=== PATIENT | male | born 1950 | race Caucasian/White ===

== ENCOUNTER → 2017-10-04 | Outpatient (CLI) | payer OTHER ==
--- NOTE | 2017-10-05 19:28 | RADIOLOGY REPORT (SQ) ---
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 TECHNIQUE: Blood glucose level was verified. Above dose of FDG was injected intravenously. 2-D seg mented attenuation correction images were obtained from the base of the skull to the midthighs. Nonc ontrast CT images were obtained for attenuation correction and fusion with emission images. CT image s were performed without oral or intravenous contrast and are not sensitive for parenchymal lesions. A series of overlapping emission PET images were obtained. Images reviewed and manipulated at [facility] by the radiologist. Images stored on PACS. LIMITATIONS: None. FINDINGS: HEAD AND NECK: Hypermetabolic adenopathy is seen in the submandibular region bilaterally. On the right, a 1.7 x 1.1 cm hypermetabolic lymph node is present with SUV 6.4. On the left, a 2.2 x 1 cm submandibular lymph node is present with SUV 6.2. There is a 2.1 x 1.8 cm left supraclavicular lymph node with SUV of 15. CHEST: Multiple chest wall nodules are present along the subcutaneous fat, the largest and most metab olically active is 2.1 x 1.4 cm in size on axial image 94 with SUV of 8.8. A hypermetabolic right axillary lymph node 2.7 x 0.9 cm is present with SUV 3.4. A 2.8 x 2.7 cm pretracheal lymph node is present with SUV 10.3. There is a diffuse rind of hypermetabolic tissue in the pericardium, measuring 2.5 cm in greatest thi ckness with SUV 8.6. ABDOMEN AND PELVIS: Retroperitoneal conglomerate adenopathy is present along the dorsal aspect of the inferior vena cava and right renal vein, 5.9 x 5.7 cm in size with SUV of 14. There is a left retroperitoneal mass dorsal to the lower pole left kidney, 4.4 x 3 cm in size with WATT V of 9. A 3 x 2.5 cm nodule is present just ventral to the abdominal aorta and vena cava at the root of mesen teries with SUV 10.7. Along the inferior right psoas muscle in the pelvis, a 5.5 x 5.3 cm soft tissue mass is present with SUV 11.3. A left inguinal lymph node is present adjacent to the internal inguinal ring, 2.2 x 1.8 cm in size wi th SUV of 10.2. PROXIMAL LOWER EXTREMITIES: No areas of abnormal metabolic activity in the soft tissues of the lower extremities. BONES: No abnormal metabolic activity in the visualized skeleton. ADDITIONAL CT FINDINGS: 2.5 cm left lower pole renal cortical cyst. 1.5 cm cyst left lobe liver. OTHER: Liver background activity 1.7 SUV. Blood pool background activity 1.2 SUV IMPRESSION: Soft tissue masses and adenopathy over the neck chest abdomen pelvis compatible with his tory of lymphoma TECHNICAL DOCUMENTATION: JOB ID: [id number] [employer] ([employer])- All Rights Reserved Reading location - IP/workstation name: [email or web address]
== END ==
LOC: RAD 16:00
PROVIDERS: ATTEND Internal Medicine
DX: C82.18 Follicular lymphoma grade II, lymph nodes of multiple sites (principal)
CPT/HCPCS: 78815; A9552

== ENCOUNTER 2017-11-05 08:04 | Outpatient (CLI) | payer OTHER ==
[~2017-11-05 08:04] MED LIST: ACETAMINOPHEN 325 MG TABLET PO PRN; BENDAMUSTINE HCL IV PRN; DEXAMETHASONE SOD PHOSPHATE 10 MG in DEXTROSE 5%-WATER 50 ML IV PRN; DEXAMETHASONE SOD PHOSPHATE 10 MG in NORMAL SALINE 50 ML IV PRN; DIPHENHYDRAMINE HCL 50 MG in NORMAL SALINE 50 ML IV PRN; NORMAL SALINE 1000 ML 1,000 ML IV PRN; NORMAL SALINE IV PRN; PALONOSETRON 0.25 MG/5 ML SDV IV PRN; RITUXIMAB IV PRN
[2017-11-05 09:28] VITALS: BP 116/66
[2017-11-05] MEDS ORDERED: DIPHENHYDRAMINE HCL 50 MG/ML VIAL ONE (12:50)
== END 2017-11-05 16:00 | disposition home or self-care (01) ==
LOC: II 08:04 → 5TH 08:10 → II 16:00
PROVIDERS: ATTEND Internal Medicine
PROC: 3E03305 Introduction of Other Antineoplastic into Peripheral Vein, Percutaneous Approach (ICD-10-PCS; principal; 2017-11-05)
PROC: 3E0330M Introduction of Antineoplastic, Monoclonal Antibody, into Peripheral Vein, Percutaneous Approach (ICD-10-PCS; 2017-11-05)
PROC: 3E0333Z Introduction of Anti-inflammatory into Peripheral Vein, Percutaneous Approach (ICD-10-PCS; 2017-11-05)
PROC: 3E033GC Introduction of Other Therapeutic Substance into Peripheral Vein, Percutaneous Approach (ICD-10-PCS; 2017-11-05)
DX: Z51.11 Encounter for antineoplastic chemotherapy (principal); C82.18 Follicular lymphoma grade II, lymph nodes of multiple sites
CPT/HCPCS: 96413; 96415; 96367; 96375; 96417; J1200; J7040; J9310 ×2; J1100; J9033; J2469; 96360

== ENCOUNTER 2017-11-06 07:52 | Outpatient (CLI) | payer OTHER ==
[~2017-11-06 07:52] MED LIST changes: -ACETAMINOPHEN 325 MG TABLET PO PRN; -DEXAMETHASONE SOD PHOSPHATE 10 MG in DEXTROSE 5%-WATER 50 ML IV PRN; -DEXAMETHASONE SOD PHOSPHATE 10 MG in NORMAL SALINE 50 ML IV PRN; -DIPHENHYDRAMINE HCL 50 MG in NORMAL SALINE 50 ML IV PRN; +ONDANSETRON HCL/PF 16 MG, DEXAMETHASONE SOD PHOSPHATE 10 MG in NORMAL SALINE 50 ML IV PRN; -PALONOSETRON 0.25 MG/5 ML SDV IV PRN; -RITUXIMAB IV PRN
[2017-11-06 08:23] VITALS: BP 129/78
== END 2017-11-06 10:30 | disposition home or self-care (01) ==
LOC: II 07:52 → 5TH 07:52 → II 10:30
PROVIDERS: ATTEND Internal Medicine
PROC: 3E03305 Introduction of Other Antineoplastic into Peripheral Vein, Percutaneous Approach (ICD-10-PCS; principal; 2017-11-06)
PROC: 3E0333Z Introduction of Anti-inflammatory into Peripheral Vein, Percutaneous Approach (ICD-10-PCS; 2017-11-06)
PROC: 3E033GC Introduction of Other Therapeutic Substance into Peripheral Vein, Percutaneous Approach (ICD-10-PCS; 2017-11-06)
DX: Z51.11 Encounter for antineoplastic chemotherapy (principal); C82.18 Follicular lymphoma grade II, lymph nodes of multiple sites
CPT/HCPCS: 96413; 96367; J2405; J7040; J1100; J9033; 96360

== ENCOUNTER 2017-11-15 11:41 | Inpatient (IN) | payer OTHER, MEDICARE ==
[2017-11-15] MEDS ORDERED: NORMAL SALINE 1000 ML 1,000 ML IV PRN ×3 (12:04→15:06)
[2017-11-15] MEDS ORDERED: PIPERACILLIN/TAZOBACTAM 4.5 GM VIAL IV ONE (12:13)
--- NOTE | 2017-11-15 12:25 | ER Document Report ---
ED Fever - General Chief Complaint: Fever Stated Complaint: BLOOD PRESSURE ISSUES Time Seen by Provider: 11/15/17 11:52 Mode of Arrival: Ambulatory Information source: Patient, Relative, DrRanulfo Office TRAVEL OUTSIDE OF THE [place] IN LAST 30 DAYS: No - HPI Onset: Yesterday - MILD WEAKNESS & VAGUE MALAISE 2d AGO Onset/Duration: Gradual Quality of pain: No pain Context: Cancer - NON-HODGKINS LYMPHOMA Associated symptoms: Fever, Sore throat, Sweating, Weakness. denies: Productive cough, Diarrhea, Vomiting Similar symptoms previously: Yes - YEARS AGO, SEVERE CMV INFECTIOON Recently seen / treated by doctor: Yes - CHEMO Tx 9d AGO - Related Data Allergies/Adverse Reactions: Sulfa (Sulfonamide Antibiotics) Allergy (Verified 11/15/17 11:42) Past Medical History - General Information source: Patient - Social History Smoking Status: Former Smoker Cigarette use (# per day): No Chew tobacco use (# tins/day): No Frequency of alcohol use: Occasional Drug Abuse: None Lives with: Family Family History: Arthritis, CAD, CVA, Hyperlipidemia, Hypertension, Malignancy Patient has suicidal ideation: No Patient has homicidal ideation: No - Past Medical History Cardiac Medical History: Reports: Hx Hypertension Pulmonary Medical History: Reports: None EENT Medical History: Reports: None Neurological Medical History: Reports: None Endocrine Medical History: Reports: None Renal/ Medical History: Reports: None Malignancy Medical History: Reports Hx Lymphoma, Reports Hx Skin Cancer GI Medical History: Reports: Hx Colonoscopy Musculoskeletal Medical History: Reports Hx Musculoskeletal Trauma - Sprained ankle Skin Medical History: Reports Hx Psoriasis Psychiatric Medical History: Reports: None Past Surgical History: Reports: Hx Oral Surgery, Hx Tonsillectomy - Immunizations Immunizations up to date: Yes Hx Diphtheria, Pertussis, Tetanus Vaccination: Yes Review of Systems - Review of Systems Constitutional: See HPI EENT: See HPI Cardiovascular: No symptoms reported Respiratory: No symptoms reported Gastrointestinal: Poor appetite. denies: Diarrhea Genitourinary: No symptoms reported Musculoskeletal: No symptoms reported Skin: No symptoms reported Neurological/Psychological: See HPI. denies: Headaches Physical Exam - Vital signs Vitals: Temp Pulse Resp BP Pulse Ox 99.2 F 81 20 72/50 L 99 11/15/17 11:50 11/15/17 11:50 11/15/17 11:50 11/15/17 11:50 11/15/17 11:50 Interpretation: Hypotensive, Tachycardic. No: Tachypneic, Febrile - General General appearance: Appears well, Alert In distress: None - HEENT Head: Normocephalic Eyes: Normal. No: Pale conjunctiva Conjunctiva: Normal Ears: Normal Nasal: Normal Mouth/Lips: Normal Mucous membranes: Normal Pharynx: Erythema - MILD Neck: Normal, Supple - Respiratory Respiratory status: No respiratory distress Breath sounds: Normal - Cardiovascular Rhythm: Irregularly irregular, Tachycardia Heart sounds: Normal auscultation Murmur: No - Abdominal Inspection: Normal Distension: No distension Bowel sounds: Normal - Back Back: Normal - Extremities General upper extremity: Other - PALLOR OF DISTAL 2 PHALANGES OF ALL FINGERS R. HAND, FINGERS #3 AND 4 L. HAND. No: Normal inspection Hand: No: Normal - SEE ABOVE - Neurological Neuro grossly intact: Yes Cognition: Normal Orientation: AAOx4 - Psychological Associated symptoms: Normal affect, Normal mood - Skin Skin Temperature: Warm Skin Moisture: Dry Skin Color: Normal Skin Turgor: Elastic Course - Vital Signs Vital signs: Temp Pulse Resp BP Pulse Ox 99.2 F 81 24 H 93/67 L 97 11/15/17 11:50 11/15/17 11:50 11/15/17 13:01 11/15/17 13:01 11/15/17 13:01 - Laboratory Result Diagrams: 11/15/17 12:10 11/15/17 12:10 Laboratory results interpreted by me: 11/15/17 11/15/17 11/15/17 12:10 12:10 12:10 WBC 13.1 H MCV 99 H MCH 34.1 H RDW 15.5 H Potassium 3.5 L BUN 26 H Creatinine 1.67 H Est GFR ( Amer) 50 L Est GFR (Non-Af Amer) 41 L Glucose 149 H Lactic Acid 2.6 H AST 65 H ALT 80 H Creatine Kinase 11/15/17 12:10 WBC MCV MCH RDW Potassium BUN Creatinine Est GFR ( Amer) Est GFR (Non-Af Amer) Glucose Lactic Acid AST ALT Creatine Kinase 33 L - EKG Interpretation by Me EKG shows normal: abnormal: Sinus rhythm, ST-T Waves - ANT/LAT REPOL ABNL, ? ISCHEMIC Rate: Tachycardia Rhythm: A.Fib - Consults DR. NAVARRETE Time consulted: 13:38 Consulted provider: will see as inpatient Will SALAS NP Time consulted: 13:44 Consulted provider: will come to ER Critical Care Note - Critical Care Note Total time excluding time spent on procedures (mins): 60 Comments: HYPOTENSION, INFECTION WITH UNKNOWN SOURCE, UNSTABLE CARDIAC RHYTHM. AGGRESSIVE INTERVENTIONS WITH INTRAVENOUS MEDICATIONS NECESSARY TO STABILIZE. FREQUENT RE-EVALUATIONS, MULTIPLE TELEPHONE CONSULTATIONS. Discharge - Discharge Clinical Impression: SIRS (systemic inflammatory response syndrome), Atrial fibrillation with rapid ventricular response Fever Qualifiers: Fever type: unspecified Qualified Code(s): R50.9 - Fever, unspecified Lymphoma Qualifiers: Lymphoma type: non-Hodgkin Non-Hodgkin lymphoma type: follicular Follicular lymphoma grade: unspecified grade Condition: Fair Disposition: ADMITTED INPATIENT Admitting Provider: Hospitalist Unit Admitted: [facility]
[2017-11-15 12:32] LABS: ABSOLUTE EOSINOPHILS # (AUTO) 0.3 10^3/uL (0.0-0.6); ABSOLUTE LYMPHOCYTES (AUTO) 4.4 10^3/uL (0.5-4.7); ABSOLUTE MONOCYTES (AUTO) 0.9 10^3/uL (0.1-1.4); ABSOLUTE NEUT (AUTO) 7.6 10^3/uL (1.7-8.2); BASOPHILS % (AUTO) 0.2 % (0-2); HEMATOCRIT 44.6 % (37.9-51.0); HEMOGLOBIN 15.4 g/dL (13.5-17.0); LYMPHOCYTES % (AUTO) 33.4 % (13-45); MEAN CORPUSCULAR HEMOGLOBIN 34.1 pg (27.0-33.4); MEAN CORPUSCULAR HGB CONC 34.5 g/dL (32.0-36.0); MEAN CORPUSCULAR VOLUME 99 fl (80-97); MONOCYTES % (AUTO) 6.6 % (3-13); PLATELET COUNT 156 10^3/uL (150-450); RED BLOOD COUNT 4.52 10^6/uL (4.35-5.55); RED CELL DISTRIBUTION WIDTH 15.5 % (11.5-14.0); SEGMENTED NEUTROPHILS % (AUTO) 57.8 % (42-78); TOTAL CELLS COUNTED % (AUTO) 100 %; WHITE BLOOD COUNT 13.1 10^3/uL (4.0-10.5)
--- NOTE | 2017-11-15 12:53 | RADIOLOGY REPORT (SQ) ---
EXAM DESCRIPTION: CHEST SINGLE VIEW COMPLETED DATE/TIME: 11/15/2017 12:34 pm REASON FOR STUDY: FEVER, NEUTROPENIA COMPARISON: 2016 CT. 2008 radiographs. NUMBER OF VIEWS: One view. TECHNIQUE: Single frontal radiographic view of the chest acquired. LIMITATIONS: None. FINDINGS: LUNGS AND PLEURA: No opacities, masses or pneumothorax. No pleural effusion. MEDIASTINUM AND HILAR STRUCTURES: No masses. Contour normal. HEART AND VASCULAR STRUCTURES: Heart normal in size. Normal vasculature. BONES: No acute findings. HARDWARE: None in the chest. OTHER: No other significant finding. IMPRESSION: NO SIGNIFICANT RADIOGRAPHIC FINDING IN THE CHEST. TECHNICAL DOCUMENTATION: JOB ID: [id number] [employer]- All Rights Reserved Reading location - IP/workstation name: [email or web address]
[2017-11-15 12:57] LABS: CREATINE KINASE MB 0.61 ng/mL (<4.55)
[2017-11-15 13:04] LABS: TROPONIN I 0.07 ng/mL
[2017-11-15 13:06] LABS: ALANINE AMINOTRANSFERASE 80 U/L (21-72); ALKALINE PHOSPHATASE 63 U/L (38-126); ANION GAP 12 (5-19); ASPARTATE AMINO TRANSFERASE 65 U/L (17-59); BILIRUBIN,DIRECT 0.3 mg/dL (0.0-0.4); BILIRUBIN,TOTAL 0.9 mg/dL (0.2-1.3); BLOOD UREA NITROGEN 26 mg/dL (7-20); CALCIUM 9.2 mg/dL (8.4-10.2); CARBON DIOXIDE 28 mmol/L (22-30); CHLORIDE 102 mmol/L (98-107); GLUCOSE 149 mg/dL (75-110); LIPASE 56.6 U/L (23-300); POTASSIUM 3.5 mmol/L (3.6-5.0); TOTAL PROTEIN 7.2 g/dL (6.3-8.2)
[2017-11-15] MEDS ORDERED: CEFEPIME 2 GM/D5W RTU 2 GM/50 ML RTUPB IV ONE ×2 (13:30→23:20)
[2017-11-15] MEDS ORDERED: VANCOMYCIN HCL INJ 1000 MG VIAL IV ONE (13:37)
[2017-11-15 14:59] LABS: APPEARANCE,URINE CLEAR; BILIRUBIN,URINE NEGATIVE (NEGATIVE); COLOR,URINE YELLOW; GLUCOSE, URINE NEGATIVE (NEGATIVE); KETONES,URINE NEGATIVE (NEGATIVE); LEUKOCYTE ESTERASE,URINE NEGATIVE (NEGATIVE); NITRITE,URINE NEGATIVE (NEGATIVE); PROTEIN,URINE NEGATIVE (NEGATIVE); UROBILINOGEN,URINE NEGATIVE mg/dL (<2.0)
[2017-11-15] MEDS ORDERED: NORMAL SALINE 1000 ML 2,000 ML IV ONE (15:14)
[2017-11-15] MEDS: ACETAMINOPHEN 325 MG TABLET PO PRN ×2 (16:27→22:56)
[2017-11-15] MEDS ORDERED: ENOXAPARIN SODIUM INJ 30 MG/0.3 ML DISP.SYRIN SUBCUT ONE (17:00)
--- NOTE | 2017-11-15 17:11 | PDOC H&P ---
History of Present Illness Admission Date/PCP: 11/15/17 14:00 NAHOMI LAWSON MD Patient complains of: WEAKNESS AND FEVER History of Present Illness: KRUPA VERMA is a 66 year old male who presented to the emergency department with a 3 day history of fever and weakness. The patient has a history of non- Hodgkin's lymphoma (followed by Dr. Crump) and received his first chemotherapy treatment 11/06/2017. The patient reports he was febrile and not feeling well on Thursday11/13/2017, was seen at Dr. Crump's office and sent home with a prescription for Levaquin. Shortly after taking his 1st dose of Levaquin, the patient developed an allergic reaction of hives covering his trunk and petechiae on his lower extremities. Patient stopped taking the Levaquin. Reports his fever and generalized weakness became worse over the weekend. The patient reports he took Tylenol and Benadryl in an attempt to alleviate his symptoms, but they offered no relief. The patient was unable to get out of bed today due to his weakness, this prompted the to bring him to the emergency department. PMH non-Hodgkin's lymphoma, HTN, squamous cell skin carcinoma, cytomegalovirus ( 15+ yrs ago) Upon arrival to the ED, the patient's vital signs were BP 72/50 HR 81 RR 20 T 99.2 SPO2 99%. EKG shows AFIB with RVR, inverted T waves in leads V1-V6. CXR benign. +leukocytosis (WBC 13.1). Creatinine 1.67. Lactate 2.6. Urinalysis negative. All other lab work benign. The patient endorses generalized weakness, dizziness upon standing, fever, chills, and a single episode of watery diarrhea this morning. He denies chest pain, SOB, abdominal pain, or N/V. In addition to his generalized weakness, the patient endorses urinary frequency since his chemotherapy treatment. Patient states he was placed on a medication (unknown name) by Dr. Mitchell that results in frequent urination. He states that over the last few days he has noticed burning upon initiation of urination. While in the ED, the patient was given 2 L IVF. Empiric antibiotic coverage was initiated with IV Zosyn, vancomycin and cefepime. Upon assessment, the patient is resting comfortably in bed on room air. He is awake, alert and oriented 3. He is able to answer all questions appropriately and speak in full sentences without pause. His lungs are clear to auscultation. Irregular pulse rate. No murmur/rubs/gallops. No evidence of peripheral edema. Abdomen is soft, NT/ND. + BS. While interviewing the patient, his SBP began dropping from 110->88. Initiated another 2L IVF bolus. Due to his tenuous VS and overall unstable septic presentation, plan to admit patient to ICU. Past Medical History Cardiac Medical History: Reports: Hypertension Pulmonary Medical History: Reports: None EENT Medical History: Reports: None Neurological Medical History: Reports: None Endocrine Medical History: Reports: None Renal/ Medical History: Reports: None Malignancy Medical History: Reports: Lymphoma - NON-HODGKINS, Skin Cancer Skin Medical History: Reports: Psoriasis Psychiatric Medical History: Reports: None Past Surgical History Past Surgical History: Reports: Tonsillectomy, Other - SKIN BIOPSY Social History Information Source: Patient Lives with: Family Smoking Status: Former Smoker - 50 YEARS Frequency of Alcohol Use: Occasional Amount of Alcoholic Beverages Per Day: 1 Hx Recreational Drug Use: No Drugs: None Hx Prescription Drug Abuse: No - Advance Directive Resuscitation Status: Full Code Family History Family History: Arthritis, CAD, CVA, Hyperlipidemia, Hypertension, Malignancy Parental Family History Reviewed: Yes - HEART DISEASE Children Family History Reviewed: NA Sibling(s) Family History Reviewed.: Yes Medication/Allergy Home Medications: Allopurinol [Zyloprim 100 mg Tablet] 100 mg PO TID 11/15/17 Aspirin [Ecotrin 81 mg EC Tablet] 81 mg PO DAILY 11/15/17 Folic Acid 0.4 mg PO DAILY 11/15/17 Hydrocodone/Acetaminophen [Henderson 5-325 mg Tablet] 1 tab PO Q8HP PRN 11/15/17 Levofloxacin [Levaquin 500 mg Tablet] 500 mg PO DAILY 11/15/17 Losartan/Hydrochlorothiazide [Hyzaar 50-12.5 Tablet] 1 tab PO DAILY 11/15/17 Ondansetron HCl [Zofran 8 mg Tablet] 8 mg PO Q8 11/15/17 Promethazine HCl [Phenergan 25 mg Tablet] 25 mg PO Q4 11/15/17 Vitamin B Complex 1 cap PO DAILY 11/15/17 Allergies/Adverse Reactions: Sulfa (Sulfonamide Antibiotics) Allergy (Verified 11/15/17 11:42) Review of Systems All systems: reviewed and no additional remarkable complaints except as stated Physical Exam Vital Signs: Temp Pulse Resp BP Pulse Ox 99.2 F 81 20 96/67 L 97 11/15/17 11:50 11/15/17 11:50 11/15/17 14:31 11/15/17 14:31 11/15/17 14:31 Intake & Output 11/14/17 11/15/17 11/16/17 06:59 06:59 06:59 Intake Total 1050 Balance 1050 General appearance: PRESENT: no acute distress Head exam: PRESENT: atraumatic Eye exam: PRESENT: conjunctiva pink, PERRLA Mouth exam: PRESENT: moist Neck exam: PRESENT: full ROM Respiratory exam: PRESENT: clear to auscultation abad, symmetrical, unlabored Cardiovascular exam: PRESENT: irregular rhythm - AFIB WITH RVR, tachycardia. ABSENT: systolic murmur Pulses: PRESENT: normal radial pulses, normal dorsalis pedis pul GI/Abdominal exam: PRESENT: normal bowel sounds, soft. ABSENT: tenderness Rectal exam: PRESENT: deferred Extremities exam: PRESENT: full ROM. ABSENT: joint swelling, pedal edema Musculoskeletal exam: PRESENT: ambulatory, full ROM Neurological exam: PRESENT: alert, awake, oriented to person, oriented to place , oriented to time, oriented to situation, normal gait Psychiatric exam: PRESENT: appropriate affect Skin exam: PRESENT: dry, intact, normal color, warm Results Laboratory Results: 11/15/17 14:40 Urine Color YELLOW Urine Appearance CLEAR Urine pH 5.0 Ur Specific [place] 1.020 Urine Protein NEGATIVE Urine Glucose (UA) NEGATIVE Urine Ketones NEGATIVE Urine Blood SMALL H Urine Nitrite NEGATIVE Ur Leukocyte Esterase NEGATIVE Urine WBC (Auto) 3 Urine RBC (Auto) 3 Impressions: Chest X-Ray 11/15/17 12:03 IMPRESSION: NO SIGNIFICANT RADIOGRAPHIC FINDING IN THE CHEST. Status: Imported from PACS Assessment & Plan - Diagnosis (1) Sepsis Is this a current diagnosis for this admission?: Yes Plan: As evidence by fever (TMAX 104 at home), leukocytosis (WBC 13), tachycardia (110 -125), HYPOtension (SBP 88-95), and lactate 2.6 Unclear etiology at this time - no recent illness or ill contacts Differential diagnoses include - opportunistic infection in an immunosupressed patient, gastroenteritis, reoccurrence of latent cytomegalovirus Blood cultures pending CXR benign UA negative Stool culture ordered Empiric antibiotic coverage with Cefepime and Vancomycin Resuscitated with 4L IVF in ED Continue with LR @ 150mL/hr Plan for use of vasopressors if MAP < 60 (2) Atrial fibrillation with rapid ventricular response Is this a current diagnosis for this admission?: Yes Plan: No known history of AFIB, not on anticoagulation Arrhythmia possibly in response to sepsis, could also be undiagnosed AFIB. Patient reports he has not had en EKG in 'a number of years' EKG shows AFIB with RVR - HR 110-125. Inverted T waves in leads V1-V6. Troponin 0.070, continue to trend q6hr x 3 Cardiology consulted, appreciate their recommendations Due to elevated HR, plan for CTA chest to evaluate for PE once Creatinine is < 1.5 Initiate Lovenox 1mg/kg SC now (3) Lymphoma Qualifiers: Lymphoma type: non-Hodgkin Non-Hodgkin lymphoma type: follicular Follicular lymphoma grade: unspecified grade Is this a current diagnosis for this admission?: Yes Plan: History of non-Hodgkin's lymphoma Started chemotherapy 11/06/[address] Crump, appreciate his recommendations (4) ARF (acute renal failure) Qualifiers: Acute renal failure type: unspecified Qualified Code(s): N17.9 - Acute kidney failure, unspecified Is this a current diagnosis for this admission?: Yes Plan: Secondary to dehydration and HYPOtension stemming from sepsis Creatinine 1.67, baseline 1.0 Treat with IVF -resuscitated with 4 L IV in the ED, continue maintenance IVF Patient able to void without difficulty - Time Time Spent: 50 to 70 Minutes Critical Time spent with patient: 15-24 minutes Medications reviewed and adjusted accordingly: Yes - Inpatient Certification Based on my medical assessment, after consideration of the patient's comorbidities, presenting symptoms, or acuity I expect that the services needed warrant INPATIENT care.: Yes I certify that my determination is in accordance with my understanding of Medicare's requirements for reasonable and necessary INPATIENT services [42 CFR 412.3e].: Yes Medical Necessity: Need for IV Antibiotics, Risk of Complication if Not Cared For in Hospital - Plan Summary Plan Summary: ADMIT TO ICU. 2L BOLUS NOW. MAINTENANCE IVF. EMPIRIC ABX COVERAGE.
[2017-11-15] MEDS ORDERED: VANCOMYCIN HCL 0 MG in DEXTROSE 5%-WATER 250 ML IV NR (17:30)
[2017-11-15] MEDS ORDERED: NORMAL SALINE 1000 ML 1,000 ML IV ONE (17:56)
[2017-11-15] MEDS ORDERED: DIGOXIN INJ 0.5 MG/2 ML AMPULE IV ONE (18:30)
--- NOTE | 2017-11-15 18:31 | EKG REPORT ---
SEVERITY:- ABNORMAL ECG - ATRIAL FIBRILLATION REPOL ABNRM, PROBABLE ISCHEMIA, ANT-LAT LEADS : Confirmed by: Roxana Carmona MD 15-Nov-2017 18:30:15
[2017-11-15] MEDS: ALLOPURINOL 100 MG TABLET PO SCH (18:53)
--- NOTE | 2017-11-15 19:20 | PDOC CONSULTATION ---
Consultation Consult Date: 11/15/17 Attending physician:: CIRILO ERVIN Consult reason:: Atrial fibrillation with RVR History of Present Illness Admission Date/PCP: 11/15/17 14:00 NAHOMI LAWSON MD Patient complains of: Fever and chills History of Present Illness: KRUPA VERMA is a 66 year old male who presented to the emergency department with a 3 day history of fever and weakness. The patient has a history of non- Hodgkin's lymphoma (followed by Dr. Crump) and received his first chemotherapy treatment 11/06/2017. The patient reports he was febrile and not feeling well on Thursday11/13/2017, was seen at Dr. Crump's office and sent home with a prescription for Levaquin. Shortly after taking his 1st dose of Levaquin, the patient developed an allergic reaction of hives covering his trunk and petechiae on his lower extremities. Patient stopped taking the Levaquin. Reports his fever and generalized weakness became worse over the weekend. The patient reports he took Tylenol and Benadryl in an attempt to alleviate his symptoms, but they offered no relief. The patient was unable to get out of bed today due to his weakness, this prompted the to bring him to the emergency department. PMH non-Hodgkin's lymphoma, HTN, squamous cell skin carcinoma, cytomegalovirus ( 15+ yrs ago) Upon arrival to the ED, the patient's vital signs were BP 72/50 HR 81 RR 20 T 99.2 SPO2 99%. EKG shows AFIB with RVR, inverted T waves in leads V1-V6. CXR benign. +leukocytosis (WBC 13.1). Creatinine 1.67. Lactate 2.6. Urinalysis negative. All other lab work benign. The patient endorses generalized weakness, dizziness upon standing, fever, chills, and a single episode of watery diarrhea this morning. He denies chest pain, SOB, abdominal pain, or N/V. In addition to his generalized weakness, the patient endorses urinary frequency since his chemotherapy treatment. Patient states he was placed on a medication (unknown name) by Dr. Mitchell that results in frequent urination. He states that over the last few days he has noticed burning upon initiation of urination. While in the ED, the patient was given 2 L IVF. Empiric antibiotic coverage was initiated with IV Zosyn, vancomycin and cefepime. Upon assessment, the patient is resting comfortably in bed on room air. He is awake, alert and oriented 3. He is able to answer all questions appropriately and speak in full sentences without pause. His lungs are clear to auscultation. Irregular pulse rate. No murmur/rubs/gallops. No evidence of peripheral edema. Abdomen is soft, NT/ND. + BS. While interviewing the patient, his SBP began dropping from 110->88. Initiated another 2L IVF bolus. Due to his tenuous VS and overall unstable septic presentation, plan to admit patient to ICU. This history obtained by the hospitalist was reviewed. Patient's interviewed as well as patient. They give history of cytomegalovirus infection in the past and they are somewhat concerned about recurrence of it as patient presentation, they claim is similar. Patient denied any prior history of heart problems such as myocardial infarction, angina, CHF. No prior history of atrial fibrillation. As noted above patient just started chemotherapy. Past Medical History Cardiac Medical History: Reports: Hypertension Pulmonary Medical History: Reports: None EENT Medical History: Reports: None Neurological Medical History: Reports: None Endocrine Medical History: Reports: None Renal/ Medical History: Reports: None Malignancy Medical History: Reports: Lymphoma - NON-HODGKINS, Skin Cancer Skin Medical History: Reports: Psoriasis Psychiatric Medical History: Reports: None Past Surgical History Past Surgical History: Reports: Tonsillectomy, Other - SKIN BIOPSY Social History Information Source: Patient Lives with: Family Smoking Status: Former Smoker - 50 YEARS Frequency of Alcohol Use: Occasional Hx Recreational Drug Use: No Drugs: None Hx Prescription Drug Abuse: No - Advance Directive Resuscitation Status: Full Code Surrogate healthcare decision maker:: Patient's is the surrogate decision-maker Family History Family History: Arthritis, CAD, CVA, Hyperlipidemia, Hypertension, Malignancy Parental Family History Reviewed: Yes Children Family History Reviewed: Yes Sibling(s) Family History Reviewed.: Yes Medication/Allergy Home Medications: Allopurinol [Zyloprim 100 mg Tablet] 100 mg PO TID 11/15/17 Aspirin [Ecotrin 81 mg EC Tablet] 81 mg PO DAILY 11/15/17 Folic Acid 0.4 mg PO DAILY 11/15/17 Hydrocodone/Acetaminophen [[place] 5-325 mg Tablet] 1 tab PO Q8HP PRN 11/15/17 Levofloxacin [Levaquin 500 mg Tablet] 500 mg PO DAILY 11/15/17 Losartan/Hydrochlorothiazide [Hyzaar 50-12.5 Tablet] 1 tab PO DAILY 11/15/17 Ondansetron HCl [Zofran 8 mg Tablet] 8 mg PO Q8 11/15/17 Promethazine HCl [Phenergan 25 mg Tablet] 25 mg PO Q4 11/15/17 Vitamin B Complex 1 cap PO DAILY 11/15/17 Allergies/Adverse Reactions: levofloxacin Allergy (Mild, Verified 11/15/17 17:59) rash Sulfa (Sulfonamide Antibiotics) Allergy (Verified 11/15/17 11:42) Review of Systems Review of Systems: Please see history of present illness and past medical history as wall. Constitutional: High-grade fever and chills reported. Head : No recent chronic headaches, recent head injury. Eyes: No recent eye pain, diplopia, redness, discharge, acute visual changes. Ears: No recent chronic ear pain, acute hearing loss, ear discharge. Oral cavity: No recent ulcerations, bleeding, oral cavity discomfort. Neck: No recent acute neck pain reported. Hematologic: No recent easy bruising or bleeding. Recent petechial rash reported Lymphatic: History of lymphoma and mass in the abdomen. Cardiovascular system review: See history of present illness. Respiratory system review: No hemoptysis or blood clots in the lungs reported. Mild Shortness of breath on exertion Gastrointestinal system review: Negative for any recent acute hematemesis, melena. Genitourinary system review: No recent acute or chronic hematuria, flank pain, UTI etc. reported. Skin system review: Negative for any recent abnormal bruising, no rash, no pruritus reported. Neurologic: No prior history of strokes, mini strokes, seizure disorder. Psychologic: No history of major psychosis or major depression reported. Musculoskeletal: Minor aches and pains reported. No acute joint swelling reported. Endocrine: No recent polyuria, polydipsia, recent heat or cold intolerance. Physical Exam Vital Signs: Temp Pulse Resp BP Pulse Ox 98.1 F 109 H 23 H 85/60 L 99 11/15/17 16:42 11/15/17 16:42 11/15/17 18:00 11/15/17 17:52 11/15/17 18:00 Intake & Output 11/14/17 11/15/17 11/16/17 06:59 06:59 06:59 Intake Total 1050 Output Total 280 Balance 770 Weight 75.2 kg Exam: GENERAL: well-nourished and in no acute distress. Alert and oriented x3. Patient noted generally weak and flushed. HEAD: Atraumatic, normocephalic. EYES: Pupils equal round and reactive to light, extraocular movements intact, sclera anicteric, conjunctiva are normal. ENT: TMs normal, nares patent, oropharynx clear without exudates. Moist mucous membranes. No oral ulcerations or bleeding gums noted NECK: supple without lymphadenopathy. Trachea is central. No cervical or axillary lymphadenopathy noted. Carotids are 2+, JVD WNL LUNGS: Respiration seems nonlabored, no significant accessory muscle action noted. Breath sounds clear to auscultation bilaterally and equal noted. No wheezes rales or rhonchi noted. No significant dullness noted on percussion. CHEST: Palpation of the chest wall shows no significant chest wall tenderness. HEART: [employer], No PSH, 1/6 ADA aortic area, 1/6 hood systolic murmur mitral area, no rubs, no gallops. ABDOMEN: Soft, no significant tenderness appreciated, normoactive bowel sounds. No guarding, no rebound. No rigidity noted . No masses appreciated. EXTREMITIES: Pedal pulses are 1-2+, no calf tenderness noted. No clubbing or cyanosis. negative pedal edema noted NEUROLOGICAL: Focused neurological exam showed no significant neurologic deficit. Normal speech, no focal weakness appreciated. PSYCH: Normal mood, normal affect. Judgment and insight within normal limits. SKIN: No significant ecchymosis, skin is noted to be warm. MUSCULOSKELETAL EXAM: No significant acute joint swelling noted. Results Laboratory Results: 11/15/17 11/15/17 14:40 16:20 Lactic Acid 1.7 Urine Color YELLOW Urine Appearance CLEAR Urine pH 5.0 Ur Specific [place] 1.020 Urine Protein NEGATIVE Urine Glucose (UA) NEGATIVE Urine Ketones NEGATIVE Urine Blood SMALL H Urine Nitrite NEGATIVE Ur Leukocyte Esterase NEGATIVE Urine WBC (Auto) 3 Urine RBC (Auto) 3 11/15/17 15:56 Troponin I 0.065 EKG Comments: LVH with secondary ST-T wave changes. Cannot rule out ischemia. Impressions: Chest X-Ray 11/15/17 12:03 IMPRESSION: NO SIGNIFICANT RADIOGRAPHIC FINDING IN THE CHEST. Assessment & Plan - Diagnosis (1) Atrial fibrillation with rapid ventricular response Is this a current diagnosis for this admission?: Yes (2) Lymphoma Qualifiers: Lymphoma type: non-Hodgkin Non-Hodgkin lymphoma type: follicular Follicular lymphoma grade: unspecified grade Is this a current diagnosis for this admission?: Yes (3) SIRS (systemic inflammatory response syndrome) Is this a current diagnosis for this admission?: Yes (4) Sepsis Qualifiers: Sepsis type: sepsis due to unspecified organism Qualified Code(s): A41.9 - Sepsis, unspecified organism Is this a current diagnosis for this admission?: Yes (5) Acute kidney injury Is this a current diagnosis for this admission?: Yes (6) Hypertension Qualifiers: Hypertension type: essential hypertension Qualified Code(s): I10 - Essential (primary) hypertension Is this a current diagnosis for this admission?: Yes (7) Abnormal electrocardiogram Is this a current diagnosis for this admission?: Yes - Notes Notes: Atrial fibrillation with rapid ventricular response: Possibly related to sepsis , could also be related to recent chemotherapy, at this point would recommend rate control. Chronic anticoagulation to be decided at a later date. Patient' s chads score is just 2. For rate control have given patient digoxin 0.5 mg IV , recommend 0.25 mg IV in 4 hours and then 0.125 mg IV daily. Once blood pressure improved, IV beta blockers or Cardizem could be used. Currently patient does not need emergency cardioversion since blood pressure is staying stable. Hypertension: Blood pressure on the low side. Agree with IV fluid boluses and holding antihypertensive. Lymphoma: Patient being adequately managed by hematology oncologist. Systemic inflammatory syndrome: Patient seems to have this based on clinical presentation. Sepsis: Patient probably has this but could well be tumor lytic syndrome. Lactate level is high. Acute kidney injury: Related to metabolic reasons, relative hypovolemia. Recommend fluid resuscitation. Abnormal electrocardiogram: Possibly related to hypertension and LVH. 2D echo shows well-preserved LVEF. - Time Time Spent: 30 to 50 Minutes - CODE STATUS was discussed, patient remains full code. Surrogate decision-maker unchanged. Multiple medical problems were addressed. More than 50% of the time spent coordinating care, discussing management plans with involved caregivers. Management plans discussed with involved personnels. Medical decision making was of moderate to high complexity , patient's has multiple comorbidities. Medications reviewed and adjusted accordingly: Yes
--- NOTE | 2017-11-15 19:37 | XCELERA REPORT ---
[address] [address] Transthoracic Echocardiogram Report Name: KRUPA VERMA Age: 66 yrs Gender: Male : 1950 Patient Status: Inpatient Patient Location: ICU^1^A Study Date: 11/15/2017 06:44 PM Procedure: A complete two-dimensional transthoracic echocardiogram was performed (2D, M-mode, spectral and color flow Doppler). The study was technically adequate with some images being suboptimal in quality. Reason For Study: new onset a-fib Ordering Physician: SHANTHI YU Performed By: Cara Garcia Interpretation Summary The left ventricular ejection fraction is normal. There is borderline concentric left ventricular hypertrophy. The left ventricle is grossly normal size. No regional wall motion abnormalities noted. The right ventricular systolic function is normal. The left atrium is mildly dilated. The right atrium is normal in size There is a trace amount of mitral regurgitation There is no mitral valve stenosis. No aortic regurgitation is present. There is no aortic valve stenosis There is no tricuspid stenosis. No tricuspid regurgitation. The aortic root is not well visualized but is probably normal size. The inferior vena cava was not well visualized There is no pericardial effusion. MMode/2D Measurements & Calculations RVDd: 3.1 cm LVIDd: 5.3 cm FS: 34.0 % Ao root diam: 3.0 cm IVSd: 0.86 cm LVIDs: 3.5 cm EDV(Teich): 137.9 mlAo root area: 7.2 cm2 LVPWd: 0.80 cmESV(Teich): 51.9 ml EF(Teich): 62.4 % LVOT diam: 1.6 cm LVOT area: 1.9 cm2 Doppler Measurements & Calculations MV E max frederic: MV dec slope: Ao V2 max: LV V1 max P.6 cm/sec 142.4 cm/sec 3.6 mmHg MV A max frederic: 612.5 cm/sec2 Ao max PG: LV V1 max: 25.8 cm/sec MV dec time: 8.1 mmHg 95.3 cm/sec MV E/A: 3.6 0.15 sec BK(V,D): 1.3 cm2 PA V2 max: 96.0 cm/sec PA max P.7 mmHg Left Ventricle The left ventricle is grossly normal size. There is borderline concentric left ventricular hypertrophy. The left ventricular ejection fraction is normal. LV diastolic function could not be adequately assessed due to atrial fibrilation. No regional wall motion abnormalities noted. Right Ventricle The right ventricle is grossly normal size. There is normal right ventricular wall thickness. The right ventricular systolic function is normal. Atria The right atrium is normal in size. The left atrium is mildly dilated. Interarterial septum not well visualized and not well dopplered. Cannot comment on ASD/PFO presence. Mitral Valve The mitral valve is grossly normal. There is no mitral valve stenosis. There is a trace amount of mitral regurgitation. Aortic Valve The aortic valve is grossly normal. There is no aortic valve stenosis. No aortic regurgitation is present. Tricuspid Valve The tricuspid valve is not well visualized, but is grossly normal. There is no tricuspid stenosis. No tricuspid regurgitation. Pulmonic Valve The pulmonic valve is not well visualized. Great Vessels The aortic root is not well visualized but is probably normal size. The inferior vena cava was not well visualized. Effusions There is no pericardial effusion. : SHANTHI YU > Shanthi Yu
[2017-11-15] MEDS: ENOXAPARIN SODIUM INJ 80 MG/0.8 ML DISP.SYRIN SUBCUT SCH (22:56)
[2017-11-15] MEDS: RINGERS SOLUTION,LACTATED 1,000 ML IV PRN (23:04)
[2017-11-15] MEDS: CEFEPIME 2 GM/D5W RTU 2 GM/50 ML RTUPB IV SCH (23:34)
[2017-11-16] MEDS ORDERED: ONDANSETRON 4 MG TAB.RAPDIS PO PRN (00:50)
[2017-11-16 03:46] LABS: ABSOLUTE EOSINOPHILS # (AUTO) 0.2 10^3/uL (0.0-0.6); ABSOLUTE LYMPHOCYTES (AUTO) 2.4 10^3/uL (0.5-4.7); ABSOLUTE MONOCYTES (AUTO) 0.7 10^3/uL (0.1-1.4); ABSOLUTE NEUT (AUTO) 5.6 10^3/uL (1.7-8.2); BASOPHILS % (AUTO) 0.4 % (0-2); EOSINOPHILS % (AUTO) 2.5 % (0-6); HEMATOCRIT 31.9 % (37.9-51.0); MEAN CORPUSCULAR HEMOGLOBIN 34.8 pg (27.0-33.4); MEAN CORPUSCULAR HGB CONC 34.8 g/dL (32.0-36.0); MEAN CORPUSCULAR VOLUME 100 fl (80-97); MONOCYTES % (AUTO) 7.9 % (3-13); PLATELET COUNT 102 10^3/uL (150-450); RED BLOOD COUNT 3.18 10^6/uL (4.35-5.55); RED CELL DISTRIBUTION WIDTH 15.3 % (11.5-14.0); SEGMENTED NEUTROPHILS % (AUTO) 62.2 % (42-78); TOTAL CELLS COUNTED % (AUTO) 100 %
[2017-11-16 03:48] LABS: HEMOGLOBIN 11.1 g/dL (13.5-17.0)
[2017-11-16 03:51] LABS: INTERNATIONAL RATION (INR) 1.21; PROTHROMBIN TIME 15.9 SEC (11.4-15.4)
[2017-11-16 04:18] LABS: ALANINE AMINOTRANSFERASE 81 U/L (21-72); ALBUMIN 2.4 g/dL (3.5-5.0); ALKALINE PHOSPHATASE 41 U/L (38-126); ANION GAP 8 (5-19); ASPARTATE AMINO TRANSFERASE 55 U/L (17-59); BILIRUBIN,DIRECT 0.3 mg/dL (0.0-0.4); BILIRUBIN,TOTAL 0.7 mg/dL (0.2-1.3); BLOOD UREA NITROGEN 16 mg/dL (7-20); CALCIUM 7.3 mg/dL (8.4-10.2); CARBON DIOXIDE 20 mmol/L (22-30); CHLORIDE 113 mmol/L (98-107); GLUCOSE 100 mg/dL (75-110); POTASSIUM 3.8 mmol/L (3.6-5.0); SODIUM 141.4 mmol/L (137-145); TOTAL PROTEIN 4.6 g/dL (6.3-8.2)
[2017-11-16] MEDS: ACETAMINOPHEN 325 MG TABLET PO PRN ×3 (05:11→20:28)
[2017-11-16] MEDS: LANSOPRAZOLE 30 MG TAB.RAP.DR PO SCH ×2 (05:11→17:06)
[2017-11-16] MEDS: RINGERS SOLUTION,LACTATED 1,000 ML IV PRN (06:23)
[2017-11-16 06:33] LABS: APPEARANCE,URINE CLEAR; BILIRUBIN,URINE NEGATIVE (NEGATIVE); COLOR,URINE YELLOW; GLUCOSE, URINE NEGATIVE (NEGATIVE); KETONES,URINE NEGATIVE (NEGATIVE); LEUKOCYTE ESTERASE,URINE NEGATIVE (NEGATIVE); NITRITE,URINE NEGATIVE (NEGATIVE); PROTEIN,URINE NEGATIVE (NEGATIVE); URINE SPECIFIC GRAVITY 1.014; UROBILINOGEN,URINE NEGATIVE mg/dL (<2.0)
--- NOTE | 2017-11-16 08:20 | PDOC CONSULTATION ---
Consultation Consult Date: 11/16/17 Attending physician:: CIRILO ERVIN Consult reason:: Known history of stage III follicular lymphoma status post cycle #2 of chemotherapy here with fever, hypotension, tachycardia History of Present Illness Admission Date/PCP: 11/15/17 14:00 NAHOMI LAWSON MD Patient complains of: Shortness of breath, weakness, fever History of Present Illness: KRUPA VERMA is a 66 year old male who has known history of stage III follicular lymphoma, he received cycle #2 of Treanda/Rituxan about 10 days ago. Initially called me Thursday night, at that time he was having fever up to 102, but his vital signs are generally stable, and I started him on Levaquin 500 mg orally daily, and gave instructions for antipyretics. Of note he did have blood counts done on which indicated an elevated white count but ANC was well over 1000. Unfortunately about 6 hours after taking the Levaquin he noticed a diffuse rash on the skin. Thereafter on Thursday we gave instructions to stop the Levaquin and monitor his fevers and clinical status, he was stable throughout Thursday but on Thursday he began to worsen with increasing hypotension, weakness, tachycardia, and the fever was up to 103. We gave instructions to come to the ED. Upon presentation to the ED he was found to be in rapid A. fib, he was also found to have fever, hypertension and fit criteria for SIRS. He was given aggressive fluid hydration, and admitted to the ICU. He was found to be in mild acute renal failure with a creatinine of 1.6, his lactic acid was elevated upon admission. He was given broad-spectrum antibiotics with cefepime and vancomycin. Cultures are pending currently. He feels much better today. His fever is down. His heart rate is now controlled. Cardiology has been involved. Past Medical History Cardiac Medical History: Reports: Hypertension Pulmonary Medical History: Reports: None EENT Medical History: Reports: None Neurological Medical History: Reports: None Endocrine Medical History: Reports: None Renal/ Medical History: Reports: None Malignancy Medical History: Reports: Lymphoma - NON-HODGKINS, Skin Cancer Skin Medical History: Reports: Psoriasis Psychiatric Medical History: Reports: None Past Surgical History Past Surgical History: Reports: Tonsillectomy, Other - SKIN BIOPSY Social History Information Source: Patient Lives with: Family Smoking Status: Former Smoker - 50 YEARS Frequency of Alcohol Use: Occasional Hx Recreational Drug Use: No Drugs: None Hx Prescription Drug Abuse: No - Advance Directive Resuscitation Status: Full Code Family History Family History: Arthritis, CAD, CVA, Hyperlipidemia, Hypertension, Malignancy Parental Family History Reviewed: Yes Children Family History Reviewed: Yes Sibling(s) Family History Reviewed.: Yes Medication/Allergy Home Medications: Allopurinol [Zyloprim 100 mg Tablet] 100 mg PO TID 11/15/17 Aspirin [Ecotrin 81 mg EC Tablet] 81 mg PO DAILY 11/15/17 Folic Acid 0.4 mg PO DAILY 11/15/17 Hydrocodone/Acetaminophen [[place] 5-325 mg Tablet] 1 tab PO Q8HP PRN 11/15/17 Levofloxacin [Levaquin 500 mg Tablet] 500 mg PO DAILY 11/15/17 Losartan/Hydrochlorothiazide [Hyzaar 50-12.5 Tablet] 1 tab PO DAILY 11/15/17 Methotrexate Sodium [Rheumatrex 2.5 mg Tablet] 11/15/17 Ondansetron HCl [Zofran 8 mg Tablet] 8 mg PO Q8 11/15/17 Promethazine HCl [Phenergan 25 mg Tablet] 25 mg PO Q4 11/15/17 Vitamin B Complex 1 cap PO DAILY 11/15/17 Allergies/Adverse Reactions: levofloxacin Allergy (Mild, Verified 11/15/17 17:59) rash Sulfa (Sulfonamide Antibiotics) Allergy (Verified 11/15/17 11:42) Review of Systems Constitutional: PRESENT: anorexia, fatigue, fever(s), night sweats, weakness Cardiovascular: PRESENT: dyspnea on exertion, palpitations Gastrointestinal: ABSENT: abdominal pain, constipation, diarrhea, hematemesis, hematochezia, nausea, vomiting Musculoskeletal: PRESENT: muscle weakness Integumentary: PRESENT: diaphoresis Neurological: PRESENT: weakness Hematologic/Lymphatic: PRESENT: lymphadenopathy Physical Exam Vital Signs: Temp Pulse Resp BP Pulse Ox 98.8 F 75 16 99/61 L 99 11/16/17 07:48 11/16/17 07:48 11/16/17 07:48 11/16/17 07:48 11/16/17 07:48 Intake & Output 11/15/17 11/16/17 11/17/17 06:59 06:59 06:59 Intake Total 2050 Output Total 1365 Balance 685 Weight 76.5 kg General appearance: PRESENT: no acute distress, well-developed, well-nourished Head exam: PRESENT: atraumatic, normocephalic Eye exam: PRESENT: conjunctiva pink, EOMI, PERRLA. ABSENT: scleral icterus Ear exam: PRESENT: normal external ear exam Mouth exam: PRESENT: moist, tongue midline Neck exam: ABSENT: carotid bruit, JVD, lymphadenopathy, thyromegaly Respiratory exam: PRESENT: clear to auscultation abad. ABSENT: rales, rhonchi, wheezes Cardiovascular exam: PRESENT: RRR. ABSENT: diastolic murmur, rubs, systolic murmur Pulses: PRESENT: normal dorsalis pedis pul Vascular exam: PRESENT: normal capillary refill GI/Abdominal exam: PRESENT: normal bowel sounds, soft. ABSENT: distended, guarding, mass, organolmegaly, rebound, tenderness Rectal exam: PRESENT: deferred Extremities exam: PRESENT: full ROM. ABSENT: calf tenderness, clubbing, pedal edema Neurological exam: PRESENT: alert, awake, oriented to person, oriented to place , oriented to time, oriented to situation, CN II-XII grossly intact. ABSENT: motor sensory deficit Psychiatric exam: PRESENT: appropriate affect, normal mood. ABSENT: homicidal ideation, suicidal ideation Skin exam: PRESENT: dry, intact, warm. ABSENT: cyanosis, rash Results Laboratory Results: 11/16/17 03:16 11/16/17 03:16 11/15/17 11/15/17 11/16/17 14:40 16:20 03:16 WBC 9.0 RBC 3.18 L Hgb 11.1 L D Hct 31.9 L MCV 100 H MCH 34.8 H MCHC 34.8 RDW 15.3 H Plt Count 102 L Seg Neutrophils % 62.2 Lymphocytes % 27.0 Monocytes % 7.9 Eosinophils % 2.5 Basophils % 0.4 Absolute Neutrophils 5.6 Absolute Lymphocytes 2.4 Absolute Monocytes 0.7 Absolute Eosinophils 0.2 Absolute Basophils 0.0 Sodium Potassium Chloride Carbon Dioxide Anion Gap BUN Creatinine Est GFR ( Amer) Est GFR (Non-Af Amer) Glucose Lactic Acid 1.7 Calcium Total Bilirubin AST ALT Alkaline Phosphatase Total Protein Albumin TSH Urine Color YELLOW Urine Appearance CLEAR Urine pH 5.0 Ur Specific [place] 1.020 Urine Protein NEGATIVE Urine Glucose (UA) NEGATIVE Urine Ketones NEGATIVE Urine Blood SMALL H Urine Nitrite NEGATIVE Ur Leukocyte Esterase NEGATIVE Urine WBC (Auto) 3 Urine RBC (Auto) 3 11/16/17 11/16/17 11/16/17 03:16 03:16 06:10 WBC RBC Hgb Hct MCV MCH MCHC RDW Plt Count Seg Neutrophils % Lymphocytes % Monocytes % Eosinophils % Basophils % Absolute Neutrophils Absolute Lymphocytes Absolute Monocytes Absolute Eosinophils Absolute Basophils Sodium 141.4 Potassium 3.8 Chloride 113 H Carbon Dioxide 20 L Anion Gap 8 BUN 16 Creatinine 1.29 H Est GFR ( Amer) > 60 Est GFR (Non-Af Amer) 56 L Glucose 100 Lactic Acid Calcium 7.3 L Total Bilirubin 0.7 AST 55 ALT 81 H Alkaline Phosphatase 41 Total Protein 4.6 L Albumin 2.4 L TSH 0.49 Urine Color YELLOW Urine Appearance CLEAR Urine pH 5.0 Ur Specific [place] 1.014 Urine Protein NEGATIVE Urine Glucose (UA) NEGATIVE Urine Ketones NEGATIVE Urine Blood SMALL H Urine Nitrite NEGATIVE Ur Leukocyte Esterase NEGATIVE Urine WBC (Auto) 1 Urine RBC (Auto) 3 11/15/17 11/15/17 11/16/17 15:56 21:15 03:16 Troponin I 0.065 0.055 0.051 NT-Pro-B Natriuret Pep 11/16/17 03:16 Troponin I NT-Pro-B Natriuret Pep 6370 H Impressions: Chest X-Ray 11/15/17 12:03 IMPRESSION: NO SIGNIFICANT RADIOGRAPHIC FINDING IN THE CHEST. Assessment & Plan - Diagnosis (1) SIRS (systemic inflammatory response syndrome) Is this a current diagnosis for this admission?: Yes Plan: Patient previously fit criteria for this, he is continued on broad-spectrum antibiotics with cefepime and vancomycin, would continue vancomycin until cultures negative for 48 hours. Continue cefepime until fevers are gone. He looks much better today. (2) Acute kidney injury Is this a current diagnosis for this admission?: Yes Plan: Probably multifactorial, but may have had a component of tumor lysis even though he was on allopurinol as an outpatient to prevent this. Regardless this is improving, continue with hydration. (3) Atrial fibrillation with rapid ventricular response Is this a current diagnosis for this admission?: Yes Plan: Probably secondary to the SIRS response, he does have former smoking history so that may have contributed as well. Agree that he is a low risk for stroke so do not feel like he would need anticoagulation at this point. But he does need continued rate control per cardiology. (4) Lymphoma Qualifiers: Lymphoma type: non-Hodgkin Non-Hodgkin lymphoma type: follicular Follicular lymphoma grade: grade III, unspecified Lymphoma site: extranodal excluding spleen and other solid organs Qualified Code(s): C82.29 - Follicular lymphoma grade III, unspecified, extranodal and solid organ sites Is this a current diagnosis for this admission?: Yes Plan: Follicular lymphoma with known skin involvement, he will be continued on systemic chemotherapy as an outpatient. We will continue to monitor him, he is about 10 days out from treatment so we would expect his counts to further reduce. We will monitor them closely. - Time Time Spent: Greater than 70 Minutes - Inpatient Certification Based on my medical assessment, after consideration of the patient's comorbidities, presenting symptoms, or acuity I expect that the services needed warrant INPATIENT care.: Yes I certify that my determination is in accordance with my understanding of Medicare's requirements for reasonable and necessary INPATIENT services [42 CFR 412.3e].: Yes Medical Necessity: Need For IV Fluids, Need For Continuous Telemetry Monitoring , Need for IV Antibiotics
[2017-11-16] MEDS ORDERED: RINGERS SOLUTION,LACTATED 1,000 ML IV PRN (08:52)
--- NOTE | 2017-11-16 09:04 | EKG REPORT ---
SEVERITY:- ABNORMAL ECG - SINUS RHYTHM MULTIPLE ATRIAL PREMATURE COMPLEXES CONSIDER ANTEROSEPTAL INFARCT REPOL ABNRM SUGGESTS ISCHEMIA, ANT-LAT LEADS : Confirmed by: Shanthi Zimmerman 16-Nov-2017 09:03:51
[2017-11-16] MEDS: ENOXAPARIN SODIUM INJ 80 MG/0.8 ML DISP.SYRIN SUBCUT SCH ×2 (09:30→21:59)
[2017-11-16] MEDS: ALLOPURINOL 100 MG TABLET PO SCH ×3 (09:30→17:06)
[2017-11-16] MEDS: CEFEPIME 2 GM/D5W RTU 2 GM/50 ML RTUPB IV SCH ×2 (09:30→21:59)
[2017-11-16] MEDS: VANCOMYCIN HCL 750 MG in DEXTROSE 5%-WATER 250 ML IV SCH ×2 (09:33→22:59)
--- NOTE | 2017-11-16 09:58 | PDOC PROGRESS REPORT ---
Subjective Progress Note for:: 11/16/17 Reason For Visit: SEPSIS Physical Exam Vital Signs: Temp Pulse Resp BP Pulse Ox 98.8 F 75 16 99/61 L 99 11/16/17 07:48 11/16/17 07:48 11/16/17 07:48 11/16/17 07:48 11/16/17 07:48 Intake & Output 11/15/17 11/16/17 11/17/17 06:59 06:59 06:59 Intake Total 2100 Output Total 1365 Balance 735 Weight 168 lb 10.458 oz Results Laboratory Results: 11/16/17 03:16 11/16/17 03:16 11/15/17 11/15/17 11/16/17 14:40 16:20 03:16 WBC 9.0 RBC 3.18 L Hgb 11.1 L D Hct 31.9 L MCV 100 H MCH 34.8 H MCHC 34.8 RDW 15.3 H Plt Count 102 L Seg Neutrophils % 62.2 Lymphocytes % 27.0 Monocytes % 7.9 Eosinophils % 2.5 Basophils % 0.4 Absolute Neutrophils 5.6 Absolute Lymphocytes 2.4 Absolute Monocytes 0.7 Absolute Eosinophils 0.2 Absolute Basophils 0.0 Sodium Potassium Chloride Carbon Dioxide Anion Gap BUN Creatinine Est GFR ( Amer) Est GFR (Non-Af Amer) Glucose Lactic Acid 1.7 Calcium Total Bilirubin AST ALT Alkaline Phosphatase Total Protein Albumin TSH Urine Color YELLOW Urine Appearance CLEAR Urine pH 5.0 Ur Specific [place] 1.020 Urine Protein NEGATIVE Urine Glucose (UA) NEGATIVE Urine Ketones NEGATIVE Urine Blood SMALL H Urine Nitrite NEGATIVE Ur Leukocyte Esterase NEGATIVE Urine WBC (Auto) 3 Urine RBC (Auto) 3 11/16/17 11/16/17 11/16/17 03:16 03:16 06:10 WBC RBC Hgb Hct MCV MCH MCHC RDW Plt Count Seg Neutrophils % Lymphocytes % Monocytes % Eosinophils % Basophils % Absolute Neutrophils Absolute Lymphocytes Absolute Monocytes Absolute Eosinophils Absolute Basophils Sodium 141.4 Potassium 3.8 Chloride 113 H Carbon Dioxide 20 L Anion Gap 8 BUN 16 Creatinine 1.29 H Est GFR ( Amer) > 60 Est GFR (Non-Af Amer) 56 L Glucose 100 Lactic Acid Calcium 7.3 L Total Bilirubin 0.7 AST 55 ALT 81 H Alkaline Phosphatase 41 Total Protein 4.6 L Albumin 2.4 L TSH 0.49 Urine Color YELLOW Urine Appearance CLEAR Urine pH 5.0 Ur Specific [place] 1.014 Urine Protein NEGATIVE Urine Glucose (UA) NEGATIVE Urine Ketones NEGATIVE Urine Blood SMALL H Urine Nitrite NEGATIVE Ur Leukocyte Esterase NEGATIVE Urine WBC (Auto) 1 Urine RBC (Auto) 3 11/15/17 11/15/17 11/16/17 15:56 21:15 03:16 Troponin I 0.065 0.055 0.051 NT-Pro-B Natriuret Pep 11/16/17 03:16 Troponin I NT-Pro-B Natriuret Pep 6370 H Impressions: Chest X-Ray 11/15/17 12:03 IMPRESSION: NO SIGNIFICANT RADIOGRAPHIC FINDING IN THE CHEST.
[2017-11-16] MEDS ORDERED: ENOXAPARIN SODIUM INJ 30 MG/0.3 ML DISP.SYRIN SUBCUT SCH (10:00)
[2017-11-16] MEDS ORDERED: NORMAL SALINE 1000 ML 1,000 ML IV PRN (11:49)
--- NOTE | 2017-11-16 17:00 | PDOC PROGRESS REPORT ---
Subjective Progress Note for:: 11/16/17 Subjective:: KRUPA VERMA is a 66 y.o. M admitted to [facility] with SIRS. PMH includes non-Hodgkin' s lymphoma, HTN, squamous cell skin carcinoma, cytomegalovirus (15+ yrs ago). The patient is seen this morning on rounds. He is resting comfortably in bed on room air. He is sitting up eating his clear liquid tray. The patient states he feels much better today. He endorses multiple episodes of watery diarrhea overnight and a few of those episodes were incontinence. He denies abdominal pain, nausea, vomiting, chest pain or shortness of breath. The patient states that he is hungry and would like to eat solid foods. Upon assessment, lungs are clear to auscultation, irregular pulse rate, no evidence of peripheral edema, + BS, abdomen is soft/NT/ND. A STAT ECHOcardiogram was done last night while the patient was in the ICU. It was relatively normal, demonstrating normal LVEF and mild LVH. No valvular abnormalities. Cardiology recommended digoxin IV for the patient's rapid AFIB. He received 1 dose of 0.5mg digoxin IV and his rate slowed to 80s. The patient has been in/out of AFIB and NSR this morning. Blood pressures have stabilized, his MAP is > 70 today. Plan to downgrade from ICU to IMCU Reason For Visit: SEPSIS Physical Exam Vital Signs: Temp Pulse Resp BP Pulse Ox 98.8 F 75 16 99/61 L 99 11/16/17 07:48 11/16/17 07:48 11/16/17 07:48 11/16/17 07:48 11/16/17 07:48 Intake & Output 11/15/17 11/16/17 11/17/17 06:59 06:59 06:59 Intake Total 2100 Output Total 1365 Balance 735 Weight 76.5 kg General appearance: PRESENT: no acute distress, well-developed Eye exam: PRESENT: conjunctiva pink, PERRLA Mouth exam: PRESENT: moist, tongue midline Neck exam: PRESENT: full ROM Respiratory exam: PRESENT: clear to auscultation abad, symmetrical, unlabored Cardiovascular exam: PRESENT: irregular rhythm, +S1, +S2 Pulses: PRESENT: normal radial pulses, normal dorsalis pedis pul GI/Abdominal exam: PRESENT: normal bowel sounds, soft. ABSENT: tenderness Rectal exam: PRESENT: deferred Extremities exam: PRESENT: full ROM. ABSENT: joint swelling, pedal edema Musculoskeletal exam: PRESENT: ambulatory, full ROM Neurological exam: PRESENT: alert, awake, oriented to person, oriented to place , oriented to time, oriented to situation Psychiatric exam: PRESENT: appropriate affect Skin exam: PRESENT: dry, intact, normal color, warm Results Laboratory Results: 11/16/17 03:16 11/16/17 03:16 11/15/17 11/15/17 11/16/17 14:40 16:20 03:16 WBC 9.0 RBC 3.18 L Hgb 11.1 L D Hct 31.9 L MCV 100 H MCH 34.8 H MCHC 34.8 RDW 15.3 H Plt Count 102 L Seg Neutrophils % 62.2 Lymphocytes % 27.0 Monocytes % 7.9 Eosinophils % 2.5 Basophils % 0.4 Absolute Neutrophils 5.6 Absolute Lymphocytes 2.4 Absolute Monocytes 0.7 Absolute Eosinophils 0.2 Absolute Basophils 0.0 Sodium Potassium Chloride Carbon Dioxide Anion Gap BUN Creatinine Est GFR ( Amer) Est GFR (Non-Af Amer) Glucose Lactic Acid 1.7 Calcium Total Bilirubin AST ALT Alkaline Phosphatase Total Protein Albumin TSH Urine Color YELLOW Urine Appearance CLEAR Urine pH 5.0 Ur Specific [place] 1.020 Urine Protein NEGATIVE Urine Glucose (UA) NEGATIVE Urine Ketones NEGATIVE Urine Blood SMALL H Urine Nitrite NEGATIVE Ur Leukocyte Esterase NEGATIVE Urine WBC (Auto) 3 Urine RBC (Auto) 3 11/16/17 11/16/17 11/16/17 03:16 03:16 06:10 WBC RBC Hgb Hct MCV MCH MCHC RDW Plt Count Seg Neutrophils % Lymphocytes % Monocytes % Eosinophils % Basophils % Absolute Neutrophils Absolute Lymphocytes Absolute Monocytes Absolute Eosinophils Absolute Basophils Sodium 141.4 Potassium 3.8 Chloride 113 H Carbon Dioxide 20 L Anion Gap 8 BUN 16 Creatinine 1.29 H Est GFR ( Amer) > 60 Est GFR (Non-Af Amer) 56 L Glucose 100 Lactic Acid Calcium 7.3 L Total Bilirubin 0.7 AST 55 ALT 81 H Alkaline Phosphatase 41 Total Protein 4.6 L Albumin 2.4 L TSH 0.49 Urine Color YELLOW Urine Appearance CLEAR Urine pH 5.0 Ur Specific [place] 1.014 Urine Protein NEGATIVE Urine Glucose (UA) NEGATIVE Urine Ketones NEGATIVE Urine Blood SMALL H Urine Nitrite NEGATIVE Ur Leukocyte Esterase NEGATIVE Urine WBC (Auto) 1 Urine RBC (Auto) 3 07/11/15/17 11/16/17 15:56 21:15 03:16 Troponin I 0.065 0.055 0.051 NT-Pro-B Natriuret Pep 11/16/17 03:16 Troponin I NT-Pro-B Natriuret Pep 6370 H Impressions: Chest X-Ray 11/15/17 12:03 IMPRESSION: NO SIGNIFICANT RADIOGRAPHIC FINDING IN THE CHEST. Assessment & Plan - Diagnosis (1) SIRS (systemic inflammatory response syndrome) Is this a current diagnosis for this admission?: Yes Plan: Improving As evidence by fever (TMAX 104 at home), leukocytosis (WBC 13), tachycardia (110 -125), HYPOtension (SBP 88-95), and lactate 2.6 Unclear etiology at this time - no recent illness or ill contacts, no source of infection at this time Differential diagnoses include - opportunistic infection in an immunosupressed patient, gastroenteritis, reoccurrence of latent cytomegalovirus Blood cultures pending CXR benign UA negative Stool culture ordered Leukocytosis resolved (WBC 9.0) Lactate improving 2.6->1.7 Continue empiric antibiotic coverage with Cefepime and Vancomycin Resuscitated with 4L IVF in ED Continue with NS @ 100mL/hr Blood pressure stabilized overnight. Downgraded to IMCU today. (2) Atrial fibrillation with rapid ventricular response Is this a current diagnosis for this admission?: Yes Plan: Improving No known history of AFIB, not on anticoagulation Arrhythmia possibly in response to sepsis, could also be undiagnosed AFIB. Patient reports he has not had en EKG in 'a number of years' Initial EKG shows AFIB with RVR - HR 110-125. Inverted T waves in leads V1-V6. Troponin 0.070, trended down, no longer following BNP 6370 Stat ECHOcardiogram done in ICU - normal LVEF, borderline LVH Cardiology consulted, recommended digoxin IV for heart rate. Patient received a one time dose of 0.5mg IV. Heart rate slowed to 80s and has remained within normal range Cardiology discussing with Heme/Onc the appropriate anticoagulation for this patient, waiting for recommendations For now, on Lovenox 1mg/kg SC (3) Lymphoma Qualifiers: Lymphoma type: non-Hodgkin Non-Hodgkin lymphoma type: follicular Follicular lymphoma grade: grade III, unspecified Lymphoma site: extranodal excluding spleen and other solid organs Qualified Code(s): C82.29 - Follicular lymphoma grade III, unspecified, extranodal and solid organ sites Is this a current diagnosis for this admission?: Yes Plan: History of stage III follicular lymphoma (non-Hodgkin's) Started on Treanda/Rituxan chemotherapy 11/06/[address] Crump, appreciate his recommendations (4) ARF (acute renal failure) Qualifiers: Acute renal failure type: unspecified Qualified Code(s): N17.9 - Acute kidney failure, unspecified Is this a current diagnosis for this admission?: Yes Plan: Secondary to dehydration and HYPOtension stemming from sepsis Creatinine improved 1.67->1.29, baseline 1.0 Resuscitated with 4 L IV in the ED, continue maintenance IVF Decreased rate of maintenance IVF from 150mL/hr to 100mL/hr because of elevated BNP (6370) Patient able to void without difficulty (5) Diarrhea Qualifiers: Diarrhea type: unspecified type Qualified Code(s): R19.7 - Diarrhea, unspecified Is this a current diagnosis for this admission?: Yes Plan: Patient endorses multiple episodes of diarrhea starting just prior to his arrival to [facility] (+) incontinent of stool overnight Etiology could be chemotherapy side effect, gastroenteritis, community acquired c.diff Stool culture and C.diff PCR ordered - Time Time Spent with patient: 15-24 minutes Medications reviewed and adjusted accordingly: Yes Anticipated discharge: Home - Inpatient Certification Based on my medical assessment, after consideration of the patient's comorbidities, presenting symptoms, or acuity I expect that the services needed warrant INPATIENT care.: Yes I certify that my determination is in accordance with my understanding of Medicare's requirements for reasonable and necessary INPATIENT services [42 CFR 412.3e].: Yes Medical Necessity: Need For IV Fluids, Need for IV Antibiotics, Risk of Complication if Not Cared For in Hospital - Plan Summary Plan Summary: CONTINUE IVF. CULTURES PENDING. F/U WITH CARDIOLOGY REGARDING ANTICOAGULATION FOR AFIB. DOWNGRADE FROM ICU TO IMCU.
[2017-11-16] MEDS: NORMAL SALINE 1000 ML 1,000 ML IV PRN (18:57)
[2017-11-16] MEDS ORDERED: METOPROLOL SUCCINATE 25 MG TAB.SR.24H PO SCH (22:00)
[2017-11-16] MEDS ORDERED: METOPROLOL TARTRATE PF/INJ 5 MG/5 ML SDV IV ONE (22:45)
[2017-11-17] MEDS: NORMAL SALINE 1000 ML 1,000 ML IV PRN ×2 (04:48→16:16)
[2017-11-17] MEDS: LANSOPRAZOLE 30 MG TAB.RAP.DR PO SCH ×2 (05:16→17:05)
[2017-11-17] MEDS: ACETAMINOPHEN 325 MG TABLET PO PRN (06:10)
--- NOTE | 2017-11-17 07:40 | PROGRESS NOTE E ---
Progress Note NAME: KRUPA VERMA : 1950 AGE: 66Y DATE: 11/16/2017 ROOM: 330 REASON FOR FOLLOWUP: Paroxysmal atrial fibrillation. SUBJECTIVE: The patient denies any chest pain or discomfort. The patient is noted to be going in and out of short episodes of atrial fibrillation. At present, remains in sinus rhythm for some time. The patient's blood pressure is much better. He is feeling better. He denies any chest pain, discomfort, shortness of breath, PND, orthopnea. There is no leg edema. There are no TIA or CVA symptoms. There is no bleeding on Lovenox full-dose. The patient denies any palpitations, near syncope, syncope, or dizziness. OBJECTIVE: GENERAL: The patient appears to be well built and well nourished. At present, in no acute distress. VITAL SIGNS: He is afebrile with a temperature of 98.8 degrees Fahrenheit. His pulse rate is 81 beats per minute, blood pressure 121/82, respirations 17 per minute, O2 sat 100% on room air. HEENT: Heat is normocephalic/atraumatic. Eyes: Pupils are equal, round, regular, and reactive to light and accommodation. There is no conjunctival pallor. There is no scleral icterus. ENT is negative. NECK: Supple. There is no JVD. Carotids are equal. There are no bruits. There is no goiter. Trachea is center. LUNGS: Clear to auscultation and percussion without any rhonchi, rales, or wheezing. There is no chest wall tenderness. HEART: S1, S2 heard. There is no S3 gallop. There is no S4 gallop. S1 is of normal intensity. There is a systolic murmur in the left sternal border in the apex. There is no rub. ABDOMEN: Soft, nontender. There is no hepatosplenomegaly. Bowel sounds are well heard. There are no tender areas or masses. EXTREMITIES: Femorals are well felt. Leg pulses well felt. There are no femoral bruits. There is no pedal edema. There is no DVT or cellulitis. There is no cyanosis or clubbing. DISTILLERY MILLER: The patient is conscious, awake, alert, oriented x3 with no focal deficit. PSYCHIATRIC: The patient judgment and insight are intact. His affect is normal. LABORATORY DATA: The patient's white count is 9000, hemoglobin 11.1, hematocrit 31.8, platelet count low at 102,000. The patient's sodium is 141.4, potassium 3.8, chloride 113, CO2 of 20. The patient's BUN is 16, creatinine 1.29, GFR is reduced at 53. Calcium 7.3. Liver function tests are normal except for elevated ALT of 81. His alkaline phosphatase is normal. Troponin-I has been 0.055 and 0.051. His NT-proBNP is 6370. His albumin is 2.4. Total protein 4.6. Note that on admission, his GFR was down to 41 mL, which could account for the elevated NT-proBNP. Clinically, the patient is not in any heart failure. The patient's TSH is 0.49. ASSESSMENT: 1. SYSTEMIC INFLAMMATORY RESPONSE SYNDROME. 2. LYMPHOMA. 3. PAROXYSMAL ATRIAL FIBRILLATION. Note that the patient's corrected [id number] score is 2, which puts him at least at moderate risk for stroke, but in view of the patient's platelets being 102 and the patient needing chemotherapy in the immediate future, which would further trend the platelets down further, anticoagulation may be risky. Will start the patient on a beta jasmin this evening and see how he does, and maybe switch him to Sotalol in the morning at 40 mg p.o. q.12 hours and watch his QTC, and watch for arrhythmia. Will place the patient on aspirin and check for chronic anticoagulation. Will discuss this with *------* and discuss with the patient. 4. HYPERTENSION. The patient had a low blood pressure secondary to systemic inflammatory response and sepsis. At present, blood pressure is coming back to normal with hydration and with antibiotics. 5. ACUTE RENAL FAILURE. Most likely secondary to infective process. The patient's kidney function is improving. 6. LYMPHOMA. Patient being followed by Oncology. Note the patient was seen for 40 minutes, with more than 50% of the time spent in direct patient care. Medical decision making is of high complexity. Also, the patient's intravenous medications have been reviewed, and his intravenous fluids have been changed to normal saline from Ringer's lactate. Also, will start the patient on a beta jasmin tonight and see how he does, and subsequently put the patient on Sotalol tomorrow. Will follow with you. Discussed with all the providers on the case. Note that the patient is a full code and his is his surrogate healthcare decision maker. Will follow with you. DICTATING PHYSICIAN: ELEAZAR LEAL M.D. [id number] PHY#: [id number] ID: [id number] JOB#: [id number] ACCT: [id number] cc: >
--- NOTE | 2017-11-17 08:51 | PDOC PROGRESS REPORT ---
Subjective Progress Note for:: 11/17/17 Subjective:: Heart rate was quite elevated yesterday evening, was in the 140s and 150s, and rapid A. fib, he did not feel good yesterday. However fevers have defervesced over the last 24 hours, cardiology has been following Reason For Visit: SEPSIS Physical Exam Vital Signs: Temp Pulse Resp BP Pulse Ox 97.8 F 90 20 112/79 98 11/17/17 07:38 11/17/17 07:38 11/17/17 07:38 11/17/17 07:38 11/17/17 07:38 Intake & Output 11/16/17 11/17/17 11/18/17 06:59 06:59 06:59 Intake Total 2100 2910 Output Total 1365 2100 Balance 735 810 Weight 76.5 kg 77.7 kg General appearance: PRESENT: no acute distress, well-developed, well-nourished Head exam: PRESENT: atraumatic, normocephalic Eye exam: PRESENT: conjunctiva pink, EOMI, PERRLA. ABSENT: scleral icterus Ear exam: PRESENT: normal external ear exam Mouth exam: PRESENT: moist, tongue midline Neck exam: ABSENT: carotid bruit, JVD, lymphadenopathy, thyromegaly Respiratory exam: PRESENT: clear to auscultation abad. ABSENT: rales, rhonchi, wheezes Cardiovascular exam: PRESENT: RRR. ABSENT: diastolic murmur, rubs, systolic murmur Pulses: PRESENT: normal dorsalis pedis pul Vascular exam: PRESENT: normal capillary refill GI/Abdominal exam: PRESENT: normal bowel sounds, soft. ABSENT: distended, guarding, mass, organolmegaly, rebound, tenderness Rectal exam: PRESENT: deferred Extremities exam: PRESENT: full ROM. ABSENT: calf tenderness, clubbing, pedal edema Neurological exam: PRESENT: alert, awake, oriented to person, oriented to place , oriented to time, oriented to situation, CN II-XII grossly intact. ABSENT: motor sensory deficit Psychiatric exam: PRESENT: appropriate affect, normal mood. ABSENT: homicidal ideation, suicidal ideation Skin exam: PRESENT: dry, intact, warm. ABSENT: cyanosis, rash Results Laboratory Results: 11/16/17 03:16 11/16/17 03:16 11/16/17 08:30 Stool Occult Blood NEGATIVE 11/15/17 11/15/17 11/16/17 15:56 21:15 03:16 Troponin I 0.065 0.055 0.051 NT-Pro-B Natriuret Pep 11/16/17 03:16 Troponin I NT-Pro-B Natriuret Pep 6370 H Impressions: Chest X-Ray 11/15/17 12:03 IMPRESSION: NO SIGNIFICANT RADIOGRAPHIC FINDING IN THE CHEST. Assessment & Plan - Diagnosis (1) SIRS (systemic inflammatory response syndrome) Is this a current diagnosis for this admission?: Yes Plan: Improved, we will now discontinue the vancomycin as he has had culture negative day for 48 hours. Continue with cefepime. (2) Acute kidney injury Is this a current diagnosis for this admission?: Yes Plan: Improved, continue with monitoring, labs are pending today, I believe his hydration standpoint is improved and he seems to be getting a little bit overloaded in terms of edema, I will decrease his fluids to 75/h. (3) Atrial fibrillation with rapid ventricular response Is this a current diagnosis for this admission?: Yes Plan: A. fib with RVR, cardiology following, needs to be better controlled (4) Lymphoma Qualifiers: Lymphoma type: non-Hodgkin Non-Hodgkin lymphoma type: follicular Follicular lymphoma grade: grade III, unspecified Lymphoma site: extranodal excluding spleen and other solid organs Qualified Code(s): C82.29 - Follicular lymphoma grade III, unspecified, extranodal and solid organ sites Is this a current diagnosis for this admission?: Yes Plan: Plan for further treatment as an outpatient, cycle #1 given about 10 days ago. - Time Time Spent with patient: 35 or more minutes - Inpatient Certification Based on my medical assessment, after consideration of the patient's comorbidities, presenting symptoms, or acuity I expect that the services needed warrant INPATIENT care.: Yes I certify that my determination is in accordance with my understanding of Medicare's requirements for reasonable and necessary INPATIENT services [42 CFR 412.3e].: Yes Medical Necessity: Need For IV Fluids, Need For Continuous Telemetry Monitoring , Need for IV Antibiotics, Risk of Complication if Not Cared For in Hospital
[2017-11-17] MEDS: CEFEPIME 2 GM/D5W RTU 2 GM/50 ML RTUPB IV SCH ×2 (09:05→21:19)
[2017-11-17] MEDS: ALLOPURINOL 100 MG TABLET PO SCH ×3 (09:05→17:06)
[2017-11-17 09:16] LABS: ABSOLUTE BASOPHILS # (AUTO) 0.1 10^3/uL (0.0-0.2); ABSOLUTE EOSINOPHILS # (AUTO) 0.2 10^3/uL (0.0-0.6); ABSOLUTE LYMPHOCYTES (AUTO) 1.7 10^3/uL (0.5-4.7); ABSOLUTE MONOCYTES (AUTO) 0.7 10^3/uL (0.1-1.4); ABSOLUTE NEUT (AUTO) 4.2 10^3/uL (1.7-8.2); BASOPHILS % (AUTO) 0.9 % (0-2); EOSINOPHILS % (AUTO) 3.3 % (0-6); HEMATOCRIT 30.3 % (37.9-51.0); HEMOGLOBIN 10.5 g/dL (13.5-17.0); LYMPHOCYTES % (AUTO) 24.8 % (13-45); MEAN CORPUSCULAR HEMOGLOBIN 33.9 pg (27.0-33.4); MEAN CORPUSCULAR HGB CONC 34.6 g/dL (32.0-36.0); MEAN CORPUSCULAR VOLUME 98 fl (80-97); MONOCYTES % (AUTO) 9.7 % (3-13); PLATELET COUNT 101 10^3/uL (150-450); RED BLOOD COUNT 3.09 10^6/uL (4.35-5.55); RED CELL DISTRIBUTION WIDTH 15.2 % (11.5-14.0); SEGMENTED NEUTROPHILS % (AUTO) 61.3 % (42-78); TOTAL CELLS COUNTED % (AUTO) 100 %; WHITE BLOOD COUNT 6.9 10^3/uL (4.0-10.5)
[2017-11-17 09:17] LABS: ALANINE AMINOTRANSFERASE 95 U/L (21-72); ALBUMIN 2.5 g/dL (3.5-5.0); ALKALINE PHOSPHATASE 51 U/L (38-126); ANION GAP 8 (5-19); ASPARTATE AMINO TRANSFERASE 53 U/L (17-59); BILIRUBIN,DIRECT 0.5 mg/dL (0.0-0.4); BLOOD UREA NITROGEN 12 mg/dL (7-20); CALCIUM 7.4 mg/dL (8.4-10.2); CARBON DIOXIDE 21 mmol/L (22-30); CHLORIDE 111 mmol/L (98-107); GLUCOSE 89 mg/dL (75-110); POTASSIUM 3.3 mmol/L (3.6-5.0); SODIUM 140.4 mmol/L (137-145); TOTAL PROTEIN 4.7 g/dL (6.3-8.2)
--- NOTE | 2017-11-17 09:23 | EKG REPORT ---
SEVERITY:- ABNORMAL ECG - ATRIAL FIBRILLATION, V-RATE 74-140 REPOL ABNRM SUGGESTS ISCHEMIA, ANT-LAT LEADS : Confirmed by: Shanthi Zimmerman 17-Nov-2017 09:23:14
--- NOTE | 2017-11-17 09:25 | EKG REPORT ---
SEVERITY:- ABNORMAL ECG - ATRIAL FIBRILLATION, V-RATE 69-112 REPOL ABNRM SUGGESTS ISCHEMIA, ANT-LAT LEADS VS LVH : Confirmed by: Shanthi Zimmerman 17-Nov-2017 09:23:49
[2017-11-17] MEDS ORDERED: SOTALOL HCL 80 MG TABLET PO ONE (09:30)
[2017-11-17] MEDS: ENOXAPARIN SODIUM INJ 80 MG/0.8 ML DISP.SYRIN SUBCUT SCH ×2 (09:49→21:20)
[2017-11-17] MEDS ORDERED: KETOROLAC TROMETHAMINE INJ/PF 30 MG/1 ML SDV IV ONE (17:00)
--- NOTE | 2017-11-17 18:34 | PDOC PROGRESS REPORT ---
Subjective Progress Note for:: 11/17/17 Subjective:: The patient is a 66-year-old male with past medical history of non-Hodgkin's lymphoma, hypertension, squamous cell skin cancer, cytomegalovirus, and cirrhosis who was admitted on 11/15/17 for SIRS, A. fib with RVR, acute renal failure, and lymphoma. The patient was seen on morning rounds. He was found resting in bed comfortably on room air with his family members present. He states that he is feeling "100% better today" but does endorse fatigue, fever and chills overnight. T-max overnight 100.0. He denies headache, dizziness, chest pain, palpitations, dyspnea, orthopnea, cough, abdominal pain, nausea vomiting and diarrhea. The patient asks clarification on medical definition of sepsis and his negative blood cultures. He is hopeful to be discharged home within the next day or 2. Otherwise, he has no questions or concerns. No concerns per nursing. Reason For Visit: SEPSIS Physical Exam Vital Signs: Temp Pulse Resp BP Pulse Ox 98.4 F 94 18 123/80 97 11/17/17 15:48 11/17/17 15:48 11/17/17 15:48 11/17/17 15:48 11/17/17 15:48 Intake & Output 11/16/17 11/17/17 11/18/17 06:59 06:59 06:59 Intake Total 2100 2910 1572 Output Total 1365 2100 475 Balance 794 222 8413 Weight 76.5 kg 77.7 kg General appearance: PRESENT: no acute distress, cooperative, well-developed, well-nourished Head exam: PRESENT: atraumatic, normocephalic Eye exam: PRESENT: conjunctiva pink, EOMI, PERRLA. ABSENT: scleral icterus Ear exam: PRESENT: normal external ear exam Mouth exam: PRESENT: moist, tongue midline Neck exam: ABSENT: carotid bruit, JVD, lymphadenopathy, thyromegaly Respiratory exam: PRESENT: clear to auscultation abad, symmetrical, unlabored. ABSENT: rales, rhonchi, wheezes Cardiovascular exam: PRESENT: irregular rhythm, +S1, +S2. ABSENT: diastolic murmur, rubs, systolic murmur Pulses: PRESENT: normal dorsalis pedis pul Vascular exam: PRESENT: normal capillary refill GI/Abdominal exam: PRESENT: normal bowel sounds, soft. ABSENT: distended, guarding, mass, organolmegaly, rebound, tenderness Rectal exam: PRESENT: deferred Extremities exam: PRESENT: full ROM. ABSENT: calf tenderness, clubbing, pedal edema Neurological exam: PRESENT: alert, awake, oriented to person, oriented to place , oriented to time, oriented to situation, CN II-XII grossly intact. ABSENT: motor sensory deficit Psychiatric exam: PRESENT: appropriate affect, normal mood. ABSENT: homicidal ideation, suicidal ideation Skin exam: PRESENT: dry, intact, warm. ABSENT: cyanosis, rash Results Laboratory Results: 11/17/17 08:20 11/17/17 08:20 11/17/17 11/17/17 08:20 08:20 WBC 6.9 RBC 3.09 L Hgb 10.5 L Hct 30.3 L MCV 98 H MCH 33.9 H MCHC 34.6 RDW 15.2 H Plt Count 101 L Seg Neutrophils % 61.3 Lymphocytes % 24.8 Monocytes % 9.7 Eosinophils % 3.3 Basophils % 0.9 Absolute Neutrophils 4.2 Absolute Lymphocytes 1.7 Absolute Monocytes 0.7 Absolute Eosinophils 0.2 Absolute Basophils 0.1 Sodium 140.4 Potassium 3.3 L Chloride 111 H Carbon Dioxide 21 L Anion Gap 8 BUN 12 Creatinine 1.06 Est GFR ( Amer) > 60 Est GFR (Non-Af Amer) > 60 Glucose 89 Calcium 7.4 L Total Bilirubin 1.0 AST 53 ALT 95 H Alkaline Phosphatase 51 Total Protein 4.7 L Albumin 2.5 L 11/15/17 11/15/17 11/16/17 15:56 21:15 03:16 Troponin I 0.065 0.055 0.051 NT-Pro-B Natriuret Pep 11/16/17 03:16 Troponin I NT-Pro-B Natriuret Pep 6370 H Impressions: Chest X-Ray 11/15/17 12:03 IMPRESSION: NO SIGNIFICANT RADIOGRAPHIC FINDING IN THE CHEST. Assessment & Plan - Diagnosis (1) SIRS (systemic inflammatory response syndrome) Is this a current diagnosis for this admission?: Yes Plan: Improved; patient was admitted with fever (104 at home), leukocytosis (WBCs 13) , tachycardia (HR 125), hypotension (SBP 88) and an elevated lactic acid of 2.6. Leukocytosis has since resolved. T-max in last 48 hours is 100.0. Differential diagnosis includes opportunistic infection in an immunocompromised patient, recurrence of latent cytomegalovirus, or most likely multiple episodes of diarrhea the day prior to admission. Gastroenteritis as the patient reports that he had multiple episodes of diarrhea the day prior to admission. Chest x-ray is benign. Blood cultures are negative at 48 hours. Throat culture is negative. Stool culture is negative. Urinalysis is negative. Occult stool is negative. The patient was initially admitted to ICU and has subsequently been downgraded to IMCU. He received a total of 4 L IV fluids through the ED. He is continued on maintenance IV fluids. He was empirically placed on cefepime and vancomycin. Vancomycin was discontinued today as his cultures were negative at 48 hours. Continue cefepime. (2) ARF (acute renal failure) Qualifiers: Acute renal failure type: unspecified Qualified Code(s): N17.9 - Acute kidney failure, unspecified Is this a current diagnosis for this admission?: Yes Plan: Secondary to dehydration and hypotension from sepsis. Creatinine has returned to baseline; 1.06 Slight fluid overload today; decreased rate today. Avoid nephrotoxic medication as able. We will monitor with daily chemistries. (3) Atrial fibrillation with rapid ventricular response Is this a current diagnosis for this admission?: Yes Plan: Improved; no previous history of A. fib, not on chronic anticoagulation. Initial EKG showed A. fib with RVR; heart rate 110-125 with inverted T waves in V1 - 6. Initial troponin was elevated to 0.07; trending down and no longer following. ProBNP elevated at 6370. Echocardiogram revealed normal LVEF and borderline LVH. Cardiology has been consulted; appreciate their evaluation recommendations. Medication management per cardiology; currently on sotalol with appropriate rate control. Per cardiology's notes, patient has a chads 2 DS 2 vascular score of 2, which is at least moderate risk for stroke, however platelets are noted to be low and he will be receiving chemotherapy in the near future. Recommending daily aspirin therapy. Cardiology states they will discuss with Dr. Carballo need for chronic anticoagulation prior to initiating. (4) Diarrhea Qualifiers: Diarrhea type: unspecified type Qualified Code(s): R19.7 - Diarrhea, unspecified Is this a current diagnosis for this admission?: Yes Plan: Resolved; patient reports one from bowel movement this morning. Patient endorsed multiple episodes of diarrhea the day prior to his arrival. He did have incontinence of stool his first night of admission. Etiology could include chemotherapy side effect, gastroenteritis, C. difficile. Stool culture is negative. Occult stool negative. Diarrhea has subsequently resolved; will cancel C. difficile. (5) Lymphoma Qualifiers: Lymphoma type: non-Hodgkin Non-Hodgkin lymphoma type: follicular Follicular lymphoma grade: grade III, unspecified Lymphoma site: extranodal excluding spleen and other solid organs Qualified Code(s): C82.29 - Follicular lymphoma grade III, unspecified, extranodal and solid organ sites Is this a current diagnosis for this admission?: Yes Plan: History of stage III follicular lymphoma (non-Hodgkin's). Began Treanda/Rituxan chemotherapy in October 2017. Oncology has been consulted; appreciate Dr. Carballo's evaluation and recommendations. - Time Time Spent with patient: 25-34 minutes Medications reviewed and adjusted accordingly: Yes Anticipated discharge: Home
[2017-11-17] MEDS: SOTALOL HCL 80 MG TABLET PO SCH (21:18)
[2017-11-17] MEDS: ZOLPIDEM TARTRATE 5 MG TABLET PO PRN (21:19)
[2017-11-17] MEDS: POTASSIUM CHLORIDE 10 MEQ CAPSULE.ER PO SCH (21:19)
--- NOTE | 2017-11-17 22:30 | Progress Note ---
Provider Note Provider Note: This is Dr. LOPEZ Roxana Carmona dictating progress note for 11/17/2017. The patient continues to be in atrial fibrillation. Last night of the patient' s heart rate went up to 140 with the patient being in atrial fibrillation with a heart rate came down into the 90s after 2.5 mg of IV push metoprolol. The patient also received beta-jasmin. The patient denies any chest pain or discomfort, there is no shortness of breath there is no PND orthopnea. He still feels slightly fatigued and tired. There is no leg edema. There is no PND orthopnea. Selected Entries 11/17/17 11:22 Temperature 97.5 F Temperature Oral Source Pulse Rate 74 Respiratory 18 Rate Blood Pressure 98/73 L O2 Sat by Pulse 100 Oximetry Oxygen Delivery Room Air Method The patient is well-built and well-nourished in no acute distress. He is well- groomed. HEAD: Head is atraumatic normocephalic. EYES: Pupils are equal round regular reactive to light accommodation, extraocular movements are normal. There is no conjunctival pallor there is no scleral icterus. ENT is within normal limits. NECK: Is supple there is no JVD carotids equal there is no bruit there is no goiter there is no accessory muscle respiration in use. Trachea central. LUNGS: Clear to auscultation percussion without any rhonchi rales or wheezing. There is no chest wall tenderness. HEART: S1-S2 is heard there is no S3 gallop there is no S4 gallop the systolic murmur left sternal border and the apex without radiation. S1 is of variable intensity. There is no rub. ABDOMEN: Soft there is no paraspinal megaly bowel sounds well heard there is no tender areas of masses. There is no rebound guarding or rigidity. EXTREMITIES: Femorals are well felt. There is no femoral bruits. Leg pulses are well felt. There is no cyanosis or clubbing. There is no DVT or cellulitis. There is no pedal edema. Capillary refill is normal. There is no calf tenderness. 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 PSYCHIATRIC: The patient judgment and insight are intact his affect is normal. The patient's echocardiogram was reviewed by me, and this shows mild left atrial enlargement, trace mitral regurgitation. The rest of the left ventricular valves and left ventricle itself is within normal limits. The patient's EKG last night and this morning shows: Atrial fibrillation with a controlled ventricular response. Repolarization abnormality anterolateral ischemia versus secondary to LVH.. 11/16/17 11/17/17 11/17/17 08:30 05:42 08:20 WBC Hgb Hct Plt Count Sodium 140.4 Potassium 3.3 L Chloride 111 H Carbon Dioxide 21 L BUN 12 Creatinine 1.06 Est GFR (Non-Af Amer) > 60 Calcium 7.4 L Total Bilirubin 1.0 Direct Bilirubin 0.5 H Neonat Total Bilirubin Not Reportable Neonat Direct Bilirubin Not Reportable Neonat Indirect Bili Not Reportable AST 53 ALT 95 H Alkaline Phosphatase 51 Total Protein 4.7 L Albumin 2.5 L Stool Occult Blood NEGATIVE Digoxin 0.79 L 11/17/17 08:20 WBC 6.9 Hgb 10.5 L Hct 30.3 L Plt Count 101 L Sodium Potassium Chloride Carbon Dioxide BUN Creatinine Est GFR (Non-Af Amer) Calcium Total Bilirubin Direct Bilirubin Neonat Total Bilirubin Neonat Direct Bilirubin Neonat Indirect Bili AST ALT Alkaline Phosphatase Total Protein Albumin Stool Occult Blood Digoxin IMPRESSION: 1. PERSISTENT ATRIAL FIBRILLATION. Will start the patient on sotalol 80 mg p.o. every 12 hours. Will watch for proarrhythmia and also check daily EKGs for QTC measurements. This was discussed with the patient. Will try to get patient into sinus rhythm, so we can prevent using chronic anticoagulation, in view of the risks of patient becoming thrombocytopenic with the proposed chemotherapy. 2. LYMPHOMA: Oncologist on the case. 3. SYSTEMIC INFLAMMATORY RESPONSE: The patient is on antibiotics. 4. Hypertension: Note that the patient's blood pressure is on the lower side. Did improve with the patient's hydration and subsidence of the SIRS. 5. ACUTE RENAL FAILURE: This is improved. Renal function is now normal. 6. HYPOKALEMIA: Replace patient's potassium. 7. THROMBOCYTOPENIA: There is no evidence of bleeding, will watch platelet count since the patient is on Lovenox. The patient medications have been reviewed, and medications changed. This was discussed with the attending physician and the oncologist. Medical decision making is of high complexity in view of the patient's persistent atrial fibrillation. 40 minutes spent on this patient with more than 50% of the time spent on direct patient care. Echo was rediscussed with the patient patient's family. Will follow with you.
[2017-11-18] MEDS: ACETAMINOPHEN 325 MG TABLET PO PRN (03:13)
[2017-11-18] MEDS: LANSOPRAZOLE 30 MG TAB.RAP.DR PO SCH ×2 (05:17→17:17)
[2017-11-18 05:56] LABS: HEMATOCRIT 29.7 % (37.9-51.0); HEMOGLOBIN 10.6 g/dL (13.5-17.0); MEAN CORPUSCULAR HEMOGLOBIN 34.6 pg (27.0-33.4); MEAN CORPUSCULAR HGB CONC 35.6 g/dL (32.0-36.0); MEAN CORPUSCULAR VOLUME 97 fl (80-97); PLATELET COUNT 107 10^3/uL (150-450); RED BLOOD COUNT 3.05 10^6/uL (4.35-5.55); RED CELL DISTRIBUTION WIDTH 15.3 % (11.5-14.0); WHITE BLOOD COUNT 7.3 10^3/uL (4.0-10.5)
[2017-11-18 06:21] LABS: ANION GAP 10 (5-19); BLOOD UREA NITROGEN 18 mg/dL (7-20); CALCIUM 7.7 mg/dL (8.4-10.2); CARBON DIOXIDE 21 mmol/L (22-30); CHLORIDE 111 mmol/L (98-107); GLUCOSE 136 mg/dL (75-110); POTASSIUM 3.6 mmol/L (3.6-5.0)
[2017-11-18] MEDS ORDERED: ACETAMINOPHEN 325 MG TABLET PO PRN (07:50)
--- NOTE | 2017-11-18 08:52 | PDOC PROGRESS REPORT ---
Subjective Progress Note for:: 11/18/17 Subjective:: HR better over last 12 hours, feeling better this am, walked the halls yesterday , Dr. Bills started Sotolol Reason For Visit: SEPSIS Physical Exam Vital Signs: Temp Pulse Resp BP Pulse Ox 97.6 F 48 L 18 115/68 97 11/18/17 07:29 11/18/17 07:29 11/18/17 07:29 11/18/17 07:29 11/18/17 07:29 Intake & Output 11/17/17 11/18/17 11/19/17 06:59 06:59 06:59 Intake Total 2910 2224 Output Total 2100 475 Balance 810 1749 Weight 77.7 kg 77.4 kg General appearance: PRESENT: no acute distress, well-developed, well-nourished Head exam: PRESENT: atraumatic, normocephalic Eye exam: PRESENT: conjunctiva pink, EOMI, PERRLA. ABSENT: scleral icterus Ear exam: PRESENT: normal external ear exam Mouth exam: PRESENT: moist, tongue midline Neck exam: ABSENT: carotid bruit, JVD, lymphadenopathy, thyromegaly Respiratory exam: PRESENT: clear to auscultation abad. ABSENT: rales, rhonchi, wheezes Cardiovascular exam: PRESENT: RRR. ABSENT: diastolic murmur, rubs, systolic murmur Pulses: PRESENT: normal dorsalis pedis pul Vascular exam: PRESENT: normal capillary refill GI/Abdominal exam: PRESENT: normal bowel sounds, soft. ABSENT: distended, guarding, mass, organolmegaly, rebound, tenderness Rectal exam: PRESENT: deferred Extremities exam: PRESENT: full ROM. ABSENT: calf tenderness, clubbing, pedal edema Neurological exam: PRESENT: alert, awake, oriented to person, oriented to place , oriented to time, oriented to situation, CN II-XII grossly intact. ABSENT: motor sensory deficit Psychiatric exam: PRESENT: appropriate affect, normal mood. ABSENT: homicidal ideation, suicidal ideation Skin exam: PRESENT: dry, intact, warm. ABSENT: cyanosis, rash Results Laboratory Results: 11/18/17 05:09 11/18/17 05:09 11/17/17 11/17/17 11/18/17 08:20 08:20 05:09 WBC 6.9 7.3 RBC 3.09 L 3.05 L Hgb 10.5 L 10.6 L Hct 30.3 L 29.7 L MCV 98 H 97 MCH 33.9 H 34.6 H MCHC 34.6 35.6 RDW 15.2 H 15.3 H Plt Count 101 L 107 L Seg Neutrophils % 61.3 Lymphocytes % 24.8 Monocytes % 9.7 Eosinophils % 3.3 Basophils % 0.9 Absolute Neutrophils 4.2 Absolute Lymphocytes 1.7 Absolute Monocytes 0.7 Absolute Eosinophils 0.2 Absolute Basophils 0.1 Sodium 140.4 Potassium 3.3 L Chloride 111 H Carbon Dioxide 21 L Anion Gap 8 BUN 12 Creatinine 1.06 Est GFR ( Amer) > 60 Est GFR (Non-Af Amer) > 60 Glucose 89 Calcium 7.4 L Total Bilirubin 1.0 AST 53 ALT 95 H Alkaline Phosphatase 51 Total Protein 4.7 L Albumin 2.5 L 11/18/17 05:09 WBC RBC Hgb Hct MCV MCH MCHC RDW Plt Count Seg Neutrophils % Lymphocytes % Monocytes % Eosinophils % Basophils % Absolute Neutrophils Absolute Lymphocytes Absolute Monocytes Absolute Eosinophils Absolute Basophils Sodium 142.0 Potassium 3.6 Chloride 111 H Carbon Dioxide 21 L Anion Gap 10 BUN 18 Creatinine 1.24 Est GFR ( Amer) > 60 Est GFR (Non-Af Amer) 58 L Glucose 136 H Calcium 7.7 L Total Bilirubin AST ALT Alkaline Phosphatase Total Protein Albumin 11/15/17 11/15/17 11/16/17 15:56 21:15 03:16 Troponin I 0.065 0.055 0.051 NT-Pro-B Natriuret Pep 11/16/17 11/18/17 03:16 05:09 Troponin I NT-Pro-B Natriuret Pep 6370 H [id number] H Impressions: Chest X-Ray 11/15/17 12:03 IMPRESSION: NO SIGNIFICANT RADIOGRAPHIC FINDING IN THE CHEST. Assessment & Plan - Diagnosis (1) SIRS (systemic inflammatory response syndrome) Is this a current diagnosis for this admission?: Yes Plan: Cont cefepime alone for 24 more hours, if cultures remain negative and pt counts remain non neutropenic, we can convert to oral medication. But note that pt did have reaction to Levaquin prior to admit (2) Acute kidney injury Is this a current diagnosis for this admission?: Yes Plan: Improved, con't to monitor (3) Atrial fibrillation with rapid ventricular response Is this a current diagnosis for this admission?: Yes Plan: Con't per cardiology, prefer pt not to receive long term care administrator anticoag if possible but we will see what happens w/ rate control meds (4) Lymphoma Qualifiers: Lymphoma type: non-Hodgkin Non-Hodgkin lymphoma type: follicular Follicular lymphoma grade: grade III, unspecified Lymphoma site: extranodal excluding spleen and other solid organs Qualified Code(s): C82.29 - Follicular lymphoma grade III, unspecified, extranodal and solid organ sites Is this a current diagnosis for this admission?: Yes Plan: Had long discussion w/ pt and family >45 min in discussion, will decide on further rx as oupt - Time Time Spent with patient: 35 or more minutes - Inpatient Certification Based on my medical assessment, after consideration of the patient's comorbidities, presenting symptoms, or acuity I expect that the services needed warrant INPATIENT care.: Yes I certify that my determination is in accordance with my understanding of Medicare's requirements for reasonable and necessary INPATIENT services [42 CFR 412.3e].: Yes Medical Necessity: Need For Continuous Telemetry Monitoring, Need for IV Antibiotics
[2017-11-18] MEDS: SOTALOL HCL 80 MG TABLET PO SCH ×2 (10:08→22:36)
[2017-11-18] MEDS: ALLOPURINOL 100 MG TABLET PO SCH ×3 (10:08→18:00)
[2017-11-18] MEDS: POTASSIUM CHLORIDE 10 MEQ CAPSULE.ER PO SCH ×2 (10:08→22:36)
[2017-11-18] MEDS: CEFEPIME 2 GM/D5W RTU 2 GM/50 ML RTUPB IV SCH ×2 (10:08→22:45)
[2017-11-18] MEDS: ENOXAPARIN SODIUM INJ 80 MG/0.8 ML DISP.SYRIN SUBCUT SCH ×2 (10:09→22:37)
[2017-11-18 15:50] LABS: APPEARANCE,URINE CLEAR; BILIRUBIN,URINE NEGATIVE (NEGATIVE); COLOR,URINE YELLOW; GLUCOSE, URINE NEGATIVE (NEGATIVE); KETONES,URINE NEGATIVE (NEGATIVE); LEUKOCYTE ESTERASE,URINE NEGATIVE (NEGATIVE); NITRITE,URINE NEGATIVE (NEGATIVE); PROTEIN,URINE NEGATIVE (NEGATIVE); URINE SPECIFIC GRAVITY 1.017; UROBILINOGEN,URINE NEGATIVE mg/dL (<2.0)
[2017-11-18] MEDS: CARBOXYMETHYLCELLULOSE SOD 0.5% 0.4 ML DROPERETTE OU PRN (16:15)
--- NOTE | 2017-11-18 17:21 | PDOC PROGRESS REPORT ---
Subjective Progress Note for:: 11/18/17 Subjective:: The patient is a 66-year-old male with past medical history of non-Hodgkin's lymphoma, hypertension, squamous cell skin cancer, cytomegalovirus, and cirrhosis who was admitted on 11/15/17 for SIRS, A. fib with RVR, acute renal failure, and lymphoma. The patient was seen on afternoon rounds with his family members present he is found resting in bed comfortably on room air.; He states is feeling much better today. He was ambulatory in the halls last night; he did experience diaphoresis afterwards but without chest pain or dyspnea. He reports that this is not unusual for him. He denies headache, dizziness, chest pain, palpitations, dyspnea, orthopnea, cough, abdominal pain, nausea vomiting and diarrhea. He asks about possible discharge tomorrow, but otherwise, has no questions or concerns. No concerns per nursing. Reason For Visit: SEPSIS Physical Exam Vital Signs: Temp Pulse Resp BP Pulse Ox 98.2 F 98 16 112/73 98 11/18/17 14:55 11/18/17 14:55 11/18/17 14:55 11/18/17 14:55 11/18/17 14:55 Intake & Output 11/17/17 11/18/17 11/19/17 06:59 06:59 06:59 Intake Total 2910 2224 50 Output Total 2100 475 Balance 810 1749 50 Weight 77.7 kg 77.4 kg General appearance: PRESENT: no acute distress, cooperative, well-developed, well-nourished Head exam: PRESENT: atraumatic, normocephalic Eye exam: PRESENT: conjunctiva pink, EOMI, PERRLA. ABSENT: scleral icterus Ear exam: PRESENT: normal external ear exam Mouth exam: PRESENT: moist, tongue midline Neck exam: ABSENT: carotid bruit, JVD, lymphadenopathy, thyromegaly Respiratory exam: PRESENT: clear to auscultation abad. ABSENT: rales, rhonchi, wheezes Cardiovascular exam: PRESENT: irregular rhythm, +S1, +S2. ABSENT: diastolic murmur, rubs, systolic murmur Pulses: PRESENT: normal dorsalis pedis pul Vascular exam: PRESENT: normal capillary refill GI/Abdominal exam: PRESENT: normal bowel sounds, soft. ABSENT: distended, guarding, mass, organolmegaly, rebound, tenderness Rectal exam: PRESENT: deferred Extremities exam: PRESENT: full ROM. ABSENT: calf tenderness, clubbing, pedal edema Neurological exam: PRESENT: alert, awake, oriented to person, oriented to place , oriented to time, oriented to situation, CN II-XII grossly intact. ABSENT: motor sensory deficit Psychiatric exam: PRESENT: appropriate affect, normal mood. ABSENT: homicidal ideation, suicidal ideation Skin exam: PRESENT: dry, intact, warm. ABSENT: cyanosis, rash Results Laboratory Results: 11/18/17 05:09 11/18/17 10:08 11/18/17 11/18/17 11/18/17 05:09 05:09 10:08 WBC 7.3 RBC 3.05 L Hgb 10.6 L Hct 29.7 L MCV 97 MCH 34.6 H MCHC 35.6 RDW 15.3 H Plt Count 107 L Sodium 142.0 Potassium 3.6 Chloride 111 H Carbon Dioxide 21 L Anion Gap 10 BUN 18 Creatinine 1.24 1.13 Est GFR ( Amer) > 60 > 60 Est GFR (Non-Af Amer) 58 L > 60 Glucose 136 H Calcium 7.7 L Urine Color Urine Appearance Urine pH Ur Specific [place] Urine Protein Urine Glucose (UA) Urine Ketones Urine Blood Urine Nitrite Ur Leukocyte Esterase Urine WBC (Auto) Urine RBC (Auto) 11/18/17 15:20 WBC RBC Hgb Hct MCV MCH MCHC RDW Plt Count Sodium Potassium Chloride Carbon Dioxide Anion Gap BUN Creatinine Est GFR ( Amer) Est GFR (Non-Af Amer) Glucose Calcium Urine Color YELLOW Urine Appearance CLEAR Urine pH 6.0 Ur Specific [place] 1.017 Urine Protein NEGATIVE Urine Glucose (UA) NEGATIVE Urine Ketones NEGATIVE Urine Blood NEGATIVE Urine Nitrite NEGATIVE Ur Leukocyte Esterase NEGATIVE Urine WBC (Auto) 1 Urine RBC (Auto) 1 11/15/17 11/15/17 11/16/17 15:56 21:15 03:16 Troponin I 0.065 0.055 0.051 NT-Pro-B Natriuret Pep 11/16/17 11/18/17 03:16 05:09 Troponin I NT-Pro-B Natriuret Pep 6370 H [id number] H Impressions: Chest X-Ray 11/15/17 12:03 IMPRESSION: NO SIGNIFICANT RADIOGRAPHIC FINDING IN THE CHEST. Assessment & Plan - Diagnosis (1) SIRS (systemic inflammatory response syndrome) Is this a current diagnosis for this admission?: Yes Plan: Improved; patient was admitted with fever (104 at home), leukocytosis (WBCs 13) , tachycardia (HR 125), hypotension (SBP 88) and an elevated lactic acid of 2.6. Leukocytosis and elevated lactate have since resolved. T-max in last 48 hours is 99.0. Differential diagnosis includes opportunistic infection in an immunocompromised patient, recurrence of latent cytomegalovirus, gastroenteritis or chemotherapy reaction. Chest x-ray is benign. Blood cultures are negative at 72 hours. Throat culture is negative. Stool culture is negative. Urinalysis is negative. Occult stool is negative. The patient was initially admitted to ICU and has subsequently been downgraded to IMCU. He received aggressive IV fluid resuscitation; maintenance IV fluids have since been discontinued. He was empirically placed on cefepime and vancomycin. Vancomycin was discontinued yesterday; cultures were negative at 48 hours. Continue cefepime; will anticipate on transition to oral abx tomorrow if cultures remain negative, pt remains afebrile, and no evidence of neutropenia. (2) ARF (acute renal failure) Qualifiers: Acute renal failure type: unspecified Qualified Code(s): N17.9 - Acute kidney failure, unspecified Is this a current diagnosis for this admission?: Yes Plan: Resolved. Secondary to dehydration and hypotension from sepsis. Creatinine has returned to baseline; 1.13 Avoid nephrotoxic medication as able. We will monitor with daily chemistries. (3) Atrial fibrillation with rapid ventricular response Is this a current diagnosis for this admission?: Yes Plan: Improved; now rate controlled. No previous history of A. fib, not on chronic anticoagulation. Initial EKG showed A. fib with RVR; heart rate 110-125 with inverted T waves in V1 - 6. Initial troponin was elevated to 0.07; trending down and no longer following. ProBNP elevated at 6370. Echocardiogram revealed normal LVEF and borderline LVH. Cardiology has been consulted; appreciate their evaluation recommendations. Medication management per cardiology; currently on sotalol with appropriate rate control. Sotalol started 11/17/17; will continue to monitor on cardiac telemetry. Per cardiology's notes, patient has a CHADS2-DS2 VASC score of 2, which is at least moderate risk for stroke, however platelets are noted to be low and he will be receiving chemotherapy in the near future. Recommending daily aspirin therapy. Cardiology states they will discuss with Dr. Carballo need for chronic anticoagulation prior to initiating. (4) Diarrhea Qualifiers: Diarrhea type: unspecified type Qualified Code(s): R19.7 - Diarrhea, unspecified Is this a current diagnosis for this admission?: Yes Plan: Resolved. Patient endorsed multiple episodes of diarrhea the day prior to his arrival. He did have incontinence of stool his first night of admission. Etiology could include chemotherapy side effect, gastroenteritis, C. difficile. Stool culture is negative. Occult stool negative. Diarrhea has subsequently resolved; will cancel C. difficile. (5) Lymphoma Qualifiers: Lymphoma type: non-Hodgkin Non-Hodgkin lymphoma type: follicular Follicular lymphoma grade: grade III, unspecified Lymphoma site: extranodal excluding spleen and other solid organs Qualified Code(s): C82.29 - Follicular lymphoma grade III, unspecified, extranodal and solid organ sites Is this a current diagnosis for this admission?: Yes Plan: History of stage III follicular lymphoma (non-Hodgkin's). Began Treanda/Rituxan chemotherapy in October 2017. Oncology has been consulted; appreciate Dr. Carballo's evaluation and recommendations. - Time Time Spent with patient: 25-34 minutes Medications reviewed and adjusted accordingly: Yes Anticipated discharge: Home Within: within 48 hours
--- NOTE | 2017-11-18 21:51 | EKG REPORT ---
SEVERITY:- ABNORMAL ECG - ATRIAL FIBRILLATION REPOL ABNRM SUGGESTS ISCHEMIA, DIFFUSE LEADS BORDERLINE PROLONGED QT INTERVAL : Confirmed by: Shanthi Zimmerman 18-Nov-2017 21:50:40
[2017-11-18] MEDS: ZOLPIDEM TARTRATE 5 MG TABLET PO PRN (22:36)
--- NOTE | 2017-11-18 23:30 | PROGRESS NOTE E ---
Progress Note NAME: KRUPA VERMA : 1950 AGE: 66Y DATE: 11/18/2017 ROOM: 330 SUBJECTIVE: The patient states he feels much better and he feels stronger. He denies any chest pain or discomfort. There is no PND, orthopnea, or leg edema. There are no palpitations. There is no bleeding. There is no ecchymosis or petechiae. The patient has no TIA or CVA symptoms. There is no chest pain or discomfort. OBJECTIVE: GENERAL: The patient is well built and well nourished, in no acute distress. VITAL SIGNS: He is afebrile with a temperature of 97.6 degrees Fahrenheit. Pulse 70 beats per minute. The patient is still in atrial fibrillation. Blood pressure is 115/68, respirations are 18 per minute. O2 sats are 97% on room air. HEENT: Head is normocephalic/atraumatic. Eyes: Pupils are equal, round, regular, reactive to light and accommodation. Extraocular movements are normal. There is no conjunctival pallor. There is no scleral icterus. ENT is normal. NECK: Supple. There is no JVD. Carotids are equal. There is no bruit. There is no goiter. *------* Trachea is central. LUNGS: Clear to auscultation and percussion without any rhonchi, rales, or wheezing. There is no chest wall tenderness. HEART: S1, S2 heard. There is no S3 gallop. There is no S4 gallop. Systolic murmur in the left sternal border and the apex without radiation. This is a flow murmur. S1 is of variable intensity. There is no rub. ABDOMEN: Soft, nontender. There is no hepatosplenomegaly. Bowel sounds are well heard. There are no tenderness or masses. EXTREMITIES: Femorals are well felt. There are no femoral bruits. Leg pulses are well felt. There is no cyanosis or clubbing. There is no DVT or cellulitis. There is no pedal edema. Capillary refill is normal. There is no calf tenderness. 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 PSYCHIATRIC: The patient's judgment is intact. His affect is normal. LABORATORY: The patient's white count is 9300, hemoglobin 10.6, hematocrit 29.7, platelet count 107,000. The patient's sodium is 142.0, potassium is normal at 3.6. The patient's chloride is 111, CO2 is 21. The patient's BUN is 18, creatinine 1.2. GFR is slightly reduced at 58 mL. Subsequently, his creatinine repeat was 1.13 with a GFR greater than 60, again normal renal function. His NT-proBNP is 13,000. Calcium 7.4. Note on 11/16/2017 his stool was negative for occult blood. The patient's EKG shows atrial fibrillation with repolarization abnormalities in the leads. The rhythm is atrial fibrillation. Borderline prolonged QT interval. The QTC is 0.477. Note there is no *------* on Sotalol. ASSESSMENT: 1. PERSISTENT ATRIAL FIBRILLATION. Continue full-dose Lovenox. Continue Sotalol. If the QTC is okay tomorrow morning, will try to increase the Sotalol to 120 mg p.o. q.12 hours. Will try to get the patient in sinus rhythm to prevent using chronic anticoagulation, in view of the risk of patient becoming much more thrombocytopenic with the proposed chemotherapy. 2. LYMPHOMA. Oncologist is on the case. 3. SYSTEMIC INFLAMMATORY RESPONSE. Seems to be improving on antibiotics. 4. HYPERTENSION. Blood pressure on the low side. 5. ACUTE RENAL FAILURE. Resolved. At present, renal function is normal although earlier his GFR was slightly reduced at 58. 6. HYPOKALEMIA. Potassium now is normal. 7. THROMBOCYTOPENIA. There is no evidence of bleeding or petechiae or ecchymosis. Note that the platelets are slightly better. Note the patient's medications have been reviewed. Discussed with the oncologist and with the hospitalist taking care of the patient. 40 minutes spent on the patient, more than 50% of the time spent in direct patient care. Medical decision making is of high complexity. Discussed with the patient and patient's . Will follow with you. DICTATING PHYSICIAN: ELEAZAR LEAL M.D. [id number] PHY#: [id number] ID: [id number] JOB#: [id number] ACCT: [id number] cc: >
[2017-11-19] MEDS: LANSOPRAZOLE 30 MG TAB.RAP.DR PO SCH ×2 (05:28→18:04)
[2017-11-19 07:28] LABS: ALANINE AMINOTRANSFERASE 157 U/L (21-72); ALBUMIN 2.9 g/dL (3.5-5.0); ALKALINE PHOSPHATASE 71 U/L (38-126); ANION GAP 10 (5-19); ASPARTATE AMINO TRANSFERASE 103 U/L (17-59); BILIRUBIN,DIRECT 0.3 mg/dL (0.0-0.4); BILIRUBIN,TOTAL 0.6 mg/dL (0.2-1.3); BLOOD UREA NITROGEN 16 mg/dL (7-20); CARBON DIOXIDE 23 mmol/L (22-30); CHLORIDE 111 mmol/L (98-107); GLUCOSE 100 mg/dL (75-110); SODIUM 143.6 mmol/L (137-145); TOTAL PROTEIN 5.3 g/dL (6.3-8.2)
[2017-11-19 07:55] LABS: HEMATOCRIT 31.5 % (37.9-51.0); MEAN CORPUSCULAR HEMOGLOBIN 34.3 pg (27.0-33.4); MEAN CORPUSCULAR HGB CONC 34.8 g/dL (32.0-36.0); MEAN CORPUSCULAR VOLUME 99 fl (80-97); PLATELET COUNT 129 10^3/uL (150-450); RED CELL DISTRIBUTION WIDTH 14.9 % (11.5-14.0)
--- NOTE | 2017-11-19 08:34 | PDOC PROGRESS REPORT ---
Subjective Progress Note for:: 11/19/17 Subjective:: Continued on sotolol, pt is rate controlled x 24 hours but still in afib, Dr. Bills increased sotolol today to see if he will convert to NSR. Had long discussion w/ pt, he is worried that his psoriasis will flare, so I will restart his MTX as outpt but if he is to stay over weekend b/c of afib control, we may want to start it up this weekend. Reason For Visit: SEPSIS Physical Exam Vital Signs: Temp Pulse Resp BP Pulse Ox 98.6 F 81 19 121/83 99 11/19/17 05:17 11/19/17 06:55 11/19/17 05:17 11/19/17 05:17 11/19/17 05:17 Intake & Output 11/18/17 11/19/17 11/20/17 06:59 06:59 06:59 Intake Total 2224 1568 Output Total 475 Balance 1749 1568 Weight 77.4 kg 75.4 kg General appearance: PRESENT: no acute distress, well-developed, well-nourished Head exam: PRESENT: atraumatic, normocephalic Eye exam: PRESENT: conjunctiva pink, EOMI, PERRLA. ABSENT: scleral icterus Ear exam: PRESENT: normal external ear exam Mouth exam: PRESENT: moist, tongue midline Neck exam: ABSENT: carotid bruit, JVD, lymphadenopathy, thyromegaly Respiratory exam: PRESENT: clear to auscultation abad. ABSENT: rales, rhonchi, wheezes Cardiovascular exam: PRESENT: RRR. ABSENT: diastolic murmur, rubs, systolic murmur Pulses: PRESENT: normal dorsalis pedis pul Vascular exam: PRESENT: normal capillary refill GI/Abdominal exam: PRESENT: normal bowel sounds, soft. ABSENT: distended, guarding, mass, organolmegaly, rebound, tenderness Rectal exam: PRESENT: deferred Extremities exam: PRESENT: full ROM. ABSENT: calf tenderness, clubbing, pedal edema Neurological exam: PRESENT: alert, awake, oriented to person, oriented to place , oriented to time, oriented to situation, CN II-XII grossly intact. ABSENT: motor sensory deficit Psychiatric exam: PRESENT: appropriate affect, normal mood. ABSENT: homicidal ideation, suicidal ideation Skin exam: PRESENT: dry, intact, warm. ABSENT: cyanosis, rash Results Laboratory Results: 11/19/17 06:13 11/19/17 06:13 11/18/17 11/18/17 11/19/17 10:08 15:20 06:13 WBC 6.0 RBC 3.20 L Hgb 11.0 L Hct 31.5 L MCV 99 H MCH 34.3 H MCHC 34.8 RDW 14.9 H Plt Count 129 L Sodium Potassium Chloride Carbon Dioxide Anion Gap BUN Creatinine 1.13 Est GFR ( Amer) > 60 Est GFR (Non-Af Amer) > 60 Glucose Calcium Total Bilirubin AST ALT Alkaline Phosphatase Total Protein Albumin Urine Color YELLOW Urine Appearance CLEAR Urine pH 6.0 Ur Specific [place] 1.017 Urine Protein NEGATIVE Urine Glucose (UA) NEGATIVE Urine Ketones NEGATIVE Urine Blood NEGATIVE Urine Nitrite NEGATIVE Ur Leukocyte Esterase NEGATIVE Urine WBC (Auto) 1 Urine RBC (Auto) 1 Stool Occult Blood 11/19/17 11/19/17 06:13 06:42 WBC RBC Hgb Hct MCV MCH MCHC RDW Plt Count Sodium 143.6 Potassium 4.0 Chloride 111 H Carbon Dioxide 23 Anion Gap 10 BUN 16 Creatinine 1.17 Est GFR ( Amer) > 60 Est GFR (Non-Af Amer) > 60 Glucose 100 Calcium 8.0 L Total Bilirubin 0.6 AST 103 H ALT 157 H Alkaline Phosphatase 71 Total Protein 5.3 L Albumin 2.9 L Urine Color Urine Appearance Urine pH Ur Specific [place] Urine Protein Urine Glucose (UA) Urine Ketones Urine Blood Urine Nitrite Ur Leukocyte Esterase Urine WBC (Auto) Urine RBC (Auto) Stool Occult Blood NEGATIVE 11/15/17 11/15/17 11/16/17 15:56 21:15 03:16 Troponin I 0.065 0.055 0.051 NT-Pro-B Natriuret Pep 11/16/17 11/18/17 03:16 05:09 Troponin I NT-Pro-B Natriuret Pep 6370 H [id number] H Impressions: Chest X-Ray 11/15/17 12:03 IMPRESSION: NO SIGNIFICANT RADIOGRAPHIC FINDING IN THE CHEST. Assessment & Plan - Diagnosis (1) SIRS (systemic inflammatory response syndrome) Is this a current diagnosis for this admission?: Yes Plan: Con't atbx but can convert to oral when hospitalist team feels comfortable (2) Acute kidney injury Is this a current diagnosis for this admission?: Yes Plan: Improved (3) Atrial fibrillation with rapid ventricular response Is this a current diagnosis for this admission?: Yes Plan: Per cards, plan as above (4) Lymphoma Qualifiers: Lymphoma type: non-Hodgkin Non-Hodgkin lymphoma type: follicular Follicular lymphoma grade: grade III, unspecified Lymphoma site: extranodal excluding spleen and other solid organs Qualified Code(s): C82.29 - Follicular lymphoma grade III, unspecified, extranodal and solid organ sites Is this a current diagnosis for this admission?: Yes Plan: Cont rx as outpt - Time Time Spent with patient: 35 or more minutes - Inpatient Certification Based on my medical assessment, after consideration of the patient's comorbidities, presenting symptoms, or acuity I expect that the services needed warrant INPATIENT care.: Yes I certify that my determination is in accordance with my understanding of Medicare's requirements for reasonable and necessary INPATIENT services [42 CFR 412.3e].: Yes Medical Necessity: Need For Continuous Telemetry Monitoring, Need for IV Antibiotics, Risk of Complication if Not Cared For in Hospital
--- NOTE | 2017-11-19 09:24 | EKG REPORT ---
SEVERITY:- ABNORMAL ECG - ATRIAL FIBRILLATION REPOL ABNRM, PROBABLE ISCHEMIA, ANT-LAT LEADS BORDERLINE PROLONGED QT INTERVAL : Confirmed by: Shanthi Zimmerman 19-Nov-2017 09:23:06
[2017-11-19] MEDS ORDERED: SOTALOL HCL 80 MG TABLET PO ONE (09:30)
[2017-11-19] MEDS: POTASSIUM CHLORIDE 10 MEQ CAPSULE.ER PO SCH ×2 (10:12→21:19)
[2017-11-19] MEDS: ALLOPURINOL 100 MG TABLET PO SCH ×3 (10:12→18:05)
[2017-11-19] MEDS: CEFEPIME 2 GM/D5W RTU 2 GM/50 ML RTUPB IV SCH (10:13)
[2017-11-19] MEDS: ENOXAPARIN SODIUM INJ 80 MG/0.8 ML DISP.SYRIN SUBCUT SCH ×2 (10:13→21:19)
[2017-11-19] MEDS: CARBOXYMETHYLCELLULOSE SOD 0.5% 0.4 ML DROPERETTE OU PRN (10:55)
[2017-11-19] MEDS ORDERED: VERAPAMIL HCL INJ/PF 5 MG/2 ML SDV IV ONE (11:30)
--- NOTE | 2017-11-19 14:01 | PDOC PROGRESS REPORT ---
Subjective Progress Note for:: 11/19/17 Subjective:: The patient is a 66-year-old male with past medical history of non-Hodgkin's lymphoma, hypertension, squamous cell skin cancer, cytomegalovirus, and cirrhosis who was admitted on 11/15/17 for SIRS, A. fib with RVR, acute renal failure, and lymphoma. The patient was seen on morning rounds with his family members present; he is found resting in bed comfortably on room air. He states is feeling well today. He denies headache, dizziness, chest pain, palpitations, dyspnea, orthopnea, cough, abdominal pain, nausea vomiting and diarrhea. He has no questions or concerns. No concerns per nursing. Reason For Visit: SEPSIS Physical Exam Vital Signs: Temp Pulse Resp BP Pulse Ox 98.1 F 85 16 116/81 100 11/19/17 11:22 11/19/17 11:22 11/19/17 11:22 11/19/17 11:22 11/19/17 11:22 Intake & Output 11/18/17 11/19/17 11/20/17 06:59 06:59 06:59 Intake Total 2224 1618 50 Output Total 475 Balance 1749 1618 50 Weight 77.4 kg 75.4 kg General appearance: PRESENT: no acute distress, well-developed, well-nourished Head exam: PRESENT: atraumatic, normocephalic Eye exam: PRESENT: conjunctiva pink, EOMI, PERRLA. ABSENT: scleral icterus Ear exam: PRESENT: normal external ear exam Mouth exam: PRESENT: moist, tongue midline Neck exam: ABSENT: carotid bruit, JVD, lymphadenopathy, thyromegaly Respiratory exam: PRESENT: clear to auscultation abad, symmetrical, unlabored. ABSENT: rales, rhonchi, wheezes Cardiovascular exam: PRESENT: irregular rhythm, +S1, +S2. ABSENT: diastolic murmur, rubs, systolic murmur Pulses: PRESENT: normal dorsalis pedis pul Vascular exam: PRESENT: normal capillary refill GI/Abdominal exam: PRESENT: normal bowel sounds, soft. ABSENT: distended, guarding, mass, organolmegaly, rebound, tenderness Rectal exam: PRESENT: deferred Extremities exam: PRESENT: full ROM. ABSENT: calf tenderness, clubbing, pedal edema Neurological exam: PRESENT: alert, awake, oriented to person, oriented to place , oriented to time, oriented to situation, CN II-XII grossly intact. ABSENT: motor sensory deficit Psychiatric exam: PRESENT: appropriate affect, normal mood. ABSENT: homicidal ideation, suicidal ideation Skin exam: PRESENT: dry, intact, warm. ABSENT: cyanosis, rash Results Laboratory Results: 11/19/17 06:13 11/19/17 06:13 11/18/17 11/19/17 11/19/17 15:20 06:13 06:13 WBC 6.0 RBC 3.20 L Hgb 11.0 L Hct 31.5 L MCV 99 H MCH 34.3 H MCHC 34.8 RDW 14.9 H Plt Count 129 L Sodium 143.6 Potassium 4.0 Chloride 111 H Carbon Dioxide 23 Anion Gap 10 BUN 16 Creatinine 1.17 Est GFR ( Amer) > 60 Est GFR (Non-Af Amer) > 60 Glucose 100 Calcium 8.0 L Magnesium Total Bilirubin 0.6 AST 103 H ALT 157 H Alkaline Phosphatase 71 Total Protein 5.3 L Albumin 2.9 L Urine Color YELLOW Urine Appearance CLEAR Urine pH 6.0 Ur Specific [place] 1.017 Urine Protein NEGATIVE Urine Glucose (UA) NEGATIVE Urine Ketones NEGATIVE Urine Blood NEGATIVE Urine Nitrite NEGATIVE Ur Leukocyte Esterase NEGATIVE Urine WBC (Auto) 1 Urine RBC (Auto) 1 Stool Occult Blood 11/19/17 11/19/17 06:13 06:42 WBC RBC Hgb Hct MCV MCH MCHC RDW Plt Count Sodium Potassium Chloride Carbon Dioxide Anion Gap BUN Creatinine Est GFR ( Amer) Est GFR (Non-Af Amer) Glucose Calcium Magnesium 2.2 Total Bilirubin AST ALT Alkaline Phosphatase Total Protein Albumin Urine Color Urine Appearance Urine pH Ur Specific [place] Urine Protein Urine Glucose (UA) Urine Ketones Urine Blood Urine Nitrite Ur Leukocyte Esterase Urine WBC (Auto) Urine RBC (Auto) Stool Occult Blood NEGATIVE 11/15/17 11/15/17 11/16/17 15:56 21:15 03:16 Troponin I 0.065 0.055 0.051 NT-Pro-B Natriuret Pep 11/16/17 11/18/17 03:16 05:09 Troponin I NT-Pro-B Natriuret Pep 6370 H [id number] H Impressions: Chest X-Ray 11/15/17 12:03 IMPRESSION: NO SIGNIFICANT RADIOGRAPHIC FINDING IN THE CHEST. Assessment & Plan - Diagnosis (1) SIRS (systemic inflammatory response syndrome) Is this a current diagnosis for this admission?: Yes Plan: Improved; patient was admitted with fever (104 at home), leukocytosis (WBCs 13) , tachycardia (HR 125), hypotension (SBP 88) and an elevated lactic acid of 2.6. Leukocytosis and elevated lactate have since resolved. T-max in last 48 hours is 99.0. Differential diagnosis includes opportunistic infection in an immunocompromised patient, recurrence of latent cytomegalovirus, gastroenteritis or chemotherapy reaction. Chest x-ray is benign. Blood cultures are negative at 4 days. Throat culture is negative. Stool culture is negative. Urinalysis is negative. Occult stool is negative. The patient was initially admitted to ICU and has subsequently been downgraded to IMCU. He received aggressive IV fluid resuscitation; maintenance IV fluids have since been discontinued. He was empirically placed on cefepime and vancomycin. Vancomycin was discontinued once cultures were negative at 48 hours. IV cefempime discontinued today; will transition to p.o. ceftin for completion of abx course. (2) ARF (acute renal failure) Qualifiers: Acute renal failure type: unspecified Qualified Code(s): N17.9 - Acute kidney failure, unspecified Is this a current diagnosis for this admission?: Yes Plan: Resolved. Secondary to dehydration and hypotension from sepsis. Creatinine has returned to baseline; 1.17 Avoid nephrotoxic medication as able. We will monitor with daily chemistries. (3) Atrial fibrillation with rapid ventricular response Is this a current diagnosis for this admission?: Yes Plan: Improved; now rate controlled. No previous history of A. fib, not on chronic anticoagulation. Initial EKG showed A. fib with RVR; heart rate 110-125 with inverted T waves in V1 - 6. Initial troponin was elevated to 0.07; trending down and no longer following. ProBNP elevated at 6370. Echocardiogram revealed normal LVEF and borderline LVH. Cardiology has been consulted; appreciate their evaluation recommendations. Medication management per cardiology; currently on sotalol with appropriate rate control. Sotalol increased today by cardiology; will continue to monitor on cardiac telemetry. Per cardiology's notes, patient has a CHADS2-DS2 VASC score of 2, which is at least moderate risk for stroke, however platelets are noted to be low and he will be receiving chemotherapy in the near future. Recommending daily aspirin therapy. Cardiology states they will discuss with Dr. Carballo need for chronic anticoagulation prior to initiating. (4) Diarrhea Qualifiers: Diarrhea type: unspecified type Qualified Code(s): R19.7 - Diarrhea, unspecified Is this a current diagnosis for this admission?: Yes Plan: Resolved. Patient endorsed multiple episodes of diarrhea the day prior to his arrival. He did have incontinence of stool his first night of admission. Etiology could include chemotherapy side effect, gastroenteritis, C. difficile. Stool culture is negative. Occult stool negative. Diarrhea has subsequently resolved; will cancel C. difficile. (5) Lymphoma Qualifiers: Lymphoma type: non-Hodgkin Non-Hodgkin lymphoma type: follicular Follicular lymphoma grade: grade III, unspecified Lymphoma site: extranodal excluding spleen and other solid organs Qualified Code(s): C82.29 - Follicular lymphoma grade III, unspecified, extranodal and solid organ sites Is this a current diagnosis for this admission?: Yes - Time Time Spent with patient: 15-24 minutes Medications reviewed and adjusted accordingly: Yes Anticipated discharge: Home
[2017-11-19] MEDS: CEFUROXIME 500 MG TABLET PO SCH (18:05)
[2017-11-19] MEDS: SOTALOL HCL 80 MG TABLET PO SCH (21:18)
[2017-11-19] MEDS: ZOLPIDEM TARTRATE 5 MG TABLET PO PRN (21:21)
[2017-11-19] MEDS ORDERED: SOTALOL HCL 80 MG TABLET PO SCH (22:00)
[2017-11-20] MEDS: LANSOPRAZOLE 30 MG TAB.RAP.DR PO SCH ×2 (05:23→16:11)
[2017-11-20 06:03] LABS: HEMATOCRIT 30.5 % (37.9-51.0); HEMOGLOBIN 10.6 g/dL (13.5-17.0); MEAN CORPUSCULAR HGB CONC 34.7 g/dL (32.0-36.0); MEAN CORPUSCULAR VOLUME 98 fl (80-97); PLATELET COUNT 134 10^3/uL (150-450); RED BLOOD COUNT 3.11 10^6/uL (4.35-5.55); RED CELL DISTRIBUTION WIDTH 15.4 % (11.5-14.0); WHITE BLOOD COUNT 5.1 10^3/uL (4.0-10.5)
[2017-11-20 06:28] LABS: ANION GAP 8 (5-19); BLOOD UREA NITROGEN 16 mg/dL (7-20); CALCIUM 8.1 mg/dL (8.4-10.2); CARBON DIOXIDE 24 mmol/L (22-30); CHLORIDE 111 mmol/L (98-107); GLUCOSE 96 mg/dL (75-110); POTASSIUM 4.4 mmol/L (3.6-5.0); SODIUM 143.4 mmol/L (137-145)
--- NOTE | 2017-11-20 08:09 | PDOC PROGRESS REPORT ---
Subjective Progress Note for:: 11/20/17 Subjective:: Feeling better, converted to sinus rhythm this am and seems to be in NSR at present also Reason For Visit: SEPSIS Physical Exam Vital Signs: Temp Pulse Resp BP Pulse Ox 98.2 F 65 16 130/90 H 100 11/20/17 04:08 11/20/17 04:08 11/20/17 04:08 11/20/17 04:08 11/20/17 04:08 Intake & Output 11/19/17 11/20/17 11/21/17 06:59 06:59 06:59 Intake Total 1618 1843 Balance 1618 1843 Weight 75.4 kg 75.1 kg General appearance: PRESENT: no acute distress, well-developed, well-nourished Head exam: PRESENT: atraumatic, normocephalic Eye exam: PRESENT: conjunctiva pink, EOMI, PERRLA. ABSENT: scleral icterus Ear exam: PRESENT: normal external ear exam Mouth exam: PRESENT: moist, tongue midline Neck exam: ABSENT: carotid bruit, JVD, lymphadenopathy, thyromegaly Respiratory exam: PRESENT: clear to auscultation abad. ABSENT: rales, rhonchi, wheezes Cardiovascular exam: PRESENT: RRR. ABSENT: diastolic murmur, rubs, systolic murmur Pulses: PRESENT: normal dorsalis pedis pul Vascular exam: PRESENT: normal capillary refill GI/Abdominal exam: PRESENT: normal bowel sounds, soft. ABSENT: distended, guarding, mass, organolmegaly, rebound, tenderness Rectal exam: PRESENT: deferred Extremities exam: PRESENT: full ROM. ABSENT: calf tenderness, clubbing, pedal edema Neurological exam: PRESENT: alert, awake, oriented to person, oriented to place , oriented to time, oriented to situation, CN II-XII grossly intact. ABSENT: motor sensory deficit Psychiatric exam: PRESENT: appropriate affect, normal mood. ABSENT: homicidal ideation, suicidal ideation Skin exam: PRESENT: dry, intact, warm. ABSENT: cyanosis, rash Results Laboratory Results: 11/20/17 05:31 11/20/17 05:31 11/19/17 11/20/17 11/20/17 06:13 05:31 05:31 WBC 5.1 RBC 3.11 L Hgb 10.6 L Hct 30.5 L MCV 98 H MCH 34.0 H MCHC 34.7 RDW 15.4 H Plt Count 134 L Sodium 143.4 Potassium 4.4 Chloride 111 H Carbon Dioxide 24 Anion Gap 8 BUN 16 Creatinine 1.10 Est GFR ( Amer) > 60 Est GFR (Non-Af Amer) > 60 Glucose 96 Calcium 8.1 L Magnesium 2.2 11/16/17 08:30 Stool - Stool - Final 11/16/17 08:30 Stool - Stool Stool Culture - Final C.albicans/C.dubliniensis 11/15/17 11/15/17 11/16/17 15:56 21:15 03:16 Troponin I 0.065 0.055 0.051 NT-Pro-B Natriuret Pep 11/16/17 11/18/17 03:16 05:09 Troponin I NT-Pro-B Natriuret Pep 6370 H [id number] H Impressions: Chest X-Ray 11/15/17 12:03 IMPRESSION: NO SIGNIFICANT RADIOGRAPHIC FINDING IN THE CHEST. Assessment & Plan - Diagnosis (1) SIRS (systemic inflammatory response syndrome) Is this a current diagnosis for this admission?: Yes Plan: Cont current rx, pt now on oral atbx, will cont for some time as outpt per hospitalist team, will f/u pt in 1-2 wk post d/c (2) Acute kidney injury Is this a current diagnosis for this admission?: Yes Plan: Seems resolved now (3) Atrial fibrillation with rapid ventricular response Is this a current diagnosis for this admission?: Yes Plan: NSR now, further plan per cards team (4) Lymphoma Qualifiers: Lymphoma type: non-Hodgkin Non-Hodgkin lymphoma type: follicular Follicular lymphoma grade: grade III, unspecified Lymphoma site: extranodal excluding spleen and other solid organs Qualified Code(s): C82.29 - Follicular lymphoma grade III, unspecified, extranodal and solid organ sites Is this a current diagnosis for this admission?: Yes Plan: Cont rx as outpt - Time Time Spent with patient: 35 or more minutes - Inpatient Certification Based on my medical assessment, after consideration of the patient's comorbidities, presenting symptoms, or acuity I expect that the services needed warrant INPATIENT care.: Yes I certify that my determination is in accordance with my understanding of Medicare's requirements for reasonable and necessary INPATIENT services [42 CFR 412.3e].: Yes Medical Necessity: Need For Continuous Telemetry Monitoring
--- NOTE | 2017-11-20 10:00 | PROGRESS NOTE E ---
Progress Note NAME: KRUPA VERMA : 1950 AGE: 66Y DATE: 11/19/2017 ROOM: 330 SUBJECTIVE: Note, patient states that he feels much better but he is still in atrial fibrillation with controlled ventricular response. His sotalol was increased to 120 mg p.o. every 12 hours. Also later the patient was given 5 mg of verapamil. Although this did bring the rate down, it did not convert him to sinus rhythm. The patient has no chest pain or discomfort. There is no cough or sputum production. The patient is afebrile. There is no PND, orthopnea, or leg edema. There is no chest pain or discomfort. There is no TIA or CVA symptoms. There is no bleeding on full-dose Lovenox. PHYSICAL EXAMINATION: GENERAL: The patient is well built and well nourished, in no acute distress. He is well groomed. VITAL SIGNS: He is afebrile with a temperature of 98.1 degrees Fahrenheit. His pulse is 85 beats per minute, irregularly irregular. Blood pressure is 116/81. Respirations are 16 per minute. O2 sats are 100% on room air. HEENT: Head is atraumatic, normocephalic. Eyes - Pupils are equal, round, regular, reactive to light and accommodation. Extraocular movements are normal. There is no conjunctival pallor. There is no scleral icterus. ENT is negative. NECK: Supple. There is no JVD. Carotids are equal. There is no bruit. There is no lymphadenopathy. There is no goiter. Trachea is central. LUNGS: Clear to auscultation and percussion without any rhonchi, rales, or wheezing. HEART: S1, S2 is heard; S1 is of variable intensity. There is no S3 gallop. There is no S4 gallop. There is a systolic murmur at the left sternal border and the apex. There is no rub. ABDOMEN: Soft, nontender. There is no hepatosplenomegaly. Bowel sounds are well heard. EXTREMITIES: Femorals are well felt. There are no femoral bruits. Leg pulses are well felt. There is no cyanosis or clubbing. There is no DVT or cellulitis. There is no pedal edema. Capillary refill is normal. CENTRAL NERVOUS SYSTEM: The patient is conscious, awake, alert, and oriented x3 with no focal deficits. PSYCHIATRIC: The patient's judgement and insight are intact. His affect is normal. DIAGNOSTICS: The patient's sodium is 143.6, potassium is 4.0, chloride is 111, CO2 is 23. The patient's BUN is 16, creatinine is 1.17. The patient's glucose is 100, calcium is 8.0, patient's magnesium is 2.2. Patient's total bilirubin is 0.6, direct bilirubin 0.3. Patient's AST has further increased to 103, his ALT has increased to 157, and alk phos is 71. The patient's white count is 6000, patient's hemoglobin is 11, hematocrit is 31.5, platelet count is 129,000. Patient's EKG shows atrial fibrillation with controlled ventricular response, T changes in the anterior leads, cannot exclude ischemia. The QTC is still not *------*. The patient's stool occult blood was negative. IMPRESSION: 1. ATRIAL FIBRILLATION THAT SEEMS TO BE RESISTANT TO CONVERSION TO SINUS RHYTHM. Note, I have increased the patient's sotalol. We will watch the patient's QTC on the EKG. 2. LYMPHOMA. Oncologist is on the case. 3. SYSTEMIC INFLAMMATORY RESPONSE, SEEMS TO BE IMPROVING WITH ANTIBIOTICS. 4. HYPERTENSION. Blood pressure is well controlled. 5. ACUTE RENAL FAILURE, RESOLVED. 6. HYPOKALEMIA, RESOLVED. Now potassium is normal. 7. THROMBOCYTOPENIA. 8. ABNORMAL LIVER FUNCTION TESTS, SEEMS TO BE RISING. PLAN: As mentioned earlier, continue Lovenox for now. I will increase the patient's sotalol and we will see if this will convert the patient to sinus rhythm. If not, then would have to revert the patient to digoxin and metoprolol and then discuss chronic anticoagulation therapy with the patient along with the oncologist. Note, 40 minutes was spent on this patient with more than 50% of the time spent in direct patient care. His medications have been reviewed. Medical decision making is of high complexity. DICTATING PHYSICIAN: ELEAZAR LEAL M.D. [id number] PHY#: [id number] ID: [id number] JOB#: [id number] ACCT: [id number] cc: >
[2017-11-20] MEDS: POTASSIUM CHLORIDE 10 MEQ CAPSULE.ER PO SCH ×2 (10:36→21:46)
[2017-11-20] MEDS: ALLOPURINOL 100 MG TABLET PO SCH ×3 (10:37→18:59)
[2017-11-20] MEDS: SOTALOL HCL 80 MG TABLET PO SCH ×2 (10:37→21:46)
[2017-11-20] MEDS: CEFUROXIME 500 MG TABLET PO SCH ×2 (10:38→18:56)
[2017-11-20] MEDS: ENOXAPARIN SODIUM INJ 80 MG/0.8 ML DISP.SYRIN SUBCUT SCH ×2 (10:38→21:51)
--- NOTE | 2017-11-20 18:08 | PDOC PROGRESS REPORT ---
Subjective Progress Note for:: 11/20/17 Subjective:: The patient is a 66-year-old male with past medical history of non-Hodgkin's lymphoma, hypertension, squamous cell skin cancer, cytomegalovirus, and cirrhosis who was admitted on 11/15/17 for SIRS, A. fib with RVR, acute renal failure, and lymphoma. The patient was seen on morning rounds with his family members present; he is found resting in bed comfortably on room air. He states is feeling well today. The patient reports that he was awake and felt when he converted to normal sinus rhythm and actually notified nursing of the change. He denies headache, dizziness, chest pain, palpitations, dyspnea, orthopnea, cough, abdominal pain, nausea vomiting and diarrhea. He has no questions or concerns; he is hopeful that he will be discharged soon that he is in a normal rhythm. No concerns per nursing. Reason For Visit: SEPSIS Physical Exam Vital Signs: Temp Pulse Resp BP Pulse Ox 98.1 F 58 L 18 136/90 H 100 11/20/17 15:44 11/20/17 15:44 11/20/17 15:44 11/20/17 15:44 11/20/17 15:44 Intake & Output 11/19/17 11/20/17 11/21/17 06:59 06:59 06:59 Intake Total 1618 1843 600 Balance 1618 1843 600 Weight 75.4 kg 75.1 kg General appearance: PRESENT: no acute distress, well-developed, well-nourished Head exam: PRESENT: atraumatic, normocephalic Eye exam: PRESENT: conjunctiva pink, EOMI, PERRLA. ABSENT: scleral icterus Ear exam: PRESENT: normal external ear exam Mouth exam: PRESENT: moist, tongue midline Neck exam: ABSENT: carotid bruit, JVD, lymphadenopathy, thyromegaly Respiratory exam: PRESENT: clear to auscultation abad. ABSENT: rales, rhonchi, wheezes Cardiovascular exam: PRESENT: RRR. ABSENT: diastolic murmur, rubs, systolic murmur Pulses: PRESENT: normal dorsalis pedis pul Vascular exam: PRESENT: normal capillary refill GI/Abdominal exam: PRESENT: normal bowel sounds, soft. ABSENT: distended, guarding, mass, organolmegaly, rebound, tenderness Rectal exam: PRESENT: deferred Extremities exam: PRESENT: full ROM. ABSENT: calf tenderness, clubbing, pedal edema Neurological exam: PRESENT: alert, awake, oriented to person, oriented to place , oriented to time, oriented to situation, CN II-XII grossly intact. ABSENT: motor sensory deficit Psychiatric exam: PRESENT: appropriate affect, normal mood. ABSENT: homicidal ideation, suicidal ideation Skin exam: PRESENT: dry, intact, warm. ABSENT: cyanosis, rash Results Laboratory Results: 11/20/17 05:31 11/20/17 05:31 11/20/17 11/20/17 11/20/17 05:31 05:31 09:30 WBC 5.1 RBC 3.11 L Hgb 10.6 L Hct 30.5 L MCV 98 H MCH 34.0 H MCHC 34.7 RDW 15.4 H Plt Count 134 L Sodium 143.4 Potassium 4.4 Chloride 111 H Carbon Dioxide 24 Anion Gap 8 BUN 16 Creatinine 1.10 Est GFR ( Amer) > 60 Est GFR (Non-Af Amer) > 60 Glucose 96 Calcium 8.1 L Stool Occult Blood NEGATIVE 11/16/17 08:30 Stool - Stool - Final 11/16/17 08:30 Stool - Stool Stool Culture - Final C.albicans/C.dubliniensis 11/15/17 11/15/17 11/16/17 15:56 21:15 03:16 Troponin I 0.065 0.055 0.051 NT-Pro-B Natriuret Pep 11/16/17 11/18/17 03:16 05:09 Troponin I NT-Pro-B Natriuret Pep 6370 H [id number] H Impressions: Chest X-Ray 11/15/17 12:03 IMPRESSION: NO SIGNIFICANT RADIOGRAPHIC FINDING IN THE CHEST. Assessment & Plan - Diagnosis (1) SIRS (systemic inflammatory response syndrome) Is this a current diagnosis for this admission?: Yes Plan: Resolved; patient was admitted with fever (104 at home), leukocytosis (WBCs 13) , tachycardia (HR 125), hypotension (SBP 88) and an elevated lactic acid of 2.6. Leukocytosis and elevated lactate have since resolved. T-max in last 48 hours is 99.2. Chest x-ray is benign. Blood cultures are negative at 4 days. Throat culture is negative. Stool culture is negative. Urinalysis is negative. Occult stool is negative. The patient was initially admitted to ICU and has subsequently been downgraded to IMCU. He received aggressive IV fluid resuscitation; maintenance IV fluids have since been discontinued. He was empirically placed on cefepime and vancomycin. Vancomycin was discontinued once cultures were negative at 48 hours. IV cefempime discontinued and patient has been transitioned to p.o. ceftin for completion of abx course. (2) ARF (acute renal failure) Qualifiers: Acute renal failure type: unspecified Qualified Code(s): N17.9 - Acute kidney failure, unspecified Is this a current diagnosis for this admission?: Yes Plan: Resolved. Secondary to dehydration and hypotension from sepsis. Creatinine has returned to baseline; 1.17 Avoid nephrotoxic medication as able. We will monitor with daily chemistries. (3) Atrial fibrillation with rapid ventricular response Is this a current diagnosis for this admission?: Yes Plan: Resolved; converted to NSR overnight. No previous history of A. fib, not on chronic anticoagulation. Initial EKG showed A. fib with RVR; heart rate 110-125 with inverted T waves in V1 - 6. Initial troponin was elevated to 0.07; trending down and no longer following. ProBNP elevated at 6370. Echocardiogram revealed normal LVEF and borderline LVH. Cardiology has been consulted; appreciate their evaluation recommendations. Medication management per cardiology; currently on sotalol with appropriate rate control. Sotalol increased yesterday by cardiology; will continue to monitor on cardiac telemetry. (4) Diarrhea Qualifiers: Diarrhea type: unspecified type Qualified Code(s): R19.7 - Diarrhea, unspecified Is this a current diagnosis for this admission?: Yes Plan: Resolved. Patient endorsed multiple episodes of diarrhea the day prior to his arrival. He did have incontinence of stool his first night of admission. Etiology could include chemotherapy side effect, gastroenteritis, C. difficile. Stool culture is negative. Occult stool negative. Diarrhea has subsequently resolved; will cancel C. difficile. (5) Lymphoma Qualifiers: Lymphoma type: non-Hodgkin Non-Hodgkin lymphoma type: follicular Follicular lymphoma grade: grade III, unspecified Lymphoma site: extranodal excluding spleen and other solid organs Qualified Code(s): C82.29 - Follicular lymphoma grade III, unspecified, extranodal and solid organ sites Is this a current diagnosis for this admission?: Yes Plan: History of stage III follicular lymphoma (non-Hodgkin's). Began Treanda/Rituxan chemotherapy in October 2017. Oncology has been consulted; appreciate Dr. Carballo's evaluation and recommendations. - Time Time Spent with patient: 15-24 minutes Anticipated discharge: Home Within: Other - When cleared by cardiology
--- NOTE | 2017-11-20 18:19 | EKG REPORT ---
SEVERITY:- ABNORMAL ECG - SINUS RHYTHM PROBABLE LEFT ATRIAL ABNORMALITY REPOL ABNRM SUGGESTS ISCHEMIA, ANT-LAT LEADS BORDERLINE PROLONGED QT INTERVAL : Confirmed by: Shanthi Zimmerman 20-Nov-2017 18:18:42
[2017-11-20] MEDS: ZOLPIDEM TARTRATE 5 MG TABLET PO PRN (21:51)
--- NOTE | 2017-11-21 | PROGRESS NOTE E ---
Progress Note NAME: KRUPA VERMA : 1950 AGE: 66Y DATE: 11/20/2017 ROOM: 330 SUBJECTIVE: The patient converted to sinus rhythm. His EKG looks ischemic with T-wave inversions. Whether this is secondary to ischemia or T-wave inversions secondary to post tachycardia T-wave inversion syndrome is the differential diagnosis. The patient has no chest pain or discomfort. There is no PND or orthopnea. There is no leg edema. There are no ventricular arrhythmias. There is no arrhythmia on sotalol. Note that the sotalol has been increased to 120 mg p.o. q.12 hours. The patient is tolerating it well. OBJECTIVE: GENERAL: The patient is well groomed, well nourished, in no acute distress. VITAL SIGNS: He is afebrile with a temperature of 97.9 degrees Fahrenheit, pulse 64 beats per minute, regular rhythm on the monitor, sinus mechanism. Blood pressure is 144/86, respirations 20 per minute, O2 sats 100% on room air. HEENT: Head is normocephalic/atraumatic. Eyes: Pupils equal, round, regular, reactive to light and accommodation. Extraocular movements are normal. There is no conjunctival pallor. There is no scleral icterus. ENT is negative. NECK: Supple. There is no JVD. Carotids are equal. There is no bruit. There is no lymphadenopathy. There is no goiter. Trachea is central. LUNGS: Clear to auscultation and percussion. There is no chest wall tenderness. HEART: S1, S2 heard. S1 is of normal intensity. There is no S3 gallop. There is no S4 gallop. There is a systolic murmur in the left sternal border and apex. There is no rub. ABDOMEN: Soft, nontender. There is no hepatosplenomegaly. Bowel sounds are well heard. There are no tender areas or masses. EXTREMITIES: Femorals are well felt. Leg pulses well felt. There is no pedal edema. There is no cyanosis or clubbing. There is no DVT or cellulitis. There is no calf tenderness. OFFICE REP: The patient is conscious, awake, alert, oriented x3 with no focal deficits. PSYCHIATRIC: The patient's judgment and insight are intact. Affect is normal. The patient's EKG shows sinus rhythm, probable LVH with repolarization abnormalities, but also there is anterior T-wave inversion, ischemia versus post tachycardic T-wave inversion syndrome. Note that the patient's coronary artery risk factors are the patient's age, hypertension, and family history of coronary artery disease. The patient's *------*. Hemoglobin 10.6, hematocrit 30%, platelet count 134,000. The patient's sodium is 143.4, potassium 4.4, chloride 111, CO2 is 24. The patient's BUN is 16, creatinine 1.10, GFR is greater than 60. Glucose 96. Calcium 8.1. The patient's *------* is negative. ASSESSMENT: 1. PAROXYSMAL ATRIAL FIBRILLATION. Converted to sinus rhythm. 2. ABNORMAL ELECTROCARDIOGRAM IN A PATIENT WITH MULTIPLE CORONARY ARTERY DISEASE RISK FACTORS. 3. SYSTEMIC INFLAMMATION RESPONSE. Seems to have resolved. 4. LYMPHOMA. Oncologist is on the case. 5. HYPERTENSION. 6. THROMBOCYTOPENIA. Platelets are much improved. 7. ABNORMAL LIVER FUNCTION TESTS. Will recheck tests in the morning. Will continue the patient's sotalol at 120 mg p.o. q.12 hours. Will keep Lovenox on for another day and then discontinue it. Will schedule the patient for IV Lexiscan Cardiolite stress test. The procedure of stress testing has been discussed with the patient and the patient's . Note the patient's medications have been reviewed. The EKG does not show any abnormal QTc interval and there is no arrhythmias with sotalol seen. Medical decision making is of high complexity. 45 minutes spent with the patient, with more than 50% of the time spent on direct patient care. Medications reviewed. I will schedule the patient for stress test tomorrow. Discussed with other caregivers and providers on the case. Discussed with the patient and patient's . Will follow with you. DICTATING PHYSICIAN: ELEAZAR LEAL M.D. [id number] JOESPH#: [id number] ID: [id number] JOB#: [id number] ACCT: [id number] cc: >
[2017-11-21] MEDS: LANSOPRAZOLE 30 MG TAB.RAP.DR PO SCH (05:23)
[2017-11-21 05:43] LABS: APPEARANCE,URINE CLEAR; BILIRUBIN,URINE NEGATIVE (NEGATIVE); COLOR,URINE YELLOW; GLUCOSE, URINE NEGATIVE (NEGATIVE); KETONES,URINE NEGATIVE (NEGATIVE); LEUKOCYTE ESTERASE,URINE NEGATIVE (NEGATIVE); NITRITE,URINE NEGATIVE (NEGATIVE); PROTEIN,URINE NEGATIVE (NEGATIVE); URINE SPECIFIC GRAVITY 1.008; UROBILINOGEN,URINE NEGATIVE mg/dL (<2.0)
[2017-11-21 09:22] LABS: ALANINE AMINOTRANSFERASE 159 U/L (21-72); ALBUMIN 3.3 g/dL (3.5-5.0); ALKALINE PHOSPHATASE 82 U/L (38-126); ANION GAP 12 (5-19); ASPARTATE AMINO TRANSFERASE 78 U/L (17-59); BILIRUBIN,DIRECT 0.4 mg/dL (0.0-0.4); BILIRUBIN,TOTAL 0.7 mg/dL (0.2-1.3); BLOOD UREA NITROGEN 15 mg/dL (7-20); CALCIUM 8.5 mg/dL (8.4-10.2); CARBON DIOXIDE 26 mmol/L (22-30); CHLORIDE 106 mmol/L (98-107); GLUCOSE 86 mg/dL (75-110); POTASSIUM 4.3 mmol/L (3.6-5.0); SODIUM 143.8 mmol/L (137-145); TOTAL PROTEIN 5.8 g/dL (6.3-8.2)
[2017-11-21] MEDS ORDERED: REGADENOSON INJ 0.4 MG/5 ML DISP.SYRIN IV ONE (10:55)
[2017-11-21] MEDS: SOTALOL HCL 80 MG TABLET PO SCH (11:22)
[2017-11-21] MEDS: CEFUROXIME 500 MG TABLET PO SCH (11:22)
[2017-11-21] MEDS: POTASSIUM CHLORIDE 10 MEQ CAPSULE.ER PO SCH (11:22)
[2017-11-21] MEDS: ENOXAPARIN SODIUM INJ 80 MG/0.8 ML DISP.SYRIN SUBCUT SCH (11:23)
[2017-11-21] MEDS: ALLOPURINOL 100 MG TABLET PO SCH ×2 (11:30→13:56)
[2017-11-21 15:30] VITALS: BP 100/58
--- NOTE | 2017-11-21 18:23 | PDOC DISCHARGE SUMMARY ---
General - Admit/Disc Date/PCP Admission Date/Primary Care Provider: 11/15/17 14:00 NAHOMI LAWSON MD Discharge Date: 11/21/17 - Discharge Diagnosis (1) SIRS (systemic inflammatory response syndrome) Is this a current diagnosis for this admission?: Yes Summary: The patient was admitted with a fever (104 at home), leukocytosis (WBCs 13), tachycardia (HR 125), hypotension (SBP 88) and an elevated lactic acid of 2.6. Leukocytosis and elevated lactate have since resolved. He has been afebrile > 48 hours. Evaluation was benign: Chest x-ray is benign. Blood cultures are negative at 4 days. Throat culture is negative. Stool culture is negative. Urinalysis is negative. Occult stool is negative. Initially, the patient was placed on IV cefepime and vancomycin. He received aggressive IV fluid resuscitation.Vancomycin was discontinued once cultures were negative at 48 hours. IV cefempime discontinued once patient had been afebrile >48 hours. He was transitioned to p.o. ceftin for completion of abx course. He is discharged home in stable condition. He is advised to complete his course of ceftin and to contact his healthcare provider or return to the emergency department for any concerning symptoms or fever greater than 101. The patient is to follow-up with his primary care provider within 1 week, Dr. Carballo as scheduled, and with Dr. Carmona as instructed following his event monitoring. (2) ARF (acute renal failure) Is this a current diagnosis for this admission?: Yes Summary: Resolved; secondary to dehydration and hypotension from SIRS. (3) Atrial fibrillation with rapid ventricular response Is this a current diagnosis for this admission?: Yes Summary: The patient was found to have atrial fibrillation with RVR; no previous of A. fib and not chronically anticoagulated. Initial EKG showed A. fib with RVR; heart rate 110-125 with inverted T waves in V1 - 6. Initial troponin was elevated to 0.07; trending down and no longer following. ProBNP elevated at 6370. Echocardiogram revealed normal LVEF and borderline LVH. He was placed on full dose Lovenox and cardiology was consulted. The initiated sotalol and increased the dose until the patient converted to normal sinus rhythm overnight 11/20/17. Repeat EKG demonstrated normal sinus rhythm with inverted T waves to the inferior and lateral leads. The patient underwent nuclear stress testing today; received notification from cardiology he he has been cleared for discharge. Finalized stress testing report is not yet available at time of this dictation. He is discharged on Sotalol 120 mg twice daily and aspirin 325 mg daily. He was instructed by cardiology to continue his losartan/HCTZ as prescribed. The patient will undergo event monitoring as an outpatient; to follow-up with Dr. Bills's office as directed. (4) Diarrhea Is this a current diagnosis for this admission?: Yes Summary: Resolved. Patient endorsed multiple episodes of diarrhea the day prior to his arrival. He did have incontinence of stool his first night of admission. Etiology most likely includes chemotherapy side effect or gastroenteritis. Stool culture is negative. Occult stool negative. (5) Lymphoma Is this a current diagnosis for this admission?: Yes Summary: History of stage III follicular lymphoma (non-Hodgkin's). Began Treanda/Rituxan chemotherapy in October 2017. Oncology was consulted; patient to follow-up with Dr. Carballo as scheduled. - Additional Information Resuscitation Status: Full Code Discharge Diet: Cardiac Discharge Activity: Activity As Tolerated, Balance Activity w/Rest, Slowly Increase Activity Prescriptions: Aspirin [Aspir-Laine] 325 mg PO DAILY PRN #1 pkg PRN Reason: Cefuroxime Axetil [Ceftin 500 mg Tablet] 500 mg PO BID #20 tablet Losartan/Hydrochlorothiazide [Losartan-Hctz 50-12.5 mg Tab] 1 each PO DAILY #1 tablet Sotalol HCl [Betapace 80 mg Tablet] 120 mg PO Q12 #90 tablet Zolpidem Tartrate [Ambien 5 mg Tablet] 5 mg PO HSP PRN #7 tablet PRN Reason: Home Medications: Folic Acid 0.4 mg PO DAILY 11/15/17 Hydrocodone/Acetaminophen [Greene 5-325 mg Tablet] 1 tab PO Q8HP PRN 11/15/17 Promethazine HCl [Phenergan 25 mg Tablet] 25 mg PO Q4 11/15/17 Vitamin B Complex 1 cap PO DAILY 11/15/17 Acetaminophen [Tylenol 325 mg Tablet] 650 mg PO Q6HP PRN tablet 11/21/17 Allopurinol [Zyloprim 100 mg Tablet] 100 mg PO TID tablet 11/21/17 Aspirin [Aspir-Laine] 325 mg PO DAILY PRN #1 pkg 08/04/18 Cefuroxime Axetil [Ceftin 500 mg Tablet] 500 mg PO BID #20 tablet 11/21/17 Losartan/Hydrochlorothiazide [Losartan-Hctz 50-12.5 mg Tab] 1 each PO DAILY #1 tablet 11/21/17 Sotalol HCl [Betapace 80 mg Tablet] 120 mg PO Q12 #90 tablet 11/21/17 Zolpidem Tartrate [Ambien 5 mg Tablet] 5 mg PO HSP PRN #7 tablet 11/21/17 History of Present Illness History of Present Illness: Per H&P by Will Perez NO EXPERIENCE-C: KRUPA VERMA is a 66 year old male who presented to the emergency department with a 3 day history of fever and weakness. The patient has a history of non-Hodgkin's lymphoma (followed by Dr. Crump) and received his first chemotherapy treatment 11/06/2017. The patient reports he was febrile and not feeling well on Thursday11/13/2017, was seen at Dr. Crump' s office and sent home with a prescription for Levaquin. Shortly after taking his 1st dose of Levaquin, the patient developed an allergic reaction of hives covering his trunk and petechiae on his lower extremities. Patient stopped taking the Levaquin. Reports his fever and generalized weakness became worse over the weekend. The patient reports he took Tylenol and Benadryl in an attempt to alleviate his symptoms, but they offered no relief. The patient was unable to get out of bed today due to his weakness, this prompted the to bring him to the emergency department. PMH non-Hodgkin's lymphoma, HTN, squamous cell skin carcinoma, cytomegalovirus ( 15+ yrs ago) Upon arrival to the ED, the patient's vital signs were BP 72/50 HR 81 RR 20 T 99.2 SPO2 99%. EKG shows AFIB with RVR, inverted T waves in leads V1-V6. CXR benign. +leukocytosis (WBC 13.1). Creatinine 1.67. Lactate 2.6. Urinalysis negative. All other lab work benign. The patient endorses generalized weakness, dizziness upon standing, fever, chills, and a single episode of watery diarrhea this morning. He denies chest pain, SOB, abdominal pain, or N/V. In addition to his generalized weakness, the patient endorses urinary frequency since his chemotherapy treatment. Patient states he was placed on a medication (unknown name) by Dr. Mitchell that results in frequent urination. He states that over the last few days he has noticed burning upon initiation of urination. While in the ED, the patient was given 2 L IVF. Empiric antibiotic coverage was initiated with IV Zosyn, vancomycin and cefepime. Upon assessment, the patient is resting comfortably in bed on room air. He is awake, alert and oriented 3. He is able to answer all questions appropriately and speak in full sentences without pause. His lungs are clear to auscultation. Irregular pulse rate. No murmur/rubs/gallops. No evidence of peripheral edema. Abdomen is soft, NT/ND. + BS. While interviewing the patient, his SBP began dropping from 110->88. Initiated another 2L IVF bolus. Due to his tenuous VS and overall unstable septic presentation, plan to admit patient to ICU. Physical Exam Vital Signs: Temp Pulse Resp BP Pulse Ox 97.9 F 53 L 16 100/58 L 99 11/21/17 15:28 11/21/17 15:28 11/21/17 15:28 11/21/17 15:28 11/21/17 15:28 Intake & Output 11/20/17 11/21/17 11/22/17 06:59 06:59 06:59 Intake Total 1843 950 237 Balance 1843 950 237 Weight 75.1 kg 72.5 kg General appearance: PRESENT: no acute distress, well-developed, well-nourished Head exam: PRESENT: atraumatic, normocephalic Eye exam: PRESENT: conjunctiva pink, EOMI, PERRLA. ABSENT: scleral icterus Ear exam: PRESENT: normal external ear exam Mouth exam: PRESENT: moist, tongue midline Neck exam: ABSENT: carotid bruit, JVD, lymphadenopathy, thyromegaly Respiratory exam: PRESENT: clear to auscultation abad. ABSENT: rales, rhonchi, wheezes Cardiovascular exam: PRESENT: RRR. ABSENT: diastolic murmur, rubs, systolic murmur Pulses: PRESENT: normal dorsalis pedis pul Vascular exam: PRESENT: normal capillary refill GI/Abdominal exam: PRESENT: normal bowel sounds, soft. ABSENT: distended, guarding, mass, organolmegaly, rebound, tenderness Rectal exam: PRESENT: deferred Extremities exam: PRESENT: full ROM. ABSENT: calf tenderness, clubbing, pedal edema Neurological exam: PRESENT: alert, awake, oriented to person, oriented to place , oriented to time, oriented to situation, CN II-XII grossly intact. ABSENT: motor sensory deficit Psychiatric exam: PRESENT: appropriate affect, normal mood. ABSENT: homicidal ideation, suicidal ideation Skin exam: PRESENT: dry, intact, warm. ABSENT: cyanosis, rash Results Laboratory Results: 11/20/17 05:31 11/21/17 08:45 11/21/17 11/21/17 05:20 08:45 Sodium 143.8 Potassium 4.3 Chloride 106 Carbon Dioxide 26 Anion Gap 12 BUN 15 Creatinine 1.04 Est GFR ( Amer) > 60 Est GFR (Non-Af Amer) > 60 Glucose 86 Calcium 8.5 Total Bilirubin 0.7 AST 78 H ALT 159 H Alkaline Phosphatase 82 Total Protein 5.8 L Albumin 3.3 L Urine Color YELLOW Urine Appearance CLEAR Urine pH 6.0 Ur Specific [place] 1.008 Urine Protein NEGATIVE Urine Glucose (UA) NEGATIVE Urine Ketones NEGATIVE Urine Blood NEGATIVE Urine Nitrite NEGATIVE Ur Leukocyte Esterase NEGATIVE Urine WBC (Auto) 1 11/15/17 11/15/17 11/16/17 15:56 21:15 03:16 Troponin I 0.065 0.055 0.051 NT-Pro-B Natriuret Pep 11/16/17 11/18/17 03:16 05:09 Troponin I NT-Pro-B Natriuret Pep 6370 H 52902 H Impressions: Chest X-Ray 11/15/17 12:03 IMPRESSION: NO SIGNIFICANT RADIOGRAPHIC FINDING IN THE CHEST. Qualifiers - * PATIENT BEING DISCHARGED WITH ANY OF THE FOLLOWING DIAGNOSIS: No Plan Discharge Plan: Discharged home with self-care. Follow-up with primary care provider within 1 week. Follow-up with Dr. Carballo as scheduled. Patient to have an event monitor arranged by Dr. Bills's office; follow-up as instructed. Time Spent: Less than 30 Minutes
--- NOTE | 2017-11-21 21:16 | Progress Note ---
Provider Note Provider Note: PROGRESS NOTE by Dr. Roxana Carmona on 11/21/2017. SUBJECTIVE: The patient remains in sinus rhythm. His EKG with T-wave inversions. Whether this is secondary to ischemia or T-wave inversions secondary to post tachycardia T-wave inversion syndrome , or versus LVH with strain pattern is the differential diagnosis. The patient has no chest pain or discomfort. There is no PND or orthopnea. There is no leg edema. There are no ventricular arrhythmias. There is no arrhythmia on sotalol. Note that the sotalol is on 120 mg p.o. q.12 hours. The patient is tolerating it well. The patient underwent uneventful Cardiolite stress test today. OBJECTIVE: GENERAL: The patient is well groomed, well nourished, in no acute distress. Selected Entries 11/21/17 15:13 Temperature 97.9 F Pulse Rate 53 L Respiratory 16 Rate Blood Pressure 134/83 H Blood Pressure 100 Mean O2 Sat by Pulse 99 Oximetry Oxygen Delivery Room Air Method HEENT: Head is normocephalic/atraumatic. Eyes: Pupils equal, round, regular, reactive to light and accommodation. Extraocular movements are normal. There is no conjunctival pallor. There is no scleral icterus. ENT is negative. NECK: Supple. There is no JVD. Carotids are equal. There is no bruit. There is no lymphadenopathy. There is no goiter. Trachea is central. LUNGS: Clear to auscultation and percussion. There is no chest wall tenderness. HEART: S1, S2 heard. S1 is of normal intensity. There is no S3 gallop. There is no S4 gallop. There is a systolic murmur in the left sternal border and apex. There is no rub. ABDOMEN: Soft, nontender. There is no hepatosplenomegaly. Bowel sounds are well heard. There are no tender areas or masses. EXTREMITIES: Femorals are well felt. Leg pulses well felt. There is no pedal edema. There is no cyanosis or clubbing. There is no DVT or cellulitis. There is no calf tenderness. 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 PSYCHIATRIC: The patient's judgment and insight are intact. Affect is normal. 11/21/17 08:45 Sodium 143.8 Potassium 4.3 Chloride 106 Carbon Dioxide 26 BUN 15 Creatinine 1.04 Est GFR (Non-Af Amer) > 60 Glucose 86 Calcium 8.5 Total Bilirubin 0.7 Direct Bilirubin 0.4 Neonat Total Bilirubin Not Reportable Neonat Direct Bilirubin Not Reportable Neonat Indirect Bili Not Reportable AST 78 H ALT 159 H Alkaline Phosphatase 82 The patient's EKG shows sinus rhythm, probable LVH with repolarization abnormalities, but also there is anterior T-wave inversion, ischemia versus post tachycardic T-wave inversion syndrome.QTc interval is 452, an acceptable. There is no ventricular arrhythmias seen on the monitor. The patient's Lexiscan Cardiolite stress test showed no reversible ischemia, and there was no evidence of myocardial infarction or scar. ASSESSMENT: 1. PAROXYSMAL ATRIAL FIBRILLATION. Converted to sinus rhythm. 2. ABNORMAL ELECTROCARDIOGRAM IN A PATIENT WITH MULTIPLE CORONARY ARTERY DISEASE RISK FACTORS. NEGATIVE CARDIOLITE STRESS TEST for ISCHEMIA, or HI. 3. SYSTEMIC INFLAMMATION RESPONSE. Seems to have resolved. 4. LYMPHOMA. Oncologist is on the case. 5. HYPERTENSION. 6. THROMBOCYTOPENIA. Platelets are much improved. 7. ABNORMAL LIVER FUNCTION TESTS. Will recheck tests in the morning. Will continue the patient's sotalol at 120 mg p.o. q.12 hours. Will keep Lovenox on for another day and then discontinue it. Will schedule the patient for IV Lexiscan Cardiolite stress test. The procedure of stress testing has been discussed with the patient and the patient's . Note the patient's medications have been reviewed. The EKG does not show any abnormal QTc interval and there is no arrhythmias with sotalol seen. Medical decision making is of high complexity. 45 minutes spent with the patient, with more than 50% of the time spent on direct patient care. Medications reviewed. Discussed with the patient, and his regarding the negative stress test. Discussed with other caregivers and providers on the case. Okay to discharge the patient on aspirin 325 mg p.o. daily, along with his losartan, and continue sotalol at 120 mg p.o. every 12 hours. I have recommended that the patient had a 30 day event monitor as an outpatient to see if there is breakthrough episodes of atrial fibrillation. Discussed with the patient and patient's . Will follow patient as an outpatient.
--- NOTE | 2017-11-22 09:54 | EKG REPORT ---
SEVERITY:- ABNORMAL ECG - SINUS RHYTHM PROBABLE LEFT ATRIAL ABNORMALITY ABNORMAL T, CONSIDER ISCHEMIA, ANT-LAT LEADS : Confirmed by: Shanthi Zimmerman 22-Nov-2017 09:53:58
--- NOTE | 2017-11-25 01:35 | DRAGON STRESS TEST REPORT ---
Intravenous Lexiscan Cardiolite stress test using single photon emmision computerized tomography. Date of procedure: 11/21/2017. Ordering Provider: Dr. Roxana Carmnoa. Patient's status: In Patient. Indication: Paroxysmal atrial fibrillation, and abnormal EKG, suggestive of anterior wall ischemia.. Coronary risk factors: Age, hypertension, and family history of coronary artery disease. Resting EKG: Sinus Rhythm. LVH with strain pattern. T inversion anterior leads and inferior leads, possible ischemia. Stress EKG:No changes of ischemia. The patient had no chest pain or discomfort, and there were no arrhythmias seen. Reason for termination: Protocol. Conclusions: Normal EKG and hemodynamic response to IV Lexiscan. Nuclear data: At rest the patient was given 11.80 millicuries of technetium 99m sestamibi injected intravenously. As per protocol rest non gated SPECT images were obtained. Subsequently the patient was given intravenous Lexiscan at a dose of 0.4 mg in 5 mL intravenously, followed by flush with normal saline. Subsequently the stress dose of 33.9 millicuries of technetium 99m sestamibi was injected intravenously. As per protocol stress gated images were obtained. Nuclear interpretation: Review of images showed that all segments of the myocardium had normal perfusion at rest, and normal perfusion post stress with IV Lexiscan. All segments of the myocardium had normal motion, contraction, and thickening by gated study. T. I D. ratio was normal at 1.09. Computer read rest, and stress left ventricular ejection fraction were 58 %, and 56 %, respectively. Conclusion: 1. There is no scintigraphic evidence of Lexiscan induced myocardial ischemia. 2. There is no scintigraphic evidence of myocardial infarction/scar. Recommendations: Aggressive risk factor modification, and treating the underlying co- morbidities. MTDD
== END 2017-11-21 16:17 | disposition home or self-care (01) | DRG 872 ==
LOC: ER 11:41 → EH 14:00 → UNDOADMIN 14:00 → ICU 16:50 → 3S 11-16 17:43
PROVIDERS: ADMIT Internal Medicine; ATTEND Internal Medicine
DX: A41.9 Sepsis, unspecified organism (principal); N17.9 Acute kidney failure, unspecified; C82.2 Follicular lymphoma grade III, unspecified; I48.91 Unspecified atrial fibrillation; D69.6 Thrombocytopenia, unspecified; I10 Essential (primary) hypertension; E86.0 Dehydration; C44.92 Squamous cell carcinoma of skin, unspecified; E87.6 Hypokalemia; R19.7 Diarrhea, unspecified; R94.31 Abnormal electrocardiogram [ECG] [EKG]; L40.9 Psoriasis, unspecified
CPT/HCPCS: 36415; 71045; 78452; 80048; 80053; 80162; 81001; 82272; 82550; 82553; 82565; 83605; 83690; 83735; 83880; 84443; 84484; 85025; 85027; 85610; 87040; 87045; 87070; 87205; 93005; 93010; 93017; 93306; 96365; 99291; A9500; J0692; J1160; J1650; J1885; J2543; J2785; J3370; J3490; J7030; J7060; J7120; Q9969

== ENCOUNTER 2017-12-03 08:29 | Outpatient (CLI) | payer OTHER, MEDICARE ==
[~2017-12-03 08:29] MED LIST changes: +ACETAMINOPHEN 325 MG TABLET PO PRN; +DEXAMETHASONE SOD PHOSPHATE 10 MG in NORMAL SALINE 50 ML IV PRN; +DIPHENHYDRAMINE HCL 50 MG in NORMAL SALINE 50 ML IV PRN; -ONDANSETRON HCL/PF 16 MG, DEXAMETHASONE SOD PHOSPHATE 10 MG in NORMAL SALINE 50 ML IV PRN; +PALONOSETRON 0.25 MG/5 ML SDV IV PRN; +RITUXIMAB IV PRN
[2017-12-03] MEDS ORDERED: NORMAL SALINE IV PRN (08:49)
[2017-12-03] MEDS ORDERED: BENDAMUSTINE HCL IV PRN (08:49)
[2017-12-03 09:05] VITALS: BP 113/61
== END 2017-12-03 15:19 | disposition home or self-care (01) ==
LOC: II 08:29 → 5TH 08:30 → II 15:19
PROVIDERS: ATTEND Internal Medicine
PROC: 3E0330M Introduction of Antineoplastic, Monoclonal Antibody, into Peripheral Vein, Percutaneous Approach (ICD-10-PCS; principal; 2017-12-03)
PROC: 3E03305 Introduction of Other Antineoplastic into Peripheral Vein, Percutaneous Approach (ICD-10-PCS; 2017-12-03)
PROC: 3E033GC Introduction of Other Therapeutic Substance into Peripheral Vein, Percutaneous Approach (ICD-10-PCS; 2017-12-03)
DX: Z51.11 Encounter for antineoplastic chemotherapy (principal); C82.18 Follicular lymphoma grade II, lymph nodes of multiple sites
CPT/HCPCS: 96413; 96415; 96367; 96372; 96374; 96360; 96361; 96417; J1200; J7040; J9310 ×2; J1100; J9033 ×2; J2469; 96375

== ENCOUNTER 2017-12-04 08:36 | Outpatient (CLI) | payer OTHER, MEDICARE ==
[~2017-12-04 08:36] MED LIST changes: -ACETAMINOPHEN 325 MG TABLET PO PRN; -DEXAMETHASONE SOD PHOSPHATE 10 MG in NORMAL SALINE 50 ML IV PRN; -DIPHENHYDRAMINE HCL 50 MG in NORMAL SALINE 50 ML IV PRN; +ONDANSETRON HCL/PF 16 MG, DEXAMETHASONE SOD PHOSPHATE 10 MG in NORMAL SALINE 50 ML IV PRN; -PALONOSETRON 0.25 MG/5 ML SDV IV PRN; -RITUXIMAB IV PRN
[2017-12-04 10:25] VITALS: BP 120/69
== END 2017-12-04 12:41 | disposition home or self-care (01) ==
LOC: II 08:36 → 5TH 08:37 → II 12:41
PROVIDERS: ATTEND Internal Medicine Hematology & Oncology
PROC: 3E03305 Introduction of Other Antineoplastic into Peripheral Vein, Percutaneous Approach (ICD-10-PCS; principal; 2017-12-04)
PROC: 3E0333Z Introduction of Anti-inflammatory into Peripheral Vein, Percutaneous Approach (ICD-10-PCS; 2017-12-04)
PROC: 3E033GC Introduction of Other Therapeutic Substance into Peripheral Vein, Percutaneous Approach (ICD-10-PCS; 2017-12-04)
PROC: 3E0337Z Introduction of Electrolytic and Water Balance Substance into Peripheral Vein, Percutaneous Approach (ICD-10-PCS; 2017-12-04)
DX: Z51.11 Encounter for antineoplastic chemotherapy (principal); C82.18 Follicular lymphoma grade II, lymph nodes of multiple sites
CPT/HCPCS: 96413; 96367; 96360; 96361; J2405; J7040; J1100; J9033 ×2

== ENCOUNTER 2018-01-14 09:20 | Outpatient (CLI) | payer OTHER, MEDICARE ==
[2018-01-14] MEDS ORDERED: ACETAMINOPHEN 325 MG TABLET PO PRN (09:45)
[2018-01-14] MEDS ORDERED: NORMAL SALINE 1000 ML 1,000 ML IV PRN (09:46)
[2018-01-14] MEDS ORDERED: DIPHENHYDRAMINE HCL 50 MG in NORMAL SALINE 50 ML IV PRN (09:47)
[2018-01-14] MEDS ORDERED: PALONOSETRON 0.25 MG/5 ML SDV IV PRN (09:51)
[2018-01-14] MEDS ORDERED: NORMAL SALINE IV PRN ×2 (09:59→10:05)
[2018-01-14] MEDS ORDERED: RITUXIMAB IV PRN (09:59)
[2018-01-14] MEDS ORDERED: DEXAMETHASONE SOD PHOSPHATE 10 MG in NORMAL SALINE 50 ML IV PRN (10:02)
[2018-01-14] MEDS ORDERED: BENDAMUSTINE HCL IV PRN (10:05)
[2018-01-14 10:28] VITALS: BP 115/70
== END 2018-01-14 16:53 | disposition home or self-care (01) ==
LOC: II 09:20 → 5TH 09:23 → II 16:53
PROVIDERS: ATTEND Internal Medicine
PROC: 3E0330M Introduction of Antineoplastic, Monoclonal Antibody, into Peripheral Vein, Percutaneous Approach (ICD-10-PCS; principal; 2018-01-14)
PROC: 3E03305 Introduction of Other Antineoplastic into Peripheral Vein, Percutaneous Approach (ICD-10-PCS; 2018-01-14)
PROC: 3E0333Z Introduction of Anti-inflammatory into Peripheral Vein, Percutaneous Approach (ICD-10-PCS; 2018-01-14)
PROC: 3E033GC Introduction of Other Therapeutic Substance into Peripheral Vein, Percutaneous Approach (ICD-10-PCS; 2018-01-14)
DX: Z51.11 Encounter for antineoplastic chemotherapy (principal); C82.18 Follicular lymphoma grade II, lymph nodes of multiple sites
CPT/HCPCS: 96413; 96415; 96367; 96375; 96361; J1200; J7040; J9310 ×2; J1100; J9033 ×2; J2469; 96360

== ENCOUNTER 2018-01-14 09:39 | Outpatient (CLI) | payer OTHER, MEDICARE ==
[2018-01-15] MEDS ORDERED: NORMAL SALINE 1000 ML 1,000 ML IV PRN (09:22)
[2018-01-15] MEDS ORDERED: ONDANSETRON HCL/PF 16 MG, DEXAMETHASONE SOD PHOSPHATE 10 MG in NORMAL SALINE 50 ML IV PRN (09:24)
[2018-01-15] MEDS ORDERED: BENDAMUSTINE HCL IV PRN (09:25)
[2018-01-15] MEDS ORDERED: NORMAL SALINE IV PRN (09:25)
[2018-01-15 09:37] VITALS: BP 120/72
== END 2018-01-15 12:32 | disposition home or self-care (01) ==
LOC: II 09:39 → 5TH 01-15 09:16 → II 01-15 12:32
PROVIDERS: ATTEND Internal Medicine
PROC: 3E03305 Introduction of Other Antineoplastic into Peripheral Vein, Percutaneous Approach (ICD-10-PCS; principal; 2018-01-14)
PROC: 3E0333Z Introduction of Anti-inflammatory into Peripheral Vein, Percutaneous Approach (ICD-10-PCS; 2018-01-14)
PROC: 3E033GC Introduction of Other Therapeutic Substance into Peripheral Vein, Percutaneous Approach (ICD-10-PCS; 2018-01-14)
DX: Z51.11 Encounter for antineoplastic chemotherapy (principal); C82.18 Follicular lymphoma grade II, lymph nodes of multiple sites
CPT/HCPCS: 96413; 96367; 96360; J2405; J7040; J1100; J9033 ×2

== ENCOUNTER → 2018-02-05 | Outpatient (CLI) | payer OTHER | LOC: II 14:39 | PROVIDERS: ATTEND Internal Medicine | DX: Z51.11 Encounter for antineoplastic chemotherapy (principal); C82.18 Follicular lymphoma grade II, lymph nodes of multiple sites ==

== ENCOUNTER → 2018-02-08 | Outpatient (CLI) | payer MEDICARE, OTHER ==
--- NOTE | 2018-02-08 12:19 | RADIOLOGY REPORT (SQ) ---
EXAM DESCRIPTION: CT ABD/PELVIS WITH IV ONLY; CT CHEST WITH COMPLETED DATE/TIME: 02/08/2018 9:56 am REASON FOR STUDY: FOLLICULAR LYMPHOMA GRADE II, LYMPH NODES OF MULTIPLE SITES C82.18 FOLLICULAR LYM PHOMA GRADE II, LYMPH NODES OF MULTIPLE COMPARISON: PET-CT 10/04/2017 CT chest abdomen pelvis 02/28/2016 CONTRAST TYPE AND DOSE: contrast/concentration: Isovue 350.00 mg/ml; Total Contrast Delivered: 76.0 ml; Total Saline Delivered: 67.0 ml RENAL FUNCTION: Creatinine 1.1 TECHNIQUE: CT scan of the chest performed using helical scanning technique with dynamic intravenous contrast injection. Images reviewed with lung, soft tissue and bone windows. Reconstructed coronal a nd sagittal MPR images reviewed. All images stored on PACS. CT scan of the abdomen and pelvis performed with intravenous and without oral contrastusing helical s kamron technique with dynamic intravenous contrast injection. Images reviewed with lung, soft tissu e and bone windows. Reconstructed coronal and sagittal MPR images reviewed. Delayed images for eval uation of the urinary system also acquired and evaluated. All images stored on PACS. All CT scanners at this facility use dose modulation, iterative reconstruction, and/or weight based d osing when appropriate to reduce radiation dose to as low as reasonably achievable (ALARA). [facility]: Dose Right [facility]: CareDose [facility]: Dose Right [facility]: Teradose 4D [facility]: [employer] RADIATION DOSE: CT Rad equipment meets quality standard of care and radiation dose reduction techniq ues were employed. CTDIvol: 4.9 - 5.5 mGy. DLP: 750 mGy-cm. . LIMITATIONS: None. FINDINGS: CHEST: LUNGS AND PLEURA: No opacities, nodules, masses. No pneumothorax. No effusions. HILAR AND MEDIASTINAL STRUCTURES: No identified masses or abnormal nodes. HEART AND VASCULAR STRUCTURES: No aneurysm or dissection. No central pulmonary emboli. No pericardi al effusion. HARDWARE: None. THYROID AND OTHER SOFT TISSUES: No masses. No adenopathy. BONES: No significant finding. OTHER: No other significant finding. ABDOMEN AND PELVIS: LIVER: Normal size. No masses. No dilated ducts. Small benign cyst left lobe liver, 2 cm. SPLEEN: Normal size. No focal lesions. PANCREAS: No masses. No significant calcifications. No adjacent inflammation or peripancreatic fluid collections. Pancreatic duct not dilated. GALLBLADDER: No identified stones by CT criteria. No inflammatory changes to suggest cholecystitis. ADRENAL GLANDS: No significant masses or asymmetry. RIGHT KIDNEY AND URETER: No solid masses. 1 cm right lower pole renal cortical cyst. No significant calcification. No hydronephrosis or hydroureter. LEFT KIDNEY AND URETER: New solid mass left posterior lower pole kidney, 3.8 x 3 cm in size with cont rast enhancement. Differential is primary renal cell neoplasm versus less likely lymphoma involvemen t. Hemorrhagic cyst is also possible. Follow-up bilateral renal ultrasound recommended. Adjacent 3 cm left lower pole renal cortical cyst. No significant calcification. No hydronephrosis or hydrouret er. AORTA AND VESSELS: No aneurysm. No dissection. Renal arteries, SMA, celiac without stenosis. RETROPERITONEUM: No retroperitoneal adenopathy, hemorrhage or masses. Specifically, retroperitoneal adenopathy seen on PET-CT 10/04/2017 has resolved. BOWEL AND PERITONEAL CAVITY: No oral contrast. No CT evidence of bowel obstruction or free intraperi toneal air or fluid. APPENDIX: Normal. ABDOMINAL WALL: No masses. No hernias. PELVIS: No mass or free fluid. Normal bladder. BONES: No significant or acute findings. OTHER: No other significant finding. IMPRESSION: Resolved adenopathy over the chest abdomen and pelvis New 3.8 x 3 cm masslike lesion lower pole left kidney. Finding is worrisome for renal cell tumor. L ymphoma involvement is possible. Hemorrhagic cyst is possible but considered less likely. Renal ult rasound is recommended for followup. TECHNICAL DOCUMENTATION: JOB ID: [id number] Quality ID # [id number]: Final reports with documentation of one or more dose reduction techniques (e.g., Au tomated exposure control, adjustment of the mA and/or kV according to patient size, use of iterative reconstruction technique) 2010 [employer] All Rights Reserved Reading location - IP/workstation name: [email or web address]
== END ==
LOC: RAD 09:19
PROVIDERS: ATTEND Internal Medicine
DX: C82.18 Follicular lymphoma grade II, lymph nodes of multiple sites (principal)
CPT/HCPCS: 71260; 74177

== ENCOUNTER → 2018-04-11 | Outpatient (CLI) | payer MEDICARE, OTHER ==
--- NOTE | 2018-04-12 09:30 | RADIOLOGY REPORT (SQ) ---
EXAM DESCRIPTION: PET CT SKULL/THIGH COMPLETED DATE/TIME: 04/11/2018 5:28 pm REASON FOR STUDY: LYMPHOMA C82.18 FOLLICULAR LYMPHOMA GRADE II, LYMPH NODES OF MULTIPLE COMPARISON: CT chest abdomen pelvis 02/08/2018 PET-CT 10/04/2017 CT neck chest abdomen and pelvis 02/27/2017 RADIONUCLIDE AND DOSE: 11 mCi F18 FDG The route of agent administration: Intravenous FASTING BLOOD SUGAR: 83 mg/dl CONTRAST TYPE AND DOSE: No CT contrast given. TECHNIQUE: Blood glucose level was verified. Above dose of FDG was injected intravenously. 2-D seg mented attenuation correction images were obtained from the base of the skull to the midthighs. Nonc ontrast CT images were obtained for attenuation correction and fusion with emission images. CT image s were performed without oral or intravenous contrast and are not sensitive for parenchymal lesions. A series of overlapping emission PET images were obtained. Images [facility] by the radiologist. Images stored on PACS. LIMITATIONS: None. FINDINGS: HEAD AND NECK: A right submandibular triangle 2 x 1.6 cm lymph node is present on axial image 39, with SUV of 7.7. A right level 3 lymph node is present, 3 x 2.4 cm on axial image 44 with SUV of 10.8. CHEST: No areas of abnormal metabolic activity in the chest. ABDOMEN AND PELVIS: In the left lobe liver, a new 2.7 cm solid nodule is present on axial image 128 w ith SUV of 8. Along the left lower pole kidney, a 10 x 7 cm mass is present on axial image 147, with SUV of 11.2. PROXIMAL LOWER EXTREMITIES: No areas of abnormal metabolic activity in the soft tissues of the lower extremities. BONES: No abnormal metabolic activity in the visualized skeleton. ADDITIONAL CT FINDINGS: 2 cm benign hepatic cyst left lobe liver. Nodular thyroid without metabolica lly active thyroid lesion OTHER: Liver background activity 1.8 SUV. Blood pool background activity 1.4 SUV IMPRESSION: Hypermetabolic lesions in the right submandibular triangle, right level 3 lymph node, le ft lobe liver and left lower pole kidney worrisome for lymphoma recurrence TECHNICAL DOCUMENTATION: JOB ID: [id number] [employer]- All Rights Reserved Reading location - IP/workstation name: [email or web address]
== END ==
LOC: RAD 15:11
PROVIDERS: ATTEND Internal Medicine
DX: C82.18 Follicular lymphoma grade II, lymph nodes of multiple sites (principal)
CPT/HCPCS: 78815; A9552

== ENCOUNTER 2018-04-22 06:55 | Day surgery (SDC) | payer OTHER ==
[~2018-04-22 06:55] MED LIST changes: -BENDAMUSTINE HCL IV PRN; +CEFAZOLIN 1 GM/D5W RTU 1 GM/50 ML RTUPB IV PRN; +LACTATED RINGERS 1000 ML IV PRN; +LIDOCAINE 0.5% INJ-PF (5 MG/ML) 50 ML SDV SUBCUT PRN; -NORMAL SALINE 1000 ML 1,000 ML IV PRN; -NORMAL SALINE IV PRN; -ONDANSETRON HCL/PF 16 MG, DEXAMETHASONE SOD PHOSPHATE 10 MG in NORMAL SALINE 50 ML IV PRN
[2018-04-22] MEDS ORDERED: ACETAMINOPHEN 1,000 MG/100 ML RTUPB IV ONE (07:00)
[2018-04-22] MEDS ORDERED: PROPOFOL INJ 200 MG/20 ML VIAL IV ONE ×2 (07:00→08:32)
[2018-04-22] MEDS ORDERED: MIDAZOLAM 2 MG/2 ML INJ ONE (07:00)
[2018-04-22] MEDS ORDERED: FENTANYL CITRATE INJ/PF 100 MCG/2 ML AMPUL ONE ×2 (07:00→10:09)
[2018-04-22] MEDS ORDERED: CEFAZOLIN 1 GM/D5W RTU 1 GM/50 ML RTUPB IV ONE (07:41)
[2018-04-22] MEDS ORDERED: METHYLENE BLUE 50 MG/10 ML AMPULE ONE (08:41)
[2018-04-22] MEDS ORDERED: BUPIVACAINE HCL 0.25% /EPINEPHRINE INJ/PF 30 ML SDV ONE (08:41)
[2018-04-22] MEDS ORDERED: PROMETHAZINE HCL INJ 25 MG/1 ML VIAL IV PRN (09:06)
[2018-04-22] MEDS ORDERED: OXYCODONE-ACETAMINOPHEN 5-325 MG TABLET PO PRN ×2 (09:06→09:59)
[2018-04-22] MEDS ORDERED: MEPERIDINE HCL/PF INJ 25 MG/1 ML DISP.SYRIN IV PRN (09:06)
[2018-04-22] MEDS ORDERED: MORPHINE SULFATE 10 MG/ML INJ IV PRN (09:06)
[2018-04-22] MEDS ORDERED: FENTANYL CITRATE INJ/PF 100 MCG/2 ML AMPUL IV PRN ×3 (09:06)
[2018-04-22] MEDS ORDERED: DIPHENHYDRAMINE HCL 50 MG/ML VIAL IV PRN (09:06)
--- NOTE | 2018-04-22 09:59 | Discharge Summary ---
Discharge Summary (SDC) - Discharge Final Diagnosis: Right cervical lymphadenopathy Date of Surgery: 04/22/18 Discharge Date: 04/22/18 Condition: Stable Treatment or Instructions: Follow up: Follow up at [facility] in one week to see Dr. Parker. Keep surgical incision dry and dressings intact. Call clinic sooner with any questions/concerns. Prescriptions: Acetaminophen with Codeine [Tylenol #3 Tablet] 1 each PO Q4HP PRN #20 tablet PRN Reason: Referrals: NAHOMI LAWSON MD [Primary Care Provider] - Discharge Diet: As Tolerated Discharge Activity: Activity As Tolerated Report the Following to Your Physician Immediately: Increase in Pain, Fever over 101 Degrees, Unusual Bleeding, Redness, Increased Soreness, Drainage-Foul Smelling
[2018-04-22] MEDS ORDERED: OXYCODONE-ACETAMINOPHEN 5-325 MG TABLET ONE (10:56)
[2018-04-22 13:21] VITALS: BP 125/86
--- NOTE | 2018-04-22 13:36 | Operative Report ---
Operative Report DATE OF SURGERY: 04/22/18 PREOPERATIVE DIAGNOSIS: right cervical node swelling POSTOPERATIVE DIAGNOSIS: right sub-mandibular gland swelling OPERATION: Neck exploration with biopsy of submandibular gland SURGEON: CHAD MCKEON 1ST COMPLIANCE ADVISOR: WALE ANESTHESIA: LMAC TISSUE REMOVED OR ALTERED: The right submandibular gland COMPLICATIONS: None ESTIMATED BLOOD LOSS: 10 cc INTRAOPERATIVE FINDINGS: Submandibular gland swelling right side PROCEDURE: The patient was brought to the operating room awake and alert in stable condition given IV patient in the local MAC anesthesia Was placed on the operating table supine vision with his right neck exposed For adequate prep and drape incision was made along the anterior border of the sternocleidomastoid muscle. Dissection down through the platysma muscle which was divided with Bovie cautery retracted the platysma muscle laterally to gain access to the jugular sheath. In access to a jugular sheath we made a search for the local lympho-fibril fatty tissue around the jugular vein could not palpate any significant lymphadenopathy there is a slightly hypertrophic sternocleidomastoid muscle that was palpable but no significant large lymph nodes noted in the 2 lymph node areas. HEENT our dissection cephalad to where we reached the submental triangle on the right noted a very large swelling underneath the superficial cervical fascia. It was felt that this mass was either a lymph node versus the submandibular gland on the right side submandibular gland versus a large lymph node dissected free from the surrounding tissue excised and sent to pathology. Hemostasis was then then obtained , we made a extensive search for any further lymphadenopathy and we could not identify any palpate any. We irrigated the wound with normal saline suctioned dry made sure we had good hemostasis closed the platysma muscle with interrupted 3-0 Polysorb sutures also then closed the skin with intracuticular 3-0 Rapide RA PID suture this completed the procedure dural dressing was applied he was awakened in the operating room to recovery in stable condition EBL for the procedure was 10 cc of sponge counts were correct x2 specimen of the submandibular gland on the right side was sent for pathology
== END 2018-04-22 12:20 | disposition home or self-care (01) ==
LOC: OROUT 06:55
PROVIDERS: ATTEND Surgery
DX: R59.0 Localized enlarged lymph nodes (principal); I10 Essential (primary) hypertension; I49.9 Cardiac arrhythmia, unspecified; C44.621 Squamous cell carcinoma of skin of unspecified upper limb, including shoulder; Z86.19 Personal history of other infectious and parasitic diseases; Z87.891 Personal history of nicotine dependence; Z79.899 Other long term (current) drug therapy; Z88.2 Allergy status to sulfonamides
CPT/HCPCS: 36415; 84132; 88305 ×2; 88331 ×2; 38500; J2250; J3490; J0690; J3010; J2704; J0131; Q9968; 320

== ENCOUNTER 2018-05-06 05:44 | Day surgery (SDC) | payer OTHER ==
[~2018-05-06 05:44] MED LIST changes: +ACETAMINOPHEN 325 MG TABLET PO PRN; +CEFAZOLIN 1 GM/D5W RTU 1 GM/50 ML RTUPB IV ONE; -LACTATED RINGERS 1000 ML IV PRN; -LIDOCAINE 0.5% INJ-PF (5 MG/ML) 50 ML SDV SUBCUT PRN
[2018-05-06 06:08] LABS: HEMOGLOBIN 11.7 g/dL (13.5-17.0); MEAN CORPUSCULAR HEMOGLOBIN 31.3 pg (27.0-33.4); MEAN CORPUSCULAR HGB CONC 34.5 g/dL (32.0-36.0); MEAN CORPUSCULAR VOLUME 91 fl (80-97); PLATELET COUNT 228 10^3/uL (150-450); RED BLOOD COUNT 3.74 10^6/uL (4.35-5.55); RED CELL DISTRIBUTION WIDTH 15.2 % (11.5-14.0)
[2018-05-06] MEDS ORDERED: BUPIVACAINE HCL 0.5%-EPI 1:200000 INJ/PF 30 ML VIAL ONE (06:36)
[2018-05-06] MEDS ORDERED: KETAMINE HCL INJ 500 MG/10 ML VIAL ONE (07:20)
[2018-05-06] MEDS ORDERED: MIDAZOLAM 2 MG/2 ML INJ ONE (07:21)
[2018-05-06] MEDS ORDERED: PROPOFOL INJ 200 MG/20 ML VIAL IV ONE (07:21)
[2018-05-06] MEDS ORDERED: ONDANSETRON HCL INJ/PF 4 MG/2 ML SDV ONE (07:21)
[2018-05-06] MEDS ORDERED: DIPHENHYDRAMINE HCL 50 MG/ML VIAL IV PRN (07:51)
[2018-05-06] MEDS ORDERED: OXYCODONE-ACETAMINOPHEN 5-325 MG TABLET PO PRN ×3 (07:51→08:24)
[2018-05-06] MEDS ORDERED: PROMETHAZINE HCL INJ 25 MG/1 ML VIAL IV PRN ×2 (07:51)
[2018-05-06] MEDS ORDERED: MEPERIDINE HCL/PF INJ 25 MG/1 ML DISP.SYRIN IV PRN (07:51)
[2018-05-06] MEDS ORDERED: FENTANYL CITRATE INJ/PF 100 MCG/2 ML AMPUL IV PRN ×2 (07:51)
--- NOTE | 2018-05-06 08:25 | Operative Report ---
Operative Report DATE OF SURGERY: 05/06/18 PREOPERATIVE DIAGNOSIS: follicular lymphoma POSTOPERATIVE DIAGNOSIS: follicular lymphoma OPERATION: portacath placement SURGEON: CHAD MCKEON ANESTHESIA: Local TISSUE REMOVED OR ALTERED: none COMPLICATIONS: none ESTIMATED BLOOD LOSS: 3 INTRAOPERATIVE FINDINGS: normal anatomy PROCEDURE: see dictation
--- NOTE | 2018-05-06 08:26 | Discharge Summary ---
Discharge Summary (SDC) - Discharge Final Diagnosis: follicular lymphoma Date of Surgery: 05/06/18 Condition: Good Treatment or Instructions: keep area dry for 24 hrs then ok to shower follow up with oncology physician. Referrals: NAHOMI LAWSON MD [Primary Care Provider] - Discharge Diet: As Tolerated Discharge Activity: Activity As Tolerated Report the Following to Your Physician Immediately: Shortness of Breath, Increase in Pain
--- NOTE | 2018-05-06 09:02 | RADIOLOGY REPORT (SQ) ---
EXAM DESCRIPTION: CHEST SINGLE VIEW COMPLETED DATE/TIME: 05/06/2018 8:52 am REASON FOR STUDY: portacath COMPARISON: 05/31/2007. EXAM PARAMETERS: NUMBER OF VIEWS: One view. TECHNIQUE: Single frontal radiographic view of the chest acquired. RADIATION DOSE: NA LIMITATIONS: None. FINDINGS: LUNGS AND PLEURA: No opacities, masses or pneumothorax. No pleural effusion. MEDIASTINUM AND HILAR STRUCTURES: No masses. Contour normal. HEART AND VASCULAR STRUCTURES: Heart normal in size. Normal vasculature. BONES: No acute findings. HARDWARE: Vascular port on the left side of the chest with the tip of the catheter at the level of th e superior vena cava. OTHER: No other significant finding. IMPRESSION: VASCULAR PORT IN APPROPRIATE POSITION. NO PNEUMOTHORAX. NO ACUTE RADIOGRAPHIC FINDING IN THE CHEST. TECHNICAL DOCUMENTATION: JOB ID: [id number] [employer]- All Rights Reserved Reading location - IP/workstation name: [email or web address]
[2018-05-06 10:50] VITALS: BP 111/77
--- NOTE | 2018-05-06 11:12 | OPERATIVE REPORT E ---
Operative Report NAME: KRUPA VERMA : 1950 AGE: 67Y DATE OF SURGERY: 05/06/2018 ROOM: PREOPERATIVE DIAGNOSIS: FOLLICULAR LYMPHOMA. POSTOPERATIVE DIAGNOSIS: FOLLICULAR LYMPHOMA. OPERATION: CATRACHITA-CATH PLACEMENT LEFT CHEST. SURGEON: CHAD MCKEON M.D. PROCEDURE: The patient was brought to the operating room, awake, alert, and in stable condition. Given IV sedation. The left neck and chest were prepped and draped in the usual sterile manner for the procedure. After anesthetizing the subclavian area with 0.5% lidocaine with epinephrine, a subclavian stick was made with the 16 gauge needle. The wire was then passed easily through the needle into the superior vena cava, which was confirmed on fluoroscopy. Once this was done, a small skin incision was made next to the wire, and the tear-away introducer dilator combination was passed over the wire into the superior vena cava. The dilator was then removed along with the wire, and the 8-Ivorian catheter was placed into the tear-away introducer, positioned in the superior vena cava, and the tear-away introducer was pulled away. Then on the anterior chest wall, after anesthetizing the skin with 0.5% Marcaine solution, a transverse incision was made just above and lateral to the left nipple. Dissection was carried down through subcutaneous tissue with Bovie cautery and a pocket was fashioned with Bovie cautery to allow for the port. The port was then placed into the pocket. Using the tunnel maker supplied with the kit, the catheter was attached to the tunnel maker and passed from the subclavian stick site to the port site. Again, we confirmed good position on fluoroscopy, and then attached the catheter to the port. We heparinized the catheter port with heparinized saline solution, and then again confirmed good position on fluoroscopy. Once this was completed, the subcutaneous tissue was closed with interrupted 3-0 Polysorb suture, and the skin was closed with intracuticular Rapide suture. Steri-Strips were applied, which completed the procedure. Estimated blood loss was less than 3 mL. Sponge and needle counts were correct x2. The patient was then transferred to recovery in stable condition. No complications. DICTATING PHYSICIAN: CHAD MCKEON M.D. [id number] PHY#: [id number] ID: [id number] JOB#: [id number] ACCT: [id number] cc:CHAD MCKEON M.D. >
--- NOTE | 2018-05-06 15:31 | RADIOLOGY REPORT (SQ) ---
EXAM DESCRIPTION: FLUORO/CV PLACEMENT COMPLETED DATE/TIME: 05/06/2018 3:21 pm REASON FOR STUDY: PORTACATH PLCMT LEFT SIDE ASST W/ FLUORO IN OR C82.90 FOLLICULAR LYMPHOMA, UNSPEC IFIED, UNSPECIFIED SITE COMPARISON: None. FLUOROSCOPY TIME: 1.3 minutes. 2 images saved to PACS. TECHNIQUE: Intra-operative images acquired during surgical procedure to evaluate progress. NUMBER OF IMAGES: 2 images. LIMITATIONS: None. FINDINGS: Images of the chest acquired during port placement. IMPRESSION: IMAGE(S) OBTAINED DURING PROCEDURE. COMMENT: Quality ID 145: Final reports for procedures using fluoroscopy that document radiation exp osure indices, or exposure time and number of fluorographic images (if radiation exposure indices are not available) Please consult full operative report of the attending physician for description of the procedure. TECHNICAL DOCUMENTATION: JOB ID: [id number] [employer]- All Rights Reserved Reading location - IP/workstation name: [email or web address]
== END 2018-05-06 10:30 | disposition home or self-care (01) ==
LOC: OROUT 05:44
PROVIDERS: ATTEND Surgery
DX: C82.90 Follicular lymphoma, unspecified, unspecified site (principal); C44.621 Squamous cell carcinoma of skin of unspecified upper limb, including shoulder; M19.90 Unspecified osteoarthritis, unspecified site; I48.91 Unspecified atrial fibrillation; Z86.19 Personal history of other infectious and parasitic diseases; Z87.891 Personal history of nicotine dependence; Z79.899 Other long term (current) drug therapy; Z88.2 Allergy status to sulfonamides
CPT/HCPCS: 36561; 36415; 84132; 85027; 71045; 77001; C1788; Q9967; C1769; J2250; J3490 ×2; J0690; J2405; J2704; J1642; 532

== ENCOUNTER → 2018-05-10 | Outpatient (CLI) | payer MEDICARE, OTHER ==
--- NOTE | 2018-05-10 14:27 | RADIOLOGY REPORT (SQ) ---
EXAM DESCRIPTION: NM MUGA REST COMPLETED DATE/TIME: 05/10/2018 12:33 pm REASON FOR STUDY: LYMPHOMA Z51.11 ENCOUNTER FOR ANTINEOPLASTIC CHEMOTHERAPY COMPARISON: 11/21/2017 Cardiolite exam RADIONUCLIDE AND DOSE: 26.1 mCi technetium 99m labeled red blood cells The route of agent administration: Intravenous TECHNIQUE: Following administration of the radionuclide, gated images of the heart are obtained in t hree projections. Left ventricular functional analysis performed. LIMITATIONS: None. FINDINGS: LEFT VENTRICULAR FUNCTION: EJECTION FRACTION: 78%. END-DIASTOLIC VOLUME: 85 mL. END-SYSTOLIC VOLUME: 18 mL. WALL MOTION: No focal wall motion abnormalities. OTHER: No other significant finding. IMPRESSION: NORMAL CARDIAC MUGA STUDY. NORMAL LEFT VENTRICULAR FUNCTION estimated at 78%. TECHNICAL DOCUMENTATION: JOB ID: [id number]- All Rights Reserved Reading location - IP/workstation name: [email or web address]
== END ==
LOC: RAD 10:51
PROVIDERS: ATTEND Internal Medicine
DX: Z51.11 Encounter for antineoplastic chemotherapy (principal); C85.80 Other specified types of non-Hodgkin lymphoma, unspecified site
CPT/HCPCS: 78472; A9560; Q9969

== ENCOUNTER 2018-05-11 08:12 | Outpatient (CLI) | payer OTHER ==
[~2018-05-11 08:12] MED LIST changes: -CEFAZOLIN 1 GM/D5W RTU 1 GM/50 ML RTUPB IV ONE; -CEFAZOLIN 1 GM/D5W RTU 1 GM/50 ML RTUPB IV PRN; +CYCLOPHOSPHAMIDE IV PRN; +DEXAMETHASONE SOD PHOSPHATE 10 MG in NORMAL SALINE 50 ML IV PRN; +DIPHENHYDRAMINE HCL 50 MG in NORMAL SALINE 50 ML IV PRN; +DISPOSABLE IV PRN; +DOXORUBICIN HCL IV PRN; +FOSAPREPITANT DIMEGLUMINE 150 MG in NORMAL SALINE 150 ML IV PRN; +NORMAL SALINE 250 ML IV PRN; +NORMAL SALINE IV PRN; +PALONOSETRON 0.25 MG/5 ML SDV IV PRN; +RITUXIMAB IV PRN; +VINCRISTINE SULFATE 2 MG in SYRINGE, DISPOSABLE, 1 EACH IV PRN
[2018-05-11] MEDS ORDERED: CYCLOPHOSPHAMIDE IV PRN ×5 (08:18→08:26)
[2018-05-11] MEDS ORDERED: NORMAL SALINE IV PRN ×6 (08:18→11:06)
[2018-05-11] MEDS ORDERED: RITUXIMAB IV PRN (11:06)
[2018-05-11 11:31] VITALS: BP 103/56
== END 2018-05-11 15:54 | disposition home or self-care (01) ==
LOC: II 08:12 → 5TH 08:45 → II 15:54
PROVIDERS: ATTEND Internal Medicine
PROC: 3E0430M Introduction of Antineoplastic, Monoclonal Antibody, into Central Vein, Percutaneous Approach (ICD-10-PCS; principal; 2018-05-11)
PROC: 3E04305 Introduction of Other Antineoplastic into Central Vein, Percutaneous Approach (ICD-10-PCS; 2018-05-11)
PROC: 3E0433Z Introduction of Anti-inflammatory into Central Vein, Percutaneous Approach (ICD-10-PCS; 2018-05-11)
PROC: 3E043GC Introduction of Other Therapeutic Substance into Central Vein, Percutaneous Approach (ICD-10-PCS; 2018-05-11)
DX: Z51.11 Encounter for antineoplastic chemotherapy (principal); C83.38 Diffuse large B-cell lymphoma, lymph nodes of multiple sites; D70.2 Other drug-induced agranulocytosis
CPT/HCPCS: 96409; 96411; 96413; 96415; 96367; 96374; 96375; 96360; 96417; J9070; J1200; J9000; J7040; J3490; J9312 ×2; J1100; J1453; J2469; J9370

== ENCOUNTER 2018-05-13 08:41 | Outpatient (CLI) | payer OTHER ==
[~2018-05-13 08:41] MED LIST changes: -ACETAMINOPHEN 325 MG TABLET PO PRN; -CYCLOPHOSPHAMIDE IV PRN; -DEXAMETHASONE SOD PHOSPHATE 10 MG in NORMAL SALINE 50 ML IV PRN; -DIPHENHYDRAMINE HCL 50 MG in NORMAL SALINE 50 ML IV PRN; -DISPOSABLE IV PRN; -DOXORUBICIN HCL IV PRN; -FOSAPREPITANT DIMEGLUMINE 150 MG in NORMAL SALINE 150 ML IV PRN; -NORMAL SALINE 250 ML IV PRN; -NORMAL SALINE IV PRN; -PALONOSETRON 0.25 MG/5 ML SDV IV PRN; +PEGFILGRASTIM INJ 6 MG/0.6 ML DISP.SYRIN SUBCUT PRN; -RITUXIMAB IV PRN; -VINCRISTINE SULFATE 2 MG in SYRINGE, DISPOSABLE, 1 EACH IV PRN
[2018-05-13 08:57] VITALS: BP 126/75
== END 2018-05-13 09:45 | disposition home or self-care (01) ==
LOC: II 08:41 → 5TH 08:43 → II 09:45
PROVIDERS: ATTEND Internal Medicine
PROC: 3E013GC Introduction of Other Therapeutic Substance into Subcutaneous Tissue, Percutaneous Approach (ICD-10-PCS; principal; 2018-05-13)
DX: Z76.89 Persons encountering health services in other specified circumstances (principal); C83.38 Diffuse large B-cell lymphoma, lymph nodes of multiple sites; D70.2 Other drug-induced agranulocytosis
CPT/HCPCS: 96372; J2505

== ENCOUNTER 2018-06-03 08:01 | Outpatient (CLI) | payer OTHER ==
[~2018-06-03 08:01] MED LIST changes: +ACETAMINOPHEN 325 MG TABLET PO PRN; +CYCLOPHOSPHAMIDE IV PRN; +DEXAMETHASONE SOD PHOSPHATE 10 MG in NORMAL SALINE 50 ML IV PRN; +DIPHENHYDRAMINE HCL 50 MG in NORMAL SALINE 50 ML IV PRN; +DISPOSABLE IV PRN; +DOXORUBICIN HCL IV PRN; +FOSAPREPITANT DIMEGLUMINE 150 MG in NORMAL SALINE 150 ML IV PRN; +NORMAL SALINE 250 ML IV PRN; +NORMAL SALINE IV PRN; +PALONOSETRON 0.25 MG/5 ML SDV IV PRN; -PEGFILGRASTIM INJ 6 MG/0.6 ML DISP.SYRIN SUBCUT PRN; +RITUXIMAB IV PRN; +VINCRISTINE SULFATE 2 MG in SYRINGE, DISPOSABLE, 1 EACH IV PRN
[2018-06-03] MEDS ORDERED: NORFLURANE/PENTAFLUOROPROPANE 30 ML SPRAY TP ONE (09:10)
[2018-06-03] MEDS ORDERED: DOXORUBICIN HCL IV PRN (09:27)
[2018-06-03] MEDS ORDERED: DISPOSABLE IV PRN (09:27)
[2018-06-03 09:46] VITALS: BP 105/67
== END 2018-06-03 15:23 | disposition home or self-care (01) ==
LOC: II 08:01 → 5TH 08:44 → II 15:23
PROVIDERS: ATTEND Internal Medicine
PROC: 3E0430M Introduction of Antineoplastic, Monoclonal Antibody, into Central Vein, Percutaneous Approach (ICD-10-PCS; principal; 2018-06-03)
PROC: 3E04305 Introduction of Other Antineoplastic into Central Vein, Percutaneous Approach (ICD-10-PCS; 2018-06-03)
PROC: 3E0433Z Introduction of Anti-inflammatory into Central Vein, Percutaneous Approach (ICD-10-PCS; 2018-06-03)
PROC: 3E043GC Introduction of Other Therapeutic Substance into Central Vein, Percutaneous Approach (ICD-10-PCS; 2018-06-03)
DX: Z51.11 Encounter for antineoplastic chemotherapy (principal); C83.38 Diffuse large B-cell lymphoma, lymph nodes of multiple sites; D70.2 Other drug-induced agranulocytosis
CPT/HCPCS: 96409; 96411; 96413; 96415; 96367; 96368; 96374; 96375; 96360; 96417; J9070; J1200; J9000; J7040; J3490 ×2; J9312 ×2; J1100; J1453; J2469; J9370

== ENCOUNTER 2018-06-04 14:56 | Outpatient (CLI) | payer OTHER ==
[~2018-06-04 14:56] MED LIST changes: -ACETAMINOPHEN 325 MG TABLET PO PRN; -CYCLOPHOSPHAMIDE IV PRN; -DEXAMETHASONE SOD PHOSPHATE 10 MG in NORMAL SALINE 50 ML IV PRN; -DIPHENHYDRAMINE HCL 50 MG in NORMAL SALINE 50 ML IV PRN; -DISPOSABLE IV PRN; -DOXORUBICIN HCL IV PRN; -FOSAPREPITANT DIMEGLUMINE 150 MG in NORMAL SALINE 150 ML IV PRN; -NORMAL SALINE 250 ML IV PRN; -NORMAL SALINE IV PRN; -PALONOSETRON 0.25 MG/5 ML SDV IV PRN; +PEGFILGRASTIM INJ 6 MG/0.6 ML DISP.SYRIN SUBCUT PRN; -RITUXIMAB IV PRN; -VINCRISTINE SULFATE 2 MG in SYRINGE, DISPOSABLE, 1 EACH IV PRN
[2018-06-04 15:10] VITALS: BP 125/76
== END 2018-06-04 15:15 | disposition home or self-care (01) ==
LOC: II 14:56 → 5TH 14:58 → II 15:15
PROVIDERS: ATTEND Internal Medicine
PROC: 3E013GC Introduction of Other Therapeutic Substance into Subcutaneous Tissue, Percutaneous Approach (ICD-10-PCS; principal; 2018-06-04)
DX: Z76.89 Persons encountering health services in other specified circumstances (principal); D70.2 Other drug-induced agranulocytosis; C83.38 Diffuse large B-cell lymphoma, lymph nodes of multiple sites
CPT/HCPCS: 96372; J2505

== ENCOUNTER 2018-06-24 09:00 | Outpatient (CLI) | payer OTHER ==
[~2018-06-24 09:00] MED LIST changes: +ACETAMINOPHEN 325 MG TABLET PO PRN; +CYCLOPHOSPHAMIDE IV PRN; +DEXAMETHASONE SOD PHOSPHATE 10 MG in NORMAL SALINE 50 ML IV PRN; +DIPHENHYDRAMINE HCL 50 MG in NORMAL SALINE 50 ML IV PRN; +DISPOSABLE IV PRN; +DOXORUBICIN HCL IV PRN; +FOSAPREPITANT DIMEGLUMINE 150 MG in NORMAL SALINE 150 ML IV PRN; +NORMAL SALINE 250 ML IV PRN; +NORMAL SALINE IV PRN; +PALONOSETRON 0.25 MG/5 ML SDV IV PRN; -PEGFILGRASTIM INJ 6 MG/0.6 ML DISP.SYRIN SUBCUT PRN; +RITUXIMAB IV PRN; +VINCRISTINE SULFATE 2 MG in SYRINGE, DISPOSABLE, 1 EACH IV PRN
[2018-06-24 09:39] VITALS: BP 105/64
== END 2018-06-24 16:08 | disposition home or self-care (01) ==
LOC: II 09:00 → 5TH 10:01 → II 16:08
PROVIDERS: ATTEND Internal Medicine
PROC: 3E04305 Introduction of Other Antineoplastic into Central Vein, Percutaneous Approach (ICD-10-PCS; principal; 2018-06-24)
PROC: 3E0433Z Introduction of Anti-inflammatory into Central Vein, Percutaneous Approach (ICD-10-PCS; 2018-06-24)
PROC: 3E043GC Introduction of Other Therapeutic Substance into Central Vein, Percutaneous Approach (ICD-10-PCS; 2018-06-24)
DX: Z51.11 Encounter for antineoplastic chemotherapy (principal); C83.38 Diffuse large B-cell lymphoma, lymph nodes of multiple sites; D70.2 Other drug-induced agranulocytosis
CPT/HCPCS: 96409; 96411; 96413; 96365; 96366; 96374; J9070; J1200; J9000; J9370; J7040; J3490; J9312 ×2; J1100; J1453; J2469; 96367; 96375; 96415; 96417

== ENCOUNTER 2018-06-25 14:46 | Outpatient (CLI) | payer OTHER ==
[~2018-06-25 14:46] MED LIST changes: -ACETAMINOPHEN 325 MG TABLET PO PRN; -CYCLOPHOSPHAMIDE IV PRN; -DEXAMETHASONE SOD PHOSPHATE 10 MG in NORMAL SALINE 50 ML IV PRN; -DIPHENHYDRAMINE HCL 50 MG in NORMAL SALINE 50 ML IV PRN; -DISPOSABLE IV PRN; -DOXORUBICIN HCL IV PRN; -FOSAPREPITANT DIMEGLUMINE 150 MG in NORMAL SALINE 150 ML IV PRN; -NORMAL SALINE 250 ML IV PRN; -NORMAL SALINE IV PRN; -PALONOSETRON 0.25 MG/5 ML SDV IV PRN; +PEGFILGRASTIM INJ 6 MG/0.6 ML DISP.SYRIN SUBCUT PRN; -RITUXIMAB IV PRN; -VINCRISTINE SULFATE 2 MG in SYRINGE, DISPOSABLE, 1 EACH IV PRN
[2018-06-25 15:05] VITALS: BP 136/72
== END 2018-06-25 15:05 | disposition home or self-care (01) ==
LOC: 5TH 14:46 → II 14:46
PROVIDERS: ATTEND Internal Medicine
PROC: 3E013GC Introduction of Other Therapeutic Substance into Subcutaneous Tissue, Percutaneous Approach (ICD-10-PCS; principal; 2018-06-25)
DX: Z76.89 Persons encountering health services in other specified circumstances (principal); C83.38 Diffuse large B-cell lymphoma, lymph nodes of multiple sites; D70.2 Other drug-induced agranulocytosis
CPT/HCPCS: 96372; J2505

== ENCOUNTER → 2018-07-12 | Outpatient (CLI) | payer MEDICARE, OTHER ==
--- NOTE | 2018-07-12 11:41 | RADIOLOGY REPORT (SQ) ---
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 Images reviewed with lung, soft tissue and bone windows. Reconstructed coronal and sagittal MPR and MIP images reviewed. All images stored on PACS. All CT scanners at this facility use dose modulation, iterative reconstruction, and/or weight based d osing when appropriate to reduce radiation dose to as low as reasonably achievable (ALARA). [facility]: Dose Right [facility]: CareDose [facility]: Dose Right [facility]: Teradose 4D [facility]: [employer] CONTRAST TYPE AND DOSE: See separate report of the same date. RENAL FUNCTION: See separate report. RADIATION DOSE: . LIMITATIONS: None. FINDINGS: LUNGS AND PLEURA: No opacities, nodules, masses. No pneumothorax. No effusions. HILAR AND MEDIASTINAL STRUCTURES: No identified masses or abnormal nodes. HEART AND VASCULAR STRUCTURES: No aneurysm or dissection. No central pulmonary emboli. No pericardi al effusion. HARDWARE: None in the chest. UPPER ABDOMEN: See separate report of the CT of the abdomen. THYROID AND OTHER SOFT TISSUES: No masses. No adenopathy. BONES: No significant finding. OTHER: Left-sided port tip in the SVC. IMPRESSION: No evidence of lymphoma. TECHNICAL DOCUMENTATION: JOB ID: [id number] Quality ID # 436: Final reports with documentation of one or more dose reduction techniques (e.g., Au tomated exposure control, adjustment of the mA and/or kV according to patient size, use of iterative reconstruction technique) 2010 [employer]- All Rights Reserved Reading location - IP/workstation name: [email or web address]
--- NOTE | 2018-07-12 11:53 | RADIOLOGY REPORT (SQ) ---
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 TECHNIQUE: Post IV contrasted scanning from skull base through lung apices with review of bone, soft tissue and lung windows. Reconstructed coronal and sagittal MPR images reviewed. All images stored on PACS. All CT scanners at this facility use dose modulation, iterative reconstruction, and/or weight based d osing when appropriate to reduce radiation dose to as low as reasonably achievable (ALARA). [facility]: Dose Right [facility]: CareDose [facility]: Dose Right [facility]: Teradose 4D [facility]: [employer] CONTRAST TYPE AND DOSE: See separate report. RENAL FUNCTION: See separate report. RADIATION DOSE: . LIMITATIONS: None. FINDINGS: SKULL BASE: Intact. MAJOR SALIVARY GLANDS: Straightening of the fat adjacent to the right submandibular gland and submand ibular node. LYMPHADENOPATHY: Right submandibular node previously 1.6 x 1.9, now 1.0 x 1.4 cm image 55. Right lev el 3 adenopathy has resolved. MUCOSAL MASSES OR ASYMMETRY: No mucosal masses or asymmetry. LARYNX/CORDS: No abnormal findings. VASCULAR STRUCTURES: The major vessels are patent. LUNG APICES: See separate report. BONES: Intact. THYROID: Stable nodules which were not hypermetabolic. PARANASAL SINUSES: Clear. OTHER: No other significant finding. IMPRESSION: Favorable response to therapy for lymphoma. TECHNICAL DOCUMENTATION: JOB ID: [id number] Quality ID # [id number]: Final reports with documentation of one or more dose reduction techniques (e.g., Au tomated exposure control, adjustment of the mA and/or kV according to patient size, use of iterative reconstruction technique) 2010 [employer]- All Rights Reserved Reading location - IP/workstation name: [email or web address]
--- NOTE | 2018-07-12 13:10 | RADIOLOGY REPORT (SQ) ---
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 No oral contrast. Images reviewed with lung, soft tissue, and bone windows. Reconstructed coronal and sagittal MPR images reviewed. Delayed images for evaluation of the urinary system also acquired. All images stored on PACS. All CT scanners at this facility use dose modulation, iterative reconstruction, and/or weight based d osing when appropriate to reduce radiation dose to as low as reasonably achievable (ALARA). [facility]: Dose Right [facility]: CareDose [facility]: Dose Right [facility]: Teradose 4D [facility]: [employer] CONTRAST TYPE AND DOSE: contrast/concentration: Isovue 350.00 mg/ml; Total Contrast Delivered: 80.0 ml; Total Saline Delivered: 68.0 ml RENAL FUNCTION: Creatinine 1.1 RADIATION DOSE: . LIMITATIONS: None. FINDINGS: LOWER CHEST: See separate report of the CT of the chest. LIVER: There is a 34 mm low-density lesion in the liver that was not present previously. SPLEEN: Normal size. No focal lesions. PANCREAS: No masses. No significant calcifications. No adjacent inflammation or peripancreatic fluid collections. Pancreatic duct not dilated. GALLBLADDER: No identified stones by CT criteria. No inflammatory changes to suggest cholecystitis. ADRENAL GLANDS: No significant masses or asymmetry. RIGHT KIDNEY AND URETER: No solid masses. No significant calcifications. No hydronephrosis or hyd roureter. LEFT KIDNEY AND URETER: There is a 5 cm mass arising from the inferior left kidney posteriorly. This is larger than on the prior study. No significant calcifications. No hydronephrosis or hydrouret er. AORTA AND VESSELS: No aneurysm. No dissection. Renal arteries, SMA, celiac without stenosis. RETROPERITONEUM: No retroperitoneal adenopathy, hemorrhage or masses. BOWEL AND PERITONEAL CAVITY: Sigmoid diverticulosis with no associated inflammation. APPENDIX: Normal. PELVIS: No mass. No free fluid. Normal bladder. ABDOMINAL WALL: No masses. No hernias. BONES: No significant or acute findings. OTHER: No other significant finding. IMPRESSION: There is now 34 mm lesion in the liver that was not previously present, likely lymphoma. Left renal mass has increased in size. Lymphoma versus renal cell neoplasm. Diverticulosis coli. No abdominal or pelvic adenopathy. TECHNICAL DOCUMENTATION: JOB ID: [id number] Quality ID # 436: Final reports with documentation of one or more dose reduction techniques (e.g., Au tomated exposure control, adjustment of the mA and/or kV according to patient size, use of iterative reconstruction technique) 2010 [employer]- All Rights Reserved Reading location - IP/workstation name: [email or web address]
== END ==
LOC: RAD 07:37
PROVIDERS: ATTEND Internal Medicine
DX: C83.38 Diffuse large B-cell lymphoma, lymph nodes of multiple sites (principal)
CPT/HCPCS: 70491; 71260; 74177; 82565

== ENCOUNTER 2018-07-15 08:49 | Outpatient (CLI) | payer OTHER ==
[~2018-07-15 08:49] MED LIST changes: +ACETAMINOPHEN 325 MG TABLET PO PRN; +CYCLOPHOSPHAMIDE IV PRN; +DEXAMETHASONE SOD PHOSPHATE 10 MG in NORMAL SALINE 50 ML IV PRN; +DIPHENHYDRAMINE HCL 50 MG in NORMAL SALINE 50 ML IV PRN; +DISPOSABLE IV PRN; +DOXORUBICIN HCL IV PRN; +FOSAPREPITANT DIMEGLUMINE 150 MG in NORMAL SALINE 150 ML IV PRN; +NORMAL SALINE 250 ML IV PRN; +NORMAL SALINE IV PRN; +PALONOSETRON 0.25 MG/5 ML SDV IV PRN; -PEGFILGRASTIM INJ 6 MG/0.6 ML DISP.SYRIN SUBCUT PRN; +RITUXIMAB IV PRN; +VINCRISTINE SULFATE 2 MG in SYRINGE, DISPOSABLE, 1 EACH IV PRN
[2018-07-15 09:26] VITALS: BP 125/80
== END 2018-07-15 14:57 | disposition home or self-care (01) ==
LOC: II 08:49 → 5TH 08:51 → II 14:57
PROVIDERS: ATTEND Internal Medicine
PROC: 3E04305 Introduction of Other Antineoplastic into Central Vein, Percutaneous Approach (ICD-10-PCS; principal; 2018-07-15)
PROC: 3E0430M Introduction of Antineoplastic, Monoclonal Antibody, into Central Vein, Percutaneous Approach (ICD-10-PCS; 2018-07-15)
PROC: 3E0433Z Introduction of Anti-inflammatory into Central Vein, Percutaneous Approach (ICD-10-PCS; 2018-07-15)
PROC: 3E043GC Introduction of Other Therapeutic Substance into Central Vein, Percutaneous Approach (ICD-10-PCS; 2018-07-15)
DX: Z51.11 Encounter for antineoplastic chemotherapy (principal); C83.38 Diffuse large B-cell lymphoma, lymph nodes of multiple sites; D70.2 Other drug-induced agranulocytosis
CPT/HCPCS: 96409; 96411; 96413; 96415; 96365; 96367; 96375; J9070; J1200; J9000; J7040; J3490; J9312 ×2; J1100; J1453; J2469; J9370

== ENCOUNTER 2018-07-16 14:39 | Outpatient (CLI) | payer OTHER ==
[~2018-07-16 14:39] MED LIST changes: -ACETAMINOPHEN 325 MG TABLET PO PRN; -CYCLOPHOSPHAMIDE IV PRN; -DEXAMETHASONE SOD PHOSPHATE 10 MG in NORMAL SALINE 50 ML IV PRN; -DIPHENHYDRAMINE HCL 50 MG in NORMAL SALINE 50 ML IV PRN; -DISPOSABLE IV PRN; -DOXORUBICIN HCL IV PRN; -FOSAPREPITANT DIMEGLUMINE 150 MG in NORMAL SALINE 150 ML IV PRN; -NORMAL SALINE 250 ML IV PRN; -NORMAL SALINE IV PRN; -PALONOSETRON 0.25 MG/5 ML SDV IV PRN; +PEGFILGRASTIM INJ 6 MG/0.6 ML DISP.SYRIN SUBCUT PRN; -RITUXIMAB IV PRN; -VINCRISTINE SULFATE 2 MG in SYRINGE, DISPOSABLE, 1 EACH IV PRN
[2018-07-16 14:56] VITALS: BP 136/82
== END 2018-07-16 15:06 | disposition home or self-care (01) ==
LOC: II 14:39 → 5TH 14:55 → II 15:06
PROVIDERS: ATTEND Internal Medicine
PROC: 3E013GC Introduction of Other Therapeutic Substance into Subcutaneous Tissue, Percutaneous Approach (ICD-10-PCS; principal; 2018-07-16)
DX: Z76.89 Persons encountering health services in other specified circumstances (principal); C83.38 Diffuse large B-cell lymphoma, lymph nodes of multiple sites; D70.2 Other drug-induced agranulocytosis
CPT/HCPCS: 96372; J2505

== ENCOUNTER 2018-08-05 08:37 | Outpatient (CLI) | payer OTHER ==
[~2018-08-05 08:37] MED LIST changes: +ACETAMINOPHEN 325 MG TABLET PO PRN; +CYCLOPHOSPHAMIDE IV PRN; +DEXAMETHASONE 10 MG in NS 50 ML IV PRN; +DIPHENHYDRAMINE 50 MG in NS 50 ML IV PRN; +DISPOSABLE IV PRN; +DOXORUBICIN HCL IV PRN; +FOSAPREPITANT 150 MG in NS 150 ML IV PRN; +NORMAL SALINE IV PRN; +PALONOSETRON 0.25 MG/5 ML VIAL IV PRN; -PEGFILGRASTIM INJ 6 MG/0.6 ML DISP.SYRIN SUBCUT PRN; +RITUXIMAB IV PRN; +VINCRISTINE SULFATE 2 MG in SYRINGE, DISPOSABLE, 1 EACH IV PRN
[2018-08-05 09:09] VITALS: BP 122/78
[2018-08-06] MEDS ORDERED: NORMAL SALINE 250 ML @ KVO IV PRN (07:20)
== END 2018-08-05 14:45 | disposition home or self-care (01) ==
LOC: II 08:37 → 5TH 09:04 → II 14:45
PROVIDERS: ATTEND Internal Medicine
PROC: 3E0430M Introduction of Antineoplastic, Monoclonal Antibody, into Central Vein, Percutaneous Approach (ICD-10-PCS; principal; 2018-08-05)
PROC: 3E04305 Introduction of Other Antineoplastic into Central Vein, Percutaneous Approach (ICD-10-PCS; 2018-08-05)
PROC: 3E0433Z Introduction of Anti-inflammatory into Central Vein, Percutaneous Approach (ICD-10-PCS; 2018-08-05)
PROC: 3E043GC Introduction of Other Therapeutic Substance into Central Vein, Percutaneous Approach (ICD-10-PCS; 2018-08-05)
DX: Z51.11 Encounter for antineoplastic chemotherapy (principal); C83.38 Diffuse large B-cell lymphoma, lymph nodes of multiple sites; D70.2 Other drug-induced agranulocytosis
CPT/HCPCS: 96409; 96411; 96413; 96415; 96367; 96374; J9070; J1200; J9000; J7040; J3490; J9312 ×2; J1100; J1453; J2469; J9370; 96375; 96417

== ENCOUNTER 2018-08-06 14:26 | Outpatient (CLI) | payer OTHER, MEDICARE ==
[~2018-08-06 14:26] MED LIST changes: -ACETAMINOPHEN 325 MG TABLET PO PRN; -CYCLOPHOSPHAMIDE IV PRN; -DEXAMETHASONE 10 MG in NS 50 ML IV PRN; -DIPHENHYDRAMINE 50 MG in NS 50 ML IV PRN; -DISPOSABLE IV PRN; -DOXORUBICIN HCL IV PRN; -FOSAPREPITANT 150 MG in NS 150 ML IV PRN; -NORMAL SALINE IV PRN; -PALONOSETRON 0.25 MG/5 ML VIAL IV PRN; +PEGFILGRASTIM INJ 6 MG/0.6 ML DISP.SYRIN SUBCUT PRN; -RITUXIMAB IV PRN; -VINCRISTINE SULFATE 2 MG in SYRINGE, DISPOSABLE, 1 EACH IV PRN
[2018-08-06 14:35] VITALS: BP 102/58
== END 2018-08-06 14:39 | disposition home or self-care (01) ==
LOC: II 14:26 → 5TH 14:29 → II 14:39
PROVIDERS: ATTEND Internal Medicine
PROC: 3E013GC Introduction of Other Therapeutic Substance into Subcutaneous Tissue, Percutaneous Approach (ICD-10-PCS; principal; 2018-08-06)
DX: Z76.89 Persons encountering health services in other specified circumstances (principal); C83.38 Diffuse large B-cell lymphoma, lymph nodes of multiple sites; D70.2 Other drug-induced agranulocytosis
CPT/HCPCS: 96372; J2505

== ENCOUNTER 2018-08-26 08:45 | Outpatient (CLI) | payer OTHER ==
[~2018-08-26 08:45] MED LIST changes: +ACETAMINOPHEN 325 MG TABLET PO PRN; +CYCLOPHOSPHAMIDE IV PRN; +DEXAMETHASONE SOD PHOSPHATE 10 MG in NORMAL SALINE 50 ML IV PRN; +DIPHENHYDRAMINE HCL 50 MG in NORMAL SALINE 50 ML INJ PRN; +DISPOSABLE IV PRN; +DOXORUBICIN HCL IV PRN; +FOSAPREPITANT DIMEGLUMINE 150 MG in NORMAL SALINE 150 ML IV PRN; +NORMAL SALINE 250 ML IV PRN; +NORMAL SALINE IV PRN; +PALONOSETRON 0.25 MG/5 ML SDV IV PRN; -PEGFILGRASTIM INJ 6 MG/0.6 ML DISP.SYRIN SUBCUT PRN; +RITUXIMAB IV PRN; +VINCRISTINE SULFATE 2 MG in SYRINGE, DISPOSABLE, 1 EACH IV PRN
[2018-08-26 09:32] VITALS: BP 116/75
== END 2018-08-26 16:36 | disposition home or self-care (01) ==
LOC: II 08:45 → 5TH 08:45 → II 16:36
PROVIDERS: ATTEND Internal Medicine
DX: Z51.11 Encounter for antineoplastic chemotherapy (principal); C83.38 Diffuse large B-cell lymphoma, lymph nodes of multiple sites; D70.2 Other drug-induced agranulocytosis
CPT/HCPCS: 96409; 96411; 96413; 96415; 96365; 96366; 96374; J9070; J1200; J9000; J7050; J7040; J3490; J9312 ×2; J1100; J1642; J1453; J2469; J9370

== ENCOUNTER 2018-08-27 15:00 | Outpatient (CLI) | payer OTHER ==
[~2018-08-27 15:00] MED LIST changes: -ACETAMINOPHEN 325 MG TABLET PO PRN; -CYCLOPHOSPHAMIDE IV PRN; -DEXAMETHASONE SOD PHOSPHATE 10 MG in NORMAL SALINE 50 ML IV PRN; -DIPHENHYDRAMINE HCL 50 MG in NORMAL SALINE 50 ML INJ PRN; -DISPOSABLE IV PRN; -DOXORUBICIN HCL IV PRN; -FOSAPREPITANT DIMEGLUMINE 150 MG in NORMAL SALINE 150 ML IV PRN; -NORMAL SALINE 250 ML IV PRN; -NORMAL SALINE IV PRN; -PALONOSETRON 0.25 MG/5 ML SDV IV PRN; +PEGFILGRASTIM INJ 6 MG/0.6 ML DISP.SYRIN SUBCUT PRN; -RITUXIMAB IV PRN; -VINCRISTINE SULFATE 2 MG in SYRINGE, DISPOSABLE, 1 EACH IV PRN
[2018-08-27 15:14] VITALS: BP 134/73
== END 2018-08-27 15:21 | disposition home or self-care (01) ==
LOC: II 15:00 → 5TH 15:04 → II 15:21
PROVIDERS: ATTEND Internal Medicine
PROC: 3E013GC Introduction of Other Therapeutic Substance into Subcutaneous Tissue, Percutaneous Approach (ICD-10-PCS; principal; 2018-08-27)
DX: Z76.89 Persons encountering health services in other specified circumstances (principal); C83.38 Diffuse large B-cell lymphoma, lymph nodes of multiple sites; D70.2 Other drug-induced agranulocytosis
CPT/HCPCS: 96372; J2505

== ENCOUNTER → 2018-09-19 | Outpatient (CLI) | payer MEDICARE, OTHER ==
--- NOTE | 2018-09-20 10:42 | RADIOLOGY REPORT (SQ) ---
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 TECHNIQUE: Blood glucose level was verified. Above dose of FDG was injected intravenously. 2-D seg mented attenuation correction images were obtained from the base of the skull to the midthighs. Nonc ontrast CT images were obtained for attenuation correction and fusion with emission images. CT image s were performed without oral or intravenous contrast and are not sensitive for parenchymal lesions. A series of overlapping emission PET images were obtained. Images reviewed and manipulated at [facility] work station by the radiologist. Images stored on PACS. LIMITATIONS: None. FINDINGS: HEAD AND NECK: Right submandibular adenopathy has almost completely resolved. Residual 1 .0 cm node 2.8 SUV. CHEST: No areas of abnormal metabolic activity in the chest. ABDOMEN AND PELVIS: No areas of abnormal metabolic activity in the abdomen or pelvis. Expected physi ologic activity is present in the genitourinary system and bowel. PROXIMAL LOWER EXTREMITIES: No areas of abnormal metabolic activity in the soft tissues of the lower extremities. BONES: No abnormal metabolic activity in the visualized skeleton. ADDITIONAL CT FINDINGS: Non hypermetabolic 2.7 cm liver lesion abutting the falciform ligament not si gnificantly changed. Lower pole left kidney non hypermetabolic mass 2.7 x 4.3 cm, previously 10 x 7 cm. Left-sided port tip in the SVC. OTHER: Liver background 2.1 SUV. Blood pool 1.7 SUV. IMPRESSION: Favorable response to therapy of right submandibular adenopathy, hepatic and left renal lymphoma. TECHNICAL DOCUMENTATION: JOB ID: [id number] [email or web address]- All Rights Reserved Reading location - IP/workstation name: [email or web address]
== END ==
LOC: RAD 14:56
PROVIDERS: ATTEND Internal Medicine
DX: C83.38 Diffuse large B-cell lymphoma, lymph nodes of multiple sites (principal)
CPT/HCPCS: 78815; A9552

== ENCOUNTER → 2018-12-26 | Outpatient (CLI) | payer MEDICARE, OTHER ==
--- NOTE | 2018-12-27 09:36 | RADIOLOGY REPORT (SQ) ---
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 TECHNIQUE: Blood glucose level was verified. Above dose of FDG was injected intravenously. 2-D seg mented attenuation correction images were obtained from the base of the skull to the midthighs. Nonc ontrast CT images were obtained for attenuation correction and fusion with emission images. CT image s were performed without oral or intravenous contrast and are not sensitive for parenchymal lesions. A series of overlapping emission PET images were obtained. Images reviewed and manipulated at [facility] work station by the radiologist. Images stored on PACS. LIMITATIONS: None. FINDINGS: HEAD AND NECK: A recurrent right submandibular triangle lymph node is present, 1.8 x 1.5 c m on axial image 48/303 with SUV of 10.8 (was 1.1 cm with SUV 2.8 on PET-CT 09/19/2018). A right level 21.1 x 0.9 cm lymph node is present on axial image 55/303 with SUV 3.9 (was not present on 09/19/2018). A left supraclavicular 8 mm lymph node is present on axial image 60/303 with SUV 3.2 (was 5 mm in siz e, non metabolic on PET-CT 09/19/2018). CHEST: 9 mm lung nodule anterior right upper lobe axial image 91/303 with SUV 2.7 (new compared to p rior PET-CT 09/19/2018). 10 mm nodule in the right posterior lung base axial image 115/303 with SUV 2.5 (new compared to prio r PET-CT 09/19/2018). ABDOMEN AND PELVIS: Along the left mid pole kidney, a 5 x 3 cm water density non metabolic mass is pr esent on axial image 158/303, with SUV less than blood pool. There are no areas of abnormal metaboli c activity in the abdomen or pelvis. Expected physiologic activity is present in the genitourinary s ystem and bowel. PROXIMAL LOWER EXTREMITIES: No areas of abnormal metabolic activity in the soft tissues of the lower extremities. BONES: No abnormal metabolic activity in the visualized skeleton. ADDITIONAL CT FINDINGS: Post cholecystectomy. Left permanent central line tip superior vena cava. B enign focal fat at the falciform ligament left lobe liver, 2 cm cyst at the falciform ligament left l obe liver OTHER: Liver background activity 2.3 SUV. Blood pool background activity 1.9 SUV IMPRESSION: Findings worrisome for recurrent lymphoma along the right submandibular triangle, right carotid space, left supraclavicular region. Metabolically active right lung nodules are also present worrisome for lymphoma involvement. TECHNICAL DOCUMENTATION: JOB ID: [id number] [employer]- All Rights Reserved Reading location - IP/workstation name: [email or web address]
== END ==
LOC: RAD 14:30
PROVIDERS: ATTEND Internal Medicine
DX: C83.38 Diffuse large B-cell lymphoma, lymph nodes of multiple sites (principal)
CPT/HCPCS: 78815; A9552

== ENCOUNTER 2019-01-11 11:38 | Day surgery (SDC) | payer OTHER ==
[~2019-01-11 11:38] MED LIST changes: +DEXAMETHASONE SOD PHOS INJ 10 MG/1 ML VIAL ONE; +DEXMEDETOMIDINE INJ 80 MCG/20 ML VIAL IV ONE; +FENTANYL CITRATE INJ/PF 100 MCG/2 ML AMPUL ONE; +FENTANYL CITRATE INJ/PF 250 MCG/5 ML AMPULE ONE; +GLYCOPYRROLATE INJ 0.4 MG/2 ML VIAL ONE; +LIDOCAINE 2% INJ-PF (100 MG/5 ML) SYRINGE ONE; +MIDAZOLAM 2 MG/2 ML INJ ONE; +ONDANSETRON HCL INJ/PF 4 MG/2 ML SDV ONE; -PEGFILGRASTIM INJ 6 MG/0.6 ML DISP.SYRIN SUBCUT PRN; +PROPOFOL INJ 200 MG/20 ML VIAL IV ONE; +SUCCINYLCHOLINE CHLORIDE INJ 200 MG/10 ML VIAL ONE
[2019-01-11] MEDS ORDERED: BUPIVACAINE HCL 0.5%-EPI 1:200000 INJ/PF 30 ML VIAL ONE (12:12)
[2019-01-11] MEDS ORDERED: BUPIVACAINE HCL 0.5%/EPI 1:200000 INJ 1.8 ML CARTRIDGE ONE (12:12)
[2019-01-11] MEDS ORDERED: CEFAZOLIN 2 GM/D5W RTU 2 GM/50 ML RTUPB IV ONE (13:40)
[2019-01-11] MEDS ORDERED: EPHEDRINE SULFATE INJ 50 MG/1 ML AMPULE ONE (16:04)
[2019-01-11] MEDS ORDERED: OXYCODONE-ACETAMINOPHEN 5-325 MG TABLET ONE ×2 (16:44→16:47)
--- NOTE | 2019-01-13 07:05 | Operative Report ---
Operative Report-[facility] Operative Report: Date of procedure: January 11, 2019 Preoperative diagnoses: 1. Rule out lymphoma recurrence 2. Cervical lymph adenopathy 3. History of previous right neck surgery 4. Chronic right neck pain 5. Right neck scar cicatrix with deformity Postoperative diagnoses: 1. Rule out lymphoma recurrence 2. Cervical lymph adenopathy 3. History of previous right neck surgery 4. Chronic right neck pain 5. Right neck scar cicatrix with deformity Operation performed: 1. Revision right neck exploration with multiple specimens removed and sent for rule out cancer/lymphoma 2. Right neck scar revision with skin/scar cicatrix and subcutaneous tissue sent for rule out cancer/lymphoma 3. Intraoperative right facial nerve monitoring with the [facility] Primary Surgeon of Record: Dr. Siddhartha Alarcon Assisting surgeon: Dr. Joao Wiley Anesthetic: General endotracheal tube anesthesia Anesthesia provider: ROYAL Muir Estimated blood loss: 10 mL Fluids: 1300 mL Urine output: N/A Complications: None Drains: 2 modified Kellie drains Sponge count: Verified Needle Count: Verified Materials forwarded as specimen: 1. For right neck tissue specimens, A-D, sent for rule out cancer/lymphoma 2. The pathologist reported that specimen the was with lymphocytes seen on touch prep Findings: 1. Right neck was with fullness surrounding the right upper neck/level 2 scar cicatrix with deformity 2. Right neck exploration with increased inflammatory changes throughout the previous right upper neck/level 2 surgical site, and there was the appearance of scattered lymphatic/lymph node tissue within the right neck levels 2 through 3 and deep to the SCM. Indications: This is a 68-year-old white male patient who has been seen and evaluated [place] [facility]. The patient had been referred by [facility] oncology for history of lymphoma with concern for recurrence with recent PET/CT with i ncreased SUV activity in the right neck with request for tissue specimens for rule out cancer/lymphoma. The patient had undergone previous right neck surgery with a general surgeon with no lymphatic/lymph node tissue being noted, rather two salivary gland biopsies were noted on final pathology, and there was resulting right neck scar cicatrix with deformity and resulting chronic neck pain for the patient. There was an extensive discussion held with the patient with plan made to proceed with revision right neck surgery with right neck exploration and tissue biopsies to be sent for rule out cancer/lymphoma and revision of the right neck scar cicatrix with deformity. The patient voiced an understanding of his medical findings and voiced an understanding of the procedure/surgery plan and all of the risks and complications, to proceed, and consent was obtained. Procedure: The patient was taken to the main operating room and placed on the operating room table in the supine position. Appropriate monitors were placed. Using mask and IV access, general anesthesia was induced. The patient was next transorally intubated without difficulty. The patient was then positioned for right neck zhang rgery. The [facility] facial nerve monitoring system was set up and tested appropriately before beginning the case. A planned incision site with scar cicatrix revision was marked with a surgical marking pen and the area infiltrated with local anesthetic with epinephrine. The patient was then prepped and draped in a sterile fashion for right neck surgery. The skin was sharply incised and the scar cicatrix with subcutaneous tissue was removed and sent for permanent pathology evaluation and this specimen came back from pathology with initial read of skin, scar, and subcutaneous tissue with no cancer or lymphoma identified. The surrounding flaps were mobilized. The previous surgical site was noted with increased inflammatory changes with gentle elevation of the tissues in these areas. The anterior border of the SCM was identified and mobilized and retracted in a lateral manner. Additional specimens were identified that appeared consistent with lymphatic/lymph node tissue and these were removed and sent for pathology evaluation. Findings were as noted above. Pathology reported that specimen D was noted to have lymphocytes on touch prep. At this point there were not any additional findings of lymphatic tissue/lymph nodes or findings that correlated with PET/CT imaging findings with increased SUV activity on the right. Therefore the case was stopped. The right neck was thoroughly irrigated and suction with adequate hemostasis being noted. There were 2 small pieces of Surgicel placed into the wound bed. The wound was reapproximated in a layered fashion with 5-0 Monocryl suture. There were 2 modified Kellie drains that were placed into the wound bed. One was placed deep to the SCM muscle. The second was placed more superficially in the wound. The drains were brought out through the skin and the skin margins were reapproximated with 6-0 Prolene suture. The wound site was then cleaned and dried followed by placement of bacitracin ointment and a fluffs pressure dressing. The patient was then returned to the anesthesia staff and was allowed to emerge from general anesthesia. The patient was extubated in the main operating room and was then transported to the post-anesthesia recovery unit in stable condition. There were no complications.
== END 2019-01-11 17:51 | disposition home or self-care (01) ==
LOC: SC 11:38
PROVIDERS: ATTEND Otolaryngology
DX: R59.1 Generalized enlarged lymph nodes (principal); G89.29 Other chronic pain; M54.2 Cervicalgia; L90.5 Scar conditions and fibrosis of skin; C83.38 Diffuse large B-cell lymphoma, lymph nodes of multiple sites; Z79.899 Other long term (current) drug therapy; I10 Essential (primary) hypertension; Z88.2 Allergy status to sulfonamides; Z85.05 Personal history of malignant neoplasm of liver; Z85.528 Personal history of other malignant neoplasm of kidney; Z86.14 Personal history of Methicillin resistant Staphylococcus aureus infection
CPT/HCPCS: 88342 ×2; 88341 ×2; 88305 ×2; 38510; 21555; J2250; J3490 ×2; J3010; J2001; J0330; J2405; J2704; J1100; J0690; 320

== ENCOUNTER → 2019-02-04 | Outpatient (CLI) | payer OTHER ==
--- NOTE | 2019-02-04 11:27 | RADIOLOGY REPORT (SQ) ---
EXAM DESCRIPTION: U/S SCROTUM W/DOPPLER COMPLETED DATE/TIME: 02/04/2019 11:07 am REASON FOR STUDY: SCROTAL PAIN (N50.82) N50.82 SCROTAL PAIN C83.38 DIFFUSE LARGE B-CELL LYMPHOMA, LYMPH NODES OF MULTIPL COMPARISON: None. TECHNIQUE: Static and realtime powell scale imaging of the scrotum and testes. Selected color Doppler and spectral images recorded to document blood flow. LIMITATIONS: None. FINDINGS: RIGHT: TESTICLE: Normal size. Normal echotexture. Normal blood flow. No mass. EPIDIDYMIS: Normal. HYDROCELE OR VARICOCELE: Small hydrocele. HERNIA OR EXTRA-TESTICULAR MASS: No. OTHER: No other significant finding. LEFT: TESTICLE: Heterogenous hypoechoic solid mass in the testicle, measuring 2.2 x 2.8 cm. Flow present o n Doppler imaging. EPIDIDYMIS: Normal. HYDROCELE OR VARICOCELE: Moderate hydrocele. HERNIA OR EXTRA-TESTICULAR MASS: No. OTHER: No other significant finding. IMPRESSION: 1. HETEROGENOUS SOLID MASS IN THE LEFT TESTICLE, HIGHLY SUSPICIOUS FOR MALIGNANCY. IN A PATIENT WITH HISTORY OF LYMPHOMA, THIS COULD INDICATE INVOLVEMENT OF THE TESTICLE WITH LYMPHOMA. ON THE RECENT P ET SCAN (12/26/2018) THERE WAS A FOCAL AREA OF INCREASED ACTIVITY IN THE LEFT SCROTUM WHICH PROBABLY CO RRESPONDS WITH THIS MASS. NO EVIDENCE OF TORSION. 2. NORMAL APPEARANCE OF THE RIGHT TESTICLE. 3. SMALL RIGHT HYDROCELE. MODERATE LEFT HYDROCELE. TECHNICAL DOCUMENTATION: JOB ID: [id number] [employer]- All Rights Reserved Reading location - IP/workstation name: [email or web address]
== END ==
LOC: RAD 10:08
PROVIDERS: ATTEND Internal Medicine
DX: N50.82 Scrotal pain (principal); C83.38 Diffuse large B-cell lymphoma, lymph nodes of multiple sites; N43.3 Hydrocele, unspecified
CPT/HCPCS: 76870; 93976

== ENCOUNTER → 2019-03-07 | Outpatient (CLI) | payer OTHER ==
--- NOTE | 2019-03-07 17:39 | RADIOLOGY REPORT (SQ) ---
EXAM DESCRIPTION: U/S THYROID/SFT TISS HD NECK COMPLETED DATE/TIME: 03/07/2019 4:16 pm REASON FOR STUDY: E04.1 NONTOXIC SINGLE THYROID NODULE E04.1 NONTOXIC SINGLE THYROID NODULE COMPARISON: PET-CT 12/26/2018 CT soft tissue neck 07/12/2018 TECHNIQUE: Dynamic and static powell-scale images acquired of the thyroid gland. Selected additional c olor/power Doppler images recorded. All images stored to PACS. LIMITATIONS: None. FINDINGS: RIGHT LOBE: Right lobe thyroid measures 5.7 x 2.4 x 2.3 cm in size. In the right midpole gland, a 1.7 x 1.6 cm spongiform isoechoic nodule is present, wider than tall, w ith smooth margins and no echogenic foci (TI-RADS 1 lesion). In the right midpole thyroid, a 5 mm spongiform hypoechoic nodule is present, wider than tall, with s mooth margins and no echogenic foci (TI-RADS 2 lesion). LEFT LOBE: Left lobe thyroid measures 5.1 x 2.6 x 2.1 cm in size. In the left lower pole thyroid gland, a 1.7 x 1.6 cm spongiform mixed hyper and hypoechoic nodule is present, with smooth margins, wider than tall, no echogenic foci (TI-RADS 2 lesion). ISTHMUS: Normal size. Homogeneous echotexture. No cystic or solid masses. OTHER: No other significant finding. IMPRESSION: Normal size thyroid with bilateral TI-RADS 1 and 2 nodules as above. COMMENT: The [employer] (ACR) Thyroid Imaging Reporting And Data System (TI-RADS ) is an ultrasound feature based summed scoring system of risk categorization and management recommen dations for thyroid nodules. TI-RADS assessment categories are as follows: 0 - Incomplete exam: Additional imaging or comparison to prior examinations recommended. 1. - Benign: Fine-needle aspiration or follow-up not routinely recommended in the absence of clinical change. 2. - Not suspicious: Fine-needle aspiration or follow-up not routinely recommended in the absence of clinical change. 3. - Mildly suspicious: Fine-needle aspiration recommended if greater than or equal to 2.5 cm in size . Ultrasound follow-up recommended if greater than or equal to 1.5 cm in size. 4. - Moderately suspicious: Fine-needle aspiration recommended if greater than or equal to 1.5 cm in size. Ultrasound follow-up recommended if greater than or equal to 1.0 cm in size. 5. - Highly suspicious: Fine-needle aspiration recommended if greater than or equal to 1.0 cm in size . Ultrasound follow-up recommended if greater than or equal to 0.5 cm in size. TECHNICAL DOCUMENTATION: JOB ID: [id number] [email or web address]- All Rights Reserved Reading location - IP/workstation name: [email or web address]
== END ==
LOC: RAD 15:26
PROVIDERS: ATTEND Otolaryngology
DX: E04.1 Nontoxic single thyroid nodule (principal)
CPT/HCPCS: 76536

== ENCOUNTER → 2019-03-22 | Outpatient (CLI) | payer OTHER ==
--- NOTE | 2019-03-22 10:29 | RADIOLOGY REPORT (SQ) ---
EXAM DESCRIPTION: CT CHEST WITH; CT ABD/PELVIS WITH IV ONLY COMPLETED DATE/TIME: 03/22/2019 9:25 am REASON FOR STUDY: LYMPHOMA C83.38 DIFFUSE LARGE B-CELL LYMPHOMA, LYMPH NODES OF MULTIPL CONTRAST TYPE AND DOSE: contrast/concentration: Isovue 350.00 mg/ml; Total Contrast Delivered: 80.0 ml; Total Saline Delivered: 68.0 ml RENAL FUNCTION: BUN 19, creatinine 1.0 COMPARISON: None. TECHNIQUE: CT scan of the chest performed using helical scanning technique with dynamic intravenous contrast injection. Images reviewed with lung, soft tissue and bone windows. Reconstructed coronal a nd sagittal MPR images reviewed. All images stored on PACS. All CT scanners at this facility use dose modulation, iterative reconstruction, and/or weight based d osing when appropriate to reduce radiation dose to as low as reasonably achievable (ALARA). [facility]: Dose Right [facility]: CareDose [facility]: Dose Right [facility]: Teradose 4D [facility]: Smart Entrisphere RADIATION DOSE: CT Rad equipment meets quality standard of care and radiation dose reduction techniq ues were employed. CTDIvol: 5.2 - 6.0 mGy. DLP: 866 mGy-cm. . LIMITATIONS: None. FINDINGS: AXILLAE: No adenopathy. CHEST WALL: No masses. No subcutaneous air. LUNGS: 2 new right-sided pulmonary nodules. There is a 6.4 mm nodule in the right upper lobe. This is best demonstrated on series 6, image 47. There is a 7.5 mm nodule in the medial aspect of the rig ht lower lobe. This is best demonstrated on series 6, image 84. PLEURA: No effusions. No calcifications. THYROID: No masses or significant asymmetry. HILAR AND MEDIASTINAL STRUCTURES: No identified masses or abnormal nodes. AORTA AND GREAT VESSELS: No aneurysm. No dissection. PULMONARY ARTERIES: No identified pulmonary emboli. Study not optimized for the pulmonary arteries. HEART: No pericardial effusion. HARDWARE AND LIFELINES: None. BONES: Small lytic lesions at T10, T11 posteriorly and T12. Metastatic disease cannot be excluded. OTHER: No other significant finding. IMPRESSION: 2 new right-sided pulmonary nodules. The largest measures 7.5 mm. These will need foll ow up. Please see below for follow-up recommendations. Small lytic lesions in T10, T11 and T12. Metastatic disease cannot be excluded. FLEISCHNER CRITERIA FOR FOLLOW-UP OF PULMONARY NODULES Incidentally detected new nodules in persons 35 or older. HIGH RISK: History of smoking or other known risk factors. 6-8mm single solid nodule: LOW RISK: CT 6-12 mo; then consider CT 18-24 mo. HIGH RISK: CT 6-12 mo; th en CT 18-24 mo. COMPARISON: None. RADIATION DOSE: CT Rad equipment meets quality standard of care and radiation dose reduction techniq ues were employed. CTDIvol: 5.2 - 6.0 mGy. DLP: 866 mGy-cm. mGy. TECHNIQUE: CT scan of the abdomen and pelvis performed with intravenous and oral contrast using david jair scanning technique with dynamic intravenous contrast injection. Images reviewed with lung, soft tissue and bone windows. Reconstructed coronal and sagittal MPR images reviewed. Delayed images for evaluation of the urinary system also acquired and evaluated. All images stored on PACS. All CT scanners at this facility use dose modulation, iterative reconstruction, and/or weight based d osing when appropriate to reduce radiation dose to as low as reasonably achievable (ALARA). [facility]: Dose Right [facility]: SureCare [facility]: Dose Right [facility]: Teradose 4D [facility]: [employer] FINDINGS: LIVER: Simple hepatic cyst is again noted in the left lobe. Adjacent to this cyst is a 1. 6 cm lesion consistent with metastasis. This appears slightly larger when compared to prior study. Lesion adjacent to the falciform ligament now measures 2.2 cm compared to 4.2 cm on prior study. SPLEEN: Normal size. No focal lesions. PANCREAS: No masses. No significant calcifications. No adjacent inflammation or peripancreatic flui d collections. Pancreatic duct not dilated. GALLBLADDER: No identified stones by CT criteria. No inflammatory changes to suggest cholecystitis. ADRENAL GLANDS: No significant masses or asymmetry. RIGHT KIDNEY AND URETER: Small hypoattenuating lesions in the right kidney too small to accurately ch aracterize but most likely cysts. They are stable in appearance. No significant calcifications. No hydronephrosis or hydroureter. LEFT KIDNEY AND URETER: The largely exophytic left renal mass has decreased in size. It measures 3.7 cm on today's study compared to 5.5 cm on prior exam. No significant calcifications. No hydronep hrosis or hydroureter. AORTA AND VESSELS: No aneurysm. No dissection. Renal arteries, SMA, celiac without stenosis. RETROPERITONEUM: No retroperitoneal adenopathy, hemorrhage or masses. LARGE AND SMALL BOWEL: Scattered diverticuli. No acute diverticulitis. APPENDIX: Normal. ABDOMINAL WALL: No hernia or masses. PERITONEAL CAVITY: No free air. No free fluid. No peritoneal implants or masses. PELVIS: No mass or free fluid. Normal bladder. BONES: Lytic changes at T12 and L1 new from prior study and suspicious for metastatic disease. There is a new lytic lesion in the left ilium. Small stable sclerotic lesions in the right ilium are unch anged. OTHER: No other significant finding. IMPRESSION: 1. Mixed findings in the abdomen. Previously described 3.4 cm lesion in the right lobe of liver has decreased in size and now measures 2.2 cm. There is a 2nd 1.6 cm lesion in the left lob e of liver which is new or has increased in size. 2. Left exophytic renal mass is smaller in size measured 3.7 cm on today's study. Previously this m easured approximately 5.3 cm. 3. Lytic lesions in the body of T12, L1 in the left ilium are noted consistent with metastatic disea se. TECHNICAL DOCUMENTATION: JOB ID: [id number] Quality ID # [id number]: Final reports with documentation of one or more dose reduction techniques (e.g., Au tomated exposure control, adjustment of the mA and/or kV according to patient size, use of iterative reconstruction technique) 2010 [employer]- All Rights Reserved Reading location - IP/workstation name: [email or web address]
== END ==
LOC: RAD 08:50
PROVIDERS: ATTEND Internal Medicine
DX: C83.38 Diffuse large B-cell lymphoma, lymph nodes of multiple sites (principal)
CPT/HCPCS: 71260; 74177

== ENCOUNTER → 2019-04-05 | Outpatient (CLI) | payer OTHER ==
--- NOTE | 2019-04-06 14:04 | RADIOLOGY REPORT (SQ) ---
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 TECHNIQUE: Blood glucose level was verified. Above dose of FDG was injected intravenously. 2-D seg mented attenuation correction images were obtained from the base of the skull to the midthighs. Nonc ontrast CT images were obtained for attenuation correction and fusion with emission images. CT image s were performed without oral or intravenous contrast and are not sensitive for parenchymal lesions. A series of overlapping emission PET images were obtained. Images [facility] by the radiologist. Images stored on PACS. LIMITATIONS: None. FINDINGS: HEAD AND NECK: Again seen is a focus of increased uptake within the right submandibular re gion which is poorly defined on noncontrast CT (max SUV 12.3, previously 10.8). The additional previ ously described right level 2 node is not clearly identified. No additional discrete abnormal uptake within the head or neck. CHEST: Previously seen right upper lobe pulmonary nodule has decreased in size from prior PET-CT and is grossly stable from recent CT measuring 5 mm, previously 9 mm without significant increased FDG up take (max SUV 0.6). Previously-seen paramedian right lower lobe pulmonary nodule has also decreased in size from prior PET measuring 8 mm, previously 10 mm on prior PET without significant FDG uptake ( max SUV 1.4). No new discrete foci of increased uptake within the thorax ABDOMEN AND PELVIS: Background hepatic activity max SUV 2.9. Decreased size of the hypoechoic lesion along the falciform ligament from prior PET-CT measuring approximately 17 mm (series 3, image 123). There is an additional poorly defined segment to hypodense lesion within the left hepatic lobe measu ring 18 mm with increased FDG uptake (max SUV 6.0), not present on prior PET CT and stable from prior recent CT abdomen. Stable intermediate density exophytic lesion off the left kidney measuring 3.6 c m without significant increased FDG uptake (max SUV 2.0). No other areas of abnormal FDG uptake with in the abdomen or pelvis. Expected physiologic activity is present in the genitourinary system and b owel. PROXIMAL LOWER EXTREMITIES: No areas of abnormal metabolic activity in the soft tissues of the lower extremities. BONES: There is a focus of increased FDG uptake within the left ilium corresponding to a lucent lesio n (max SUV 12.0), not present on prior PET-CT. There additional lucent osseous lesions, some of whic h demonstrate increased uptake. For example lucent lesion within the L1 vertebral body demonstrates max SUV 6.0. ADDITIONAL CT FINDINGS: No acute findings. Chronic findings as above. IMPRESSION: 1. Persistent hypermetabolic uptake along the right submandibular region (max SUV 12.3) compatible with residual disease. 2. Hypermetabolic segment 2 lesion measuring 18 mm (max SUV 6.0) compatible with hepatic metastatic disease stable from prior CT and new from prior PET-CT. Stable appearance of the additional hepatic cysts and hypodense lesion along the falciform ligament from recent CT. 3. Decreased size and metabolic activity of previously described cervical, supraclavicular and right -sided pulmonary nodules compared to prior PET-CT and as detailed above suggestive of mixed response. 4. Hypermetabolic lytic lesions most conspicuous within the left ilium and compatible with osseous m etastatic disease (max SUV 12.0). 5. Stable non hypermetabolic exophytic left renal lesion from recent CT. TECHNICAL DOCUMENTATION: JOB ID: [id number] [employer]- All Rights Reserved Reading location - IP/workstation name: [email or web address]
== END ==
LOC: RAD 14:34
PROVIDERS: ATTEND Internal Medicine
DX: C83.38 Diffuse large B-cell lymphoma, lymph nodes of multiple sites (principal)
CPT/HCPCS: 78815; A9552

== ENCOUNTER 2019-04-12 10:32 | Outpatient (CLI) | payer OTHER ==
[2019-04-12] MEDS ORDERED: PEGFILGRASTIM-CBQV 6 MG/0.6 ML SYRINGE SUBCUT PRN (10:40)
[2019-04-12 10:49] VITALS: BP 107/78
== END 2019-04-12 11:31 | disposition home or self-care (01) ==
LOC: II 10:32 → 5TH 10:45 → II 11:31
PROVIDERS: ATTEND Internal Medicine
DX: Z76.89 Persons encountering health services in other specified circumstances (principal); C83.38 Diffuse large B-cell lymphoma, lymph nodes of multiple sites; D70.1 Agranulocytosis secondary to cancer chemotherapy
CPT/HCPCS: 96372; Q5111

== ENCOUNTER 2019-04-17 10:31 | Inpatient (IN) | payer MEDICARE, OTHER ==
[2019-04-17] MEDS ORDERED: MEROPENEM 1 GM VIAL IV ONE (11:22)
[2019-04-17 11:24] LABS: VENOUS BLOOD BASE EXCESS -0.9 mmol/L; VENOUS BLOOD HCO3 23.3 mmol/L (20-32); VENOUS BLOOD PCO2 37.3 mmHg (35-63); VENOUS BLOOD PH 7.41 (7.30-7.42)
[2019-04-17 11:26] LABS: ABSOLUTE LYMPHOCYTES (AUTO) 0.1 10^3/uL (0.5-4.7); EOSINOPHILS % (AUTO) 1.5 % (0-6); HEMATOCRIT 27.5 % (37.9-51.0); HEMOGLOBIN 9.7 g/dL (13.5-17.0); LYMPHOCYTES % (AUTO) 88.8 % (13-45); MEAN CORPUSCULAR HEMOGLOBIN 32.1 pg (27.0-33.4); MEAN CORPUSCULAR HGB CONC 35.2 g/dL (32.0-36.0); MEAN CORPUSCULAR VOLUME 91 fl (80-97); MONOCYTES % (AUTO) 6.7 % (3-13); RED BLOOD COUNT 3.02 10^6/uL (4.35-5.55); RED CELL DISTRIBUTION WIDTH 16.2 % (11.5-14.0); TOTAL CELLS COUNTED % (AUTO) 100 %
[2019-04-17 11:31] LABS: INTERNATIONAL RATION (INR) 1.14; PROTHROMBIN TIME 14.7 SEC (11.4-15.4)
[2019-04-17] MEDS ORDERED: NORMAL SALINE 250 ML IV ONE (11:32)
--- NOTE | 2019-04-17 11:33 | ER Document Report ---
ED General - General Chief Complaint: Fever Stated Complaint: FEVER Time Seen by Provider: 04/17/19 10:51 Primary Care Provider: NAHOMI LAWSON MD [Primary Care Provider] - Follow up as needed TRAVEL OUTSIDE OF THE [place] 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 He has had a fever for the last 2 days. Patient's has been medicating at home with Tylenol. He denies any significant pain. He has had a dry cough. No vomiting. He has had multiple loose bowel movements, but not out of the unexpected number per the patient and his in regards to his chemotherapy. No dental pain. No urinary symptoms. He has, however, had significant rigors at night. - Related Data Allergies/Adverse Reactions: levofloxacin Allergy (Mild, Verified 04/17/19 11:43) rash amoxicillin Allergy (Unknown, Verified 04/17/19 11:43) Sulfa (Sulfonamide Antibiotics) Allergy (Verified 04/17/19 11:43) Hives Past Medical History - General Information source: Patient, Relative - Social History Smoking Status: Never Smoker Family History: Arthritis, CAD, CVA, Hyperlipidemia, Hypertension, Malignancy - Past Medical History Cardiac Medical History: Reports: Hx Atrial Fibrillation, Hx Hypertension Denies: Hx Coronary Artery Disease, Hx Heart Attack Pulmonary Medical History: Denies: Hx Asthma, Hx Bronchitis, Hx COPD, Hx Pneumonia Neurological Medical History: Denies: Hx Cerebrovascular Accident, Hx Seizures Renal/ Medical History: Denies: Hx Peritoneal Dialysis Malignancy Medical History: 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 Denies: Hx Hepatitis, Hx Hiatal Hernia, Hx Ulcer Musculoskeletal Medical History: Denies Hx Arthritis, Reports Hx Musculoskeletal Trauma - Sprained ankle Skin Medical History: Reports Hx Psoriasis Infectious Medical History: Denies: Hx Hepatitis Past Surgical History: Reports: Hx Oral Surgery, Hx Tonsillectomy, Other - SKIN BIOPSY. Denies: Hx Open Heart Surgery, Hx Pacemaker - Immunizations Immunizations up to date: Yes Hx Diphtheria, Pertussis, Tetanus Vaccination: Yes Review of Systems - Review of Systems Constitutional: See HPI EENT: No symptoms reported Cardiovascular: No symptoms reported Respiratory: See HPI Gastrointestinal: See HPI Genitourinary: No symptoms reported Musculoskeletal: No symptoms reported Skin: No symptoms reported Neurological/Psychological: No symptoms reported Physical Exam - Vital signs Vitals: Temp Resp BP 100.3 F 22 H 137/90 H 04/17/19 10:37 04/17/19 10:37 04/17/19 10:37 - Notes Notes: This is a mildly frail-appearing 68-year-old male who appears stated age in no acute distress. Vital signs reviewed, please refer to chart. Head is normocepha lic, atraumatic. Pupils equal round, reactive to light. Oral mucosa is moist. His dentition does reveal significant decay, but I do not appreciate any significant gingival edema, focal fluctuance, or facial erythema. Neck is supple without meningismus. Heart is regular rate and rhythm. Lungs are clear to auscultation bilaterally. Abdomen is soft, nontender, normoactive bowel sounds throughout. Extremities without cyanosis, clubbing. Posterior calves are nontender. Peripheral pulses are equal. Skin is warm and dry. Patient is awake, alert, neurological exam is nonfocal. Course - Re-evaluation Re-evalutation: 04/17/19 11:31 Patient presents emergency department for evaluation. He is on chemotherapy, is complaining of fever at home as well as rigors. I am concerned about this patient being septic. Septic work-up ordered, will treat with 30 cc/kg of IV fluids, empiric antibiotics. We will continue to monitor. 04/17/19 13:25 Laboratory investigations revealed marked neutropenia, thrombocytopenia. I do not have any clear source of fever at this time. He is given Merrem, vancomycin. He is given IV fluids. He tolerated all this well. I spoke with Dr. Carballo. He asks that the patient be given platelets, with premedication, that the patient be admitted to the internal medicine service. I spoke with Dr. Patterson and Marquez Mohr, and the patient will be accepted to [facility] [place] for further care. - Vital Signs Vital signs: Temp Pulse Resp BP Pulse Ox 100 F 22 H 132/87 H 98 04/17/19 11:41 04/17/19 12:01 04/17/19 12:01 04/17/19 12:01 - Laboratory Result Diagrams: 04/17/19 11:00 04/17/19 11:00 Laboratory results interpreted by me: 04/17/19 04/17/19 04/17/19 11:00 11:00 11:00 WBC 0.1 L* RBC 3.02 L Hgb 9.7 L Hct 27.5 L RDW 16.2 H Plt Count 5 L* Lymph % (Auto) 88.8 H Absolute Neuts (auto) 0.0 L Absolute Lymphs (auto) 0.1 L Absolute Monos (auto) 0.0 L Seg Neutrophils % 3.0 L Potassium 3.4 L BUN 22 H Est GFR (MDRD) Non-Af 59 L Glucose 176 H Lactic Acid 2.3 H Urine Protein Urine Glucose (UA) Urine Blood Urine Ascorbic Acid 04/17/19 11:30 WBC RBC Hgb Hct RDW Plt Count Lymph % (Auto) Absolute Neuts (auto) Absolute Lymphs (auto) Absolute Monos (auto) Seg Neutrophils % Potassium BUN Est GFR (MDRD) Non-Af Glucose Lactic Acid Urine Protein 100 H Urine Glucose (UA) 150 H Urine Blood MODERATE H Urine Ascorbic Acid 20 H - Diagnostic Test Radiology reviewed: Image reviewed, Reports reviewed Radiology results interpreted by me: 04/17/19 13:26 Chest X-Ray 04/17/19 10:35 IMPRESSION: NO SIGNIFICANT RADIOGRAPHIC FINDING IN THE CHEST. - EKG Interpretation by Me Additional EKG results interpreted by me: 04/17/19 13:26 Sinus mechanism with a rate of 92 bpm. Normal axis, prolonged QT interval. Nonspecific ST changes, but no acute changes concerning for ischemia or infarction. Discharge - Discharge Clinical Impression: Neutropenic fever, Sepsis, Thrombocytopenia, Lymphoma Condition: Stable Disposition: ADMITTED INPATIENT Admitting Provider: Yesenia (Hospitalist) - [facility] Unit Admitted: [facility] Referrals: NAHOMI LAWSON MD [Primary Care Provider] - Follow up as needed
[2019-04-17 11:42] LABS: ALBUMIN 4.2 g/dL (3.5-5.0); ALKALINE PHOSPHATASE 71 U/L (38-126); ANION GAP 14 (5-19); ASPARTATE AMINO TRANSFERASE 24 U/L (17-59); BILIRUBIN,DIRECT 0.2 mg/dL (0.0-0.4); BILIRUBIN,TOTAL 0.9 mg/dL (0.2-1.3); BLOOD UREA NITROGEN 22 mg/dL (7-20); CALCIUM 8.7 mg/dL (8.4-10.2); CARBON DIOXIDE 22 mmol/L (22-30); CHLORIDE 103 mmol/L (98-107); GLUCOSE 176 mg/dL (75-110); POTASSIUM 3.4 mmol/L (3.6-5.0)
[2019-04-17 11:48] LABS: APPEARANCE,URINE SLIGHTLY-CLOUDY; BILIRUBIN,URINE NEGATIVE (NEGATIVE); COLOR,URINE YELLOW; GLUCOSE, URINE 150 mg/dL (NEGATIVE); KETONES,URINE NEGATIVE (NEGATIVE); PROTEIN,URINE 100 mg/dL (NEGATIVE); UROBILINOGEN,URINE NEGATIVE mg/dL (<2.0)
--- NOTE | 2019-04-17 11:48 | RADIOLOGY REPORT (SQ) ---
EXAM DESCRIPTION: CHEST SINGLE VIEW COMPLETED DATE/TIME: 04/17/2019 11:41 am REASON FOR STUDY: sepsis alert COMPARISON: 05/06/2018 NUMBER OF VIEWS: One view. TECHNIQUE: Single frontal radiographic view of the chest acquired. LIMITATIONS: None. FINDINGS: LUNGS AND PLEURA: No opacities, masses or pneumothorax. No pleural effusion. MEDIASTINUM AND HILAR STRUCTURES: No masses. Contour normal. HEART AND VASCULAR STRUCTURES: Heart normal in size. Normal vasculature. BONES: No acute findings. HARDWARE: Left port. OTHER: No other significant finding. IMPRESSION: NO SIGNIFICANT RADIOGRAPHIC FINDING IN THE CHEST. TECHNICAL DOCUMENTATION: JOB ID: [id number] [employer]- All Rights Reserved Reading location - IP/workstation name: [email or web address]
[2019-04-17] MEDS: NORMAL SALINE 1000 ML 1,000 ML IV PRN ×2 (11:56→12:58)
[2019-04-17 12:26] LABS: WHITE BLOOD COUNT 0.1 10^3/uL (4.0-10.5)
[2019-04-17 12:27] LABS: ANISOCYTOSIS 1+; OVALOCYTES SLIGHT; PLATELET COMMENT DECREASED; PLATELET COUNT 5 10^3/uL (150-450); POIKILOCYTOSIS 1+; TEAR DROP CELLS 1+
[2019-04-17] MEDS ORDERED: NORMAL SALINE 250 ML IV PRN (12:38)
[2019-04-17] MEDS ORDERED: VANCOMYCIN HCL INJ 1000 MG VIAL IV ONE (12:39)
[2019-04-17] MEDS ORDERED: DIPHENHYDRAMINE HCL 50 MG CAPSULE PO ONE (12:39)
[2019-04-17] MEDS ORDERED: ACETAMINOPHEN 325 MG TABLET PO ONE (12:39)
[2019-04-17] MEDS ORDERED: ACETAMINOPHEN 325 MG SUPP.RECT PR ONE (13:22)
[2019-04-17] MEDS ORDERED: ONDANSETRON 4 MG TAB.RAPDIS PO PRN (13:35)
[2019-04-17] MEDS ORDERED: ACETAMINOPHEN 650 MG SUPP.RECT PR PRN (13:35)
[2019-04-17] MEDS ORDERED: ONDANSETRON HCL INJ/PF 4 MG/2 ML SDV IV PRN (13:35)
[2019-04-17] MEDS ORDERED: PROMETHAZINE HCL INJ 25 MG/1 ML VIAL IV PRN ×2 (13:52→16:30)
[2019-04-17] MEDS ORDERED: HYDRALAZINE HCL INJ/PF 20 MG/1 ML SDV IV PRN (13:53)
[2019-04-17] MEDS ORDERED: VANCOMYCIN HCL 0 MG in DEXTROSE 5%-WATER 250 ML IV NR (14:00)
--- NOTE | 2019-04-17 14:08 | PDOC H&P ---
History of Present Illness Admission Date/PCP: 04/17/19 13:32 NAHOMI LAWSON MD History of Present Illness: KRUPA VERMA is a 68 year old male admitted to the hospital through the emergency room for a 12-hour history of fever and Rigors. According to the he started this activity last night. Had it before when he had an infection. At this time however patient and his deny these had any coughing of significance . No dysuria , no sign of infection. He is currently undergoing chemotherapy at [place]. Patient is recently had treatments within the last week. Patient had a history of lymphoma and sarcoma. 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, Skin Cancer GI Medical History: Denies: Hepatitis, Hiatal Hernia Musculoskeltal Medical History: Denies: Arthritis Skin Medical History: Reports: Psoriasis Hematology: Denies: Anemia, Sickle Cell Disease Past Surgical History Past Surgical History: Reports: Tonsillectomy, Other - SKIN BIOPSY Denies: Pacemaker Social History Smoking Status: Never Smoker Frequency of Alcohol Use: Occasional Hx Recreational Drug Use: No Drugs: None Hx Prescription Drug Abuse: No - Advance Directive Resuscitation Status: Full Code Family History Family History: Arthritis, CAD, CVA, Hyperlipidemia, Hypertension, Malignancy Parental Family History Reviewed: No Children Family History Reviewed: No Sibling(s) Family History Reviewed.: No Medication/Allergy Home Medications: Losartan/Hydrochlorothiazide [Losartan-Hctz 50-12.5 mg Tab] 1 each PO DAILY #1 tablet 11/21/17 Baclofen [Baclofen 10 mg Tablet] 10 mg PO Q8HP PRN 04/17/19 Chemotherapy 1 dose IV .R-CHOP REGIMENT 04/17/19 Methotrexate Sodium [Rheumatrex 2.5 mg Tablet] 3.75 mg PO ASDIR PRN MDD 11.25 MG 04/17/19 Oxycodone HCl [Oxycodone HCl 10 MG Tablet] 10 mg PO Q6HP PRN 04/17/19 Prochlorperazine Maleate [Compazine 10 mg Tablet] 10 mg PO Q6HP PRN 04/17/19 Sotalol HCl [Betapace 80 mg Tablet] 40 mg PO Q12 04/17/19 Allergies/Adverse Reactions: levofloxacin Allergy (Mild, Verified 04/17/19 11:43) rash amoxicillin Allergy (Unknown, Verified 04/17/19 11:43) Sulfa (Sulfonamide Antibiotics) Allergy (Verified 04/17/19 11:43) Hives Review of Systems Constitutional: PRESENT: chills, fever(s) Respiratory: ABSENT: cough, hemoptysis Gastrointestinal: ABSENT: abdominal pain, constipation, diarrhea, hematemesis, hematochezia, nausea, vomiting Neurological: ABSENT: abnormal gait, abnormal speech, confusion, dizziness, focal weakness, syncope Psychiatric: ABSENT: anxiety, depression, homidical ideation, suicidal ideation Physical Exam Vital Signs: Temp Pulse Resp BP Pulse Ox 100 F 22 H 132/87 H 98 04/17/19 11:41 04/17/19 12:01 04/17/19 12:01 04/17/19 12:01 Intake & Output 04/16/19 04/17/19 04/18/19 06:59 06:59 06:59 Intake Total 1250 Balance 1250 Weight 72.3 kg General appearance: PRESENT: mild distress - Secondary to shaking and chills Respiratory exam: PRESENT: clear to auscultation abad. ABSENT: rales, rhonchi, wheezes Cardiovascular exam: PRESENT: RRR. ABSENT: diastolic murmur, rubs, systolic murmur Neurological exam: PRESENT: alert, awake, oriented to person, oriented to place, oriented to time, oriented to situation, CN II-XII grossly intact. ABSENT: motor sensory deficit Psychiatric exam: PRESENT: flat affect Results Laboratory Results: 04/17/19 11:00 04/17/19 11:00 04/17/19 04/17/19 04/17/19 11:00 11:00 11:00 WBC 0.1 L* RBC 3.02 L Hgb 9.7 L Hct 27.5 L MCV 91 MCH 32.1 MCHC 35.2 RDW 16.2 H Plt Count 5 L* Seg Neutrophils % 3.0 L VBG pH 7.41 VBG pCO2 37.3 VBG HCO3 23.3 VBG Base Excess -0.9 Sodium 139.2 Potassium 3.4 L Chloride 103 Carbon Dioxide 22 Anion Gap 14 BUN 22 H Creatinine 1.22 Est GFR ( Amer) > 60 Glucose 176 H Lactic Acid Calcium 8.7 Magnesium 1.7 Total Bilirubin 0.9 AST 24 Alkaline Phosphatase 71 Total Protein 7.0 Albumin 4.2 Urine Color Urine Appearance Urine pH Ur Specific [place] Urine Protein Urine Glucose (UA) Urine Ketones Urine Blood Urine RBC (Auto) Blood Type 04/17/19 04/17/19 04/17/19 11:00 11:30 13:08 WBC RBC Hgb Hct MCV MCH MCHC RDW Plt Count Seg Neutrophils % VBG pH VBG pCO2 VBG HCO3 VBG Base Excess Sodium Potassium Chloride Carbon Dioxide Anion Gap BUN Creatinine Est GFR ( Amer) Glucose Lactic Acid 2.3 H 2.1 Calcium Magnesium Total Bilirubin AST Alkaline Phosphatase Total Protein Albumin Urine Color YELLOW Urine Appearance SLIGHTLY-CLOUDY Urine pH 5.0 Ur Specific [place] 1.020 Urine Protein 100 H Urine Glucose (UA) 150 H Urine Ketones NEGATIVE Urine Blood MODERATE H Urine RBC (Auto) 9 Blood Type 04/17/19 13:08 WBC RBC Hgb Hct MCV MCH MCHC RDW Plt Count Seg Neutrophils % VBG pH VBG pCO2 VBG HCO3 VBG Base Excess Sodium Potassium Chloride Carbon Dioxide Anion Gap BUN Creatinine Est GFR ( Amer) Glucose Lactic Acid Calcium Magnesium Total Bilirubin AST Alkaline Phosphatase Total Protein Albumin Urine Color Urine Appearance Urine pH Ur Specific [place] Urine Protein Urine Glucose (UA) Urine Ketones Urine Blood Urine RBC (Auto) Blood Type A NEGATIVE Impressions: Chest X-Ray 04/17/19 10:35 IMPRESSION: NO SIGNIFICANT RADIOGRAPHIC FINDING IN THE CHEST. Assessment and Plan - Diagnosis (1) Lymphoma Qualifiers: Is this a current diagnosis for this admission?: Yes (2) Neutropenic fever Is this a current diagnosis for this admission?: Yes (3) Sepsis Is this a current diagnosis for this admission?: Yes (4) Thrombocytopenia Is this a current diagnosis for this admission?: Yes (5) Afib Qualifiers: Atrial fibrillation type: unspecified Qualified Code(s): I48.91 - Unspecifi ed atrial fibrillation Is this a current diagnosis for this admission?: Yes (6) Fever Qualifiers: Fever type: unspecified Qualified Code(s): R50.9 - Fever, unspecified Is this a current diagnosis for this admission?: Yes - Plan Summary Summary: 04/17/2019 Patient will be admitted under the hospitalist service but consulting will be oncology. Patient will be admitted for sepsis work-up but this may in fact be secondary to his chemotherapy treatments. Currently no obvious source of infection. Will treat with broad-spectrum antibiotics as well as antipyretics. Patient's oncologist has been consulted and will see the patient as well. Home medications are continued. - Time Time Spent with patient: 35 or more minutes
[2019-04-17 16:09] LABS: ANION GAP 13 (5-19); BLOOD UREA NITROGEN 22 mg/dL (7-20); CALCIUM 7.6 mg/dL (8.4-10.2); CARBON DIOXIDE 18 mmol/L (22-30); CHLORIDE 109 mmol/L (98-107); CREATINE KINASE 42 U/L (55-170); GLUCOSE 157 mg/dL (75-110); POTASSIUM 3.1 mmol/L (3.6-5.0)
[2019-04-17] MEDS: CEFEPIME 1 GM/D5W RTU 1 GM/50 ML RTUPB IV SCH (17:17)
[2019-04-17] MEDS: POTASSI CL 20 MEQ/50 ML RIDER 20 MEQ/50 ML RTUPB IV SCH ×2 (17:57→19:45)
[2019-04-17] MEDS: POTASSI CL 40 MEQ/NS 1L 1,000 ML IV PRN (18:53)
--- NOTE | 2019-04-17 19:29 | EKG REPORT ---
SEVERITY:- ABNORMAL ECG - SINUS RHYTHM ATRIAL PREMATURE COMPLEX LEFT VENTRICULAR HYPERTROPHY PROLONGED QT INTERVAL : Confirmed by: Roxana Carmona MD 17-Apr-2019 19:28:53
[2019-04-17] MEDS: FAMOTIDINE 20 MG TABLET PO SCH (21:18)
[2019-04-17] MEDS: SOTALOL HCL 80 MG TABLET PO SCH (21:19)
[2019-04-17] MEDS ORDERED: SOTALOL HCL 80 MG TABLET PO SCH (22:00)
[2019-04-18] MEDS: CEFEPIME 1 GM/D5W RTU 1 GM/50 ML RTUPB IV SCH ×3 (01:26→17:46)
[2019-04-18 06:07] LABS: ABSOLUTE LYMPHOCYTES (AUTO) 0.1 10^3/uL (0.5-4.7); EOSINOPHILS % (AUTO) 2.9 % (0-6); HEMATOCRIT 19.3 % (37.9-51.0); LYMPHOCYTES % (AUTO) 85.5 % (13-45); MEAN CORPUSCULAR HEMOGLOBIN 31.8 pg (27.0-33.4); MEAN CORPUSCULAR VOLUME 91 fl (80-97); MONOCYTES % (AUTO) 9.7 % (3-13); RED BLOOD COUNT 2.13 10^6/uL (4.35-5.55); RED CELL DISTRIBUTION WIDTH 16.3 % (11.5-14.0); SEGMENTED NEUTROPHILS % (AUTO) 1.9 % (42-78); TOTAL CELLS COUNTED % (AUTO) 100 %
[2019-04-18] MEDS: POTASSI CL 40 MEQ/NS 1L 1,000 ML IV PRN (06:22)
[2019-04-18 06:35] LABS: HEMOGLOBIN 6.8 g/dL (13.5-17.0)
[2019-04-18 06:36] LABS: PLATELET COUNT 13 10^3/uL (150-450)
[2019-04-18 06:38] LABS: PLATELET COMMENT DECREASED
[2019-04-18 06:39] LABS: ANISOCYTOSIS 1+; POLYCHROMASIA 1+
[2019-04-18 06:40] LABS: WHITE BLOOD COUNT 0.1 10^3/uL (4.0-10.5)
[2019-04-18] MEDS ORDERED: DIPHENHYDRAMINE HCL 25 MG CAPSULE ONE (08:50)
[2019-04-18] MEDS: ACETAMINOPHEN 325 MG TABLET PO PRN (08:51)
[2019-04-18] MEDS ORDERED: ACETAMINOPHEN 325 MG TABLET PO PRN (08:52)
[2019-04-18] MEDS ORDERED: DIPHENHYDRAMINE HCL 25 MG CAPSULE PO PRN (08:52)
--- NOTE | 2019-04-18 09:03 | PDOC CONSULTATION ---
Consultation Consult Date: 04/18/19 Attending physician:: TONEY ZAMBRANO Provider Consulted: DEJAH NAVARRETE Consult reason:: Patient with refractory diffuse large B-cell lymphoma here with sepsis History of Present Illness Admission Date/PCP: 04/17/19 13:32 NAHOMI LAWSON MD Patient complains of: Weakness, confusion, fever History of Present Illness: KRUPA VERMA is a 68 year old male with known history of refractory of diffuse large B-cell lymphoma, recently has been treated by Dr. Alexandra at [facility] and received salvage chemotherapy with Rice chemotherapy, and received Neulasta this past Thursday. Patient has been recently febrile, with fevers up to 104, chills, and was beginning to get confused at home and called us yesterday in the morning, we recommended that they bring him into the ER, here he was febrile, hypotensive, tachycardic, fitting criteria for sepsis, was admitted to IMCU floor, started on broad-spectrum antibiotics with cefepime and Vanco. Thus far 1 of 2 blood cultures are positive for GNR. Platelet count was down to 5, we gave him a unit of platelets, hemoglobin is down to 6.8 and he is getting a unit of packed red blood cells. He looks much better today. 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, Skin Cancer GI Medical History: Denies: Hepatitis, Hiatal Hernia Musculoskeltal Medical History: Denies: Arthritis Skin Medical History: Reports: Psoriasis Hematology: Denies: Anemia, Sickle Cell Disease Past Surgical History Past Surgical History: Reports: Tonsillectomy, Other - SKIN BIOPSY Denies: Pacemaker Social History Information Source: Patient Smoking Status: Former Smoker Electronic Cigarette use?: No Number of Years Smokin Last Time Smoked: 04/20/2013 Frequency of Alcohol Use: Rare Hx Recreational Drug Use: No Drugs: None Hx Prescription Drug Abuse: No - Advance Directive Resuscitation Status: Full Code Family History Family History: Arthritis, CAD, CVA, Hyperlipidemia, Hypertension, Malignancy Parental Family History Reviewed: Yes Children Family History Reviewed: Yes Sibling(s) Family History Reviewed.: Yes Medication/Allergy Home Medications: Chemotherapy 1 dose IV .R-CHOP REGIMENT 04/17/19 Oxycodone HCl [Oxycodone HCl 10 MG Tablet] 10 mg PO Q6HP PRN 04/17/19 Pegfilgrastim [Neulasta Inj 6 Mg/0.6 Ml Disp.Syrin] 6 mg SUBCUT ASDIR PRN MDD AFTER CHEMO 04/17/19 Prochlorperazine Maleate [Compazine 10 mg Tablet] 10 mg PO Q6HP PRN 04/17/19 Sotalol HCl [Betapace 80 mg Tablet] 40 mg PO Q12 04/17/19 Allergies/Adverse Reactions: levofloxacin Allergy (Mild, Verified 04/17/19 11:43) rash amoxicillin Allergy (Unknown, Verified 04/17/19 11:43) Sulfa (Sulfonamide Antibiotics) Allergy (Verified 04/17/19 11:43) Hives Review of Systems Constitutional: ABSENT: chills, fever(s), headache(s), weight gain, weight loss Eyes: ABSENT: visual disturbances Ears: ABSENT: hearing changes Cardiovascular: ABSENT: chest pain, dyspnea on exertion, edema, orthropnea, palpitations Respiratory: ABSENT: cough, hemoptysis Gastrointestinal: ABSENT: abdominal pain, constipation, diarrhea, hematemesis, hematochezia, nausea, vomiting Genitourinary: ABSENT: dysuria, hematuria Musculoskeletal: ABSENT: joint swelling Integumentary: ABSENT: rash, wounds Neurological: ABSENT: abnormal gait, abnormal speech, confusion, dizziness, foca l weakness, syncope Psychiatric: ABSENT: anxiety, depression, homidical ideation, suicidal ideation Endocrine: ABSENT: cold intolerance, heat intolerance, polydipsia, polyuria Hematologic/Lymphatic: ABSENT: easy bleeding, easy bruising Physical Exam Vital Signs: Temp Pulse Resp BP Pulse Ox 98.2 F 72 18 94/67 L 99 04/18/19 08:42 04/18/19 08:42 04/18/19 08:42 04/18/19 08:42 04/18/19 08:42 Intake & Output 04/17/19 04/18/19 04/19/19 06:59 06:59 06:59 Intake Total 3587 Balance 3587 Weight 72.3 kg General appearance: PRESENT: no acute distress, well-developed, well-nourished Head exam: PRESENT: atraumatic, normocephalic Eye exam: PRESENT: conjunctiva pink, EOMI, PERRLA. ABSENT: scleral icterus Ear exam: PRESENT: normal external ear exam Mouth exam: PRESENT: moist, tongue midline Neck exam: ABSENT: carotid bruit, JVD, lymphadenopathy, thyromegaly Respiratory exam: PRESENT: clear to auscultation abad. ABSENT: rales, rhonchi, wheezes Cardiovascular exam: PRESENT: RRR. ABSENT: diastolic murmur, rubs, systolic murmur Pulses: PRESENT: normal dorsalis pedis pul Vascular exam: PRESENT: normal capillary refill GI/Abdominal exam: PRESENT: normal bowel sounds, soft. ABSENT: distended, guarding, mass, organolmegaly, rebound, tenderness Rectal exam: PRESENT: deferred Extremities exam: PRESENT: full ROM. ABSENT: calf tenderness, clubbing, pedal edema Neurological exam: PRESENT: alert, awake, oriented to person, oriented to place, oriented to time, oriented to situation, CN II-XII grossly intact. ABSENT: motor sensory deficit Psychiatric exam: PRESENT: appropriate affect, normal mood. ABSENT: homicidal ideation, suicidal ideation Skin exam: PRESENT: dry, intact, warm. ABSENT: cyanosis, rash Results Laboratory Results: 04/18/19 04:30 04/17/19 15:15 04/17/19 04/17/19 04/17/19 11:00 11:00 11:00 WBC 0.1 L* RBC 3.02 L Hgb 9.7 L Hct 27.5 L MCV 91 MCH 32.1 MCHC 35.2 RDW 16.2 H Plt Count 5 L* Seg Neutrophils % 3.0 L VBG pH 7.41 VBG pCO2 37.3 VBG HCO3 23.3 VBG Base Excess -0.9 Sodium 139.2 Potassium 3.4 L Chloride 103 Carbon Dioxide 22 Anion Gap 14 BUN 22 H Creatinine 1.22 Est GFR ( Amer) > 60 Glucose 176 H Lactic Acid Calcium 8.7 Magnesium 1.7 Total Bilirubin 0.9 AST 24 Alkaline Phosphatase 71 Total Protein 7.0 Albumin 4.2 Urine Color Urine Appearance Urine pH Ur Specific [place] Urine Protein Urine Glucose (UA) Urine Ketones Urine Blood Urine RBC (Auto) Blood Type Antibody Screen 04/17/19 04/17/19 04/17/19 11:00 11:30 13:08 WBC RBC Hgb Hct MCV MCH MCHC RDW Plt Count Seg Neutrophils % VBG pH VBG pCO2 VBG HCO3 VBG Base Excess Sodium Potassium Chloride Carbon Dioxide Anion Gap BUN Creatinine Est GFR ( Amer) Glucose Lactic Acid 2.3 H 2.1 Calcium Magnesium Total Bilirubin AST Alkaline Phosphatase Total Protein Albumin Urine Color YELLOW Urine Appearance SLIGHTLY-CLOUDY Urine pH 5.0 Ur Specific [place] 1.020 Urine Protein 100 H Urine Glucose (UA) 150 H Urine Ketones NEGATIVE Urine Blood MODERATE H Urine RBC (Auto) 9 Blood Type Antibody Screen 04/17/19 04/17/19 04/17/19 13:08 15:15 16:00 WBC RBC Hgb Hct MCV MCH MCHC RDW Plt Count Seg Neutrophils % VBG pH VBG pCO2 VBG HCO3 VBG Base Excess Sodium 139.6 Potassium 3.1 L Chloride 109 H Carbon Dioxide 18 L Anion Gap 13 BUN 22 H Creatinine 1.25 Est GFR ( Amer) > 60 Glucose 157 H Lactic Acid 2.8 H Calcium 7.6 L Magnesium Total Bilirubin AST Alkaline Phosphatase Total Protein Albumin Urine Color Urine Appearance Urine pH Ur Specific [place] Urine Protein Urine Glucose (UA) Urine Ketones Urine Blood Urine RBC (Auto) Blood Type A NEGATIVE Antibody Screen NEGATIVE 04/18/19 04:30 WBC 0.1 L* RBC 2.13 L Hgb 6.8 L D Hct 19.3 L MCV 91 MCH 31.8 MCHC 35.0 RDW 16.3 H Plt Count 13 L* Seg Neutrophils % 1.9 L VBG pH VBG pCO2 VBG HCO3 VBG Base Excess Sodium Potassium Chloride Carbon Dioxide Anion Gap BUN Creatinine Est GFR ( Amer) Glucose Lactic Acid Calcium Magnesium Total Bilirubin AST Alkaline Phosphatase Total Protein Albumin Urine Color Urine Appearance Urine pH Ur Specific [place] Urine Protein Urine Glucose (UA) Urine Ketones Urine Blood Urine RBC (Auto) Blood Type Antibody Screen 04/17/19 15:15 Creatine Kinase 42 L Impressions: Chest X-Ray 04/17/19 10:35 IMPRESSION: NO SIGNIFICANT RADIOGRAPHIC FINDING IN THE CHEST. Assessment & Plan - Diagnosis (1) Sepsis Qualifiers: Sepsis type: Escherichia coli Sepsis acute organ dysfunction status: with acute organ dysfunction Severe sepsis acute organ dysfunction type: disseminated intravascular coagulopathy Severe sepsis shock status: without septic shock Qualified Code(s): A41.51 - Sepsis due to Escherichia coli [E. coli]; R65.20 - Severe sepsis without septic shock; D65 - Disseminated intravascular coagulation [defibrination syndrome] Is this a current diagnosis for this admission?: Yes Plan: GNR thus far, probably going to be an E. coli probably from urine source, continue with broad-spectrum antibiotics until we have full culture results. Once cultures are negative for gram-positive organisms for 72 hours we can discontinue vancomycin. Continue with aggressive hydration, blood product rep lacement, electrolyte balance management per hospitalist team. (2) Neutropenic fever Is this a current diagnosis for this admission?: Yes Plan: Continue as above with plan as above, no need for growth factor support as of yet because patient did receive Neulasta tolerated this should be kicking in soon. (3) Pancytopenia due to antineoplastic chemotherapy Is this a current diagnosis for this admission?: Yes Plan: Multifactorial pancytopenia, chemo related surely but also probable mild DIC ongoing. Plan to transfuse if hemoglobin gets under 7 with 1 unit of packed red blood cells, transfuse if platelet gets under 10. - Time Time Spent: Greater than 70 Minutes - Inpatient Certification Based on my medical assessment, after consideration of the patient's comorbidities, presenting symptoms, or acuity I expect that the services needed warrant INPATIENT care.: Yes I certify that my determination is in accordance with my understanding of Medicare's requirements for reasonable and necessary INPATIENT services [42 CFR 412.3e].: Yes Medical Necessity: Need For IV Fluids, Need For Continuous Telemetry Monitoring, Need for IV Antibiotics
[2019-04-18] MEDS: SOTALOL HCL 80 MG TABLET PO SCH ×2 (10:07→21:22)
[2019-04-18] MEDS: FAMOTIDINE 20 MG TABLET PO SCH ×2 (10:08→21:22)
[2019-04-18] MEDS: DOCUSATE SODIUM 100 MG CAPSULE PO SCH (10:08)
[2019-04-18 14:10] LABS: ABSOLUTE LYMPHOCYTES (AUTO) 0.1 10^3/uL (0.5-4.7); EOSINOPHILS % (AUTO) 2.8 % (0-6); HEMATOCRIT 24.2 % (37.9-51.0); HEMOGLOBIN 8.4 g/dL (13.5-17.0); LYMPHOCYTES % (AUTO) 77.6 % (13-45); MEAN CORPUSCULAR HEMOGLOBIN 30.9 pg (27.0-33.4); MEAN CORPUSCULAR HGB CONC 34.7 g/dL (32.0-36.0); MEAN CORPUSCULAR VOLUME 89 fl (80-97); MONOCYTES % (AUTO) 17.8 % (3-13); RED BLOOD COUNT 2.73 10^6/uL (4.35-5.55); RED CELL DISTRIBUTION WIDTH 16.5 % (11.5-14.0); SEGMENTED NEUTROPHILS % (AUTO) 1.8 % (42-78); TOTAL CELLS COUNTED % (AUTO) 100 %
[2019-04-18] MEDS: VANCOMYCIN HCL 1,500 MG in DEXTROSE 5%-WATER 250 ML IV SCH (14:10)
[2019-04-18 14:30] LABS: PATH REVIEW PATHOLOGIST REVIEWED
[2019-04-18 15:05] LABS: WHITE BLOOD COUNT 0.1 10^3/uL (4.0-10.5)
[2019-04-18 15:06] LABS: PLATELET COUNT 13 10^3/uL (150-450)
[2019-04-18 15:08] LABS: ANISOCYTOSIS 1+; BURR CELLS SLIGHT; OVALOCYTES SLIGHT; PLATELET COMMENT DECREASED
--- NOTE | 2019-04-18 17:49 | PDOC PROGRESS REPORT ---
Subjective Progress Note for:: 04/18/19 Reason For Visit: LYMPHOMA,SARCOMA,FEVER,SEPSIS 04/18/2019 Sepsis, sarcoma, fever, lymphoma Physical Exam Vital Signs: Temp Pulse Resp BP Pulse Ox 97.9 F 67 16 96/71 L 100 04/18/19 11:28 04/18/19 13:58 04/18/19 11:28 04/18/19 11:28 04/18/19 11:28 Intake & Output 04/17/19 04/18/19 04/19/19 06:59 06:59 06:59 Intake Total 3637 727 Balance 3637 727 Weight 72.3 kg General appearance: PRESENT: no acute distress, other - Sitting up in bed smiling feeling much better than yesterday Respiratory exam: PRESENT: clear to auscultation abad. ABSENT: rales, rhonchi, wheezes Cardiovascular exam: PRESENT: RRR. ABSENT: diastolic murmur, rubs, systolic murmur Neurological exam: PRESENT: alert, awake, oriented to person, oriented to place, oriented to time, oriented to situation, CN II-XII grossly intact. ABSENT: motor sensory deficit Psychiatric exam: PRESENT: appropriate affect, normal mood. ABSENT: homicidal ideation, suicidal ideation Results Laboratory Results: 04/18/19 13:20 04/17/19 15:15 04/17/19 04/18/19 04/18/19 13:08 04:30 13:20 WBC 0.1 L* 0.1 L* RBC 2.13 L 2.73 L Hgb 6.8 L D 8.4 L Hct 19.3 L 24.2 L MCV 91 89 MCH 31.8 30.9 MCHC 35.0 34.7 RDW 16.3 H 16.5 H Plt Count 13 L* 13 L* Seg Neutrophils % 1.9 L 1.8 L Blood Type A NEGATIVE Antibody Screen NEGATIVE 04/17/19 15:15 Creatine Kinase 42 L Impressions: Chest X-Ray 04/17/19 10:35 IMPRESSION: NO SIGNIFICANT RADIOGRAPHIC FINDING IN THE CHEST. Assessment and Plan - Diagnosis (1) Lymphoma Qualifiers: Is this a current diagnosis for this admission?: Yes (2) Neutropenic fever Is this a current diagnosis for this admission?: Yes (3) Sepsis Qualifiers: Sepsis type: Escherichia coli Sepsis acute organ dysfunction status: with acute organ dysfunction Severe sepsis acute organ dysfunction type: disseminated intravascular coagulopathy Severe sepsis shock status: without septic shock Qualified Code(s): A41.51 - Sepsis due to Escherichia coli [E. coli]; R65.20 - Severe sepsis without septic shock; D65 - Disseminated intravasc ular coagulation [defibrination syndrome] Is this a current diagnosis for this admission?: Yes (4) Thrombocytopenia Is this a current diagnosis for this admission?: Yes (5) Afib Qualifiers: Atrial fibrillation type: unspecified Qualified Code(s): I48.91 - U nspecified atrial fibrillation Is this a current diagnosis for this admission?: Yes (6) Fever Qualifiers: Fever type: unspecified Qualified Code(s): R50.9 - Fever, unspecified Is this a current diagnosis for this admission?: Yes - Plan Summary Summary: 04/17/2019 Patient will be admitted under the hospitalist service but consulting will be oncology. Patient will be admitted for sepsis work-up but this may in fact be secondary to his chemotherapy treatments. Currently no obvious source of infection. Will treat with broad-spectrum antibiotics as well as antipyretics. Patient's oncologist has been consulted and will see the patient as well. Home medications are continued. 04/18/2019 Yesterday at 1430 hrs. his temperature was 102.3, then it 1600 hrs. his temperature dropped to 98.9. This morning his temperature was 98.2 Pulse of 72 blood pressure 94/67 O2 sat 99% on room air Hemo-globin on admission 0.7 however this dropped to 6.8 and then after 1 unit of packed red cells went to 8.4 Platelets up to 13,000 following 1 unit of platelets Last lactic acid level was still elevated at 2.8 Potassium slightly low at 3.1, will order p.o. potassium as well as 1 K rider Patient is growing out gram-negative rods in his blood Currently on cefepime and vancomycin. IV fluid running at 100 mL's per hour of normal saline Patient is feeling much better. Per oncology we will wait for blood cultures, spleen DC the vancomycin in 48 hours if no gram-positive organisms. Continue same treatment till blood cultures have returned - Time Time Spent with patient: 25-34 minutes
[2019-04-18] MEDS: POTASSI CL 20 MEQ/50 ML RIDER 20 MEQ/50 ML RTUPB IV SCH ×2 (20:25→22:23)
[2019-04-19] MEDS: CEFEPIME 1 GM/D5W RTU 1 GM/50 ML RTUPB IV SCH ×3 (01:10→18:19)
[2019-04-19] MEDS: OXYCODONE HCL IR 5 MG TABLET PO PRN ×2 (01:21→21:53)
[2019-04-19] MEDS ORDERED: DIPHENHYDRAMINE HCL 25 MG CAPSULE PO PRN (05:00)
[2019-04-19] MEDS ORDERED: ACETAMINOPHEN 325 MG TABLET PO PRN (05:00)
[2019-04-19 06:30] LABS: ABSOLUTE LYMPHOCYTES (AUTO) 0.2 10^3/uL (0.5-4.7); EOSINOPHILS % (AUTO) 0.2 % (0-6); HEMATOCRIT 22.9 % (37.9-51.0); HEMOGLOBIN 8.1 g/dL (13.5-17.0); LYMPHOCYTES % (AUTO) 92.5 % (13-45); MEAN CORPUSCULAR HEMOGLOBIN 31.1 pg (27.0-33.4); MEAN CORPUSCULAR HGB CONC 35.3 g/dL (32.0-36.0); MEAN CORPUSCULAR VOLUME 88 fl (80-97); MONOCYTES % (AUTO) 5.5 % (3-13); RED CELL DISTRIBUTION WIDTH 17.1 % (11.5-14.0); SEGMENTED NEUTROPHILS % (AUTO) 1.8 % (42-78); TOTAL CELLS COUNTED % (AUTO) 100 %
[2019-04-19 07:23] LABS: PLATELET COUNT 6 10^3/uL (150-450); WHITE BLOOD COUNT 0.2 10^3/uL (4.0-10.5)
[2019-04-19 07:27] LABS: ANISOCYTOSIS 1+; OVALOCYTES SLIGHT; PLATELET COMMENT DECREASED; TEAR DROP CELLS SLIGHT
[2019-04-19] MEDS: POTASSIUM CHLORIDE 10 MEQ TABLET.ER PO SCH ×3 (08:28→21:53)
[2019-04-19] MEDS: POTASSI CL 40 MEQ/NS 1L 1,000 ML IV PRN ×2 (08:32→21:59)
--- NOTE | 2019-04-19 08:43 | PDOC PROGRESS REPORT ---
Subjective Progress Note for:: 04/19/19 Subjective:: Patient feeling and looking better this morning Reason For Visit: LYMPHOMA,SARCOMA,FEVER,SEPSIS Physical Exam Vital Signs: Temp Pulse Resp BP Pulse Ox 98.2 F 70 20 100/62 100 04/19/19 04:15 04/19/19 07:00 04/19/19 04:15 04/19/19 04:15 04/19/19 04:15 Intake & Output 04/18/19 04/19/19 04/20/19 06:59 06:59 06:59 Intake Total 3637 1412 Balance 3637 1412 Weight 72.3 kg 72.3 kg General appearance: PRESENT: no acute distress, well-developed, well-nourished Head exam: PRESENT: atraumatic, normocephalic Eye exam: PRESENT: conjunctiva pink, EOMI, PERRLA. ABSENT: scleral icterus Ear exam: PRESENT: normal external ear exam Mouth exam: PRESENT: moist, tongue midline Neck exam: ABSENT: carotid bruit, JVD, lymphadenopathy, thyromegaly Respiratory exam: PRESENT: clear to auscultation abad. ABSENT: rales, rhonchi, wheezes Cardiovascular exam: PRESENT: RRR. ABSENT: diastolic murmur, rubs, systolic murmur Pulses: PRESENT: normal dorsalis pedis pul Vascular exam: PRESENT: normal capillary refill GI/Abdominal exam: PRESENT: normal bowel sounds, soft. ABSENT: distended, guarding, mass, organolmegaly, rebound, tenderness Rectal exam: PRESENT: deferred Extremities exam: PRESENT: full ROM. ABSENT: calf tenderness, clubbing, pedal edema Neurological exam: PRESENT: alert, awake, oriented to person, oriented to place, oriented to time, oriented to situation, CN II-XII grossly intact. ABSENT: motor sensory deficit Psychiatric exam: PRESENT: appropriate affect, normal mood. ABSENT: homicidal ideation, suicidal ideation Skin exam: PRESENT: dry, intact, warm. ABSENT: cyanosis, rash Results Laboratory Results: 04/19/19 05:15 04/17/19 15:15 04/17/19 04/18/19 04/19/19 13:08 13:20 05:15 WBC 0.1 L* 0.2 L* RBC 2.73 L 2.60 L Hgb 8.4 L 8.1 L Hct 24.2 L 22.9 L MCV 89 88 MCH 30.9 31.1 MCHC 34.7 35.3 RDW 16.5 H 17.1 H Plt Count 13 L* 6 L* Seg Neutrophils % 1.8 L 1.8 L Blood Type A NEGATIVE Antibody Screen NEGATIVE 04/17/19 15:15 Creatine Kinase 42 L Impressions: Chest X-Ray 04/17/19 10:35 IMPRESSION: NO SIGNIFICANT RADIOGRAPHIC FINDING IN THE CHEST. Assessment & Plan - Diagnosis (1) Sepsis Qualifiers: Sepsis type: Escherichia coli Sepsis acute organ dysfunction status: with acute organ dysfunction Severe sepsis acute organ dysfunction type: disseminated intravascular coagulopathy Severe sepsis shock status: without septic shock Qualified Code(s): A41.51 - Sepsis due to Escherichia coli [E. coli]; R65.20 - Severe sepsis without septic shock; D65 - Disseminated intravascular coagulation [defibrination syndrome] Is this a current diagnosis for this admission?: Yes Plan: Continue with broad-spectrum antibiotics for another 24 hours, if cultures are negative for 48 hours or 72 hours could discontinue vancomycin. Would recommend repeating blood cultures and 48 hours to ensure clearance (2) Neutropenic fever Is this a current diagnosis for this admission?: Yes Plan: Neutropenia should improve in the next couple days, continue with antibiotic approach as above (3) Pancytopenia due to antineoplastic chemotherapy Is this a current diagnosis for this admission?: Yes Plan: Patient will need platelet transfusion today, hemoglobin stable above 8. - Time Time Spent with patient: 35 or more minutes
[2019-04-19] MEDS: SOTALOL HCL 80 MG TABLET PO SCH ×2 (09:40→21:53)
[2019-04-19] MEDS: FAMOTIDINE 20 MG TABLET PO SCH ×2 (09:40→21:53)
[2019-04-19] MEDS: DOCUSATE SODIUM 100 MG CAPSULE PO SCH (09:40)
[2019-04-19 13:23] LABS: ANION GAP 8 (5-19); BLOOD UREA NITROGEN 15 mg/dL (7-20); CALCIUM 8.1 mg/dL (8.4-10.2); CARBON DIOXIDE 23 mmol/L (22-30); CHLORIDE 110 mmol/L (98-107); GLUCOSE 119 mg/dL (75-110); POTASSIUM 4.1 mmol/L (3.6-5.0)
--- NOTE | 2019-04-19 13:28 | RADIOLOGY REPORT (SQ) ---
EXAM DESCRIPTION: CT CHEST WITHOUT COMPLETED DATE/TIME: 04/19/2019 1:02 pm REASON FOR STUDY: FUO,left rales COMPARISON: TECHNIQUE: CT scan performed of the chest without intravenous contrast. Images reviewed with lung, soft tissue and bone windows. Reconstructed coronal and sagittal MPR images reviewed. All images st ored on PACS. All CT scanners at this facility use dose modulation, iterative reconstruction, and/or weight based d osing when appropriate to reduce radiation dose to as low as reasonably achievable (ALARA). [facility]: Dose Right [facility]: CareDose [facility]: Dose Right [facility]: Teradose 4D [facility]: Smart Probiodrug RADIATION DOSE: CT Rad equipment meets quality standard of care and radiation dose reduction techniq ues were employed. CTDIvol: 7.0 mGy. DLP: 294 mGy-cm. mGy. LIMITATIONS: No technical limitations. FINDINGS: LUNGS AND PLEURA: Grossly stable size of previously seen right upper lobe pulmonary nodule measuring 6 mm. Additional previously described nodule within the medial aspect of the right lower lobe has decreased in size measuring 5.7 x 8.2 mm, previously 7.5 x 10.4 mm (series 4, image 90). Th ere are new patchy areas of peripheral ground-glass attenuation within the left lower lobe. No signi ficant pleural effusion. No pneumothorax. HILAR AND MEDIASTINAL STRUCTURES: No new mediastinal, hilar or axillary adenopathy. HEART AND VASCULAR STRUCTURES: Normal heart size. No pericardial effusion. Scattered three-vessel c oronary atherosclerosis. UPPER ABDOMEN: No acute findings. Grossly stable appearance of the hypodense lesion within the left hepatic lobe and left lobe cyst. Grossly stable appearance of the partially evaluated left renal les ion. THYROID AND OTHER SOFT TISSUES: No masses. No adenopathy. BONES: Unchanged lytic lesions within the T10, T12 and L1 vertebral bodies. No new osseous lesions. No acute bony abnormalities. HARDWARE: Left chest port with catheter tip at SVC. OTHER: No other significant findings. IMPRESSION: 1. New left lower lobe peripheral ground-glass opacities most compatible with pneumonia . No significant effusion. 2. Stable to decreased size of the previously described right upper lobe pulmonary nodules. 3. Stable lytic lesions within T10, T12 and L1 suspicious for osseous metastatic disease. TECHNICAL DOCUMENTATION: JOB ID: [id number] Quality ID # [id number]: Final reports with documentation of one or more dose reduction techniques (e.g., Au tomated exposure control, adjustment of the mA and/or kV according to patient size, use of iterative reconstruction technique) 2010 [employer]- All Rights Reserved Reading location - IP/workstation name: [email or web address]
[2019-04-19] MEDS: VANCOMYCIN HCL 1,500 MG in DEXTROSE 5%-WATER 250 ML IV SCH (14:32)
--- NOTE | 2019-04-19 16:43 | PDOC PROGRESS REPORT ---
Subjective Progress Note for:: 04/19/19 Subjective:: This is a 68 year old male with known history of refractory of diffuse large B- cell lymphoma on chemotherapy who was admitted because of febrile neutropenia. Patient was also noted severe thrombocytopenia. Patient started on broad-spectrum IV antibiotics. Upon encounter, he appears comfortable. He says that he feels better today. He complains of dry cough. He does have rales on the left lower lung field. Will pursue a chest CT to rule out occult pneumonia not appreciated on chest x-ray. Reason For Visit: LYMPHOMA,SARCOMA,FEVER,SEPSIS Physical Exam Vital Signs: Temp Pulse Resp BP Pulse Ox 98.1 F 67 14 110/69 100 04/19/19 13:54 04/19/19 13:54 04/19/19 13:54 04/19/19 13:54 04/19/19 13:54 Intake & Output 04/18/19 04/19/19 04/20/19 06:59 06:59 06:59 Intake Total 3637 2412 1019 Output Total 0 Balance 3637 2412 1019 Weight 159 lb 6.307 oz 159 lb 6.307 oz General appearance: PRESENT: no acute distress, well-developed, well-nourished Head exam: PRESENT: atraumatic, normocephalic Eye exam: PRESENT: conjunctiva pink, EOMI, PERRLA. ABSENT: scleral icterus Ear exam: PRESENT: normal external ear exam Mouth exam: PRESENT: moist, tongue midline Neck exam: ABSENT: carotid bruit, JVD, lymphadenopathy, thyromegaly Respiratory exam: PRESENT: rales - left lung base. ABSENT: rhonchi, wheezes Cardiovascular exam: PRESENT: RRR. ABSENT: diastolic murmur, rubs, systolic murmur Pulses: PRESENT: normal dorsalis pedis pul GI/Abdominal exam: PRESENT: normal bowel sounds, soft. ABSENT: distended, guarding, mass, organolmegaly, rebound, tenderness Rectal exam: PRESENT: deferred Extremities exam: PRESENT: full ROM. ABSENT: calf tenderness, clubbing, pedal edema Neurological exam: PRESENT: alert, awake, oriented to person, oriented to place, oriented to time, oriented to situation, CN II-XII grossly intact. ABSENT: motor sensory deficit Results Laboratory Results: 04/19/19 05:15 04/19/19 12:45 04/17/19 04/19/19 04/19/19 13:08 05:15 12:45 WBC 0.2 L* RBC 2.60 L Hgb 8.1 L Hct 22.9 L MCV 88 MCH 31.1 MCHC 35.3 RDW 17.1 H Plt Count 6 L* Seg Neutrophils % 1.8 L Sodium 140.9 Potassium 4.1 Chloride 110 H Carbon Dioxide 23 Anion Gap 8 BUN 15 Creatinine 0.93 Est GFR ( Amer) > 60 Glucose 119 H Lactic Acid Calcium 8.1 L Blood Type A NEGATIVE Antibody Screen NEGATIVE 04/19/19 12:45 WBC RBC Hgb Hct MCV MCH MCHC RDW Plt Count Seg Neutrophils % Sodium Potassium Chloride Carbon Dioxide Anion Gap BUN Creatinine Est GFR ( Amer) Glucose Lactic Acid 0.9 Calcium Blood Type Antibody Screen 04/17/19 15:15 Creatine Kinase 42 L Impressions: Chest X-Ray 04/17/19 10:35 IMPRESSION: NO SIGNIFICANT RADIOGRAPHIC FINDING IN THE CHEST. Chest CT 04/19/19 10:48 IMPRESSION: 1. New left lower lobe peripheral ground-glass opacities most compatible with pneumonia. No significant effusion. 2. Stable to decreased size of the previously described right upper lobe pulmonary nodules. 3. Stable lytic lesions within T10, T12 and L1 suspicious for osseous metast atic disease. Assessment and Plan - Diagnosis (1) Neutropenic fever Is this a current diagnosis for this admission?: Yes Plan: He has been afebrile. Blood cultures growing gram-negative rods 1/2 bottles. Continue broad-spectrum IV antibiotics for now. He does have rales on the left lower lung field. Will pursue a chest CT to rule out occult pneumonia not appreciated on chest x-ray. (2) Thrombocytopenia Is this a current diagnosis for this admission?: Yes Plan: Platelet transfusion per hematology. (3) Lymphoma Qualifiers: Is this a current diagnosis for this admission?: Yes Plan: Heme/oncology following. - Plan Summary Summary: 04/17/2019 Patient will be admitted under the hospitalist service but consulting will be oncology. Patient will be admitted for sepsis work-up but this may in fact be secondary to his chemotherapy treatments. Currently no obvious source of infection. Will treat with broad-spectrum antibiotics as well as antipyretics. Patient's oncologist has been consulted and will see the patient as well. Home medications are continued. 04/18/2019 Yesterday at 1430 hrs. his temperature was 102.3, then it 1600 hrs. his temperature dropped to 98.9. This morning his temperature was 98.2 Pulse of 72 blood pressure 94/67 O2 sat 99% on room air Hemo-globin on admission 0.7 however this dropped to 6.8 and then after 1 unit of packed red cells went to 8.4 Platelets up to 13,000 following 1 unit of platelets Last lactic acid level was still elevated at 2.8 Potassium slightly low at 3.1, will order p.o. potassium as well as 1 K rider Patient is growing out gram-negative rods in his blood Currently on cefepime and vancomycin. IV fluid running at 100 mL's per hour of normal saline Patient is feeling much better. Per oncology we will wait for blood cultures, spleen DC the vancomycin in 48 hours if no gram-positive organisms. Continue same treatment till blood cultures have returned - Time Time Spent with patient: 25-34 minutes
[2019-04-19] MEDS: NYSTATIN/DEXAMETH/DIPHEN SUSP 120 ML PO PRN (18:19)
[2019-04-19] MEDS ORDERED: VALACYCLOVIR HCL 500 MG TABLET PO ONE (19:30)
[2019-04-20] MEDS: CEFEPIME 1 GM/D5W RTU 1 GM/50 ML RTUPB IV SCH ×2 (02:21→09:18)
[2019-04-20 06:41] LABS: ABSOLUTE LYMPHOCYTES (AUTO) 0.2 10^3/uL (0.5-4.7); EOSINOPHILS % (AUTO) 0.4 % (0-6); HEMATOCRIT 22.9 % (37.9-51.0); LYMPHOCYTES % (AUTO) 83.7 % (13-45); MEAN CORPUSCULAR HEMOGLOBIN 30.5 pg (27.0-33.4); MEAN CORPUSCULAR HGB CONC 34.6 g/dL (32.0-36.0); MEAN CORPUSCULAR VOLUME 88 fl (80-97); MONOCYTES % (AUTO) 12.5 % (3-13); RED BLOOD COUNT 2.59 10^6/uL (4.35-5.55); RED CELL DISTRIBUTION WIDTH 16.5 % (11.5-14.0); SEGMENTED NEUTROPHILS % (AUTO) 3.4 % (42-78); TOTAL CELLS COUNTED % (AUTO) 100 %
[2019-04-20] MEDS: ACETAMINOPHEN 325 MG TABLET PO PRN ×3 (07:01→21:09)
[2019-04-20 07:12] LABS: OVALOCYTES SLIGHT; POIKILOCYTOSIS SLIGHT
[2019-04-20 07:13] LABS: PLATELET COMMENT DECREASED; SCHISTOCYTES SLIGHT; TEAR DROP CELLS SLIGHT
[2019-04-20 07:17] LABS: HEMOGLOBIN 7.9 g/dL (13.5-17.0); PLATELET COUNT 19 10^3/uL (150-450)
[2019-04-20 07:18] LABS: WHITE BLOOD COUNT 0.3 10^3/uL (4.0-10.5)
[2019-04-20] MEDS: POTASSI CL 40 MEQ/NS 1L 1,000 ML IV PRN ×2 (08:08→20:19)
[2019-04-20] MEDS: SOTALOL HCL 80 MG TABLET PO SCH ×2 (09:18→21:08)
[2019-04-20] MEDS: DOCUSATE SODIUM 100 MG CAPSULE PO SCH (09:19)
[2019-04-20] MEDS: FAMOTIDINE 20 MG TABLET PO SCH ×2 (09:19→21:09)
[2019-04-20] MEDS: POTASSIUM CHLORIDE 10 MEQ TABLET.ER PO SCH ×2 (09:19→21:09)
[2019-04-20] MEDS: NYSTATIN/DEXAMETH/DIPHEN SUSP 120 ML PO PRN ×3 (09:23→21:10)
--- NOTE | 2019-04-20 15:47 | PDOC PROGRESS REPORT ---
Subjective Progress Note for:: 04/20/19 Subjective:: This is a 68 year old male with known history of refractory of diffuse large B- cell lymphoma on chemotherapy who was admitted because of febrile neutropenia. Patient was also noted severe thrombocytopenia. Patient was started on broad-spectrum IV antibiotics. 04/19: Upon encounter, he appears comfortable. He says that he feels better today. He complains of dry cough. He does have rales on the left lower lung field. Will pursue a chest CT to rule out occult pneumonia not appreciated on chest x-ray. 04/20: No acute event overnight. Chest CT revealed a new left lower lobe pneumonia. He reports he continues to feel better. Denies chest pain or shortness of breath. Reason For Visit: LYMPHOMA,SARCOMA,FEVER,SEPSIS Physical Exam Vital Signs: Temp Pulse Resp BP Pulse Ox 97.5 F 69 16 129/83 H 100 04/20/19 08:04 04/20/19 08:04 04/20/19 08:04 04/20/19 08:04 04/20/19 08:04 Intake & Output 04/19/19 04/20/19 04/21/19 06:59 06:59 06:59 Intake Total 2412 2929 1050 Output Total 0 Balance 2412 2929 1050 Weight 159 lb 6.307 oz 158 lb 15.253 oz Results Laboratory Results: 04/20/19 05:43 04/19/19 12:45 04/20/19 05:43 WBC 0.3 L* RBC 2.59 L Hgb 7.9 L Hct 22.9 L MCV 88 MCH 30.5 MCHC 34.6 RDW 16.5 H Plt Count 19 L* D Seg Neutrophils % 3.4 L 04/17/19 11:00 Blood Blood Culture - Final Klebsiella Pneumoniae 04/17/19 15:15 Creatine Kinase 42 L Impressions: Chest X-Ray 04/17/19 10:35 IMPRESSION: NO SIGNIFICANT RADIOGRAPHIC FINDING IN THE CHEST. Chest CT 04/19/19 10:48 IMPRESSION: 1. New left lower lobe peripheral ground-glass opacities most compatible with pneumonia. No significant effusion. 2. Stable to decreased size of the previously described right upper lobe pulmonary nodules. 3. Stable lytic lesions within T10, T12 and L1 suspicious for osseous metastatic disease. Assessment and Plan - Diagnosis (1) Neutropenic fever Is this a current diagnosis for this admission?: Yes Plan: 04/19: He has been afebrile. Blood cultures growing gram-negative rods 1/2 bottles. Continue broad-spectrum IV antibiotics for now. He does have rales on the left lower lung field. Will pursue a chest CT to rule out occult pneumonia not appreciated on chest x-ray. 04/20: Blood culture grew Klebsiella pneumoniae 1/[address] did reveal a new left lower lobe pneumonia. Switch cefepime to Rocephin. (2) Pneumonia Is this a current diagnosis for this admission?: Yes (3) Thrombocytopenia Is this a current diagnosis for this admission?: Yes Plan: Platelet transfusion per hematology. 04/20: Improving. (4) Lymphoma Qualifiers: Is this a current diagnosis for this admission?: Yes Plan: Heme/oncology following. - Plan Summary Summary: 04/17/2019 Patient will be admitted under the hospitalist service but consulting will be oncology. Patient will be admitted for sepsis work-up but this may in fact be secondary to his chemotherapy treatments. Currently no obvious source of infection. Will treat with broad-spectrum antibiotics as well as antipyretics. Patient's oncologist has been consulted and will see the patient as well. Home medications are continued. 04/18/2019 Yesterday at 1430 hrs. his temperature was 102.3, then it 1600 hrs. his temperature dropped to 98.9. This morning his temperature was 98.2 Pulse of 72 blood pressure 94/67 O2 sat 99% on room air Hemo-globin on admission 0.7 however this dropped to 6.8 and then after 1 unit of packed red cells went to 8.4 Platelets up to 13,000 following 1 unit of platelets Last lactic acid level was still elevated at 2.8 Potassium slightly low at 3.1, will order p.o. potassium as well as 1 K rider Patient is growing out gram-negative rods in his blood Currently on cefepime and vancomycin. IV fluid running at 100 mL's per hour of normal saline Patient is feeling much better. Per oncology we will wait for blood cultures, spleen DC the vancomycin in 48 hours if no gram-positive organisms. Continue same treatment till blood cultures have returned - Time Time Spent with patient: 25-34 minutes
[2019-04-20] MEDS: OXYCODONE HCL IR 5 MG TABLET PO PRN (21:10)
[2019-04-21] MEDS: POTASSI CL 40 MEQ/NS 1L 1,000 ML IV PRN (05:28)
[2019-04-21] MEDS: NYSTATIN/DEXAMETH/DIPHEN SUSP 120 ML PO PRN ×4 (05:28→21:02)
[2019-04-21 06:05] LABS: ABSOLUTE LYMPHOCYTES (AUTO) 0.3 10^3/uL (0.5-4.7); ABSOLUTE MONOCYTES (AUTO) 0.1 10^3/uL (0.1-1.4); EOSINOPHILS % (AUTO) 0.7 % (0-6); HEMATOCRIT 23.7 % (37.9-51.0); HEMOGLOBIN 8.3 g/dL (13.5-17.0); LYMPHOCYTES % (AUTO) 64.6 % (13-45); MEAN CORPUSCULAR HEMOGLOBIN 30.7 pg (27.0-33.4); MEAN CORPUSCULAR HGB CONC 34.9 g/dL (32.0-36.0); MEAN CORPUSCULAR VOLUME 88 fl (80-97); MONOCYTES % (AUTO) 25.8 % (3-13); RED CELL DISTRIBUTION WIDTH 16.5 % (11.5-14.0); SEGMENTED NEUTROPHILS % (AUTO) 8.9 % (42-78); TOTAL CELLS COUNTED % (AUTO) 100 %
[2019-04-21 06:22] LABS: ANION GAP 10 (5-19); BLOOD UREA NITROGEN 17 mg/dL (7-20); CALCIUM 8.9 mg/dL (8.4-10.2); CARBON DIOXIDE 25 mmol/L (22-30); CHLORIDE 104 mmol/L (98-107); GLUCOSE 87 mg/dL (75-110); POTASSIUM 4.5 mmol/L (3.6-5.0)
[2019-04-21 06:24] LABS: ANISOCYTOSIS SLIGHT; PLATELET COMMENT DECREASED
[2019-04-21 06:39] LABS: PLATELET COUNT 12 10^3/uL (150-450); WHITE BLOOD COUNT 0.5 10^3/uL (4.0-10.5)
--- NOTE | 2019-04-21 08:41 | PDOC PROGRESS REPORT ---
Subjective Progress Note for:: 04/21/19 Subjective:: Patient feeling better, afebrile Reason For Visit: LYMPHOMA,SARCOMA,FEVER,SEPSIS Physical Exam Vital Signs: Temp Pulse Resp BP Pulse Ox 98.0 F 61 19 110/67 100 04/21/19 03:48 04/21/19 07:00 04/21/19 03:48 04/21/19 03:48 04/21/19 03:48 Intake & Output 04/20/19 04/21/19 04/22/19 06:59 06:59 06:59 Intake Total 2929 4145 Output Total 0 Balance 2929 4145 Weight 72.1 kg 69.9 kg General appearance: PRESENT: no acute distress, well-developed, well-nourished Head exam: PRESENT: atraumatic, normocephalic Eye exam: PRESENT: conjunctiva pink, EOMI, PERRLA. ABSENT: scleral icterus Ear exam: PRESENT: normal external ear exam Mouth exam: PRESENT: moist, tongue midline Neck exam: ABSENT: carotid bruit, JVD, lymphadenopathy, thyromegaly Respiratory exam: PRESENT: clear to auscultation abad. ABSENT: rales, rhonchi, wheezes Cardiovascular exam: PRESENT: RRR. ABSENT: diastolic murmur, rubs, systolic murmur Pulses: PRESENT: normal dorsalis pedis pul Vascular exam: PRESENT: normal capillary refill GI/Abdominal exam: PRESENT: normal bowel sounds, soft. ABSENT: distended, guarding, mass, organolmegaly, rebound, tenderness Rectal exam: PRESENT: deferred Extremities exam: PRESENT: full ROM. ABSENT: calf tenderness, clubbing, pedal edema Neurological exam: PRESENT: alert, awake, oriented to person, oriented to place, oriented to time, oriented to situation, CN II-XII grossly intact. ABSENT: motor sensory deficit Psychiatric exam: PRESENT: appropriate affect, normal mood. ABSENT: homicidal ideation, suicidal ideation Skin exam: PRESENT: dry, intact, warm. ABSENT: cyanosis, rash Results Laboratory Results: 04/21/19 05:19 04/21/19 05:19 04/21/19 04/21/19 05:19 05:19 WBC 0.5 L* RBC 2.70 L Hgb 8.3 L Hct 23.7 L MCV 88 MCH 30.7 MCHC 34.9 RDW 16.5 H Plt Count 12 L* Seg Neutrophils % 8.9 L Sodium 138.7 Potassium 4.5 Chloride 104 Carbon Dioxide 25 Anion Gap 10 BUN 17 Creatinine 0.88 Est GFR ( Amer) > 60 Glucose 87 Calcium 8.9 04/17/19 11:00 Blood Blood Culture - Final Klebsiella Pneumoniae 04/17/19 15:15 Creatine Kinase 42 L Impressions: Chest X-Ray 04/17/19 10:35 IMPRESSION: NO SIGNIFICANT RADIOGRAPHIC FINDING IN THE CHEST. Chest CT 04/19/19 10:48 IMPRESSION: 1. New left lower lobe peripheral ground-glass opacities most compatible with pneumonia. No significant effusion. 2. Stable to decreased size of the previously described right upper lobe pulmonary nodules. 3. Stable lytic lesions within T10, T12 and L1 suspicious for osseous metasta tic disease. Assessment & Plan - Diagnosis (1) Sepsis Qualifiers: Sepsis type: Escherichia coli Sepsis acute organ dysfunction status: with acute organ dysfunction Severe sepsis acute organ dysfunction type: disseminated intravascular coagulopathy Severe sepsis shock status: without septic shock Qualified Code(s): A41.51 - Sepsis due to Escherichia coli [E. coli]; R65.20 - Severe sepsis without septic shock; D65 - Disseminated intravascular coagulation [defibrination syndrome] Is this a current diagnosis for this admission?: Yes Plan: Klebsiella bacteremia, continue with IV cefepime until ANC is greater than thousand, Vanco has been discontinued. (2) Neutropenic fever Is this a current diagnosis for this admission?: Yes Plan: Improved continue per infection as above (3) Pancytopenia due to antineoplastic chemotherapy Is this a current diagnosis for this admission?: Yes Plan: Platelet count down to 12, if platelet count drops below 10 we will transfuse. If hemoglobin drops below 7 we will transfuse. - Time Time Spent with patient: 35 or more minutes
[2019-04-21] MEDS: POTASSIUM CHLORIDE 10 MEQ TABLET.ER PO SCH ×2 (10:32→21:02)
[2019-04-21] MEDS: SOTALOL HCL 80 MG TABLET PO SCH ×2 (10:32→21:03)
[2019-04-21] MEDS: DOCUSATE SODIUM 100 MG CAPSULE PO SCH (10:32)
[2019-04-21] MEDS: FAMOTIDINE 20 MG TABLET PO SCH ×2 (10:32→21:03)
[2019-04-21] MEDS: CEFTRIAXONE 1 GM/D5W RTU 1 GM/50 ML RTUPB IV SCH (10:33)
--- NOTE | 2019-04-21 14:17 | PDOC PROGRESS REPORT ---
Subjective Progress Note for:: 04/21/19 Subjective:: This is a 68 year old male with known history of refractory of diffuse large B- cell lymphoma on chemotherapy who was admitted because of febrile neutropenia. Patient was also noted severe thrombocytopenia. Patient was started on broad-spectrum IV antibiotics. 04/19: Upon encounter, he appears comfortable. He says that he feels better today. He complains of dry cough. He does have rales on the left lower lung field. Will pursue a chest CT to rule out occult pneumonia not appreciated on chest x-ray. 04/20: Chest CT revealed a new left lower lobe pneumonia. He reports he continues to feel better. Denies chest pain or shortness of breath. 04/21: No acute event overnight. he denies acute complaints. He says he feels like he is at his baseline. Anticipate discharge once ANC is acceptable. Await oral antibiotic recommendations from ID. Reason For Visit: LYMPHOMA,SARCOMA,FEVER,SEPSIS Physical Exam Vital Signs: Temp Pulse Resp BP Pulse Ox 97.8 F 71 18 108/78 100 04/21/19 08:42 04/21/19 08:42 04/21/19 08:42 04/21/19 08:42 04/21/19 08:42 Intake & Output 04/20/19 04/21/19 04/22/19 06:59 06:59 06:59 Intake Total 2929 4145 1232 Output Total 0 0 Balance 2929 4145 1232 Weight 158 lb 15.253 oz 154 lb 1.65 oz General appearance: PRESENT: no acute distress, well-developed, well-nourished Head exam: PRESENT: atraumatic, normocephalic Eye exam: PRESENT: conjunctiva pink, EOMI, PERRLA. ABSENT: scleral icterus Ear exam: PRESENT: normal external ear exam Mouth exam: PRESENT: moist, tongue midline Neck exam: ABSENT: carotid bruit, JVD, lymphadenopathy, thyromegaly Respiratory exam: PRESENT: clear to auscultation abad. ABSENT: rales, rhonchi, wheezes Cardiovascular exam: PRESENT: RRR. ABSENT: diastolic murmur, rubs, systolic murmur Pulses: PRESENT: normal dorsalis pedis pul GI/Abdominal exam: PRESENT: normal bowel sounds, soft. ABSENT: distended, guarding, mass, organolmegaly, rebound, tenderness Rectal exam: PRESENT: deferred Extremities exam: PRESENT: full ROM. ABSENT: calf tenderness, clubbing, pedal edema Neurological exam: PRESENT: alert, awake, oriented to person, oriented to place, oriented to time, oriented to situation, CN II-XII grossly intact. ABSENT: motor sensory deficit Results Laboratory Results: 04/21/19 05:19 04/21/19 05:19 04/21/19 04/21/19 05:19 05:19 WBC 0.5 L* RBC 2.70 L Hgb 8.3 L Hct 23.7 L MCV 88 MCH 30.7 MCHC 34.9 RDW 16.5 H Plt Count 12 L* Seg Neutrophils % 8.9 L Sodium 138.7 Potassium 4.5 Chloride 104 Carbon Dioxide 25 Anion Gap 10 BUN 17 Creatinine 0.88 Est GFR ( Amer) > 60 Glucose 87 Calcium 8.9 04/17/19 11:00 Blood Blood Culture - Final Klebsiella Pneumoniae 04/17/19 15:15 Creatine Kinase 42 L Impressions: Chest X-Ray 04/17/19 10:35 IMPRESSION: NO SIGNIFICANT RADIOGRAPHIC FINDING IN THE CHEST. Chest CT 04/19/19 10:48 IMPRESSION: 1. New left lower lobe peripheral ground-glass opacities most compatible with pneumonia. No significant effusion. 2. Stable to decreased size of the previously described right upper lobe pulmonary nodules. 3. Stable lytic lesions within T10, T12 and L1 suspicious for osseous metastatic disease. Assessment and Plan - Diagnosis (1) Neutropenic fever Is this a current diagnosis for this admission?: Yes Plan: 04/19: He has been afebrile. Blood cultures growing gram-negative rods 1/2 bottles. Continue broad-spectrum IV antibiotics for now. He does have rales on the left lower lung field. Will pursue a chest CT to rule out occult pneumonia not appreciated on chest x-ray. 04/20: Blood culture grew Klebsiella pneumoniae 1/[address] did reveal a new left lower lobe pneumonia. Switch cefepime to Rocephin. (2) Pneumonia Is this a current diagnosis for this admission?: Yes Plan: Await oral antibiotic recommendations from ID. (3) Thrombocytopenia Is this a current diagnosis for this admission?: Yes Plan: Platelet transfusion per hematology. 04/20: Improving. (4) Lymphoma Qualifiers: Is this a current diagnosis for this admission?: Yes Plan: Heme/oncology following. - Plan Summary Summary: 04/17/2019 Patient will be admitted under the hospitalist service but consulting will be oncology. Patient will be admitted for sepsis work-up but this may in fact be secondary to his chemotherapy treatments. Currently no obvious source of infection. Will treat with broad-spectrum antibiotics as well as antipyretics. Patient's oncologist has been consulted and will see the patient as well. Home medications are continued. 04/18/2019 Yesterday at 1430 hrs. his temperature was 102.3, then it 1600 hrs. his temperature dropped to 98.9. This morning his temperature was 98.2 Pulse of 72 blood pressure 94/67 O2 sat 99% on room air Hemo-globin on admission 0.7 however this dropped to 6.8 and then after 1 unit of packed red cells went to 8.4 Platelets up to 13,000 following 1 unit of platelets Last lactic acid level was still elevated at 2.8 Potassium slightly low at 3.1, will order p.o. potassium as well as 1 K rider Patient is growing out gram-negative rods in his blood Currently on cefepime and vancomycin. IV fluid running at 100 mL's per hour of normal saline Patient is feeling much better. Per oncology we will wait for blood cultures, spleen DC the vancomycin in 48 hours if no gram-positive organisms. Continue same treatment till blood cultures have returned - Time Time Spent with patient: 25-34 minutes
[2019-04-21] MEDS: OXYCODONE HCL IR 5 MG TABLET PO PRN (21:01)
[2019-04-22 08:32] LABS: HEMATOCRIT 25.4 % (37.9-51.0); MEAN CORPUSCULAR HEMOGLOBIN 30.7 pg (27.0-33.4); MEAN CORPUSCULAR HGB CONC 35.4 g/dL (32.0-36.0); MEAN CORPUSCULAR VOLUME 87 fl (80-97); RED BLOOD COUNT 2.93 10^6/uL (4.35-5.55); RED CELL DISTRIBUTION WIDTH 15.9 % (11.5-14.0)
--- NOTE | 2019-04-22 08:58 | PDOC PROGRESS REPORT ---
Subjective Progress Note for:: 04/22/19 Subjective:: Patient doing well this morning, we had a long discussion with the patient today about next steps of care. I have been keeping [facility] informed about his progress here. In terms of his infection, ID has been consulted and recommend 14 days of IV antibiotic therapy. He has had 5 days thus far so will need home antibiotic therapy. Because of his multiple allergies he will need to have IV antibiotics rather than p.o. He will take most likely ceftriaxone 1 g IV daily. We will get home health involved for this. His is a very nervous person so does not feel like she will be able to participate in this, so will need home health to do this. Reason For Visit: LYMPHOMA,SARCOMA,FEVER,SEPSIS Physical Exam Vital Signs: Temp Pulse Resp BP Pulse Ox 98.1 F 89 18 140/78 H 100 04/22/19 08:50 04/22/19 08:50 04/22/19 08:50 04/22/19 08:50 04/22/19 08:50 Intake & Output 04/21/19 04/22/19 04/23/19 06:59 06:59 06:59 Intake Total 4145 1762 Output Total 0 Balance 4145 1762 Weight 69.9 kg 69 kg General appearance: PRESENT: no acute distress, well-developed, well-nourished Head exam: PRESENT: atraumatic, normocephalic Eye exam: PRESENT: conjunctiva pink, EOMI, PERRLA. ABSENT: scleral icterus Ear exam: PRESENT: normal external ear exam Mouth exam: PRESENT: moist, tongue midline Neck exam: ABSENT: carotid bruit, JVD, lymphadenopathy, thyromegaly Respiratory exam: PRESENT: clear to auscultation abad. ABSENT: rales, rhonchi, wheezes Cardiovascular exam: PRESENT: RRR. ABSENT: diastolic murmur, rubs, systolic murmur Pulses: PRESENT: normal dorsalis pedis pul Vascular exam: PRESENT: normal capillary refill GI/Abdominal exam: PRESENT: normal bowel sounds, soft. ABSENT: distended, guarding, mass, organolmegaly, rebound, tenderness Rectal exam: PRESENT: deferred Extremities exam: PRESENT: full ROM. ABSENT: calf tenderness, clubbing, pedal edema Neurological exam: PRESENT: alert, awake, oriented to person, oriented to place, oriented to time, oriented to situation, CN II-XII grossly intact. ABSENT: motor sensory deficit Psychiatric exam: PRESENT: appropriate affect, normal mood. ABSENT: homicidal ideation, suicidal ideation Skin exam: PRESENT: dry, intact, warm. ABSENT: cyanosis, rash Results Laboratory Results: 04/21/19 05:19 04/17/19 15:15 Creatine Kinase 42 L Impressions: Chest X-Ray 04/17/19 10:35 IMPRESSION: NO SIGNIFICANT RADIOGRAPHIC FINDING IN THE CHEST. Chest CT 04/19/19 10:48 IMPRESSION: 1. New left lower lobe peripheral ground-glass opacities most compatible with pneumonia. No significant effusion. 2. Stable to decreased size of the previously described right upper lobe pulmonary nodules. 3. Stable lytic lesions within T10, T12 and L1 suspicious for osseous metastatic disease. Assessment & Plan - Diagnosis (1) Sepsis Qualifiers: Sepsis type: Escherichia coli Sepsis acute organ dysfunction status: with acute organ dysfunction Severe sepsis acute organ dysfunction type: disseminated intravascular coagulopathy Severe sepsis shock status: without septic shock Qualified Code(s): A41.51 - Sepsis due to Escherichia coli [E. coli]; R65.20 - Severe sepsis without septic shock; D65 - Disseminated intravascular coagulation [defibrination syndrome] Is this a current diagnosis for this admission?: Yes Plan: Klebsiella sepsis, plan as above (2) Neutropenic fever Is this a current diagnosis for this admission?: Yes Plan: White count should be recovering soon, awaiting CBC from today. (3) Pancytopenia due to antineoplastic chemotherapy Is this a current diagnosis for this admission?: Yes Plan: Proving, await counts from today, platelets under 10 plan for transfusion, if hemoglobin gets under 7 plan for transfusion. He will need to stay until ANC is greater than thousand. - Time Time Spent with patient: 35 or more minutes
[2019-04-22 08:59] LABS: WHITE BLOOD COUNT 1.9 10^3/uL (4.0-10.5)
[2019-04-22 09:03] LABS: PLATELET COUNT 9 10^3/uL (150-450)
[2019-04-22 09:10] LABS: ABSOLUTE LYMPHOCYTES# (MANUAL) 1.1 10^3/uL (0.5-4.7); ABSOLUTE MONOCYTES # (MANUAL) 0.3 10^3/uL (0.1-1.4); BASOPHILS % (MANUAL) 0 % (0-2); EOSINOPHILS % (MANUAL) 0 % (0-6); LYMPHOCYTES % (MANUAL) 58 % (13-45); MONOCYTES % (MANUAL) 18 % (3-13); PLATELET COMMENT DECREASED; SEGMENTED NEUTROPHILS % (MAN) 24 % (42-78); TOTAL CELLS COUNTED 50
[2019-04-22 09:11] LABS: ANISOCYTOSIS SLIGHT; HYPOCHROMASIA SLIGHT; POIKILOCYTOSIS SLIGHT; TEAR DROP CELLS SLIGHT
--- NOTE | 2019-04-22 09:30 | Progress Note ---
Provider Note Provider Note: [facility] Telephone Advice Consultation Chart reviewed. This is a 68-year-old man with DLBCL with bone mets currently on R-CHOP (receiving treatment at [facility]) who was admitted on 04/17 due to fever and chills. He recently received chemotherapy and has been neutropenic. He received Neulasta but continues neutropenic. Blood cultures on 04/17 had 1 bottle positive for Klebsiella pneumoniae (from the port), peripheral blood cultures were negative. A CT chest demonstrated a new groundglass opacity in the left lower lobe. He was started on broad spectrum antibiotics vancomyin and meropenem, then transitioned to cefepime, day 3 now. His ANC continues to be 0. He has clinically improved, no fever, chills, shortness of breath or cough. PMH: DLBCL with bone mets A fibrillation Hypertension Allergies: levofloxacin Allergy (Mild, Verified 04/17/19 11:43) rash amoxicillin Allergy (Unknown, Verified 04/17/19 11:43) Sulfa (Sulfonamide Antibiotics) Allergy (Verified 04/17/19 11:43) Hives Medications: Chemotherapy 1 dose IV .R-CHOP REGIMENT 04/17/19 [History] Oxycodone HCl [Oxycodone HCl 10 MG Tablet] 10 mg PO Q6HP PRN 04/17/19 [History] Pegfilgrastim [Neulasta Inj 6 Mg/0.6 Ml Disp.Syrin] 6 mg SUBCUT ASDIR PRN MDD AFTER CHEMO 04/17/19 [History] Prochlorperazine Maleate [Compazine 10 mg Tablet] 10 mg PO Q6HP PRN 04/17/19 [History] Sotalol HCl [Betapace 80 mg Tablet] 40 mg PO Q12 04/17/19 [History] Vital Signs: Temp Pulse Resp BP Pulse Ox 98.1 F 89 18 140/78 H 100 04/22/19 08:50 04/22/19 08:50 04/22/19 08:50 04/22/19 08:50 04/22/19 08:50 Intake & Output 04/21/19 04/22/19 04/23/19 06:59 06:59 06:59 Intake Total 4145 1762 Output Total 0 Balance 4145 1762 Weight 69.9 kg 69 kg Weight/Height Weight 69 kg Height 5 ft 7 in Laboratories: 04/21/19 05:19 MCV 88 fl (80-97) 04/21/19 05:19 MCH 30.7 pg (27.0-33.4) 04/21/19 05:19 MCHC 34.9 g/dL (32.0-36.0) 04/21/19 05:19 RDW 16.5 % (11.5-14.0) H 04/21/19 05:19 Seg Neutrophils % Not Reportable 04/22/19 08:05 VBG pH 7.41 (7.30-7.42) 04/17/19 11:00 VBG pCO2 37.3 mmHg (35-63) 04/17/19 11:00 VBG HCO3 23.3 mmol/L (20-32) 04/17/19 11:00 VBG Base Excess -0.9 mmol/L 04/17/19 11:00 Chloride 104 mmol/L (98-107) 04/21/19 05:19 Carbon Dioxide 25 mmol/L (22-30) 04/21/19 05:19 Anion Gap 10 (5-19) 04/21/19 05:19 Est GFR ( Amer) > 60 (>60) 04/21/19 05:19 Glucose 87 mg/dL (75-110) 04/21/19 05:19 Lactic Acid 0.9 mmol/L (0.7-2.1) 04/19/19 12:45 Calcium 8.9 mg/dL (8.4-10.2) 04/21/19 05:19 Magnesium 1.7 mg/dL (1.6-2.3) 04/17/19 11:00 Total Bilirubin 0.9 mg/dL (0.2-1.3) 04/17/19 11:00 AST 24 U/L (17-59) 04/17/19 11:00 Alkaline Phosphatase 71 U/L (38-126) 04/17/19 11:00 Total Protein 7.0 g/dL (6.3-8.2) 04/17/19 11:00 Albumin 4.2 g/dL (3.5-5.0) 04/17/19 11:00 Urine Color YELLOW 04/17/19 11:30 Urine Appearance SLIGHTLY-CLOUDY 04/17/19 11:30 Urine pH 5.0 (5.0-9.0) 04/17/19 11:30 Ur Specific Humphreys 1.020 04/17/19 11:30 Urine Protein 100 mg/dL (NEGATIVE) H 04/17/19 11:30 Urine Glucose (UA) 150 mg/dL (NEGATIVE) H 04/17/19 11:30 Urine Ketones NEGATIVE mg/dL (NEGATIVE) 04/17/19 11:30 Urine Blood MODERATE (NEGATIVE) H 04/17/19 11:30 Urine RBC (Auto) 9 /HPF 04/17/19 11:30 Blood Type A NEGATIVE 04/17/19 13:08 Antibody Screen NEGATIVE 04/17/19 13:08 04/17/19 15:15 Creatine Kinase 42 L Microbiology: Blood culture: 04/17 Klebsiella pneumoniae Radiology: Chest X-Ray 04/17/19 10:35 IMPRESSION: NO SIGNIFICANT RADIOGRAPHIC FINDING IN THE CHEST. Chest CT 04/19/19 10:48 IMPRESSION: 1. New left lower lobe peripheral ground-glass opacities most compatible with pneumonia. No significant effusion. 2. Stable to decreased size of the previously described right upper lobe pulmonary nodules. 3. Stable lytic lesions within T10, T12 and L1 suspicious for osseous metastatic disease. Assessment and Recommendations: Patient admitted due to sepsis from Klebsiella pneumoniae bacteremia. Blood culture from the port was positive. A new groundglass opacity was found in the left lower lobe. Per guidelines, for port related GNR bacteremia, ideally would remove the port and treat for 7-14 days. If surgery is risky due to thrombocytopenia, although can get transfusions, salvage of the port can be attempted if endocarditis ruled out and negative follow up blood cultures. If wishes to salvage the port would have to receive systemic antibiotics and lock therapy (or administer antibiotics through the port) for 14 days. Will recommend a TTE and to repeat blood cultures from the port and peripheral, if negative, can probably salvage the port. If still positive, will have to remove the port. Please call if questions. Zee Hawkins MD [facility] Infectious Disease [phone]
--- NOTE | 2019-04-22 09:37 | Progress Note ---
Provider Note Provider Note: [facility] Recommendations: Cefepime is adequate for now as patient continues neutropenic. Duration of therapy will depend on new blood cultures and TTE and possibility of removing vs salvage of the port. Would discuss with oncology if neutropenia expected to last >1 week and the need for antifungal and antipseudomonal prophylaxis until ANC recovers. Patient received Neulasta, neutropenia should resolve soon, but would still inquire if needed. Zee Hawkins MD [facility] [phone]
[2019-04-22] MEDS: DOCUSATE SODIUM 100 MG CAPSULE PO SCH (09:50)
[2019-04-22] MEDS: FAMOTIDINE 20 MG TABLET PO SCH ×2 (09:50→21:06)
[2019-04-22] MEDS: SOTALOL HCL 80 MG TABLET PO SCH ×2 (09:50→21:07)
[2019-04-22] MEDS: CEFTRIAXONE 1 GM/D5W RTU 1 GM/50 ML RTUPB IV SCH (09:50)
[2019-04-22] MEDS: POTASSIUM CHLORIDE 10 MEQ TABLET.ER PO SCH ×2 (09:50→21:06)
[2019-04-22] MEDS: OXYCODONE HCL IR 5 MG TABLET PO PRN ×2 (14:49→19:49)
--- NOTE | 2019-04-22 15:33 | PDOC PROGRESS REPORT ---
Subjective Progress Note for:: 04/22/19 Subjective:: This is a 68 year old male with known history of refractory of diffuse large B- cell lymphoma on chemotherapy who was admitted because of febrile neutropenia. Patient was also noted severe thrombocytopenia. Patient was started on broad-spectrum IV antibiotics. 04/19: Upon encounter, he appears comfortable. He says that he feels better today. He complains of dry cough. He does have rales on the left lower lung field. Will pursue a chest CT to rule out occult pneumonia not appreciated on chest x-ray. 04/20: Chest CT revealed a new left lower lobe pneumonia. He reports he continues to feel better. Denies chest pain or shortness of breath. 04/21: He denies acute complaints. He says he feels like he is at his baseline. Anticipate discharge once ANC is acceptable. Await oral antibiotic recommendations from ID. 04/22: No acute event overnight. He denies acute complaints. He feels he is at his baseline. No fever or chills. Discussed with ID. There is concern for possible port infection hence will repeat blood cultures. Will salvage port if repeat blood cultures are negative. Switch IV antibiotics to cefepime for pseudomonal coverage in the setting of his neutropenia. Platelets went down to 9000 this morning. He will be getting platelet transfusion per hematology. Reason For Visit: LYMPHOMA,SARCOMA,FEVER,SEPSIS Physical Exam Vital Signs: Temp Pulse Resp BP Pulse Ox 97.9 F 64 18 96/59 L 98 04/22/19 13:00 04/22/19 13:00 04/22/19 13:00 04/22/19 13:00 04/22/19 13:00 Intake & Output 04/21/19 04/22/19 04/23/19 06:59 06:59 06:59 Intake Total 4145 1762 770 Output Total 0 0 Balance 4145 1762 770 Weight 154 lb 1.65 oz 152 lb 1.903 oz General appearance: PRESENT: no acute distress, well-developed, well-nourished Head exam: PRESENT: atraumatic, normocephalic Eye exam: PRESENT: conjunctiva pink, EOMI, PERRLA. ABSENT: scleral icterus Ear exam: PRESENT: normal external ear exam Mouth exam: PRESENT: moist, tongue midline Neck exam: ABSENT: carotid bruit, JVD, lymphadenopathy, thyromegaly Respiratory exam: PRESENT: clear to auscultation abad. ABSENT: rales, rhonchi, wheezes Cardiovascular exam: PRESENT: RRR. ABSENT: diastolic murmur, rubs, systolic murmur Pulses: PRESENT: normal dorsalis pedis pul GI/Abdominal exam: PRESENT: normal bowel sounds, soft. ABSENT: distended, guarding, mass, organolmegaly, rebound, tenderness Rectal exam: PRESENT: deferred Extremities exam: PRESENT: full ROM. ABSENT: calf tenderness, clubbing, pedal edema Neurological exam: PRESENT: alert, awake, oriented to person, oriented to place, oriented to time, oriented to situation, CN II-XII grossly intact. ABSENT: motor sensory deficit Results Laboratory Results: 04/22/19 08:05 04/21/19 05:19 04/22/19 04/22/19 08:05 11:03 WBC 1.9 L D RBC 2.93 L Hgb 9.0 L Hct 25.4 L MCV 87 MCH 30.7 MCHC 35.4 RDW 15.9 H Plt Count 9 L* Seg Neutrophils % Not Reportable Blood Type A NEGATIVE 04/17/19 12:10 Blood Blood Culture - Final NO GROWTH IN 5 DAYS 04/17/19 15:15 Creatine Kinase 42 L Impressions: Chest X-Ray 04/17/19 10:35 IMPRESSION: NO SIGNIFICANT RADIOGRAPHIC FINDING IN THE CHEST. Chest CT 04/19/19 10:48 IMPRESSION: 1. New left lower lobe peripheral ground-glass opacities most compatible with pneumonia. No significant effusion. 2. Stable to decreased size of the previously described right upper lobe pulmonary nodules. 3. Stable lytic lesions within T10, T12 and L1 suspicious for osseous metastatic disease. Assessment and Plan - Diagnosis (1) Neutropenic fever Is this a current diagnosis for this admission?: Yes Plan: 04/19: He has been afebrile. Blood cultures growing gram-negative rods 1/2 bottles. Continue broad-spectrum IV antibiotics for now. He does have rales on the left lower lung field. Will pursue a chest CT to rule out occult pneumonia not appreciated on chest x-ray. 04/20: Blood culture grew Klebsiella pneumoniae 1/[address] did reveal a new left lower lobe pneumonia. Switch cefepime to Rocephin. 04/22: Discussed with ID. There is concern for possible port infection hence will repeat blood cultures. Will salvage port if repeat blood cultures are negative. Switch IV antibiotics to cefepime for pseudomonal coverage in the setting of his neutropenia. (2) Bacteremia due to Klebsiella pneumoniae Is this a current diagnosis for this admission?: Yes Plan: Discussed with ID. Anticipate discharge with home IV antibiotics for a total of 14 days due to Klebsiella bacteremia. (3) Pneumonia Is this a current diagnosis for this admission?: Yes Plan: Await oral antibiotic recommendations from ID. 04/22: He has multiple antibiotic allergies. Discussed with ID. Anticipate dis charge with home IV antibiotics for a total of 14 days due to Klebsiella bacteremia. (4) Thrombocytopenia Is this a current diagnosis for this admission?: Yes Plan: Platelet transfusion per hematology. 04/20: Improving. 04/22: Trended down to 9000. Will be getting platelet transfusion today per hematology. (5) Lymphoma Qualifiers: Is this a current diagnosis for this admission?: Yes Plan: Heme/oncology following. - Plan Summary Summary: 04/17/2019 Patient will be admitted under the hospitalist service but consulting will be oncology. Patient will be admitted for sepsis work-up but this may in fact be secondary to his chemotherapy treatments. Currently no obvious source of infection. Will treat with broad-spectrum antibiotics as well as antipyretics. Patient's oncologist has been consulted and will see the patient as well. Home medications are continued. 04/18/2019 Yesterday at 1430 hrs. his temperature was 102.3, then it 1600 hrs. his temperature dropped to 98.9. This morning his temperature was 98.2 Pulse of 72 blood pressure 94/67 O2 sat 99% on room air Hemo-globin on admission 0.7 however this dropped to 6.8 and then after 1 unit of packed red cells went to 8.4 Platelets up to 13,000 following 1 unit of platelets Last lactic acid level was still elevated at 2.8 Potassium slightly low at 3.1, will order p.o. potassium as well as 1 K rider Patient is growing out gram-negative rods in his blood Currently on cefepime and vancomycin. IV fluid running at 100 mL's per hour of normal saline Patient is feeling much better. Per oncology we will wait for blood cultures, spleen DC the vancomycin in 48 hours if no gram-positive organisms. Continue same treatment till blood cultures have returned
[2019-04-22] MEDS: CEFEPIME 1 GM/D5W RTU 1 GM/50 ML RTUPB IV SCH (21:07)
[2019-04-23 09:21] LABS: HEMATOCRIT 25.3 % (37.9-51.0); HEMOGLOBIN 8.9 g/dL (13.5-17.0); MEAN CORPUSCULAR HEMOGLOBIN 30.4 pg (27.0-33.4); MEAN CORPUSCULAR VOLUME 87 fl (80-97); RED BLOOD COUNT 2.91 10^6/uL (4.35-5.55); WHITE BLOOD COUNT 3.2 10^3/uL (4.0-10.5)
[2019-04-23 09:56] LABS: ABSOLUTE LYMPHOCYTES# (MANUAL) 0.8 10^3/uL (0.5-4.7); ABSOLUTE MONOCYTES # (MANUAL) 0.3 10^3/uL (0.1-1.4); BAND NEUTROPHILS % (MANUAL) 9 % (3-5); BASOPHILS % (MANUAL) 0 % (0-2); EOSINOPHILS % (MANUAL) 0 % (0-6); LYMPHOCYTES % (MANUAL) 25 % (13-45); METAMYELOCYTES % (MANUAL) 3 % (0-1); MONOCYTES % (MANUAL) 9 % (3-13); SEGMENTED NEUTROPHILS % (MAN) 54 % (42-78); TOTAL CELLS COUNTED 100
[2019-04-23 10:05] LABS: ANISOCYTOSIS 1+; OVALOCYTES 1+; PLATELET COMMENT DECREASED; POIKILOCYTOSIS 1+
[2019-04-23 10:07] LABS: PLATELET COUNT 27 10^3/uL (150-450)
[2019-04-23] MEDS: POTASSIUM CHLORIDE 10 MEQ TABLET.ER PO SCH ×2 (10:20→21:14)
[2019-04-23] MEDS: SOTALOL HCL 80 MG TABLET PO SCH ×2 (10:20→21:14)
[2019-04-23] MEDS: DOCUSATE SODIUM 100 MG CAPSULE PO SCH (10:20)
[2019-04-23] MEDS: FAMOTIDINE 20 MG TABLET PO SCH ×2 (10:20→21:14)
[2019-04-23] MEDS: CEFEPIME 1 GM/D5W RTU 1 GM/50 ML RTUPB IV SCH ×2 (10:20→21:14)
[2019-04-23 11:01] LABS: ANION GAP 12 (5-19); BLOOD UREA NITROGEN 22 mg/dL (7-20); CALCIUM 9.2 mg/dL (8.4-10.2); CARBON DIOXIDE 25 mmol/L (22-30); CHLORIDE 102 mmol/L (98-107); GLUCOSE 123 mg/dL (75-110)
--- NOTE | 2019-04-23 12:13 | PDOC PROGRESS REPORT ---
Subjective Progress Note for:: 04/23/19 Subjective:: Patient doing better this morning, white count has come up to 3.2 ANC is greater than thousand. Platelets are 27. I discussed case with hospitalist team, and reviewed infectious disease recommendations. They recommend repeat blood cultures which were done yesterday, and also echocardiogram which is ordered today. By Thursday we should have hopeful culture repeat negativity, and hopefully the echocardiogram does not show any concern of vegetative disease, so patient will be discharged with IV antibiotics thereafter. I have asked his doctor at [facility], Dr. Alexandra, to change his appointment for next week to the following week so he could complete antibiotic therapy prior to going back up to [place]. Reason For Visit: LYMPHOMA,SARCOMA,FEVER,SEPSIS Physical Exam Vital Signs: Temp Pulse Resp BP Pulse Ox 97.8 F 65 16 101/63 96 04/23/19 07:35 04/23/19 07:35 04/23/19 07:35 04/23/19 07:35 04/23/19 07:35 Intake & Output 04/22/19 04/23/19 04/24/19 06:59 06:59 06:59 Intake Total 1762 1421 50 Output Total 0 0 Balance 1762 1421 50 Weight 69 kg 69.2 kg General appearance: PRESENT: no acute distress, well-developed, well-nourished Head exam: PRESENT: atraumatic, normocephalic Eye exam: PRESENT: conjunctiva pink, EOMI, PERRLA. ABSENT: scleral icterus Ear exam: PRESENT: normal external ear exam Mouth exam: PRESENT: moist, tongue midline Neck exam: ABSENT: carotid bruit, JVD, lymphadenopathy, thyromegaly Respiratory exam: PRESENT: clear to auscultation abad. ABSENT: rales, rhonchi, wheezes Cardiovascular exam: PRESENT: RRR. ABSENT: diastolic murmur, rubs, systolic murmur Pulses: PRESENT: normal dorsalis pedis pul Vascular exam: PRESENT: normal capillary refill GI/Abdominal exam: PRESENT: normal bowel sounds, soft. ABSENT: distended, guarding, mass, organolmegaly, rebound, tenderness Rectal exam: PRESENT: deferred Extremities exam: PRESENT: full ROM. ABSENT: calf tenderness, clubbing, pedal edema Neurological exam: PRESENT: alert, awake, oriented to person, oriented to place, oriented to time, oriented to situation, CN II-XII grossly intact. ABSENT: motor sensory deficit Psychiatric exam: PRESENT: appropriate affect, normal mood. ABSENT: homicidal ideation, suicidal ideation Skin exam: PRESENT: dry, intact, warm. ABSENT: cyanosis, rash Results Laboratory Results: 04/23/19 08:45 04/23/19 08:45 04/22/19 04/23/19 04/23/19 11:03 08:45 08:45 WBC 3.2 L RBC 2.91 L Hgb 8.9 L Hct 25.3 L MCV 87 MCH 30.4 MCHC 35.0 RDW 16.0 H Plt Count 27 L* D Seg Neutrophils % Not Reportable Sodium 138.6 Potassium 4.0 Chloride 102 Carbon Dioxide 25 Anion Gap 12 BUN 22 H Creatinine 1.03 Est GFR ( Amer) > 60 Glucose 123 H Calcium 9.2 Blood Type A NEGATIVE 04/17/19 12:10 Blood Blood Culture - Final NO GROWTH IN 5 DAYS 04/17/19 15:15 Creatine Kinase 42 L Impressions: Chest X-Ray 04/17/19 10:35 IMPRESSION: NO SIGNIFICANT RADIOGRAPHIC FINDING IN THE CHEST. Chest CT 04/19/19 10:48 IMPRESSION: 1. New left lower lobe peripheral ground-glass opacities most compatible with pneumonia. No significant effusion. 2. Stable to decreased size of the previously described right upper lobe pulmonary nodules. 3. Stable lytic lesions within T10, T12 and L1 suspicious for osseous metastatic disease. Assessment & Plan - Diagnosis (1) Sepsis Qualifiers: Sepsis type: Escherichia coli Sepsis acute organ dysfunction status: with acute organ dysfunction Severe sepsis acute organ dysfunction type: disseminated intravascular coagulopathy Severe sepsis shock status: without septic shock Qualified Code(s): A41.51 - Sepsis due to Escherichia coli [E. coli]; R65.20 - Severe sepsis without septic shock; D65 - Disseminated intravas cular coagulation [defibrination syndrome] Is this a current diagnosis for this admission?: Yes Plan: Repeat cultures drawn, echo today to ensure no vegetation, follow-up (2) Neutropenic fever Is this a current diagnosis for this admission?: Yes Plan: Improved, discontinue neutropenic precautions, should continue to improve. (3) Pancytopenia due to antineoplastic chemotherapy Is this a current diagnosis for this admission?: Yes Plan: Improved, hopefully will not need another platelet transfusion, transfuse blood products if hemoglobin gets under 7, platelet if under 10. - Time Time Spent with patient: 35 or more minutes
--- NOTE | 2019-04-23 15:12 | PDOC PROGRESS REPORT ---
Subjective Progress Note for:: 04/23/19 Subjective:: This is a 68 year old male with known history of refractory of diffuse large B- cell lymphoma on chemotherapy who was admitted because of febrile neutropenia. Patient was also noted severe thrombocytopenia. Patient was started on broad-spectrum IV antibiotics. 04/19: Upon encounter, he appears comfortable. He says that he feels better today. He complains of dry cough. He does have rales on the left lower lung field. Will pursue a chest CT to rule out occult pneumonia not appreciated on chest x-ray. 04/20: Chest CT revealed a new left lower lobe pneumonia. He reports he continues to feel better. Denies chest pain or shortness of breath. 04/21: He denies acute complaints. He says he feels like he is at his baseline. Anticipate discharge once ANC is acceptable. Await oral antibiotic recommendations from ID. 04/22: He denies acute complaints. He feels he is at his baseline. No fever or chills. Discussed with ID. There is concern for possible port infection hence will repeat blood cultures. Will salvage port if repeat blood cultures are negative. Switch IV antibiotics to cefepime for pseudomonal coverage in the setting of his neutropenia. Platelets went down to 9000 this morning. He will be getting platelet transfusion per hematology. 04/23: No acute event overnight. He denies acute complaints. He feels he is at his baseline. Echo pending. Anticipate discharge in the next 24 to 48 hours if repeat blood culture is negative and echo is unremarkable. Reason For Visit: LYMPHOMA,SARCOMA,FEVER,SEPSIS Physical Exam Vital Signs: Temp Pulse Resp BP Pulse Ox 97.4 F 66 17 93/64 L 97 04/23/19 12:10 04/23/19 14:00 04/23/19 12:10 04/23/19 12:10 04/23/19 12:10 Intake & Output 04/22/19 04/23/19 04/24/19 06:59 06:59 06:59 Intake Total 1762 1421 770 Output Total 0 0 0 Balance 1762 1421 770 Weight 152 lb 1.903 oz 152 lb 8.958 oz General appearance: PRESENT: no acute distress, well-developed, well-nourished Head exam: PRESENT: atraumatic, normocephalic Eye exam: PRESENT: conjunctiva pink, EOMI, PERRLA. ABSENT: scleral icterus Ear exam: PRESENT: normal external ear exam Mouth exam: PRESENT: moist, tongue midline Neck exam: ABSENT: carotid bruit, JVD, lymphadenopathy, thyromegaly Respiratory exam: PRESENT: clear to auscultation abad. ABSENT: rales, rhonchi, wheezes Cardiovascular exam: PRESENT: RRR. ABSENT: diastolic murmur, rubs, systolic murmur Pulses: PRESENT: normal dorsalis pedis pul GI/Abdominal exam: PRESENT: normal bowel sounds, soft. ABSENT: distended, guarding, mass, organolmegaly, rebound, tenderness Rectal exam: PRESENT: deferred Extremities exam: PRESENT: full ROM. ABSENT: calf tenderness, clubbing, pedal edema Neurological exam: PRESENT: alert, awake, oriented to person, oriented to place, oriented to time, oriented to situation, CN II-XII grossly intact. ABSENT: motor sensory deficit Results Laboratory Results: 04/23/19 08:45 04/23/19 08:45 04/23/19 04/23/19 08:45 08:45 WBC 3.2 L RBC 2.91 L Hgb 8.9 L Hct 25.3 L MCV 87 MCH 30.4 MCHC 35.0 RDW 16.0 H Plt Count 27 L* D Seg Neutrophils % Not Reportable Sodium 138.6 Potassium 4.0 Chloride 102 Carbon Dioxide 25 Anion Gap 12 BUN 22 H Creatinine 1.03 Est GFR ( Amer) > 60 Glucose 123 H Calcium 9.2 04/17/19 12:10 Blood Blood Culture - Final NO GROWTH IN 5 DAYS 04/17/19 15:15 Creatine Kinase 42 L Impressions: Chest X-Ray 04/17/19 10:35 IMPRESSION: NO SIGNIFICANT RADIOGRAPHIC FINDING IN THE CHEST. Chest CT 04/19/19 10:48 IMPRESSION: 1. New left lower lobe peripheral ground-glass opacities most compatible with pneumonia. No significant effusion. 2. Stable to decreased size of the previously described right upper lobe pul monary nodules. 3. Stable lytic lesions within T10, T12 and L1 suspicious for osseous metastatic disease. Assessment and Plan - Diagnosis (1) Neutropenic fever Is this a current diagnosis for this admission?: Yes Plan: 04/19: He has been afebrile. Blood cultures growing gram-negative rods 1/2 bottles. Continue broad-spectrum IV antibiotics for now. He does have rales on the left lower lung field. Will pursue a chest CT to rule out occult pneumonia not appreciated on chest x-ray. 04/20: Blood culture grew Klebsiella pneumoniae /[address] did reveal a new left lower lobe pneumonia. Switch cefepime to Rocephin. 04/22: Discussed with ID. There is concern for possible port infection hence will repeat blood cultures. Will salvage port if repeat blood cultures are negative. Switch IV antibiotics to cefepime for pseudomonal coverage in the setting of his neutropenia. 04/23: WBC has significantly improved. ANC >1000. Echo pending. Anticipate discharge in the next 24 to 48 hours if repeat blood culture is negative and echo is unremarkable. (2) Bacteremia due to Klebsiella pneumoniae Is this a current diagnosis for this admission?: Yes Plan: 04/22: Discussed with ID. Anticipate discharge with home IV antibiotics for a total of 14 days due to Klebsiella bacteremia. (3) Pneumonia Is this a current diagnosis for this admission?: Yes Plan: Await oral antibiotic recommendations from ID. 04/22: He has multiple antibiotic allergies. Discussed with ID. Anticipate discharge with home IV antibiotics for a total of 14 days due to Klebsiella bacteremia. (4) Thrombocytopenia Is this a current diagnosis for this admission?: Yes Plan: Platelet transfusion per hematology. 04/20: Improving. 04/22: Trended down to 9000. Will be getting platelet transfusion today per hematology. 04/23: Improved after transfusion. (5) Lymphoma Qualifiers: Is this a current diagnosis for this admission?: Yes Plan: Heme/oncology following. - Plan Summary Summary: 04/17/2019 Patient will be admitted under the hospitalist service but consulting will be oncology. Patient will be admitted for sepsis work-up but this may in fact be secondary to his chemotherapy treatments. Currently no obvious source of infection. Will treat with broad-spectrum antibiotics as well as antipyretics. Patient's oncologist has been consulted and will see the patient as well. Home medications are continued. 04/18/2019 Yesterday at 1430 hrs. his temperature was 102.3, then it 1600 hrs. his temperature dropped to 98.9. This morning his temperature was 98.2 Pulse of 72 blood pressure 94/67 O2 sat 99% on room air Hemo-globin on admission 0.7 however this dropped to 6.8 and then after 1 unit of packed red cells went to 8.4 Platelets up to 13,000 following 1 unit of platelets Last lactic acid level was still elevated at 2.8 Potassium slightly low at 3.1, will order p.o. potassium as well as 1 K rider Patient is growing out gram-negative rods in his blood Currently on cefepime and vancomycin. IV fluid running at 100 mL's per hour of normal saline Patient is feeling much better. Per oncology we will wait for blood cultures, spleen DC the vancomycin in 48 hours if no gram-positive organisms. Continue same treatment till blood cultures have returned - Time Time Spent with patient: 25-34 minutes
--- NOTE | 2019-04-23 16:10 | XCELERA REPORT ---
[address] [address] Transthoracic Echocardiogram Report Name: KRUPA VERMA Age: 68 yrs Gender: Male : 1950 Patient Status: Inpatient Patient Location: [address] [place] [address] Study Date: 04/23/2019 01:08 PM History: Bacteremia Height: 67 in Weight: 152 lb BSA: 1.8 m2 Procedure: A complete two-dimensional transthoracic echocardiogram was performed (2D, M-mode, spectral and color flow Doppler). The study was technically adequate with some images being suboptimal in quality. Reason For Study: bacteremia, r/o vegetations, Dr. Gavino Sanchez Previous Evaluation: No previous studies were available. History: Bacteremia. Ordering Physician: PILAR BARBOUR Performed By: Leilani Pina Interpretation Summary The study was technically adequate with some images being suboptimal in quality. Left ventricular systolic function is normal. The Ejection Fraction estimate is 65-70% The right ventricle is normal in size and function. There is a trace amount of mitral regurgitation There is no aortic valve stenosis There is a trace or physiologic amount of tricuspid regurgitation MMode/2D Measurements & Calculations RVDd: 3.4 cm LVIDd: 4.5 cm FS: 42.2 % Ao root diam: 3.0 cm IVSd: 0.81 cm LVIDs: 2.6 cm EDV(Teich): 92.9 ml Ao root area: 7.1 cm2 LVPWd: 0.83 cm ESV(Teich): 24.8 ml LA dimension: 3.1 cm EF(Teich): 73.3 % Doppler Measurements & Calculations MV E max frederic: MV P1/2t max frederic: Ao V2 max: LV V1 max P.8 cm/sec 55.8 cm/sec 154.5 cm/sec 7.9 mmHg MV A max frederic: MV P1/2t: 92.2 msec Ao max P.5 mmHgLV V1 max: 87.4 cm/sec MVA(P1/2t): 2.4 cm2 140.4 cm/sec MV E/A: 0.62 MV dec slope: 177.2 cm/sec2 MV dec time: 0.30 sec PA V2 max: TR max frederic: MV P1/2t-pr_phl: 101.2 cm/sec 290.5 cm/sec 92.2 msec PA max P.1 mmHgTR max P.8 mmHg Left Ventricle The left ventricle is normal in size. Left ventricular systolic function is normal. The Ejection Fraction estimate is 65-70%. Doppler measurements suggest impaired left ventricular relaxation, which is associated with grade I/IV or mild diastolic dysfunction. No regional wall motion abnormalities noted. Right Ventricle The right ventricle is normal in size and function. Atria The right atrium is normal. The left atrial size is normal. The interatrial septum is intact with no evidence for an atrial septal defect. There is no Doppler evidence for an interatrial shunt. Mitral Valve The mitral valve is grossly normal. There is no vegetation seen on the mitral valve. There is no mitral valve stenosis. There is a trace amount of mitral regurgitation. Aortic Valve The aortic valve is normal in structure and function. The aortic valve is trileaflet. The aortic valve opens well. There is no aortic valvular vegetation. There is no aortic valve stenosis. Tricuspid Valve The tricuspid valve is normal in structure and function. There is no tricuspid valve vegetation. There is a trace or physiologic amount of tricuspid regurgitation. Doppler findings do not suggest pulmonary hypertension. Pulmonic Valve The pulmonic valve is not well visualized. There is no vegetation on the pulmonic valve. There is a trace or physiologic amount of pulmonic regurgitation. Great Vessels The aortic root is normal size. The inferior vena cava appeared normal and decreased > 50% with respiration (RAP 5-10 mmHg). Effusions The pericardium appears normal. : PILAR BARBOUR Anil
[2019-04-24 07:08] LABS: ANION GAP 10 (5-19); BLOOD UREA NITROGEN 20 mg/dL (7-20); CARBON DIOXIDE 26 mmol/L (22-30); CHLORIDE 104 mmol/L (98-107); GLUCOSE 93 mg/dL (75-110); POTASSIUM 4.3 mmol/L (3.6-5.0)
[2019-04-24 07:49] LABS: ABSOLUTE LYMPHOCYTES# (MANUAL) 1.3 10^3/uL (0.5-4.7); ABSOLUTE MONOCYTES # (MANUAL) 0.6 10^3/uL (0.1-1.4); BAND NEUTROPHILS % (MANUAL) 7 % (3-5); BASOPHILS % (MANUAL) 0 % (0-2); EOSINOPHILS % (MANUAL) 0 % (0-6); LYMPHOCYTES % (MANUAL) 24 % (13-45); METAMYELOCYTES % (MANUAL) 1 % (0-1); MONOCYTES % (MANUAL) 10 % (3-13); NUCLEATED RED BLOOD CELLS 1 /100 WBC (0); SEGMENTED NEUTROPHILS % (MAN) 58 % (42-78); TOTAL CELLS COUNTED 100
[2019-04-24 07:52] LABS: ANISOCYTOSIS SLIGHT; OVALOCYTES SLIGHT; PLATELET COMMENT DECREASED; TOXIC GRANULATION 1+
[2019-04-24 07:53] LABS: HEMATOCRIT 23.7 % (37.9-51.0); HEMOGLOBIN 8.3 g/dL (13.5-17.0); MEAN CORPUSCULAR VOLUME 87 fl (80-97); RED BLOOD COUNT 2.74 10^6/uL (4.35-5.55); WHITE BLOOD COUNT 5.5 10^3/uL (4.0-10.5)
[2019-04-24 07:54] LABS: MEAN CORPUSCULAR HEMOGLOBIN 30.3 pg (27.0-33.4); PLATELET COUNT 31 10^3/uL (150-450); RED CELL DISTRIBUTION WIDTH 15.4 % (11.5-14.0)
[2019-04-24] MEDS: CEFEPIME 1 GM/D5W RTU 1 GM/50 ML RTUPB IV SCH ×2 (09:48→17:21)
[2019-04-24] MEDS: FAMOTIDINE 20 MG TABLET PO SCH ×2 (09:48→21:04)
[2019-04-24] MEDS: POTASSIUM CHLORIDE 10 MEQ TABLET.ER PO SCH ×2 (09:49→21:03)
[2019-04-24] MEDS: DOCUSATE SODIUM 100 MG CAPSULE PO SCH (09:49)
[2019-04-24] MEDS: SOTALOL HCL 80 MG TABLET PO SCH ×2 (09:49→21:02)
--- NOTE | 2019-04-24 14:01 | PDOC PROGRESS REPORT ---
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 Patient was also noted severe thrombocytopenia. Patient was started on broad-spectrum IV antibiotics. 04/19: Upon encounter, he appears comfortable. He says that he feels better today. He complains of dry cough. He does have rales on the left lower lung field. Will pursue a chest CT to rule out occult pneumonia not appreciated on chest x-ray. 04/20: Chest CT revealed a new left lower lobe pneumonia. He reports he continues to feel better. Denies chest pain or shortness of breath. 04/21: He denies acute complaints. He says he feels like he is at his baseline. Anticipate discharge once ANC is acceptable. Await oral antibiotic recommendations from ID. 04/22: He denies acute complaints. He feels he is at his baseline. No fever or chills. Discussed with ID. There is concern for possible port infection hence will repeat blood cultures. Will salvage port if repeat blood cultures are negative. Switch IV antibiotics to cefepime for pseudomonal coverage in the setting of his neutropenia. Platelets went down to 9000 this morning. He will be getting platelet transfusion per hematology. 04/23: He denies acute complaints. He feels he is at his baseline. Echo pending. Anticipate discharge in the next 24 to 48 hours if repeat blood culture is negative and echo is unremarkable. 04/24: No acute event overnight. Denies acute complaints. He is at his baseline. Echo was unremarkable. Repeat blood cultures are negative. Will keep Mediport. Set up home IV antibiotics. Reason For Visit: LYMPHOMA,SARCOMA,FEVER,SEPSIS Physical Exam Vital Signs: Temp Pulse Resp BP Pulse Ox 97.2 F 67 14 104/60 98 04/24/19 12:25 04/24/19 12:25 04/24/19 12:25 04/24/19 12:25 04/24/19 12:25 Intake & Output 04/23/19 04/24/19 04/25/19 06:59 06:59 06:59 Intake Total 1421 1420 770 Output Total 0 0 0 Balance 1421 1420 770 Weight 152 lb 8.958 oz 151 lb 3.794 oz General appearance: PRESENT: no acute distress, well-developed, well-nourished Head exam: PRESENT: atraumatic, normocephalic Eye exam: PRESENT: conjunctiva pink, EOMI, PERRLA. ABSENT: scleral icterus Ear exam: PRESENT: normal external ear exam Mouth exam: PRESENT: moist, tongue midline Neck exam: ABSENT: carotid bruit, JVD, lymphadenopathy, thyromegaly Respiratory exam: PRESENT: clear to auscultation abad. ABSENT: rales, rhonchi, wheezes Cardiovascular exam: PRESENT: RRR. ABSENT: diastolic murmur, rubs, systolic murmur Pulses: PRESENT: normal dorsalis pedis pul GI/Abdominal exam: PRESENT: normal bowel sounds, soft. ABSENT: distended, guarding, mass, organolmegaly, rebound, tenderness Rectal exam: PRESENT: deferred Extremities exam: PRESENT: full ROM. ABSENT: calf tenderness, clubbing, pedal edema Neurological exam: PRESENT: alert, awake, oriented to person, oriented to place, oriented to time, oriented to situation, CN II-XII grossly intact. ABSENT: motor sensory deficit Results Laboratory Results: 04/24/19 05:45 04/24/19 05:45 04/24/19 04/24/19 05:45 05:45 WBC 5.5 RBC 2.74 L Hgb 8.3 L Hct 23.7 L MCV 87 MCH 30.3 MCHC 35.0 RDW 15.4 H Plt Count 31 L Seg Neutrophils % Not Reportable Sodium 140.3 Potassium 4.3 Chloride 104 Carbon Dioxide 26 Anion Gap 10 BUN 20 Creatinine 0.97 Est GFR ( Amer) > 60 Glucose 93 Calcium 9.0 04/17/19 15:15 Creatine Kinase 42 L Impressions: Chest X-Ray 04/17/19 10:35 IMPRESSION: NO SIGNIFICANT RADIOGRAPHIC FINDING IN THE CHEST. Chest CT 04/19/19 10:48 IMPRESSION: 1. New left lower lobe peripheral ground-glass opacities most compatible with pneumonia. No significant effusion. 2. Stable to decreased size of the previously described right upper lobe pulmonary nodules. 3. Stable lytic lesions within T10, T12 and L1 suspicious for osseous metastatic disease. Assessment and Plan - Diagnosis (1) Neutropenic fever Is this a current diagnosis for this admission?: Yes Plan: 04/19: He has been afebrile. Blood cultures growing gram-negative rods 1/2 bottles. Continue broad-spectrum IV antibiotics for now. He does have rales on the left lower lung field. Will pursue a chest CT to rule out occult pneumonia not appreciated on chest x-ray. 04/20: Blood culture grew Klebsiella pneumoniae 1/[address] did reveal a new left lower lobe pneumonia. Switch cefepime to Rocephin. 04/22: Discussed with ID. There is concern for possible port infection hence will repeat blood cultures. Will salvage port if repeat blood cultures are negative. Switch IV antibiotics to cefepime for pseudomonal coverage in the setting of his neutropenia. 04/23: WBC has significantly improved. ANC >1000. Echo pending. Anticipate discharge in the next 24 to 48 hours if repeat blood culture is negative and echo is unremarkable. 04/24: Resolved. (2) Bacteremia due to Klebsiella pneumoniae Is this a current diagnosis for this admission?: Yes Plan: 04/22: Discussed with ID. Anticipate discharge with home IV antibiotics for a t otal of 14 days due to Klebsiella bacteremia. (3) Pneumonia Is this a current diagnosis for this admission?: Yes Plan: Await oral antibiotic recommendations from ID. 04/22: He has multiple antibiotic allergies. Discussed with ID. Anticipate discharge with home IV antibiotics for a total of 14 days due to Klebsiella bacteremia. (4) Thrombocytopenia Is this a current diagnosis for this admission?: Yes Plan: Platelet transfusion per hematology. 04/20: Improving. 04/22: Trended down to 9000. Will be getting platelet transfusion today per hematology. 04/23: Improved after transfusion. (5) Lymphoma Qualifiers: Is this a current diagnosis for this admission?: Yes Plan: Heme/oncology following. - Time Time Spent with patient: 25-34 minutes
[2019-04-24] MEDS: NYSTATIN/DEXAMETH/DIPHEN SUSP 120 ML PO PRN (21:04)
[2019-04-25] MEDS: CEFEPIME 1 GM/D5W RTU 1 GM/50 ML RTUPB IV SCH (05:57)
--- NOTE | 2019-04-25 08:35 | PDOC PROGRESS REPORT ---
Subjective Progress Note for:: 04/25/19 Subjective:: No acute events overnight feeling pretty good today Reason For Visit: LYMPHOMA,SARCOMA,FEVER,SEPSIS Physical Exam Vital Signs: Temp Pulse Resp BP Pulse Ox 97.6 F 59 L 20 107/62 97 04/25/19 04:14 04/25/19 04:14 04/25/19 04:14 04/25/19 04:14 04/25/19 04:14 Intake & Output 04/24/19 04/25/19 04/26/19 06:59 06:59 06:59 Intake Total 1420 1870 Output Total 0 0 Balance 1420 1870 Weight 68.6 kg 68.5 kg General appearance: PRESENT: no acute distress, well-developed, well-nourished Head exam: PRESENT: atraumatic, normocephalic Eye exam: PRESENT: conjunctiva pink, EOMI, PERRLA. ABSENT: scleral icterus Ear exam: PRESENT: normal external ear exam Mouth exam: PRESENT: moist, tongue midline Neck exam: ABSENT: carotid bruit, JVD, lymphadenopathy, thyromegaly Respiratory exam: PRESENT: clear to auscultation abad. ABSENT: rales, rhonchi, wheezes Cardiovascular exam: PRESENT: RRR. ABSENT: diastolic murmur, rubs, systolic murmur Pulses: PRESENT: normal dorsalis pedis pul Vascular exam: PRESENT: normal capillary refill GI/Abdominal exam: PRESENT: normal bowel sounds, soft. ABSENT: distended, guarding, mass, organolmegaly, rebound, tenderness Rectal exam: PRESENT: deferred Extremities exam: PRESENT: full ROM. ABSENT: calf tenderness, clubbing, pedal edema Neurological exam: PRESENT: alert, awake, oriented to person, oriented to place, oriented to time, oriented to situation, CN II-XII grossly intact. ABSENT: motor sensory deficit Psychiatric exam: PRESENT: appropriate affect, normal mood. ABSENT: homicidal ideation, suicidal ideation Skin exam: PRESENT: dry, intact, warm. ABSENT: cyanosis, rash Results Laboratory Results: 04/24/19 05:45 04/24/19 05:45 04/17/19 15:15 Creatine Kinase 42 L Impressions: Chest X-Ray 04/17/19 10:35 IMPRESSION: NO SIGNIFICANT RADIOGRAPHIC FINDING IN THE CHEST. Chest CT 04/19/19 10:48 IMPRESSION: 1. New left lower lobe peripheral ground-glass opacities most compatible with pneumonia. No significant effusion. 2. Stable to decreased size of the previously described right upper lobe pulmonary nodules. 3. Stable lytic lesions within T10, T12 and L1 suspicious for osseous metastatic disease. Assessment & Plan - Diagnosis (1) Sepsis Qualifiers: Sepsis type: Escherichia coli Sepsis acute organ dysfunction status: with acute organ dysfunction Severe sepsis acute organ dysfunction type: disseminated intravascular coagulopathy Severe sepsis shock status: without septic shock Qualified Code(s): A41.51 - Sepsis due to Escherichia coli [E. coli]; R65.20 - Severe sepsis without septic shock; D65 - Disseminated intravascular coagulation [defibrination syndrome] Is this a current diagnosis for this admission?: Yes Plan: Improved, patient will need outpatient antibiotic, recommended that he be switched to Rocephin 1 g IV q. to 24 hours to complete needed antibiotic therapy (2) Neutropenic fever Is this a current diagnosis for this admission?: Yes Plan: Improved, resolved, awaiting CBC from this morning (3) Pancytopenia due to antineoplastic chemotherapy Is this a current diagnosis for this admission?: Yes Plan: CBC pending this morning but resolving - Time Time Spent with patient: 35 or more minutes
[2019-04-25] MEDS: FAMOTIDINE 20 MG TABLET PO SCH (10:30)
[2019-04-25] MEDS: SOTALOL HCL 80 MG TABLET PO SCH (10:30)
[2019-04-25] MEDS: POTASSIUM CHLORIDE 10 MEQ TABLET.ER PO SCH (10:30)
[2019-04-25] MEDS: DOCUSATE SODIUM 100 MG CAPSULE PO SCH ×2 (10:31→10:38)
[2019-04-25 10:57] LABS: HEMATOCRIT 24.7 % (37.9-51.0); HEMOGLOBIN 8.7 g/dL (13.5-17.0); MEAN CORPUSCULAR HEMOGLOBIN 30.6 pg (27.0-33.4); MEAN CORPUSCULAR HGB CONC 35.4 g/dL (32.0-36.0); MEAN CORPUSCULAR VOLUME 86 fl (80-97); RED BLOOD COUNT 2.86 10^6/uL (4.35-5.55); RED CELL DISTRIBUTION WIDTH 15.8 % (11.5-14.0); WHITE BLOOD COUNT 8.9 10^3/uL (4.0-10.5)
[2019-04-25 11:00] LABS: PLATELET COUNT 46 10^3/uL (150-450)
[2019-04-25 11:03] LABS: ABSOLUTE LYMPHOCYTES# (MANUAL) 1.2 10^3/uL (0.5-4.7); BASOPHILS % (MANUAL) 0 % (0-2); EOSINOPHILS % (MANUAL) 0 % (0-6); LYMPHOCYTES % (MANUAL) 13 % (13-45); MONOCYTES % (MANUAL) 22 % (3-13); SEGMENTED NEUTROPHILS % (MAN) 65 % (42-78); TOTAL CELLS COUNTED 100
[2019-04-25 11:04] LABS: ANISOCYTOSIS SLIGHT; OVALOCYTES SLIGHT; PLATELET COMMENT DECREASED; POIKILOCYTOSIS SLIGHT; POLYCHROMASIA SLIGHT
[2019-04-25 13:52] VITALS: BP 108/66
--- NOTE | 2019-04-25 19:51 | PDOC DISCHARGE SUMMARY ---
Impression - Admit/DC Date/PCP Admission Date/Primary Care Provider: 04/17/19 13:32 NAHOMI LAWSON MD Discharge Date: 04/25/19 - Discharge Diagnosis (1) Neutropenic fever Is this a current diagnosis for this admission?: Yes (2) Bacteremia due to Klebsiella pneumoniae Is this a current diagnosis for this admission?: Yes (3) Pneumonia Is this a current diagnosis for this admission?: Yes (4) Thrombocytopenia Is this a current diagnosis for this admission?: Yes (5) Lymphoma Is this a current diagnosis for this admission?: Yes - Additional Information Resuscitation Status: Full Code Discharge Diet: Regular Discharge Activity: Activity As Tolerated, Balance Activity w/Rest Referrals: NAHOMI LAWSON MD [Primary Care Provider] - 05/03/19 2:00 pm Prescriptions: Ceftriaxone 1 gm/D5w RTU [Rocephin RTU 1 gm/D5w 50 ml Premix] 1 gm IV DAILY 7 Days #7 ml Home Medications: Chemotherapy 1 dose IV .R-CHOP REGIMENT 04/17/19 Oxycodone HCl [Oxycodone HCl 10 MG Tablet] 10 mg PO Q6HP PRN 04/17/19 Pegfilgrastim [Neulasta Inj 6 mg/0.6 ml Disp.syrin] 6 mg SUBCUT ASDIR PRN MDD AFTER CHEMO 04/17/19 Prochlorperazine Maleate [Compazine 10 mg Tablet] 10 mg PO Q6HP PRN 04/17/19 Sotalol HCl [Betapace 80 mg Tablet] 40 mg PO Q12 04/17/19 Ceftriaxone 1 gm/D5w RTU [Rocephin RTU 1 gm/D5w 50 ml Premix] 1 gm IV DAILY 7 Days #7 ml 04/25/19 History of Present Illiness History of Present Illness: Admitting hospitalist's H&P: KRUPA VERMA is a 68 year old male admitted to the hospital through the emergency room for a 12-hour history of fever and Rigors. According to the he started this activity last night. Had it before when he had an infection. At this time however patient and his deny these had any coughing of significance . No dysuria , no sign of infection. He is currently undergoing chemotherapy at [facility]. Patient is recently had treatments within the last week. Hospital Course Hospital Course: This is a 68 year old male with known history of refractory of diffuse large B- cell lymphoma on chemotherapy who was admitted because of febrile neutropenia. Patient was also noted severe thrombocytopenia. Patient was started on broad-spectrum IV antibiotics. His work up came back remarkable for a left lower lobe pneumonia. Blood cultures grew K. pnuemoniae 1/2 bottles. ID was also consulted. He also received platelet transfusion. He significantly improved. His WBC and ANC recovered. He will complete 14 days of IV antibiotics for his Klebsiella bacteremia. Physical Exam Vital Signs: Temp Pulse Resp BP Pulse Ox 97.4 F 58 L 16 108/66 99 04/25/19 13:49 04/25/19 13:49 04/25/19 13:49 04/25/19 13:49 04/25/19 13:49 Intake & Output 04/24/19 04/25/19 04/26/19 06:59 06:59 06:59 Intake Total 1420 1870 Output Total 0 0 Balance 1420 1870 Weight 151 lb 3.794 oz 151 lb 0.266 oz General appearance: PRESENT: no acute distress, well-developed, well-nourished Head exam: PRESENT: atraumatic, normocephalic Eye exam: PRESENT: conjunctiva pink, EOMI, PERRLA. ABSENT: scleral icterus Ear exam: PRESENT: normal external ear exam Mouth exam: PRESENT: moist, tongue midline Neck exam: ABSENT: carotid bruit, JVD, lymphadenopathy, thyromegaly Respiratory exam: PRESENT: clear to auscultation abad. ABSENT: rales, rhonchi, wheezes Cardiovascular exam: PRESENT: RRR. ABSENT: diastolic murmur, rubs, systolic murmur Pulses: PRESENT: normal dorsalis pedis pul GI/Abdominal exam: PRESENT: normal bowel sounds, soft. ABSENT: distended, guarding, mass, organolmegaly, rebound, tenderness Rectal exam: PRESENT: deferred Extremities exam: PRESENT: full ROM. ABSENT: calf tenderness, clubbing, pedal edema Neurological exam: PRESENT: alert, awake, oriented to person, oriented to place, oriented to time, oriented to situation, CN II-XII grossly intact. ABSENT: motor sensory deficit Results Laboratory Results: WBC 8.9 10^3/uL (4.0-10.5) 04/25/19 09:30 RBC 2.86 10^6/uL (4.35-5.55) L 04/25/19 09:30 Hgb 8.7 g/dL (13.5-17.0) L 04/25/19 09:30 Hct 24.7 % (37.9-51.0) L 04/25/19 09:30 MCV 86 fl (80-97) 04/25/19 09:30 MCH 30.6 pg (27.0-33.4) 04/25/19 09:30 MCHC 35.4 g/dL (32.0-36.0) 04/25/19 09:30 RDW 15.8 % (11.5-14.0) H 04/25/19 09:30 Plt Count 46 10^3/uL (150-450) L 04/25/19 09:30 Lymph % (Auto) Not Reportable 04/25/19 09:30 [place] % (Auto) Not Reportable 04/25/19 09:30 Eos % (Auto) Not Reportable 04/25/19 09:30 Baso % (Auto) Not Reportable 04/25/19 09:30 Absolute Neuts (auto) Not Reportable 04/25/19 09:30 Absolute Lymphs (auto) Not Reportable 04/25/19 09:30 Absolute Monos (auto) Not Reportable 04/25/19 09:30 Absolute Eos (auto) Not Reportable 04/25/19 09:30 Absolute Basos (auto) Not Reportable 04/25/19 09:30 Total Counted 100 04/25/19 09:30 Seg Neutrophils % Not Reportable 04/25/19 09:30 Seg Neuts % (Manual) 65 % (42-78) 04/25/19 09:30 Band Neutrophils % 7 % (3-5) H 04/24/19 05:45 Lymphocytes % (Manual) 13 % (13-45) 04/25/19 09:30 Monocytes % (Manual) 22 % (3-13) H 04/25/19 09:30 Eosinophils % (Manual) 0 % (0-6) 04/25/19 09:30 Basophils % (Manual) 0 % (0-2) 04/25/19 09:30 Metamyelocytes % 1 % (0-1) 04/24/19 05:45 Abs Neuts (Manual) 5.8 10^3/uL (1.7-8.2) 04/25/19 09:30 Abs Lymphs (Manual) 1.2 10^3/uL (0.5-4.7) 04/25/19 09:30 Abs Monocytes (Manual) 2.0 10^3/uL (0.1-1.4) H 04/25/19 09:30 Absolute Eos (Manual) 0.0 10^3/uL (0.0-0.6) 04/25/19 09:30 Abs Basophils (Manual) 0.0 10^3/uL (0.0-0.2) 04/25/19 09:30 Nucleated RBCs 1 /100 WBC (0) 04/24/19 05:45 Toxic Granulation 1+ 04/24/19 05:45 Platelet Comment DECREASED 04/25/19 09:30 Polychromasia SLIGHT 04/25/19 09:30 Hypochromasia SLIGHT 04/22/19 08:05 Poikilocytosis SLIGHT 04/25/19 09:30 Anisocytosis SLIGHT 04/25/19 09:30 Tear Drop Cells SLIGHT 04/22/19 08:05 Ovalocytes SLIGHT 04/25/19 09:30 Phil Cells SLIGHT 04/18/19 13:20 Schistocytes SLIGHT 04/20/19 05:43 PT 14.7 SEC (11.4-15.4) 04/17/19 11:00 INR 1.14 04/17/19 11:00 VBG pH 7.41 (7.30-7.42) 04/17/19 11:00 VBG pCO2 37.3 mmHg (35-63) 04/17/19 11:00 VBG HCO3 23.3 mmol/L (20-32) 04/17/19 11:00 VBG Base Excess -0.9 mmol/L 04/17/19 11:00 Sodium 140.3 mmol/L (137-145) 04/24/19 05:45 Potassium 4.3 mmol/L (3.6-5.0) 04/24/19 05:45 Chloride 104 mmol/L (98-107) 04/24/19 05:45 Carbon Dioxide 26 mmol/L (22-30) 04/24/19 05:45 Anion Gap 10 (5-19) 04/24/19 05:45 BUN 20 mg/dL (7-20) 04/24/19 05:45 Creatinine 0.97 mg/dL (0.52-1.25) 04/24/19 05:45 Est GFR ( Amer) > 60 (>60) 04/24/19 05:45 Est GFR (MDRD) Non-Af > 60 (>60) 04/24/19 05:45 Glucose 93 mg/dL (75-110) 04/24/19 05:45 POC Glucose 178 mg/dL (70-110) H 04/17/19 10:38 Lactic Acid 0.9 mmol/L (0.7-2.1) 04/19/19 12:45 Calcium 9.0 mg/dL (8.4-10.2) 04/24/19 05:45 Magnesium 1.7 mg/dL (1.6-2.3) 04/17/19 11:00 Total Bilirubin 0.9 mg/dL (0.2-1.3) 04/17/19 11:00 Direct Bilirubin 0.2 mg/dL (0.0-0.4) 04/17/19 11:00 Neonat Total Bilirubin Not Reportable 04/17/19 11:00 Neonat Direct Bilirubin Not Reportable 04/17/19 11:00 Neonat Indirect Bili Not Reportable 04/17/19 11:00 AST 24 U/L (17-59) 04/17/19 11:00 ALT 44 U/L (<50) 04/17/19 11:00 Alkaline Phosphatase 71 U/L (38-126) 04/17/19 11:00 Creatine Kinase 42 U/L (55-170) L 04/17/19 15:15 Total Protein 7.0 g/dL (6.3-8.2) 04/17/19 11:00 Albumin 4.2 g/dL (3.5-5.0) 04/17/19 11:00 Urine Color YELLOW 04/17/19 11:30 Urine Appearance SLIGHTLY-CLOUDY 04/17/19 11:30 Urine pH 5.0 (5.0-9.0) 04/17/19 11:30 Ur Specific [place] 1.020 04/17/19 11:30 Urine Protein 100 mg/dL (NEGATIVE) H 04/17/19 11:30 Urine Glucose (UA) 150 mg/dL (NEGATIVE) H 04/17/19 11:30 Urine Ketones NEGATIVE mg/dL (NEGATIVE) 04/17/19 11:30 Urine Blood MODERATE (NEGATIVE) H 04/17/19 11:30 Urine Nitrite (Reflex) NEGATIVE (NEGATIVE) 04/17/19 11:30 Urine Bilirubin NEGATIVE (NEGATIVE) 04/17/19 11:30 Urine Urobilinogen NEGATIVE mg/dL (<2.0) 04/17/19 11:30 Leukocyte Esterase Rfl NEGATIVE (NEGATIVE) 04/17/19 11:30 Urine RBC (Auto) 9 /HPF 04/17/19 11:30 Urine Bacteria (Auto) TRACE /HPF 04/17/19 11:30 Urine WBC (Reflex) 3 /HPF 04/17/19 11:30 Squamous Epi Cells Auto <1 /HPF 04/17/19 11:30 Urine Mucus (Auto) RARE /LPF 04/17/19 11:30 Urine Ascorbic Acid 20 (NEGATIVE) H 04/17/19 11:30 Slides for Path Review PATHOLOGIST REVIEWED 04/17/19 11:00 Blood Type A NEGATIVE 04/22/19 11:03 Blood Type Confirm A NEGATIVE 04/18/19 07:12 Antibody Screen NEGATIVE 04/17/19 13:08 Crossmatch See Detail 04/17/19 13:08 Impressions: Chest X-Ray 04/17/19 10:35 IMPRESSION: NO SIGNIFICANT RADIOGRAPHIC FINDING IN THE CHEST. Chest CT 04/19/19 10:48 IMPRESSION: 1. New left lower lobe peripheral ground-glass opacities most compatible with pneumonia. No significant effusion. 2. Stable to decreased size of the previously described right upper lobe pulmonary nodules. 3. Stable lytic lesions within T10, T12 and L1 suspicious for osseous metastatic disease. Stroke Is this a Stroke Patient?: No Acute Heart Failure - Is this a Heart Failure Patient?: No
== END 2019-04-25 14:15 | disposition home health service (06) | DRG 808 ==
LOC: ER 10:31 → EH 13:32 → 3S 15:08
PROVIDERS: ADMIT Hospitalist; ATTEND Hospitalist
PROC: 30243R1 Transfusion of Nonautologous Platelets into Central Vein, Percutaneous Approach (ICD-10-PCS; principal; 2019-04-18)
PROC: 30243N1 Transfusion of Nonautologous Red Blood Cells into Central Vein, Percutaneous Approach (ICD-10-PCS; 2019-04-18)
DX: D70.1 Agranulocytosis secondary to cancer chemotherapy (principal); J18.9 Pneumonia, unspecified organism; D65 Disseminated intravascular coagulation [defibrination syndrome]; C83.30 Diffuse large B-cell lymphoma, unspecified site; C79.51 Secondary malignant neoplasm of bone; R78.81 Bacteremia; L40.9 Psoriasis, unspecified; T45.1X5A Adverse effect of antineoplastic and immunosuppressive drugs, initial encounter; B96.1 Klebsiella pneumoniae [K. pneumoniae] as the cause of diseases classified elsewhere; I48.91 Unspecified atrial fibrillation; I10 Essential (primary) hypertension; Z88.0 Allergy status to penicillin; Z88.1 Allergy status to other antibiotic agents; Z88.2 Allergy status to sulfonamides; Z82.3 Family history of stroke; Z82.49 Family history of ischemic heart disease and other diseases of the circulatory system; Z87.891 Personal history of nicotine dependence
CPT/HCPCS: 36415; 36430; 71045; 71250; 80048; 80053; 81001; 82550; 82803; 82962; 83605; 83735; 85025; 85610; 86850; 86900; 86901; 86920; 87040; 87077; 87186; 93005; 93010; 93306; 96361; 96365; 96375; 99285; J0692; J0696; J2185; J2550; J3370; J3480; J3490; J7030; J7050; J7060; P9016; P9035

== ENCOUNTER 2019-05-10 08:50 | Outpatient (CLI) | payer MEDICARE, OTHER ==
[~2019-05-10 08:50] MED LIST changes: -DEXAMETHASONE SOD PHOS INJ 10 MG/1 ML VIAL ONE; -DEXMEDETOMIDINE INJ 80 MCG/20 ML VIAL IV ONE; -FENTANYL CITRATE INJ/PF 100 MCG/2 ML AMPUL ONE; -FENTANYL CITRATE INJ/PF 250 MCG/5 ML AMPULE ONE; -GLYCOPYRROLATE INJ 0.4 MG/2 ML VIAL ONE; -LIDOCAINE 2% INJ-PF (100 MG/5 ML) SYRINGE ONE; -MIDAZOLAM 2 MG/2 ML INJ ONE; -ONDANSETRON HCL INJ/PF 4 MG/2 ML SDV ONE; +PEGFILGRASTIM-CBQV 6 MG/0.6 ML SYRINGE SUBCUT PRN; -PROPOFOL INJ 200 MG/20 ML VIAL IV ONE; -SUCCINYLCHOLINE CHLORIDE INJ 200 MG/10 ML VIAL ONE
[2019-05-10 09:08] VITALS: BP 87/60
== END 2019-05-10 09:13 | disposition home or self-care (01) ==
LOC: II 08:50 → 5TH 08:52 → II 09:13
PROVIDERS: ATTEND Internal Medicine
DX: Z76.89 Persons encountering health services in other specified circumstances (principal); C83.38 Diffuse large B-cell lymphoma, lymph nodes of multiple sites; D70.1 Agranulocytosis secondary to cancer chemotherapy
CPT/HCPCS: 96372; Q5111

== ENCOUNTER → 2019-06-07 | Outpatient (CLI) | payer MEDICARE, OTHER ==
[2019-06-07 11:15] VITALS: BP 107/70
== END ==
LOC: II 10:52
PROVIDERS: ATTEND Internal Medicine
DX: C83.38 Diffuse large B-cell lymphoma, lymph nodes of multiple sites (principal); D70.1 Agranulocytosis secondary to cancer chemotherapy
CPT/HCPCS: 96372; Q5111

== ENCOUNTER 2019-06-13 11:40 | Outpatient (CLI) | payer MEDICARE, OTHER ==
[2019-06-13 13:55] LABS: MEAN CORPUSCULAR HEMOGLOBIN 32.4 pg (27.0-33.4); MEAN CORPUSCULAR HGB CONC 36.1 g/dL (32.0-36.0); MEAN CORPUSCULAR VOLUME 90 fl (80-97); RED BLOOD COUNT 1.67 10^6/uL (4.35-5.55); RED CELL DISTRIBUTION WIDTH 19.1 % (11.5-14.0)
[2019-06-13 14:27] LABS: WHITE BLOOD COUNT 0.3 10^3/uL (4.0-10.5)
[2019-06-13 14:28] LABS: HEMOGLOBIN 5.4 g/dL (13.5-17.0); PLATELET COUNT 4 10^3/uL (150-450)
[2019-06-13 22:32] VITALS: BP 114/74
== END 2019-06-13 22:59 | disposition home or self-care (01) ==
LOC: LAB 11:40 → 3N 12:40 → II 22:59
PROVIDERS: ATTEND Internal Medicine
DX: C83.38 Diffuse large B-cell lymphoma, lymph nodes of multiple sites (principal); C82.18 Follicular lymphoma grade II, lymph nodes of multiple sites; D64.9 Anemia, unspecified; D69.6 Thrombocytopenia, unspecified
CPT/HCPCS: 86900; 86901; 36415; 36430; 86850; 86920; P9016; P9035

== ENCOUNTER 2019-09-22 11:10 | Emergency (ER) | payer MEDICARE, OTHER ==
[2019-09-22 12:18] LABS: APPEARANCE,URINE CLEAR; BILIRUBIN,URINE NEGATIVE (NEGATIVE); COLOR,URINE YELLOW; GLUCOSE, URINE 50 mg/dL (NEGATIVE); KETONES,URINE NEGATIVE (NEGATIVE); LEUKOCYTE ESTERASE,URINE NEGATIVE (NEGATIVE); NITRITE,URINE NEGATIVE (NEGATIVE); PROTEIN,URINE 100 mg/dL (NEGATIVE); URINE SPECIFIC GRAVITY 1.019
[2019-09-22 12:32] LABS: ALKALINE PHOSPHATASE 145 U/L (38-126); ANION GAP 8 (5-19); ASPARTATE AMINO TRANSFERASE 70 U/L (17-59); BILIRUBIN,DIRECT 0.2 mg/dL (0.0-0.4); BILIRUBIN,TOTAL 2.3 mg/dL (0.2-1.3); BLOOD UREA NITROGEN 18 mg/dL (7-20); CALCIUM 8.6 mg/dL (8.4-10.2); CARBON DIOXIDE 24 mmol/L (22-30); CHLORIDE 106 mmol/L (98-107); CREATINE KINASE 37 U/L (55-170); GLUCOSE 105 mg/dL (75-110); POTASSIUM 3.8 mmol/L (3.6-5.0); TOTAL PROTEIN 6.3 g/dL (6.3-8.2)
--- NOTE | 2019-09-22 12:36 | RADIOLOGY REPORT (SQ) ---
EXAM DESCRIPTION: CHEST SINGLE VIEW IMAGES COMPLETED DATE/TIME: 09/22/2019 12:17 pm REASON FOR STUDY: Shaking chills, immunosuppressed COMPARISON: 04/17/2019 EXAM PARAMETERS: NUMBER OF VIEWS: One view. TECHNIQUE: Single frontal radiographic view of the chest acquired. RADIATION DOSE: NA LIMITATIONS: None. FINDINGS: LUNGS AND PLEURA: No opacities, masses or pneumothorax. No pleural effusion. MEDIASTINUM AND HILAR STRUCTURES: No masses. Contour normal. HEART AND VASCULAR STRUCTURES: Heart normal in size. Normal vasculature. BONES: No acute findings. HARDWARE: None in the chest. OTHER: Stable position of left-sided port. IMPRESSION: NO ACUTE RADIOGRAPHIC FINDING IN THE CHEST. TECHNICAL DOCUMENTATION: JOB ID: [id number] [email or web address] All Rights Reserved Reading location - IP/workstation name: [email or web address]
[2019-09-22 12:39] LABS: HEMATOCRIT 27.6 % (37.9-51.0); HEMOGLOBIN 9.9 g/dL (13.5-17.0); MEAN CORPUSCULAR HEMOGLOBIN 38.3 pg (27.0-33.4); MEAN CORPUSCULAR HGB CONC 35.8 g/dL (32.0-36.0); MEAN CORPUSCULAR VOLUME 107 fl (80-97); RED BLOOD COUNT 2.58 10^6/uL (4.35-5.55); RED CELL DISTRIBUTION WIDTH 16.4 % (11.5-14.0); WHITE BLOOD COUNT 5.5 10^3/uL (4.0-10.5)
[2019-09-22 12:41] LABS: PLATELET COUNT 14 10^3/uL (150-450)
[2019-09-22 12:44] LABS: ABSOLUTE LYMPHOCYTES# (MANUAL) 0.2 10^3/uL (0.5-4.7); ABSOLUTE MONOCYTES # (MANUAL) 0.6 10^3/uL (0.1-1.4); ANISOCYTOSIS 1+; BAND NEUTROPHILS % (MANUAL) 6 % (3-5); BASOPHILS % (MANUAL) 0 % (0-2); EOSINOPHILS % (MANUAL) 0 % (0-6); LYMPHOCYTES % (MANUAL) 4 % (13-45); METAMYELOCYTES % (MANUAL) 1 % (0-1); MONOCYTES % (MANUAL) 11 % (3-13); MYELOCYTES % (MANUAL) 2 % (0); PLATELET COMMENT DECREASED; SEGMENTED NEUTROPHILS % (MAN) 76 % (42-78); TOTAL CELLS COUNTED 100; TOXIC GRANULATION SLIGHT; TOXIC VACUOLATION PRESENT
--- NOTE | 2019-09-22 12:47 | ER Document Report ---
Entered by BENNY MCCONNELL SCRIBE 09/22/19 1149 Acting as scribe for:CARYN FRAGA MD ED General - General Chief Complaint: Abnormal Lab Results Stated Complaint: ABNORMAL LABS Time Seen by Provider: 09/22/19 11:47 Primary Care Provider: JUSTIN CHU MD [Primary Care Provider] - Follow up as needed Information source: Patient Notes: This 68-year-old male presents to the emergency department complaining of abnormal lab results and atrial fibrillation that began yesterday. Patient states that his platelets were 16 and his hemoglobin was 9.6. Patient reports fever and chills that began yesterday at 2 PM, resolved at 9 PM and began again today at 10:30 AM. Patient reports that his fever was 101.4 and after taking a Tylenol was 98. Patient complains of difficulty breathing and reports a 70/50 blood pressure with a heart rate of 155. Patient states that he feels better now and states that his atrial fibrillation is better now. reports that patient was recently on a 10-day prescription of Keflex for an infection in his port which is better now. TRAVEL OUTSIDE OF THE [place] IN LAST 30 DAYS: No - Related Data Allergies/Adverse Reactions: levofloxacin Allergy (Mild, Verified 04/17/19 11:43) rash amoxicillin Allergy (Unknown, Verified 04/17/19 11:43) Sulfa (Sulfonamide Antibiotics) Allergy (Verified 04/17/19 11:43) Hives Past Medical History - General Information source: Patient - Social History Smoking Status: Never Smoker Cigarette use (# per day): No Chew tobacco use (# tins/day): No Family History: Arthritis, CAD, CVA, Hyperlipidemia, Hypertension, Malignancy - Past Medical History Cardiac Medical History: Reports: Hx Atrial Fibrillation, Hx Hypertension Malignancy Medical History: 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, Reports Hx Skin Cancer GI Medical History: Reports: Hx Colonoscopy Musculoskeletal Medical History: Reports Hx Musculoskeletal Trauma - Sprained ankle Skin Medical History: Reports Hx Psoriasis Past Surgical History: Reports: Hx Oral Surgery, Hx Testicular Surgery - Left testicle removed d/t CA, Hx Tonsillectomy, Other - SKIN BIOPSY - Immunizations Immunizations up to date: Yes Hx Diphtheria, Pertussis, Tetanus Vaccination: Yes Review of Systems - Review of Systems Constitutional: See HPI, Chills, Fever EENT: No symptoms reported Cardiovascular: No symptoms reported Respiratory: See HPI, Short of breath. denies: Cough Gastrointestinal: No symptoms reported Genitourinary: No symptoms reported Male Genitourinary: No symptoms reported Musculoskeletal: No symptoms reported Skin: No symptoms reported Hematologic/Lymphatic: No symptoms reported Neurological/Psychological: No symptoms reported -: Yes All other systems reviewed and negative Physical Exam - Vital signs Vitals: Resp BP Pulse Ox 26 H 154/96 H 97 09/22/19 11:11 09/22/19 11:11 09/22/19 11:11 - Notes Notes: Physical Exam: General: Alert, appears well. HEENT: Normocephalic. Atraumatic. PERRL. Extraocular movements intact. Oropharynx clear. Neck: Supple. Non-tender. Respiratory: No respiratory distress. Clear and equal breath sounds bilaterally. Cardiovascular: Regular rate and rhythm. Heart rate 90. Abdominal: Normal Inspection. Non-tender. No distension. Normal Bowel Sounds. Back: No gross abnormalities. Extremities: Moves all four extremities. Upper extremities: Normal inspection. Normal ROM. Lower extremities: Normal inspection. No edema. Normal ROM. Neurological: Normal cognition. AAOx4. Normal speech. Psychological: Normal affect. Normal Mood. Skin: Warm. Dry. Normal color. Course - Re-evaluation Re-evalutation: 09/22/19 13:47 The patient reported episodes of fever last night, Dr. Chu thinks this may be due to the chemotherapy. The patient's chest x-ray is clear, the monitor shows he is in a normal sinus rhythm. His room air pulse ox even with a COVID mask on is 99%. The patient states he feels fine and is comfortable going home. - Vital Signs Vital signs: Temp Pulse Resp BP Pulse Ox 98.8 F 20 139/77 H 95 09/22/19 11:19 09/22/19 12:01 09/22/19 12:00 09/22/19 12:01 - Laboratory Result Diagrams: 09/22/19 11:45 09/22/19 11:45 Laboratory results interpreted by me: 09/22/19 09/22/19 09/22/19 11:45 11:45 11:45 RBC 2.58 L Hgb 9.9 L Hct 27.6 L MCV 107 H MCH 38.3 H RDW 16.4 H Plt Count 14 L* Band Neutrophils % 6 H Lymphocytes % (Manual) 4 L Myelocytes % 2 H Abs Lymphs (Manual) 0.2 L Est GFR (MDRD) Non-Af 58 L Lactic Acid Total Bilirubin 2.3 H AST 70 H ALT 117 H Alkaline Phosphatase 145 H Creatine Kinase 37 L Urine Protein 100 H Urine Glucose (UA) 50 H Urine Blood SMALL H Urine Urobilinogen 4.0 H 09/22/19 12:10 RBC Hgb Hct MCV MCH RDW Plt Count Band Neutrophils % Lymphocytes % (Manual) Myelocytes % Abs Lymphs (Manual) Est GFR (MDRD) Non-Af Lactic Acid 2.5 H Total Bilirubin AST ALT Alkaline Phosphatase Creatine Kinase Urine Protein Urine Glucose (UA) Urine Blood Urine Urobilinogen - Diagnostic Test Radiology reviewed: Image reviewed, Reports reviewed - Chest x-ray does not show acute radiographic changes - Consults Dr. Chu Time consulted: 13:19 Consulted provider: follow-up in office - Patient does not require admission or transfusion and can keep his follow-up appointment in the office on 09/28/2019. Discharge - Discharge Clinical Impression: Thrombocytopenia Fever Qualifiers: Fever type: unspecified Qualified Code(s): R50.9 - Fever, unspecified Afib Qualifiers: Atrial fibrillation type: paroxysmal Qualified Code(s): I48.0 - Paroxysmal atrial fibrillation Neutropenia Qualifiers: Neutropenia type: secondary to cancer chemotherapy Qualified Code(s): D70.1 - Agranulocytosis secondary to cancer chemotherapy; T45.1X5A - Adverse effect of antineoplastic and immunosuppressive drugs, initial encounter Condition: Stable Disposition: HOME, SELF-CARE Additional Instructions: I discussed your case with Dr. Arzate at length. She thinks the fevers you had are probably due to the chemotherapy and not due to infection. Your absolute neutrophil count was 4.7 today. Your platelet count was 14,000 today. Your hemoglobin level was 9.9 today. Based on these numbers, you do not need any transfusions today. Your history sounds like you had an episode of your paroxysmal atrial fibrillation last night and it has resolved on its own. You are supposed to have an appointment at [facility] on September 28, 2019. Continue your regular medications, and check your temperatures. Return to the emergency room if you develop atrial fibrillation with rapid heart rate that does not go away within an hour. Call Dr. Chu if you continue having fevers. RETURN TO THE EMERGENCY ROOM IF ANY NEW OR WORSENING SYMPTOMS. Referrals: JUSTIN CHU MD [Primary Care Provider] - Follow up as needed I personally performed the services described in the documentation, reviewed and edited the documentation which was dictated to the scribe in my presence, and it accurately records my words and actions.
[2019-09-22 14:07] VITALS: BP 126/78
[2019-09-22] MEDS ORDERED: ACETAMINOPHEN 325 MG TABLET PO ONE (14:11)
== END 2019-09-22 14:26 | disposition home or self-care (01) ==
LOC: ER 11:10
DX: D69.6 Thrombocytopenia, unspecified (principal); D70.1 Agranulocytosis secondary to cancer chemotherapy; C85.90 Non-Hodgkin lymphoma, unspecified, unspecified site; T45.1X5A Adverse effect of antineoplastic and immunosuppressive drugs, initial encounter; C44.90 Unspecified malignant neoplasm of skin, unspecified; I48.0 Paroxysmal atrial fibrillation; R50.9 Fever, unspecified; I10 Essential (primary) hypertension; R06.02 Shortness of breath; Z88.1 Allergy status to other antibiotic agents; Z88.0 Allergy status to penicillin; Z88.2 Allergy status to sulfonamides
CPT/HCPCS: 36591; 99284; 36415; 87040; 82550; 83605; 83735; 87077; 80053; 81001; 84484; 87150 ×26; 71045; A9270; J1642

== ENCOUNTER 2019-09-23 12:15 | Inpatient (IN) | payer MEDICARE, OTHER ==
[2019-09-23] MEDS ORDERED: ACETAMINOPHEN 325 MG TABLET PO PRN ×2 (12:41→13:59)
[2019-09-23] MEDS ORDERED: ONDANSETRON HCL INJ/PF 4 MG/2 ML SDV IV PRN (12:41)
[2019-09-23] MEDS ORDERED: MAG HYDROX/AL HYDROX/SIMETH SUSP 30 ML UDCUP PO PRN (12:41)
[2019-09-23] MEDS ORDERED: MEROPENEM 1 GM VIAL IV SCH (14:00)
--- NOTE | 2019-09-23 14:07 | PDOC H&P ---
History of Present Illness Admission Date/PCP: 09/23/19 12:41 JUSTIN CHU MD Patient complains of: rigors History of Present Illness: KRUPA VERMA is a 68 year old male with a history of paroxysmal atrial fibrillation, non-Hodgkin's lymphoma, recent central line infection status post completion of 2-week course of treatment [antibiotics unknown], who presents to the hospital as direct admission after discussion with Dr. Chu. Patient started having rigors 2 days ago. Also noted himself to being A. fib with rapid heart rate in the 150s at home on his monitor. Drank some fluids. Went to see Dr. Chu yesterday in the clinic who referred him to the ER after hydration. In the ER blood cultures were obtained, chest x-ray was negative and urine analysis was negative for infection. He was subsequently discharged home. Blood cultures result today with Acinetobacter and patient still having episodes of rigors at home. Otherwise patient feels fine and denies any cough, shortness of breath, diarrhea, dysuria or polyuria. 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, Skin Cancer GI Medical History: Denies: Hepatitis, Hiatal Hernia Musculoskeltal Medical History: Denies: Arthritis Skin Medical History: Reports: Psoriasis Hematology: Denies: Anemia, Sickle Cell Disease Past Surgical History Past Surgical History: Reports: Tonsillectomy, Other - SKIN BIOPSY Denies: Pacemaker Social History Information Source: Patient Lives with: Family Smoking Status: Former Smoker Frequency of Alcohol Use: Rare Hx Recreational Drug Use: No Drugs: None Hx Prescription Drug Abuse: No - Advance Directive Resuscitation Status: Full Code Family History Family History: Arthritis, CAD, CVA, Hyperlipidemia, Hypertension, Malignancy Parental Family History Reviewed: Yes Children Family History Reviewed: Unknown Sibling(s) Family History Reviewed.: Yes Medication/Allergy Home Medications: Folic Acid [Folvite 1 mg Tablet] 1 mg PO DAILY 09/23/19 Sotalol HCl [Betapace 80 mg Tablet] 40 mg PO Q12 09/23/19 Allergies/Adverse Reactions: levofloxacin Allergy (Mild, Verified 04/17/19 11:43) rash amoxicillin Allergy (Unknown, Verified 04/17/19 11:43) Sulfa (Sulfonamide Antibiotics) Allergy (Verified 04/17/19 11:43) Hives Review of Systems Constitutional: ABSENT: chills, fever(s) Eyes: ABSENT: visual disturbances Nose, Mouth, and Throat: ABSENT: headache(s) Cardiovascular: ABSENT: chest pain Respiratory: ABSENT: cough, dyspnea, sputum Gastrointestinal: ABSENT: abdominal pain, constipation, diarrhea, nausea, vomiting Genitourinary: ABSENT: difficulty urinating, dysuria Neurological: ABSENT: confusion, dizziness Endocrine: ABSENT: polyuria Allergic/Immunologic: PRESENT: other - Denies rhinorrhea or nasal congestion Physical Exam Vital Signs: Temp Pulse Resp BP Pulse Ox 97.8 F 62 16 102/67 100 09/23/19 12:37 09/23/19 12:37 09/23/19 12:37 09/23/19 12:37 09/23/19 12:37 Intake & Output 09/22/19 09/23/19 09/24/19 06:59 06:59 06:59 Weight 72.2 kg General appearance: PRESENT: no acute distress, cooperative Head exam: PRESENT: normocephalic Mouth exam: PRESENT: neck supple Neck exam: ABSENT: JVD Respiratory exam: PRESENT: clear to auscultation abad, unlabored. ABSENT: crackles, tachypnea, wheezes Cardiovascular exam: PRESENT: RRR, +S1, +S2, systolic murmur. ABSENT: irregular rhythm, tachycardia GI/Abdominal exam: PRESENT: soft. ABSENT: distended, firm, guarding, rebound, rigid, tenderness Extremities exam: ABSENT: pedal edema, +1 edema, +2 edema Musculoskeletal exam: PRESENT: ambulatory Neurological exam: PRESENT: alert, awake, oriented to person, oriented to place, oriented to time, oriented to situation Psychiatric exam: ABSENT: agitated, anxious Focused psych exam: ABSENT: pressured speech Assessment and Plan - Diagnosis (1) Gram-negative bacteremia Is this a current diagnosis for this admission?: Yes Plan: Acinetobacter growing in 1 of patient blood culture sets. Patient also states he has rigors at home. Risk factors for infection include central venous catheter/Port-A-Cath, malignancy and immunosuppression. I will start patient on meropenem pending susceptibility report. Chest x-ray and urinalysis done in the ER yesterday were negative for any infection. Patient also has no complaints of abdominal/GI symptoms. Tylenol as needed. Will repeat blood cultures today & tomorrow. (2) Paroxysmal atrial fibrillation Is this a current diagnosis for this admission?: Yes Plan: Resume sotalol. HR is controlled at the time. check ekg. (3) Non Hodgkin's lymphoma Is this a current diagnosis for this admission?: Yes Plan: Patient is currently receiving chemotherapy as outpatient. Follows with Dr. Arzate. Started day 1 of cycle 3 on September 11. (4) Thrombocytopenia Is this a current diagnosis for this admission?: Yes Plan: Likely secondary to chemotherapy. Repeat labs today. Will transfuse if platel et count drops below 10. - Time Time Spent with patient: 35 or more minutes
[2019-09-23 14:44] LABS: HEMATOCRIT 23.1 % (37.9-51.0); HEMOGLOBIN 8.4 g/dL (13.5-17.0); MEAN CORPUSCULAR HEMOGLOBIN 38.6 pg (27.0-33.4); MEAN CORPUSCULAR HGB CONC 36.3 g/dL (32.0-36.0); MEAN CORPUSCULAR VOLUME 106 fl (80-97); RED BLOOD COUNT 2.18 10^6/uL (4.35-5.55); RED CELL DISTRIBUTION WIDTH 16.1 % (11.5-14.0); WHITE BLOOD COUNT 4.1 10^3/uL (4.0-10.5)
[2019-09-23 14:48] LABS: INTERNATIONAL RATION (INR) 1.11; PROTHROMBIN TIME 14.3 SEC (11.4-15.4)
[2019-09-23 14:49] LABS: PARTIAL THROMBOPLASTIN TIME 51.2 SEC (23.5-35.8)
[2019-09-23 15:01] LABS: ALBUMIN 3.7 g/dL (3.5-5.0); ALKALINE PHOSPHATASE 104 U/L (38-126); ANION GAP 6 (5-19); ASPARTATE AMINO TRANSFERASE 75 U/L (17-59); BLOOD UREA NITROGEN 16 mg/dL (7-20); CALCIUM 8.3 mg/dL (8.4-10.2); CARBON DIOXIDE 25 mmol/L (22-30); CHLORIDE 106 mmol/L (98-107); GLUCOSE 92 mg/dL (75-110); PHOSPHORUS 2.5 mg/dL (2.5-4.5); POTASSIUM 3.4 mmol/L (3.6-5.0); TOTAL PROTEIN 6.3 g/dL (6.3-8.2)
[2019-09-23] MEDS: MEROPENEM 1 GM in NORMAL SALINE 50 ML IV SCH ×2 (15:03→21:01)
[2019-09-23 15:06] LABS: PLATELET COUNT 7 10^3/uL (150-450)
[2019-09-23] MEDS ORDERED: NORMAL SALINE 250 ML IV PRN ×2 (15:09)
[2019-09-23 15:10] LABS: ABSOLUTE LYMPHOCYTES# (MANUAL) 1.5 10^3/uL (0.5-4.7); ABSOLUTE MONOCYTES # (MANUAL) 0.2 10^3/uL (0.1-1.4); BASOPHILS % (MANUAL) 1 % (0-2); EOSINOPHILS % (MANUAL) 0 % (0-6); LYMPHOCYTES % (MANUAL) 33 % (13-45); MONOCYTES % (MANUAL) 6 % (3-13); SEGMENTED NEUTROPHILS % (MAN) 56 % (42-78); TOTAL CELLS COUNTED 100
[2019-09-23 15:11] LABS: ANISOCYTOSIS 1+; PLATELET COMMENT DECREASED; POIKILOCYTOSIS SLIGHT; POLYCHROMASIA SLIGHT; TEAR DROP CELLS 1+; TOXIC GRANULATION 1+
[2019-09-23] MEDS: POTASSIUM CHLORIDE 10 MEQ TABLET.ER PO SCH (18:53)
[2019-09-23] MEDS: SOTALOL HCL 80 MG TABLET PO SCH (21:02)
[2019-09-24] MEDS: MEROPENEM 1 GM in NORMAL SALINE 50 ML IV SCH ×3 (05:35→21:10)
[2019-09-24] MEDS: POTASSIUM CHLORIDE 10 MEQ TABLET.ER PO SCH (05:36)
[2019-09-24 08:50] LABS: HEMATOCRIT 23.1 % (37.9-51.0); HEMOGLOBIN 8.1 g/dL (13.5-17.0); MEAN CORPUSCULAR HEMOGLOBIN 37.9 pg (27.0-33.4); MEAN CORPUSCULAR HGB CONC 35.1 g/dL (32.0-36.0); MEAN CORPUSCULAR VOLUME 108 fl (80-97); RED BLOOD COUNT 2.14 10^6/uL (4.35-5.55); RED CELL DISTRIBUTION WIDTH 14.8 % (11.5-14.0); WHITE BLOOD COUNT 3.4 10^3/uL (4.0-10.5)
[2019-09-24 08:57] LABS: BLOOD UREA NITROGEN 15 mg/dL (7-20); CALCIUM 8.7 mg/dL (8.4-10.2); CARBON DIOXIDE 26 mmol/L (22-30); CHLORIDE 107 mmol/L (98-107); GLUCOSE 98 mg/dL (75-110)
[2019-09-24 09:02] LABS: ANION GAP 4 (5-19)
[2019-09-24 09:06] LABS: PLATELET COUNT 34 10^3/uL (150-450)
[2019-09-24] MEDS: SOTALOL HCL 80 MG TABLET PO SCH ×2 (10:10→21:09)
[2019-09-24] MEDS: FOLIC ACID 1 MG TABLET PO SCH (10:10)
--- NOTE | 2019-09-24 13:45 | PDOC PROGRESS REPORT ---
Subjective Progress Note for:: 09/24/19 Subjective:: Patient experienced some rigors yesterday but otherwise feels well. He has no other complaints. Reason For Visit: BACTEREMIA Physical Exam Vital Signs: Temp Pulse Resp BP Pulse Ox 97.8 F 63 17 131/86 H 100 09/24/19 11:50 09/24/19 11:50 09/24/19 11:50 09/24/19 11:50 09/24/19 11:50 Intake & Output 09/23/19 09/24/19 09/25/19 06:59 06:59 06:59 Intake Total 828 240 Balance 828 240 Weight 72.2 kg General appearance: PRESENT: no acute distress, cooperative Neck exam: ABSENT: JVD Respiratory exam: PRESENT: chest wall tenderness, clear to auscultation abad, unlabored. ABSENT: tachypnea, wheezes Cardiovascular exam: PRESENT: RRR, +S1, +S2. ABSENT: tachycardia GI/Abdominal exam: PRESENT: soft. ABSENT: rebound, rigid, tenderness Neurological exam: PRESENT: alert, awake, oriented to person, oriented to place, oriented to time Results Laboratory Results: 09/24/19 07:28 09/24/19 07:28 09/23/19 09/23/19 09/23/19 14:15 14:15 15:36 WBC 4.1 RBC 2.18 L Hgb 8.4 L Hct 23.1 L MCV 106 H MCH 38.6 H MCHC 36.3 H RDW 16.1 H Plt Count 7 L* Seg Neutrophils % Not Reportable Sodium 137.1 Potassium 3.4 L Chloride 106 Carbon Dioxide 25 Anion Gap 6 BUN 16 Creatinine 1.06 Est GFR ( Amer) > 60 Glucose 92 Calcium 8.3 L Phosphorus 2.5 Magnesium 2.2 Total Bilirubin 1.0 AST 75 H Alkaline Phosphatase 104 Total Protein 6.3 Albumin 3.7 Vitamin B12 Folate TSH Blood Type A NEGATIVE Antibody Screen NEGATIVE 09/24/19 09/24/19 09/24/19 07:28 07:28 07:28 WBC 3.4 L RBC 2.14 L Hgb 8.1 L Hct 23.1 L MCV 108 H MCH 37.9 H MCHC 35.1 RDW 14.8 H Plt Count 34 L D Seg Neutrophils % Sodium Potassium Chloride Carbon Dioxide Anion Gap BUN Creatinine Est GFR ( Amer) Glucose Calcium Phosphorus Magnesium Total Bilirubin AST Alkaline Phosphatase Total Protein Albumin Vitamin B12 > 1000.0 H Folate 18.80 TSH 1.36 Blood Type Antibody Screen 09/24/19 07:28 WBC RBC Hgb Hct MCV MCH MCHC RDW Plt Count Seg Neutrophils % Sodium 137.2 Potassium 4.0 Chloride 107 Carbon Dioxide 26 Anion Gap 4 L BUN 15 Creatinine 1.12 Est GFR ( Amer) > 60 Glucose 98 Calcium 8.7 Phosphorus Magnesium Total Bilirubin AST Alkaline Phosphatase Total Protein Albumin Vitamin B12 Folate TSH Blood Type Antibody Screen 09/23/19 14:15 Blood Blood Culture (PCR) - Final Acinetobacter Baumannii 09/23/19 14:41 Blood Blood Culture (PCR) - Final Acinetobacter Baumannii 09/23/19 18:12 Troponin I < 0.012 Assessment and Plan - Diagnosis (1) Gram-negative bacteremia Is this a current diagnosis for this admission?: Yes Plan: Both sets of blood cultures yesterday before initiation of antibiotics are positive for Acinetobacter. Acinetobacter bacteremia is usually from respiratory tract infections and central catheter associated infections. However, chest x-ray from 09/22/2019 was negative. Urinalysis also negative at that time. I will continue patient on meropenem and repeat blood cultures today. Patient will need 10 days of IV antibiotics. I will discuss with infectious diseases on Thursday regarding if Port-A-Cath needs removal or if IV antibiotics via port will suffice. (2) Paroxysmal atrial fibrillation Is this a current diagnosis for this admission?: Yes Plan: Resume sotalol. Currently in sinus rhythm. (3) Non Hodgkin's lymphoma Is this a current diagnosis for this admission?: Yes Plan: Patient is currently receiving chemotherapy as outpatient. Follows with Dr. Arzate. Started day 1 of cycle 3 on September 11. Continue outpatient follow-up (4) Thrombocytopenia Is this a current diagnosis for this admission?: Yes Plan: Likely secondary to chemotherapy. Transfused 2 packs of platelets with improvement of platelet count to 34 today. We will continue to monitor CBC. - Time Time Spent with patient: Less than 15 minutes
--- NOTE | 2019-09-24 16:42 | PDOC CONSULTATION ---
Consultation Consult Date: 09/24/19 Provider Consulted: JUSTIN GILLESPIE Consult reason:: Hematology/Oncology consultation was requested for patient on active chemotherapy for Non-Hodgkin Lymphoma. History of Present Illness Admission Date/PCP: 09/23/19 12:41 JUSTIN GILLESPIE MD History of Present Illness: KRUPA VERMA is a 68 year old male who follows with Dr. Carballo for B-cell Lymphoma. He is currently undergoing active chemotherapy with most recent dose given on September 11 and Neulasta on September 12. He has had a 3 day history of severe rigors/shaking chills. Fever was up >101, but comes and goes. has been greatly concerned about patient needed a transfusion, which helped last time. However, his Blood counts had been such that transfusion has not been given this cycle. He was evaluated in the ED 2 days ago and at the time, looked great without fever. However, yesterday morning, his blood cultures were positive and he was admitted for IV antibiotics. He has had a port infection in the past. Today, he states that he is feeling much better. No fevers, eating well, but he misses his . He would like to take a shower. 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, Skin Cancer GI Medical History: Denies: Hepatitis, Hiatal Hernia Musculoskeltal Medical History: Denies: Arthritis Skin Medical History: Reports: Psoriasis Psychiatric Medical History: Denies: Depression Hematology: Denies: Anemia, Sickle Cell Disease Past Surgical History Past Surgical History: Reports: Tonsillectomy, Other - SKIN BIOPSY Denies: Pacemaker Social History Lives with: Family Smoking Status: Former Smoker Electronic Cigarette use?: No Frequency of Alcohol Use: Rare Hx Recreational Drug Use: No Drugs: None Hx Prescription Drug Abuse: No - Advance Directive Resuscitation Status: Full Code Family History Family History: Arthritis, CAD, CVA, Hyperlipidemia, Hypertension, Malignancy Parental Family History Reviewed: Yes Children Family History Reviewed: Yes Sibling(s) Family History Reviewed.: Yes Medication/Allergy Home Medications: Folic Acid [Folvite 1 mg Tablet] 1 mg PO DAILY 09/23/19 Sotalol HCl [Betapace 80 mg Tablet] 40 mg PO Q12 09/23/19 Allergies/Adverse Reactions: levofloxacin Allergy (Mild, Verified 04/17/19 11:43) rash amoxicillin Allergy (Unknown, Verified 04/17/19 11:43) Sulfa (Sulfonamide Antibiotics) Allergy (Verified 04/17/19 11:43) Hives Review of Systems Constitutional: PRESENT: fever(s) Eyes: ABSENT: visual disturbances Ears: PRESENT: hearing changes Nose, Mouth, and Throat: ABSENT: headache(s) Cardiovascular: ABSENT: chest pain Respiratory: ABSENT: dyspnea Gastrointestinal: ABSENT: constipation, nausea Genitourinary: ABSENT: dysuria Integumentary: ABSENT: rash Neurological: ABSENT: confusion Hematologic/Lymphatic: ABSENT: easy bleeding Physical Exam Vital Signs: Temp Pulse Resp BP Pulse Ox 97.8 F 63 17 131/86 H 100 09/24/19 11:50 09/24/19 11:50 09/24/19 11:50 09/24/19 11:50 09/24/19 11:50 Intake & Output 09/23/19 09/24/19 09/25/19 06:59 06:59 06:59 Intake Total 878 290 Balance 878 290 Weight 72.2 kg General appearance: PRESENT: no acute distress, well-developed, well-nourished Exam: 68 year old male. Head exam: PRESENT: atraumatic, normocephalic Eye exam: PRESENT: EOMI Mouth exam: PRESENT: tongue midline Neck exam: ABSENT: lymphadenopathy, tenderness Respiratory exam: PRESENT: clear to auscultation abad, unlabored Cardiovascular exam: PRESENT: irregular rhythm GI/Abdominal exam: PRESENT: soft. ABSENT: tenderness Extremities exam: ABSENT: pedal edema Musculoskeletal exam: PRESENT: ambulatory Neurological exam: PRESENT: alert, awake Psychiatric exam: PRESENT: appropriate affect Skin exam: PRESENT: normal color Results Laboratory Results: 09/24/19 07:28 09/24/19 07:28 09/23/19 09/24/19 09/24/19 15:36 07:28 07:28 WBC RBC Hgb Hct MCV MCH MCHC RDW Plt Count Sodium Potassium Chloride Carbon Dioxide Anion Gap BUN Creatinine Est GFR ( Amer) Glucose Calcium Vitamin B12 > 1000.0 H Folate 18.80 TSH 1.36 Blood Type A NEGATIVE Antibody Screen NEGATIVE 09/24/19 09/24/19 07:28 07:28 WBC 3.4 L RBC 2.14 L Hgb 8.1 L Hct 23.1 L MCV 108 H MCH 37.9 H MCHC 35.1 RDW 14.8 H Plt Count 34 L D Sodium 137.2 Potassium 4.0 Chloride 107 Carbon Dioxide 26 Anion Gap 4 L BUN 15 Creatinine 1.12 Est GFR ( Amer) > 60 Glucose 98 Calcium 8.7 Vitamin B12 Folate TSH Blood Type Antibody Screen 09/23/19 14:15 Blood Blood Culture (PCR) - Final Acinetobacter Baumannii 09/23/19 14:41 Blood Blood Culture (PCR) - Final Acinetobacter Baumannii 09/23/19 18:12 Troponin I < 0.012 Assessment & Plan - Diagnosis (1) Gram-negative bacteremia Is this a current diagnosis for this admission?: Yes Plan: ON appropriate antibiotics. Consider ID consult. I would wait until repeat blood cultures in 3 days before deciding on port removal. (2) Non Hodgkin's lymphoma Is this a current diagnosis for this admission?: Yes Plan: All chemo on hold. Will transfuse as needed for HGB <8 and PLT<10. He received PLT without difficulties. (3) Paroxysmal atrial fibrillation Is this a current diagnosis for this admission?: Yes Plan: As per Primary team.
--- NOTE | 2019-09-24 20:51 | EKG REPORT ---
SEVERITY:- ABNORMAL ECG - SINUS RHYTHM LVH WITH SECONDARY REPOLARIZATION ABNORMALITY : Confirmed by: Shanthi Zimemrman 24-Sep-2019 20:49:49
--- NOTE | 2019-09-24 20:51 | EKG REPORT ---
SEVERITY:- ABNORMAL ECG - SINUS RHYTHM LVH WITH SECONDARY REPOLARIZATION ABNORMALITY BORDERLINE PROLONGED QT INTERVAL : Confirmed by: Shanthi Zimmerman 24-Sep-2019 20:49:55
[2019-09-25] MEDS: MEROPENEM 1 GM in NORMAL SALINE 50 ML IV SCH ×3 (05:31→21:12)
[2019-09-25 06:36] LABS: HEMATOCRIT 24.9 % (37.9-51.0); HEMOGLOBIN 8.7 g/dL (13.5-17.0); MEAN CORPUSCULAR HEMOGLOBIN 38.1 pg (27.0-33.4); MEAN CORPUSCULAR VOLUME 109 fl (80-97); RED BLOOD COUNT 2.29 10^6/uL (4.35-5.55); RED CELL DISTRIBUTION WIDTH 14.8 % (11.5-14.0); WHITE BLOOD COUNT 4.5 10^3/uL (4.0-10.5)
[2019-09-25 07:06] LABS: PLATELET COUNT 31 10^3/uL (150-450)
[2019-09-25] MEDS: FOLIC ACID 1 MG TABLET PO SCH (09:11)
[2019-09-25] MEDS: SOTALOL HCL 80 MG TABLET PO SCH ×2 (09:11→21:12)
--- NOTE | 2019-09-25 15:15 | PDOC PROGRESS REPORT ---
Subjective Progress Note for:: 09/25/19 Subjective:: Patient is doing well today. He has no complaints at this time. He is not having any rigors. Reason For Visit: BACTEREMIA Physical Exam Vital Signs: Temp Pulse Resp BP Pulse Ox 97.8 F 60 17 117/74 100 09/25/19 11:12 09/25/19 11:12 09/25/19 11:12 09/25/19 11:12 09/25/19 11:12 Intake & Output 09/24/19 09/25/19 09/26/19 06:59 06:59 06:59 Intake Total 878 750 646 Balance 878 750 646 Weight 72.2 kg 72.2 kg General appearance: PRESENT: no acute distress, cooperative Neck exam: ABSENT: JVD Respiratory exam: PRESENT: unlabored Musculoskeletal exam: PRESENT: ambulatory Neurological exam: PRESENT: alert, awake, oriented to person, oriented to place, oriented to time Psychiatric exam: ABSENT: agitated, anxious Results Laboratory Results: 09/25/19 05:30 09/24/19 07:28 09/25/19 05:30 WBC 4.5 RBC 2.29 L Hgb 8.7 L Hct 24.9 L MCV 109 H MCH 38.1 H MCHC 35.0 RDW 14.8 H Plt Count 31 L 09/23/19 14:15 Blood Blood Culture (PCR) - Final Acinetobacter Baumannii 09/24/19 05:35 Blood Blood Culture (PCR) - Final 09/23/19 14:41 Blood Blood Culture (PCR) - Final Acinetobacter Baumannii 09/23/19 18:12 Troponin I < 0.012 Assessment and Plan - Diagnosis (1) Gram-negative bacteremia Is this a current diagnosis for this admission?: Yes Plan: Both sets of blood cultures yesterday before initiation of antibiotics are positive for Acinetobacter. Acinetobacter bacteremia is usually from respiratory tract infections and central catheter associated infections. However, chest x-ray from 09/22/2019 was negative. Urinalysis also negative at that time. I will continue patient on meropenem and repeat blood cultures today. Patient will need 10 days of IV antibiotics. I will discuss with infectious diseases on Thursday regarding if Port-A-Cath needs removal or if IV antibiotics via port will suffice. 09/25/2019: Patient's blood culture from yesterday resulted with 1 of the blood culture sets growing gram-negative rods once again. I will recheck blood cultures again today I will continue meropenem. (2) Paroxysmal atrial fibrillation Is this a current diagnosis for this admission?: Yes Plan: Continue sotalol. Currently in sinus rhythm. (3) Non Hodgkin's lymphoma Is this a current diagnosis for this admission?: Yes (4) Thrombocytopenia Is this a current diagnosis for this admission?: Yes Plan: Likely secondary to chemotherapy. Transfused 2 packs of platelets on 09/23/2019. Platelets holding stable for now. Transfuse again if <10. - Time Time Spent with patient: Less than 15 minutes
[2019-09-26] MEDS: MEROPENEM 1 GM in NORMAL SALINE 50 ML IV SCH ×2 (06:07→14:21)
--- NOTE | 2019-09-26 08:00 | PDOC PROGRESS REPORT ---
Subjective Progress Note for:: 09/26/19 Subjective:: Pt feels good this am, today had long discussion about next steps of care, spent 45 min in discussion. Reason For Visit: BACTEREMIA Physical Exam Vital Signs: Temp Pulse Resp BP Pulse Ox 98.1 F 62 16 114/73 99 09/25/19 23:48 09/25/19 23:48 09/25/19 23:48 09/25/19 23:48 09/25/19 23:48 Intake & Output 09/25/19 09/26/19 09/27/19 06:59 06:59 06:59 Intake Total 750 866 Balance 750 866 Weight 72.2 kg 72.2 kg General appearance: PRESENT: no acute distress, well-developed, well-nourished Head exam: PRESENT: atraumatic, normocephalic Eye exam: PRESENT: conjunctiva pink, EOMI, PERRLA. ABSENT: scleral icterus Ear exam: PRESENT: normal external ear exam Mouth exam: PRESENT: moist, tongue midline Neck exam: ABSENT: carotid bruit, JVD, lymphadenopathy, thyromegaly Respiratory exam: PRESENT: clear to auscultation abad. ABSENT: rales, rhonchi, wheezes Cardiovascular exam: PRESENT: RRR. ABSENT: diastolic murmur, rubs, systolic mur mur Pulses: PRESENT: normal dorsalis pedis pul Vascular exam: PRESENT: normal capillary refill GI/Abdominal exam: PRESENT: normal bowel sounds, soft. ABSENT: distended, guarding, mass, organolmegaly, rebound, tenderness Rectal exam: PRESENT: deferred Extremities exam: PRESENT: full ROM. ABSENT: calf tenderness, clubbing, pedal edema Neurological exam: PRESENT: alert, awake, oriented to person, oriented to place, oriented to time, oriented to situation, CN II-XII grossly intact. ABSENT: motor sensory deficit Psychiatric exam: PRESENT: appropriate affect, normal mood. ABSENT: homicidal ideation, suicidal ideation Skin exam: PRESENT: dry, intact, warm. 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 But we discussed today, future chemo maybe needed. Clinically he is doing well w/ excellent performance status. I had long discussion on whether he would consider more chemo in the future, and he said he would consider it if needed. Future courses of chemo would be non curative and palliative in nature and he understands that. So I asked pharmacy to make sure ID consult has been placed. Want their opinion on whether port can stay in. Awaiting repeat culture, if that is positive again, surely the port must come out but if negative, would like to see if we can keep the port. (2) Gram-negative bacteremia Is this a current diagnosis for this admission?: Yes Plan: Acetinobacter, is it colonization? Pt did have signs/sx of infection however. So plan cont carbapenum based rx today, this stain does not have resistance against carbapenums. Await ID input. (3) Pancytopenia due to antineoplastic chemotherapy Is this a current diagnosis for this admission?: Yes Plan: Plt ct stable post transfusion, hb has improved to 8.7. No transfusion needed today. - Time Time Spent with patient: 35 or more minutes - Inpatient Certification Based on my medical assessment, after consideration of the patient's comorbidities, presenting symptoms, or acuity I expect that the services needed warrant INPATIENT care.: Yes I certify that my determination is in accordance with my understanding of Medicare's requirements for reasonable and necessary INPATIENT services [42 CFR 412.3e].: Yes Medical Necessity: Need for IV Antibiotics
[2019-09-26] MEDS: SOTALOL HCL 80 MG TABLET PO SCH ×2 (09:31→22:22)
[2019-09-26] MEDS: FOLIC ACID 1 MG TABLET PO SCH (09:31)
--- NOTE | 2019-09-26 15:21 | PDOC PROGRESS REPORT ---
Subjective Progress Note for:: 09/26/19 Subjective:: Patient is doing well clinically and he states his rigors have stopped the past 24 hours. Reason For Visit: BACTEREMIA Physical Exam Vital Signs: Temp Pulse Resp BP Pulse Ox 98.1 F 59 L 16 111/65 100 09/26/19 11:24 09/26/19 11:24 09/26/19 11:24 09/26/19 11:24 09/26/19 11:24 Intake & Output 09/25/19 09/26/19 09/27/19 06:59 06:59 06:59 Intake Total 750 866 526 Balance 750 866 526 Weight 72.2 kg 72.2 kg General appearance: PRESENT: no acute distress, cooperative Mouth exam: PRESENT: neck supple Neck exam: ABSENT: JVD Respiratory exam: PRESENT: symmetrical, unlabored. ABSENT: accessory muscle use, retraction, tachypnea Cardiovascular exam: ABSENT: diastolic murmur, systolic murmur, tachycardia GI/Abdominal exam: ABSENT: ascites, distended Extremities exam: ABSENT: pedal edema Musculoskeletal exam: PRESENT: ambulatory Neurological exam: PRESENT: alert, awake, oriented to person, oriented to place, oriented to time Psychiatric exam: PRESENT: appropriate affect, normal mood. ABSENT: agitated, anxious Focused psych exam: ABSENT: pressured speech Skin exam: ABSENT: jaundice Results Laboratory Results: 09/25/19 05:30 09/24/19 07:28 09/23/19 14:15 Blood Blood Culture (PCR) - Final Acinetobacter Baumannii 09/24/19 05:35 Blood Blood Culture (PCR) - Final 09/23/19 14:41 Blood Blood Culture (PCR) - Final Acinetobacter Baumannii 09/23/19 14:41 Blood Blood Culture - Final Acinetobacter Baumannii/Haem 09/23/19 18:12 Troponin I < 0.012 Assessment and Plan - Diagnosis (1) Gram-negative bacteremia Is this a current diagnosis for this admission?: Yes Plan: Chest x-ray from 09/22/2019 was negative. Urinalysis also negative at that time. Initial blood culture growing Acinetobacter bacteremia which is usually from respiratory tract infections and central catheter associated infections. Today, I was informed by Lab that patient seems to be growing a 2nd bacteria in the blood on prior cultures including most recent culture called Stenotrophomonas - Awaiting final identificantion. Stenotrophomonas is a rather uncommon MDR bacteria which seems to be associated with catheter infections. Patient has Sulfa allergy limiting bactrim use. I will discontinue meropenem and put patient on Levaquin IV which is a known treatment alternatives for Steno. Acinetobacter sensitivity shows susceptibility to Levaquin as well. Await Infectious disease input for further guidance regarding ABX selection and whether or not port can be maintained. (2) Paroxysmal atrial fibrillation Is this a current diagnosis for this admission?: Yes Plan: Continue sotalol. Currently in sinus rhythm. 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 Follows with Dr. Arzate. Started day 1 of cycle 3 on September 11. Oncology following. (4) Thrombocytopenia Is this a current diagnosis for this admission?: Yes Plan: Likely secondary to chemotherapy. Transfused 2 packs of platelets on 09/23/2019. Platelets holding stable for now. Transfuse again if <10. - Time Time Spent with patient: Less than 15 minutes
[2019-09-26] MEDS ORDERED: LEVOFLOXACIN 750 MG/D5W RTU 750 MG/150 ML RTUPB IV SCH (15:30)
--- NOTE | 2019-09-26 19:00 | Progress Note ---
Provider Note Provider Note: Patient states allergy to levofloxacin causes he still to be operated on him to go into A. fib. I explained to him that these are allergic effects of Levaquin but patient would like it to be changed. I will change antibiotics to ceftazidime.
[2019-09-26] MEDS ORDERED: CEFTAZIDIME INJ 1 GM VIAL IV SCH (22:00)
[2019-09-26] MEDS: CEFTAZIDIME PENTAHYDRATE 2 GM in DEXTROSE 5%-WATER 100 ML IV SCH (22:22)
[2019-09-27 05:16] LABS: HEMOGLOBIN 8.6 g/dL (13.5-17.0); MEAN CORPUSCULAR HEMOGLOBIN 38.7 pg (27.0-33.4); MEAN CORPUSCULAR HGB CONC 35.6 g/dL (32.0-36.0); MEAN CORPUSCULAR VOLUME 109 fl (80-97); RED BLOOD COUNT 2.21 10^6/uL (4.35-5.55); RED CELL DISTRIBUTION WIDTH 15.4 % (11.5-14.0); WHITE BLOOD COUNT 4.2 10^3/uL (4.0-10.5)
[2019-09-27 05:33] LABS: ANION GAP 7 (5-19); BLOOD UREA NITROGEN 14 mg/dL (7-20); CALCIUM 8.8 mg/dL (8.4-10.2); CARBON DIOXIDE 26 mmol/L (22-30); CHLORIDE 104 mmol/L (98-107); GLUCOSE 96 mg/dL (75-110); POTASSIUM 3.8 mmol/L (3.6-5.0)
[2019-09-27 05:46] LABS: PLATELET COUNT 24 10^3/uL (150-450)
[2019-09-27] MEDS: CEFTAZIDIME PENTAHYDRATE 2 GM in DEXTROSE 5%-WATER 100 ML IV SCH (06:15)
--- NOTE | 2019-09-27 08:24 | PDOC PROGRESS REPORT ---
Subjective Progress Note for:: 09/27/19 Subjective:: Had long discussion w/ ID and micro today, spent 45 min in discussio n/coordination of care. Pt has both acitinobacter and stenothrophomonas in port cultures Reason For Visit: BACTEREMIA Physical Exam Vital Signs: Temp Pulse Resp BP Pulse Ox 98.2 F 61 16 111/78 100 09/26/19 23:59 09/26/19 23:59 09/26/19 23:59 09/26/19 23:59 09/26/19 23:59 Intake & Output 09/26/19 09/27/19 09/28/19 06:59 06:59 06:59 Intake Total 866 773 Balance 866 773 Weight 72.2 kg General appearance: PRESENT: no acute distress, well-developed, well-nourished Head exam: PRESENT: atraumatic, normocephalic Eye exam: PRESENT: conjunctiva pink, EOMI, PERRLA. ABSENT: scleral icterus Ear exam: PRESENT: normal external ear exam Mouth exam: PRESENT: moist, tongue midline Neck exam: ABSENT: carotid bruit, JVD, lymphadenopathy, thyromegaly Respiratory exam: PRESENT: clear to auscultation abad. ABSENT: rales, rhonchi, wheezes Cardiovascular exam: PRESENT: RRR. ABSENT: diastolic murmur, rubs, systolic murmur Pulses: PRESENT: normal dorsalis pedis pul Vascular exam: PRESENT: normal capillary refill GI/Abdominal exam: PRESENT: normal bowel sounds, soft. ABSENT: distended, guarding, mass, organolmegaly, rebound, tenderness Rectal exam: PRESENT: deferred Extremities exam: PRESENT: full ROM. ABSENT: calf tenderness, clubbing, pedal edema Neurological exam: PRESENT: alert, awake, oriented to person, oriented to place, oriented to time, oriented to situation, CN II-XII grossly intact. ABSENT: motor sensory deficit Psychiatric exam: PRESENT: appropriate affect, normal mood. ABSENT: homicidal ideation, suicidal ideation Skin exam: PRESENT: dry, intact, warm. ABSENT: cyanosis, rash Results Laboratory Results: 09/27/19 04:35 09/27/19 04:35 09/27/19 09/27/19 04:35 04:35 WBC 4.2 RBC 2.21 L Hgb 8.6 L Hct 24.0 L MCV 109 H MCH 38.7 H MCHC 35.6 RDW 15.4 H Plt Count 24 L* Sodium 137.4 Potassium 3.8 Chloride 104 Carbon Dioxide 26 Anion Gap 7 BUN 14 Creatinine 0.95 Est GFR ( Amer) > 60 Glucose 96 Calcium 8.8 Magnesium 2.3 09/25/19 15:50 Blood Blood Culture (PCR) - Final 09/25/19 15:30 Blood Blood Culture (PCR) - Final 09/24/19 05:35 Blood Blood Culture (PCR) - Final 09/24/19 05:35 Blood Blood Culture - Final Stenotrophomonas Maltophilia 09/23/19 14:15 Blood Blood Culture (PCR) - Final Acinetobacter Baumannii 09/23/19 14:15 Blood Blood Culture - Final Stenotrophomonas Maltophilia Acinetobacter Baumannii/Haem 09/23/19 14:41 Blood Blood Culture (PCR) - Final Acinetobacter Baumannii 09/23/19 14:41 Blood Blood Culture - Final Acinetobacter Baumannii/Haem 09/23/19 18:12 Troponin I < 0.012 Assessment & Plan - Diagnosis (1) Non Hodgkin's lymphoma Qualifiers: 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 Agree w/ port removal (2) Gram-negative bacteremia Is this a current diagnosis for this admission?: Yes Plan: d/c'd ceftaz, started meropenum and minocycline per Dr. Hawkins, ID verbal recommendations, port needs to come out, consulted surgery for this. Pt will need 7 days IV atbx from last neg culture, no permanent line can be placed until we ensure bacteria cleared (3) Pancytopenia due to antineoplastic chemotherapy Is this a current diagnosis for this admission?: Yes Plan: Cont to monitor, transfuse plt if ct <10 or hb <8 - Time Time Spent with patient: 35 or more minutes
[2019-09-27] MEDS: SOTALOL HCL 80 MG TABLET PO SCH ×2 (09:10→21:42)
[2019-09-27] MEDS: FOLIC ACID 1 MG TABLET PO SCH (09:10)
[2019-09-27] MEDS ORDERED: LORAZEPAM 0.5 MG TABLET PO PRN (09:17)
[2019-09-27] MEDS ORDERED: LIDOCAINE 1% INJ-PF (10 MG/ML) 30 ML SDV ONE (12:40)
--- NOTE | 2019-09-27 12:59 | Progress Note ---
Provider Note Provider Note: [facility] Telephone Advice Consultation Chart reviewed. Patient is a 68-year-old man with atrial fibrillation and B cell lymphoma who is actively getting chemotherapy. His last dose per oncology note was on 09/12. Patient has a port. Per notes, he recently had a bloodstream infection for which he received 2 weeks of therapy. Two days prior to admission he was experiencing fever, chills, rigors. He had blood cultures done and these came back positive. He was called to come to the hospital. His blood cultures grew 2 different morphotypes of Acinetobacter baumannii and Stenotrophomonas. Patient has been on antibiotics, he is doing better. ID has been consulted for antibiotic recommendations and comment on need for port removal vs salvage. PMH: Atrial Fibrillation B cell lymphoma on chemotherapy Allergies: levofloxacin Allergy (Mild, Verified 04/17/19 11:43) rash amoxicillin Allergy (Unknown, Verified 04/17/19 11:43) Sulfa (Sulfonamide Antibiotics) Allergy (Verified 04/17/19 11:43) Hives Medications: Folic Acid [Folvite 1 mg Tablet] 1 mg PO DAILY 09/23/19 Sotalol HCl [Betapace 80 mg Tablet] 40 mg PO Q12 09/23/19 Vital Signs: Temp Pulse Resp BP Pulse Ox 98.2 F 61 16 111/78 100 09/26/19 23:59 09/26/19 23:59 09/26/19 23:59 09/26/19 23:59 09/26/19 23:59 Intake & Output 09/26/19 09/27/19 09/28/19 06:59 06:59 06:59 Intake Total 866 773 Balance 866 773 Weight 72.2 kg Weight/Height Weight 72.2 kg Height 5 ft 7 in Laboratories: 09/27/19 04:35 09/27/19 04:35 MCV 109 fl (80-97) H 09/27/19 04:35 MCH 38.7 pg (27.0-33.4) H 09/27/19 04:35 MCHC 35.6 g/dL (32.0-36.0) 09/27/19 04:35 RDW 15.4 % (11.5-14.0) H 09/27/19 04:35 Seg Neutrophils % Not Reportable 09/23/19 14:15 Chloride 104 mmol/L (98-107) 09/27/19 04:35 Carbon Dioxide 26 mmol/L (22-30) 09/27/19 04:35 Anion Gap 7 (5-19) 09/27/19 04:35 Est GFR ( Amer) > 60 (>60) 09/27/19 04:35 Glucose 96 mg/dL (75-110) 09/27/19 04:35 Calcium 8.8 mg/dL (8.4-10.2) 09/27/19 04:35 Phosphorus 2.5 mg/dL (2.5-4.5) 09/23/19 14:15 Magnesium 2.3 mg/dL (1.6-2.3) 09/27/19 04:35 Total Bilirubin 1.0 mg/dL (0.2-1.3) 09/23/19 14:15 AST 75 U/L (17-59) H 09/23/19 14:15 Alkaline Phosphatase 104 U/L (38-126) 09/23/19 14:15 Total Protein 6.3 g/dL (6.3-8.2) 09/23/19 14:15 Albumin 3.7 g/dL (3.5-5.0) 09/23/19 14:15 Vitamin B12 > 1000.0 pg/mL (239-931) H 09/24/19 07:28 Folate 18.80 ng/mL (>2.76) 09/24/19 07:28 TSH 1.36 uIU/mL (0.47-4.68) 09/24/19 07:28 Blood Type A NEGATIVE 09/23/19 15:36 Antibody Screen NEGATIVE 09/23/19 15:36 09/25/19 15:30 Blood Blood Culture (PCR) - Final 09/25/19 15:50 Blood Blood Culture (PCR) - Final 09/24/19 05:35 Blood Blood Culture (PCR) - Final 09/24/19 05:35 Blood Blood Culture - Final Stenotrophomonas Maltophilia 09/23/19 14:15 Blood Blood Culture (PCR) - Final Acinetobacter Baumannii 09/23/19 14:15 Blood Blood Culture - Final Stenotrophomonas Maltophilia Acinetobacter Baumannii/Haem 09/23/19 14:41 Blood Blood Culture (PCR) - Final Acinetobacter Baumannii 09/23/19 14:41 Blood Blood Culture - Final Acinetobacter Baumannii/Haem 09/23/19 18:12 Troponin I < 0.012 Assessment and Recommendations: Patient evaluated for port related bloodstream infection with 2 different morphotypes of Acinetobacter baumannii and Stenotrophomonas maltophilia. He has been on antibiotics including ceftazidime and meropenem. Stenotrophomonas is resistant to ceftazidime and patient has allergy to sulfas and fluoroquinolones. Minocycline is the only/safest alternative at this time (ideally would obtain susceptibilities but the lab is unable to run susceptibility for tetracyclines). Acinetobacter can be covered with meropenem but it seems that both morphotypes are susceptible to minocycline as well. The port needs to be removed at this point, there are 2 different organisms growing from cultures. The only option to salvage the port is doing lock therapy + systemic antibiotics, but it will be very difficult. Therefore port removal and systemic antibiotics for 7 days from port removal (clearance of blood cultures after removal of the port needs to be documented) is recommended. Can give Minocycline alone to cover both organisms and follow clinically. Please call if questions. Zee Hawkins MD [facility] [phone]
[2019-09-27] MEDS ORDERED: LIDOCAINE 1% INJ-PF (10 MG/ML) 30 ML SDV INJ PRN (13:05)
[2019-09-27] MEDS: MEROPENEM 1 GM in NORMAL SALINE 50 ML IV SCH ×2 (14:36→21:41)
--- NOTE | 2019-09-27 14:40 | PDOC PROGRESS REPORT ---
Subjective Progress Note for:: 09/27/19 Subjective:: The patient is resting comfortably. His dropped off the minocycline to treat the Stenotrophomonas maltophilia. He sent a prescription to the pharmacy as it is not a stock item for us. Please also see Dr. Ross Sow's infectious disease note for details of the treatment plan. Reason For Visit: BACTEREMIA Physical Exam Vital Signs: Temp Pulse Resp BP Pulse Ox 97.8 F 67 18 103/67 100 09/27/19 10:37 09/27/19 10:37 09/27/19 10:37 09/27/19 10:37 09/27/19 10:37 Intake & Output 09/26/19 09/27/19 09/28/19 06:59 06:59 06:59 Intake Total 866 773 720 Balance 866 773 720 Weight 72.2 kg General appearance: PRESENT: no acute distress, cooperative, well-developed Head exam: PRESENT: atraumatic, normocephalic Eye exam: PRESENT: conjunctiva pink. ABSENT: scleral icterus Ear exam: PRESENT: normal external ear exam. ABSENT: bleeding, drainage Respiratory exam: PRESENT: clear to auscultation abad, symmetrical, unlabored. ABSENT: prolonged expiratory phas, rales, rhonchi, tachypnea, wheezes Cardiovascular exam: PRESENT: RRR, +S1, +S2. ABSENT: diastolic murmur, irregula r rhythm, systolic murmur GI/Abdominal exam: PRESENT: normal bowel sounds, soft. ABSENT: distended, guarding, tenderness Rectal exam: PRESENT: deferred Gentrourinary exam: ABSENT: indwelling catheter Extremities exam: ABSENT: pedal edema Musculoskeletal exam: PRESENT: ambulatory, normal inspection. ABSENT: deformity Neurological exam: PRESENT: alert, awake, oriented to person, oriented to place, oriented to time, oriented to situation, CN II-XII grossly intact. ABSENT: altered, motor sensory deficit Focused psych exam: ABSENT: delusional, paranoid, restlessness Skin exam: PRESENT: dry, normal color, warm Results Laboratory Results: 09/27/19 04:35 09/27/19 04:35 09/27/19 09/27/19 04:35 04:35 WBC 4.2 RBC 2.21 L Hgb 8.6 L Hct 24.0 L MCV 109 H MCH 38.7 H MCHC 35.6 RDW 15.4 H Plt Count 24 L* Sodium 137.4 Potassium 3.8 Chloride 104 Carbon Dioxide 26 Anion Gap 7 BUN 14 Creatinine 0.95 Est GFR ( Amer) > 60 Glucose 96 Calcium 8.8 Magnesium 2.3 09/25/19 15:30 Blood Blood Culture (PCR) - Final 09/25/19 15:50 Blood Blood Culture (PCR) - Final 09/24/19 05:35 Blood Blood Culture (PCR) - Final 09/24/19 05:35 Blood Blood Culture - Final Stenotrophomonas Maltophilia 09/23/19 14:15 Blood Blood Culture (PCR) - Final Acinetobacter Baumannii 09/23/19 14:15 Blood Blood Culture - Final Stenotrophomonas Maltophilia Acinetobacter Baumannii/Haem 09/23/19 14:41 Blood Blood Culture (PCR) - Final Acinetobacter Baumannii 09/23/19 14:41 Blood Blood Culture - Final Acinetobacter Baumannii/Haem 09/23/19 18:12 Troponin I < 0.012 Assessment and Plan - Diagnosis (1) Gram-negative bacteremia Is this a current diagnosis for this admission?: Yes Plan: Chest x-ray from 09/22/2019 was negative. Urinalysis also negative at that time. Initial blood culture growing Acinetobacter bacteremia which is usually from respiratory tract infections and central catheter associated infections. Today, I was informed by Lab that patient seems to be growing a 2nd bacteria in the blood on prior cultures including most recent culture called Stenotrophomonas - Awaiting final identificantion. Stenotrophomonas is a rather uncommon MDR bacteria which seems to be associated with catheter infections. Patient has Sulfa allergy limiting bactrim use. I will discontinue meropenem and put patient on Levaquin IV which is a known treatment alternatives for Steno. Acinetobacter sensitivity shows susceptibility to Levaquin as well. Await Infectious disease input for further guidance regarding ABX selection and whether or not port can be maintained. 09/27/2019 The patient will be on meropenem and minocycline. This is per infectious diseases. (2) Paroxysmal atrial fibrillation Is this a current diagnosis for this admission?: Yes Plan: Continue sotalol. Currently in sinus rhythm. 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 Follows with Dr. Arzate. Started day 1 of cycle 3 on September 11. Oncology following. 09/27/2019 Notes current infection chemotherapy will be delayed based on patient's recovery from this infection. (4) Thrombocytopenia Is this a current diagnosis for this admission?: Yes Plan: Likely secondary to chemotherapy. Transfused 2 packs of platelets on 09/23/2019. Platelets holding stable for now. Transfuse again if <10. 09/27/2019 Continue to monitor platelets. Posttransfusion they were stable but seem to be trickling down. Transfuse if platelet count is less than 10. (5) Anemia associated with chemotherapy Is this a current diagnosis for this admission?: Yes Plan: 09/27/2019 Hemoglobin is stable. Continue to monitor. - Time Time Spent with patient: 15-24 minutes Medications reviewed and adjusted accordingly: Yes Anticipated discharge: Home
[2019-09-27] MEDS ORDERED: MINOCYCLINE 100 MG PO ONE (15:30)
[2019-09-27] MEDS: LACTOBACILLUS ACIDOPHILUS 250 MG TAB PO SCH (17:04)
--- NOTE | 2019-09-27 21:55 | Operative Report ---
Nonrecallable Operative Report DATE OF SURGERY: 09/27/19 PREOPERATIVE DIAGNOSIS: Infected left chest Mediport POSTOPERATIVE DIAGNOSIS: Same as above OPERATION: removal of left chest Mediport SURGEON: JADYN GARNER ANESTHESIA: Local TISSUE REMOVED OR ALTERED: Mediport COMPLICATIONS: None apparent ESTIMATED BLOOD LOSS: Minimal PROCEDURE: Drains/implants: None. Procedure in detail: After informed consent was obtained, the patient was laid in the supine position in the hospital room. The area of the left chest was prepped and draped in a normal sterile fashion. 1% lidocaine was used to infiltrate the skin around the Mediport. A scalpel was used to incise the previous scar. The capsule was incised with the scalpel. The catheter was then removed from the vein. Pressure was held, and hemostasis was achieved. The Mediport hub was then removed from the pocket. The subcutaneous tissues were then closed using 3-0 Vicryl suture in simple running fashion. The overlying skin was closed in 3-0 Vicryl suture in interrupted subcuticular fashion. A dressing was placed, and the procedure was concluded. All sponge, instrument, and needle counts were correct. Condition: Stable.
[2019-09-28] MEDS: MEROPENEM 1 GM in NORMAL SALINE 50 ML IV SCH ×3 (05:32→21:36)
[2019-09-28 05:56] LABS: HEMATOCRIT 25.3 % (37.9-51.0); HEMOGLOBIN 8.8 g/dL (13.5-17.0); MEAN CORPUSCULAR HEMOGLOBIN 38.1 pg (27.0-33.4); MEAN CORPUSCULAR HGB CONC 34.8 g/dL (32.0-36.0); MEAN CORPUSCULAR VOLUME 110 fl (80-97); RED BLOOD COUNT 2.31 10^6/uL (4.35-5.55); RED CELL DISTRIBUTION WIDTH 15.9 % (11.5-14.0); WHITE BLOOD COUNT 4.6 10^3/uL (4.0-10.5)
[2019-09-28 05:58] LABS: ANION GAP 7 (5-19); BLOOD UREA NITROGEN 18 mg/dL (7-20); CALCIUM 8.9 mg/dL (8.4-10.2); CARBON DIOXIDE 26 mmol/L (22-30); CHLORIDE 105 mmol/L (98-107); GLUCOSE 91 mg/dL (75-110); POTASSIUM 4.1 mmol/L (3.6-5.0)
[2019-09-28 06:29] LABS: ABSOLUTE LYMPHOCYTES# (MANUAL) 1.2 10^3/uL (0.5-4.7); ABSOLUTE MONOCYTES # (MANUAL) 0.5 10^3/uL (0.1-1.4); BAND NEUTROPHILS % (MANUAL) 9 % (3-5); BASOPHILS % (MANUAL) 0 % (0-2); EOSINOPHILS % (MANUAL) 1 % (0-6); LYMPHOCYTES % (MANUAL) 27 % (13-45); METAMYELOCYTES % (MANUAL) 1 % (0-1); MONOCYTES % (MANUAL) 10 % (3-13); MYELOCYTES % (MANUAL) 1 % (0); SEGMENTED NEUTROPHILS % (MAN) 51 % (42-78); TOTAL CELLS COUNTED 100
[2019-09-28 06:32] LABS: ANISOCYTOSIS SLIGHT; OVALOCYTES SLIGHT; PLATELET COMMENT DECREASED; POIKILOCYTOSIS SLIGHT; POLYCHROMASIA SLIGHT; TEAR DROP CELLS SLIGHT; TOXIC GRANULATION 1+
[2019-09-28 06:43] LABS: PLATELET COUNT 29 10^3/uL (150-450)
--- NOTE | 2019-09-28 07:49 | PDOC PROGRESS REPORT ---
Subjective Progress Note for:: 09/28/19 Subjective:: No acute events overnight, port removed Reason For Visit: BACTEREMIA Physical Exam Vital Signs: Temp Pulse Resp BP Pulse Ox 97.8 F 61 18 95/68 L 97 09/28/19 05:30 09/28/19 05:30 09/28/19 05:30 09/28/19 05:30 09/28/19 05:30 Intake & Output 09/27/19 09/28/19 09/29/19 06:59 06:59 06:59 Intake Total 773 820 Balance 773 820 Weight 72.2 kg General appearance: PRESENT: no acute distress, well-developed, well-nourished Head exam: PRESENT: atraumatic, normocephalic Eye exam: PRESENT: conjunctiva pink, EOMI, PERRLA. ABSENT: scleral icterus Ear exam: PRESENT: normal external ear exam Mouth exam: PRESENT: moist, tongue midline Neck exam: ABSENT: carotid bruit, JVD, lymphadenopathy, thyromegaly Respiratory exam: PRESENT: clear to auscultation abad. ABSENT: rales, rhonchi, wheezes Cardiovascular exam: PRESENT: RRR. ABSENT: diastolic murmur, rubs, systolic murmur Pulses: PRESENT: normal dorsalis pedis pul Vascular exam: PRESENT: normal capillary refill GI/Abdominal exam: PRESENT: normal bowel sounds, soft. ABSENT: distended, guarding, mass, organolmegaly, rebound, tenderness Rectal exam: PRESENT: deferred Extremities exam: PRESENT: full ROM. ABSENT: calf tenderness, clubbing, pedal edema Neurological exam: PRESENT: alert, awake, oriented to person, oriented to place, oriented to time, oriented to situation, CN II-XII grossly intact. ABSENT: motor sensory deficit Psychiatric exam: PRESENT: appropriate affect, normal mood. ABSENT: homicidal ideation, suicidal ideation Skin exam: PRESENT: dry, intact, warm. ABSENT: cyanosis, rash Results Laboratory Results: 09/28/19 05:04 09/28/19 05:04 09/28/19 09/28/19 05:04 05:04 WBC 4.6 RBC 2.31 L Hgb 8.8 L Hct 25.3 L MCV 110 H MCH 38.1 H MCHC 34.8 RDW 15.9 H Plt Count 29 L* Seg Neutrophils % Not Reportable Sodium 137.8 Potassium 4.1 Chloride 105 Carbon Dioxide 26 Anion Gap 7 BUN 18 Creatinine 1.07 Est GFR ( Amer) > 60 Glucose 91 Calcium 8.9 Magnesium 2.4 H 09/25/19 15:30 Blood Blood Culture (PCR) - Final 09/25/19 15:50 Blood Blood Culture (PCR) - Final 09/24/19 05:35 Blood Blood Culture (PCR) - Final 09/24/19 05:35 Blood Blood Culture - Final Stenotrophomonas Maltophilia 09/23/19 14:15 Blood Blood Culture (PCR) - Final Acinetobacter Baumannii 09/23/19 14:15 Blood Blood Culture - Final Stenotrophomonas Maltophilia Acinetobacter Baumannii/Haem 09/23/19 18:12 Troponin I < 0.012 Assessment & Plan - Diagnosis (1) Non Hodgkin's lymphoma Qualifiers: 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 Will follow (2) Gram-negative bacteremia Is this a current diagnosis for this admission?: Yes Plan: S/p port removal, initiation of meropenum and minocycline for both bacteria, needs 7 days post negative culture, ?need to repeat culture from yesterday given +GPC?? Coag neg staph so likely contaminant? Will allow hospitalist team to decide and to discuss w/ ID if needed . (3) Pancytopenia due to antineoplastic chemotherapy Is this a current diagnosis for this admission?: Yes Plan: Cont to monitor counts every other day while admitted, qd cbc and labs no longer needed. - Time Time Spent with patient: 35 or more minutes
[2019-09-28] MEDS: LACTOBACILLUS ACIDOPHILUS 250 MG TAB PO SCH ×2 (09:22→17:11)
[2019-09-28] MEDS: SOTALOL HCL 80 MG TABLET PO SCH ×2 (09:22→21:37)
[2019-09-28] MEDS: FOLIC ACID 1 MG TABLET PO SCH (09:22)
[2019-09-28] MEDS ORDERED: MINOCYCLINE 100 MG PO ONE (10:00)
--- NOTE | 2019-09-28 11:43 | PDOC CONSULTATION ---
Consultation Consult Date: 09/28/19 Provider Consulted: SURGICAL SURGICALIST Consult reason:: Infected Mediport History of Present Illness Admission Date/PCP: 09/23/19 12:41 JUSTIN GILLESPIE MD Patient complains of: Infected Mediport History of Present Illness: KRUPA VERMA is a 68 year old male seen in consultation at the request of Dr. Carballo. The patient is receiving chemotherapy for lymphoma. He has subsequently developed bacteremia that has persisted despite antibiotic therapy. It is believed that the Mediport is the cause of his issues. The patient repo rts fatigue, malaise, easy bleeding, fevers, and chills. He denies abdominal pain, chest pain, shortness of breath. 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, Skin Cancer GI Medical History: Denies: Hepatitis, Hiatal Hernia Musculoskeltal Medical History: Denies: Arthritis Skin Medical History: Reports: Psoriasis Psychiatric Medical History: Denies: Depression Hematology: Denies: Anemia, Sickle Cell Disease Past Surgical History Past Surgical History: Reports: Tonsillectomy, Other - SKIN BIOPSY, Mediport insertion x2 Denies: Pacemaker Social History Lives with: Family Smoking Status: Former Smoker Electronic Cigarette use?: No Frequency of Alcohol Use: Rare Hx Recreational Drug Use: No Drugs: None Hx Prescription Drug Abuse: No - Advance Directive Resuscitation Status: Full Code Family History Family History: Arthritis, CAD, CVA, Hyperlipidemia, Hypertension, Malignancy Parental Family History Reviewed: Yes Children Family History Reviewed: Yes Sibling(s) Family History Reviewed.: Yes Medication/Allergy Home Medications: Folic Acid [Folvite 1 mg Tablet] 1 mg PO DAILY 09/23/19 Sotalol HCl [Betapace 80 mg Tablet] 40 mg PO Q12 09/23/19 Allergies/Adverse Reactions: levofloxacin Allergy (Mild, Verified 04/17/19 11:43) rash amoxicillin Allergy (Unknown, Verified 04/17/19 11:43) Sulfa (Sulfonamide Antibiotics) Allergy (Verified 04/17/19 11:43) Hives Review of Systems Constitutional: PRESENT: chills, fatigue, fever(s), weakness. ABSENT: anorexia Ears: ABSENT: hearing changes Nose, Mouth, and Throat: ABSENT: sore throat Cardiovascular: ABSENT: chest pain Respiratory: ABSENT: cough, dyspnea Gastrointestinal: ABSENT: abdominal pain, bloating, nausea, vomiting Genitourinary: ABSENT: dysuria Musculoskeletal: ABSENT: back pain Integumentary: ABSENT: pruritus, rash Neurological: ABSENT: confusion, convulsions, dizziness Psychiatric: ABSENT: anxiety, depression Endocrine: ABSENT: cold intolerance Hematologic/Lymphatic: PRESENT: easy bleeding, easy bruising Physical Exam Vital Signs: Temp Pulse Resp BP Pulse Ox 98.3 F 64 16 106/67 100 09/27/19 19:07 09/27/19 19:07 09/27/19 19:07 09/27/19 19:07 09/27/19 19:07 Intake & Output 09/26/19 09/27/19 09/28/19 06:59 06:59 06:59 Intake Total 866 773 770 Balance 866 773 770 Weight 72.2 kg General appearance: PRESENT: no acute distress, cooperative Head exam: PRESENT: atraumatic, normocephalic Eye exam: PRESENT: EOMI, PERRLA Mouth exam: PRESENT: moist, neck supple Neck exam: ABSENT: meningismus, tenderness, thyromegaly, tracheal deviation Respiratory exam: PRESENT: unlabored, other - Left chest Mediport in place. ABSENT: tachypnea, wheezes Cardiovascular exam: ABSENT: tachycardia Pulses: PRESENT: normal radial pulses Vascular exam: PRESENT: normal capillary refill GI/Abdominal exam: PRESENT: soft. ABSENT: distended, rigid, tenderness Rectal exam: PRESENT: deferred Extremities exam: ABSENT: clubbing Musculoskeletal exam: ABSENT: deformity Neurological exam: PRESENT: alert, awake, oriented to person, oriented to place, oriented to time, oriented to situation Psychiatric exam: ABSENT: agitated, anxious, depressed Focused psych exam: ABSENT: delusional Skin exam: ABSENT: cyanosis, erythema, jaundice Results Laboratory Results: 09/27/19 04:35 09/27/19 04:35 09/27/19 09/27/19 04:35 04:35 WBC 4.2 RBC 2.21 L Hgb 8.6 L Hct 24.0 L MCV 109 H MCH 38.7 H MCHC 35.6 RDW 15.4 H Plt Count 24 L* Sodium 137.4 Potassium 3.8 Chloride 104 Carbon Dioxide 26 Anion Gap 7 BUN 14 Creatinine 0.95 Est GFR ( Amer) > 60 Glucose 96 Calcium 8.8 Magnesium 2.3 09/25/19 15:30 Blood Blood Culture (PCR) - Final 09/25/19 15:50 Blood Blood Culture (PCR) - Final 09/24/19 05:35 Blood Blood Culture (PCR) - Final 09/24/19 05:35 Blood Blood Culture - Final Stenotrophomonas Maltophilia 09/23/19 14:15 Blood Blood Culture (PCR) - Final Acinetobacter Baumannii 09/23/19 14:15 Blood Blood Culture - Final Stenotrophomonas Maltophilia Acinetobacter Baumannii/Haem 09/23/19 18:12 Troponin I < 0.012 Assessment & Plan - Diagnosis (1) Infected venous access port Qualifiers: Encounter type: initial encounter Qualified Code(s): T80.219A - Unspecified infection due to central venous catheter, initial encounter Is this a current diagnosis for this admission?: Yes - Plan Summary Plan Summary: This is a 68-year-old male with persistent bacteremia, and a likely infected Mediport. I have been consulted to remove the Mediport. I plan to perform this at the bedside today. The patient will require intravenous antibiotics to treat his bacteremia. In the interim, I recommend either peripheral IVs or PICC line (central versus peripheral) if long-term/home antibiotics are required. The patient will not qualify for replacement of his Mediport until blood cultures are negative and final. This is consistent with IDSA guidelines regarding c atheter related infections. Surgery will sign off at this time. Please renotify us when the patient is ready for repeat Mediport insertion.
--- NOTE | 2019-09-28 12:26 | PDOC PROGRESS REPORT ---
Subjective Progress Note for:: 09/28/19 Subjective:: Was up walking in the halls earlier. Reviewed blood cultures. Blood cultures from yesterday have coagulase-negative staph which is a contaminant. Reason For Visit: BACTEREMIA Physical Exam Vital Signs: Temp Pulse Resp BP Pulse Ox 97.7 F 58 L 16 106/78 100 09/28/19 12:00 09/28/19 12:00 09/28/19 12:00 09/28/19 12:00 09/28/19 12:00 Intake & Output 09/27/19 09/28/19 09/29/19 06:59 06:59 06:59 Intake Total 773 870 Balance 773 870 Weight 72.2 kg General appearance: PRESENT: no acute distress, cooperative, well-developed Head exam: PRESENT: atraumatic, normocephalic Ear exam: PRESENT: normal external ear exam. ABSENT: bleeding, drainage Respiratory exam: PRESENT: clear to auscultation abad, symmetrical, unlabored. ABSENT: prolonged expiratory phas, rales, rhonchi, tachypnea, wheezes Cardiovascular exam: PRESENT: RRR, +S1, +S2, systolic murmur - Faint GI/Abdominal exam: PRESENT: normal bowel sounds, soft. ABSENT: distended, guarding, tenderness Rectal exam: PRESENT: deferred Gentrourinary exam: ABSENT: indwelling catheter Extremities exam: PRESENT: full ROM. ABSENT: pedal edema Musculoskeletal exam: PRESENT: ambulatory, normal inspection. ABSENT: deformity Neurological exam: PRESENT: alert, awake, oriented to person, oriented to place, oriented to time, oriented to situation, CN II-XII grossly intact. ABSENT: altered Psychiatric exam: PRESENT: appropriate affect. ABSENT: agitated, anxious Focused psych exam: ABSENT: delusional, paranoid, restlessness Results Laboratory Results: 09/28/19 05:04 09/28/19 05:04 09/28/19 09/28/19 05:04 05:04 WBC 4.6 RBC 2.31 L Hgb 8.8 L Hct 25.3 L MCV 110 H MCH 38.1 H MCHC 34.8 RDW 15.9 H Plt Count 29 L* Seg Neutrophils % Not Reportable Sodium 137.8 Potassium 4.1 Chloride 105 Carbon Dioxide 26 Anion Gap 7 BUN 18 Creatinine 1.07 Est GFR ( Amer) > 60 Glucose 91 Calcium 8.9 Magnesium 2.4 H 09/27/19 04:35 Blood Blood Culture (PCR) - Final Staphylococcus Species 09/25/19 15:50 Blood Blood Culture (PCR) - Final 09/25/19 15:50 Blood Blood Culture - Final Stenotrophomonas Maltophilia 09/25/19 15:30 Blood Blood Culture (PCR) - Final 09/25/19 15:30 Blood Blood Culture - Final Stenotrophomonas Maltophilia 09/23/19 18:12 Troponin I < 0.012 Assessment and Plan - Diagnosis (1) Gram-negative bacteremia Is this a current diagnosis for this admission?: Yes Plan: Chest x-ray from 09/22/2019 was negative. Urinalysis also negative at that time. Initial blood culture growing Acinetobacter bacteremia which is usually from respiratory tract infections and central catheter associated infections. Today, I was informed by Lab that patient seems to be growing a 2nd bacteria in the blood on prior cultures including most recent culture called Stenotrophomonas - Awaiting final identificantion. Stenotrophomonas is a rather uncommon MDR bacteria which seems to be associated with catheter infections. Patient has Sulfa allergy limiting bactrim use. I will discontinue meropenem and put patient on Levaquin IV which is a known treatment alternatives for Steno. Acinetobacter sensitivity shows susceptibility to Levaquin as well. Await Infectious disease input for further guidance regarding ABX selection and whether or not port can be maintained. 09/27/2019 The patient will be on meropenem and minocycline. This is per infectious diseases. 09/28/2019 The last positive blood cultures were on September 24. Closer review of the more recent blood culture results show that it is a coagulase-negative staph and not MRSA. No vancomycin will be added at this time. (2) Paroxysmal atrial fibrillation Is this a current diagnosis for this admission?: Yes Plan: Continue sotalol. Currently in sinus rhythm. 09/27/2019 Still in sinus rhythm on sotalol 09/28/2019 Excellent rate control on current regimen. No changes. 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 Follows with Dr. Arzate. Started day 1 of cycle 3 on September 11. Oncology following. 09/27/2019 Notes current infection chemotherapy will be delayed based on patient's recovery from this infection. 09/28/2019 No consideration of chemotherapy until this infection is resolved. (4) Thrombocytopenia Is this a current diagnosis for this admission?: Yes Plan: Likely secondary to chemotherapy. Transfused 2 packs of platelets on 09/23/2019. Platelets holding stable for now. Transfuse again if <10. 09/27/2019 Continue to monitor platelets. Posttransfusion they were stable but seem to be trickling down. Transfuse if platelet count is less than 10. 09/28/2019 We will continue to monitor platelet count. Will discuss with oncology regarding transfusion. (5) Anemia associated with chemotherapy Is this a current diagnosis for this admission?: Yes Plan: 09/27/2019 Hemoglobin is stable. Continue to monitor. 09/28/2019 Continue to monitor and discuss with oncology if transfusion is needed. - Time Time Spent with patient: Less than 15 minutes Medications reviewed and adjusted accordingly: Yes Anticipated discharge: Home Within: Other - After antibiotic therapy
--- NOTE | 2019-09-28 20:28 | Progress Note ---
Provider Note Provider Note: [facility] Telephone Advice Follow Up Update from previous consultation. Patient with port related bacteremia with Ac inetobacter baumannii, Stenotrophomonas maltophilia and most recent blood culture isolated Methicillin Resistant Staphylococcus. His port has been removed. He is currently on minocycline and meropenem. He has been doing well, afebrile, HD stable. Patient is a 68-year-old man with atrial fibrillation and B cell lymphoma who is actively getting chemotherapy. His last dose per oncology note was on 09/12. Patient has a port. Per notes, he recently had a bloodstream infection for which he received 2 weeks of therapy. Two days prior to admission he was experiencing fever, chills, rigors. He had blood cultures done and these came back positive. He was called to come to the hospital. His blood cultures grew 2 different morphotypes of Acinetobacter baumannii and Stenotrophomonas. Allergies: levofloxacin Allergy (Mild, Verified 04/17/19 11:43) rash amoxicillin Allergy (Unknown, Verified 04/17/19 11:43) Sulfa (Sulfonamide Antibiotics) Allergy (Verified 04/17/19 11:43) Hives Medications: Folic Acid [Folvite 1 mg Tablet] 1 mg PO DAILY 09/23/19 Sotalol HCl [Betapace 80 mg Tablet] 40 mg PO Q12 09/23/19 Vital Signs: Temp Pulse Resp BP Pulse Ox 98.0 F 53 L 16 101/61 100 09/28/19 16:00 09/28/19 16:00 09/28/19 16:00 09/28/19 16:00 09/28/19 16:00 Intake & Output 09/27/19 09/28/19 09/29/19 06:59 06:59 06:59 Intake Total 909 980 2424 Balance 696 429 8927 Weight 72.2 kg Weight/Height Weight 72.2 kg Height 5 ft 7 in Laboratories: 09/28/19 05:04 09/28/19 05:04 MCV 110 fl (80-97) H 09/28/19 05:04 MCH 38.1 pg (27.0-33.4) H 09/28/19 05:04 MCHC 34.8 g/dL (32.0-36.0) 09/28/19 05:04 RDW 15.9 % (11.5-14.0) H 09/28/19 05:04 Seg Neutrophils % Not Reportable 09/28/19 05:04 Chloride 105 mmol/L (98-107) 09/28/19 05:04 Carbon Dioxide 26 mmol/L (22-30) 09/28/19 05:04 Anion Gap 7 (5-19) 09/28/19 05:04 Est GFR ( Amer) > 60 (>60) 09/28/19 05:04 Glucose 91 mg/dL (75-110) 09/28/19 05:04 Calcium 8.9 mg/dL (8.4-10.2) 09/28/19 05:04 Phosphorus 2.5 mg/dL (2.5-4.5) 09/23/19 14:15 Magnesium 2.4 mg/dL (1.6-2.3) H 09/28/19 05:04 Total Bilirubin 1.0 mg/dL (0.2-1.3) 09/23/19 14:15 AST 75 U/L (17-59) H 09/23/19 14:15 Alkaline Phosphatase 104 U/L (38-126) 09/23/19 14:15 Total Protein 6.3 g/dL (6.3-8.2) 09/23/19 14:15 Albumin 3.7 g/dL (3.5-5.0) 09/23/19 14:15 Vitamin B12 > 1000.0 pg/mL (239-931) H 09/24/19 07:28 Folate 18.80 ng/mL (>2.76) 09/24/19 07:28 TSH 1.36 uIU/mL (0.47-4.68) 09/24/19 07:28 Blood Type A NEGATIVE 09/23/19 15:36 Antibody Screen NEGATIVE 09/23/19 15:36 09/27/19 04:35 Blood Blood Culture (PCR) - Final Staphylococcus Species 09/25/19 15:50 Blood Blood Culture (PCR) - Final 09/25/19 15:50 Blood Blood Culture - Final Stenotrophomonas Maltophilia 09/25/19 15:30 Blood Blood Culture (PCR) - Final 09/25/19 15:30 Blood Blood Culture - Final Stenotrophomonas Maltophilia 09/23/19 18:12 Troponin I < 0.012 Assessment and Recommendations: Patient evaluated for port related bloodstream infection with 2 different morphotypes of Acinetobacter baumannii and Stenotrophomonas maltophilia. New blood culture positive for Methicillin resistant Staphylococcus. The port is out. Will recommend new blood cultures now that the port has been removed. Minocycline is adequate for Acinetobacter and Stenotrophomonas. Add vancomycin for Staphylococcus. He will need at least 7 days of therapy for both. Please call if questions. Zee Hawkins MD [facility] [phone]
[2019-09-28] MEDS: MINOCYCLINE 100 MG PO SCH (21:36)
[2019-09-29] MEDS: MEROPENEM 1 GM in NORMAL SALINE 50 ML IV SCH ×2 (05:19→13:54)
[2019-09-29 05:26] LABS: HEMATOCRIT 25.9 % (37.9-51.0); HEMOGLOBIN 9.1 g/dL (13.5-17.0); MEAN CORPUSCULAR HEMOGLOBIN 38.5 pg (27.0-33.4); MEAN CORPUSCULAR HGB CONC 35.2 g/dL (32.0-36.0); MEAN CORPUSCULAR VOLUME 110 fl (80-97); RED BLOOD COUNT 2.36 10^6/uL (4.35-5.55); RED CELL DISTRIBUTION WIDTH 16.2 % (11.5-14.0); WHITE BLOOD COUNT 4.9 10^3/uL (4.0-10.5)
[2019-09-29 05:56] LABS: PLATELET COUNT 38 10^3/uL (150-450)
--- NOTE | 2019-09-29 08:27 | PDOC PROGRESS REPORT ---
Subjective Progress Note for:: 09/29/19 Subjective:: Patient doing well, reviewed notes, discussed case with hospitalist team extensively. Reason For Visit: BACTEREMIA Physical Exam Vital Signs: Temp Pulse Resp BP Pulse Ox 97.7 F 55 L 16 112/71 100 09/29/19 08:00 09/29/19 08:00 09/29/19 08:00 09/29/19 08:00 09/29/19 08:00 Intake & Output 09/28/19 09/29/19 09/30/19 06:59 06:59 06:59 Intake Total 870 1866 Balance 870 1866 Weight 72.2 kg 69.9 kg General appearance: PRESENT: no acute distress, well-developed, well-nourished Head exam: PRESENT: atraumatic, normocephalic Eye exam: PRESENT: conjunctiva pink, EOMI, PERRLA. ABSENT: scleral icterus Ear exam: PRESENT: normal external ear exam Mouth exam: PRESENT: moist, tongue midline Neck exam: ABSENT: carotid bruit, JVD, lymphadenopathy, thyromegaly Respiratory exam: PRESENT: clear to auscultation abad. ABSENT: rales, rhonchi, wheezes Cardiovascular exam: PRESENT: RRR. ABSENT: diastolic murmur, rubs, systolic murmur Pulses: PRESENT: normal dorsalis pedis pul Vascular exam: PRESENT: normal capillary refill GI/Abdominal exam: PRESENT: normal bowel sounds, soft. ABSENT: distended, guarding, mass, organolmegaly, rebound, tenderness Rectal exam: PRESENT: deferred Extremities exam: PRESENT: full ROM. ABSENT: calf tenderness, clubbing, pedal edema Neurological exam: PRESENT: alert, awake, oriented to person, oriented to place, oriented to time, oriented to situation, CN II-XII grossly intact. ABSENT: motor sensory deficit Psychiatric exam: PRESENT: appropriate affect, normal mood. ABSENT: homicidal ideation, suicidal ideation Skin exam: PRESENT: dry, intact, warm. ABSENT: cyanosis, rash Results Laboratory Results: 09/29/19 04:38 09/28/19 05:04 09/29/19 04:38 WBC 4.9 RBC 2.36 L Hgb 9.1 L Hct 25.9 L MCV 110 H MCH 38.5 H MCHC 35.2 RDW 16.2 H Plt Count 38 L 09/24/19 07:28 Blood Blood Culture - Final NO GROWTH IN 5 DAYS 09/27/19 04:35 Blood Blood Culture (PCR) - Final Staphylococcus Species 09/25/19 15:50 Blood Blood Culture (PCR) - Final 09/25/19 15:50 Blood Blood Culture - Final Stenotrophomonas Maltophilia 09/25/19 15:30 Blood Blood Culture (PCR) - Final 09/25/19 15:30 Blood Blood Culture - Final Stenotrophomonas Maltophilia 09/23/19 18:12 Troponin I < 0.012 Assessment & Plan - Diagnosis (1) Non Hodgkin's lymphoma Qualifiers: 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
[2019-09-29] MEDS: MINOCYCLINE 100 MG PO SCH (09:03)
[2019-09-29] MEDS: SOTALOL HCL 80 MG TABLET PO SCH (09:03)
[2019-09-29] MEDS: FOLIC ACID 1 MG TABLET PO SCH (09:03)
[2019-09-29] MEDS: LACTOBACILLUS ACIDOPHILUS 250 MG TAB PO SCH (09:03)
[2019-09-29 12:17] VITALS: BP 104/67
[2019-09-29] MEDS ORDERED: ONDANSETRON HCL INJ/PF 4 MG/2 ML SDV IV PRN (14:00)
--- NOTE | 2019-09-29 14:52 | PDOC DISCHARGE SUMMARY ---
Impression - Admit/DC Date/PCP Admission Date/Primary Care Provider: 09/23/19 12:41 JUSTIN CHU MD Discharge Date: 09/29/19 - Discharge Diagnosis (1) Gram-negative bacteremia Is this a current diagnosis for this admission?: Yes (2) Paroxysmal atrial fibrillation Is this a current diagnosis for this admission?: Yes (3) Non Hodgkin's lymphoma Is this a current diagnosis for this admission?: Yes (4) Thrombocytopenia Is this a current diagnosis for this admission?: Yes (5) Anemia associated with chemotherapy Is this a current diagnosis for this admission?: Yes - Additional Information Resuscitation Status: Full Code Referrals: DEJAH CARBALLO MD [ACTIVE STAFF] - 10/10/19 10:15 am Home Medications: Folic Acid [Folvite 1 mg Tablet] 1 mg PO DAILY 09/23/19 Sotalol HCl [Betapace 80 mg Tablet] 40 mg PO Q12 09/23/19 Lactobacillus Acidophilus [Bacid 250 mg Tablet] 500 mg PO BID tab 09/29/19 History of Present Illiness History of Present Illness: KRUPA VERMA is a 68 year old male with a history of paroxysmal atrial fibrillation, non-Hodgkin's lymphoma, recent central line infection status post completion of 2-week course of treatment [antibiotics unknown], who presents to the hospital as direct admission after discussion with Dr. Chu. Patient started having rigors 2 days ago. Also noted himself to being A. fib with rapid heart rate in the 150s at home on his monitor. Drank some fluids. Went to see Dr. Chu yesterday in the clinic who referred him to the ER after hydration. In the ER blood cultures were obtained, chest x-ray was negative and urine analysis was negative for infection. He was subsequently discharged home. Blood cultures result today with Acinetobacter and patient still having episodes of rigors at home. Otherwise patient feels fine and denies any cough, shortness of breath, diarrhea, dysuria or polyuria. Hospital Course Hospital Course: (1) Gram-negative bacteremia Is this a current diagnosis for this admission?: Yes Plan: Chest x-ray from 09/22/2019 was negative. Urinalysis also negative at that time. Initial blood culture growing Acinetobacter bacteremia which is usually from respiratory tract infections and central catheter associated infections. Today, I was informed by Lab that patient seems to be growing a 2nd bacteria in the blood on prior cultures including most recent culture called Stenotrophomonas - Awaiting final identificantion. Stenotrophomonas is a rather uncommon MDR bacteria which seems to be associated with catheter infections. Patient has Sulfa allergy limiting bactrim use. I will discontinue meropenem and put patient on Levaquin IV which is a known treatment alternatives for Steno. Acinetobacter sensitivity shows susceptibility to Levaquin as well. Await Infectious disease input for further guidance regarding ABX selection and whether or not port can be maintained. 09/27/2019 The patient will be on meropenem and minocycline. This is per infectious diseases. 09/28/2019 The last positive blood cultures were on September 24. Closer review of the more recent blood culture results show that it is a coagulase-negative staph and not MRSA. No vancomycin will be added at this time. 09/29/2019 Complete minocycline as an outpatient. I did read the infectious disease note. I called microbiology. I am confident that the coagulase-negative staph in the blood cultures from September 26 is a contaminant. Since his Port-A-Cath has been removed I will discharge the patient home on minocycline alone and he will follow-up with oncology. (2) Paroxysmal atrial fibrillation Is this a current diagnosis for this admission?: Yes Plan: Continue sotalol. Currently in sinus rhythm. 09/27/2019 Still in sinus rhythm on sotalol 09/28/2019 Excellent rate control on current regimen. No changes. 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 Follows with Dr. Arzate. Started day 1 of cycle 3 on September 11. Oncology following. 09/27/2019 Notes current infection chemotherapy will be delayed based on patient's recovery from this infection. 09/28/2019 No consideration of chemotherapy until this infection is resolved. 09/29/2019 Follow-up with Dr. Carballo to determine next treatment steps. (4) Thrombocytopenia Is this a current diagnosis for this admission?: Yes Plan: Likely secondary to chemotherapy. Transfused 2 packs of platelets on 09/23/2019. Platelets holding stable for now. Transfuse again if <10. 09/27/2019 Continue to monitor platelets. Posttransfusion they were stable but seem to be trickling down. Transfuse if platelet count is less than 10. 09/28/2019 We will continue to monitor platelet count. Will discuss with oncology regarding transfusion. 09/29/2019 Follow-up with blood work in Dr. Carballo's office (5) Anemia associated with chemotherapy Is this a current diagnosis for this admission?: Yes Plan: 09/27/2019 Hemoglobin is stable. Continue to monitor. 09/28/2019 Continue to monitor and discuss with oncology if transfusion is needed. 09/29/2019 Follow-up with Dr. Carballo Physical Exam Vital Signs: Temp Pulse Resp BP Pulse Ox 97.6 F 61 16 104/67 100 09/29/19 12:00 09/29/19 12:00 09/29/19 12:00 09/29/19 12:00 09/29/19 12:00 Intake & Output 09/28/19 09/29/19 09/30/19 06:59 06:59 06:59 Intake Total 870 1866 826 Balance 870 1866 826 Weight 72.2 kg 69.9 kg General appearance: PRESENT: no acute distress Respiratory exam: PRESENT: clear to auscultation abad, symmetrical, unlabored. ABSENT: rales, rhonchi, tachypnea, wheezes Cardiovascular exam: PRESENT: RRR, +S1, +S2 GI/Abdominal exam: PRESENT: normal bowel sounds, soft. ABSENT: distended, guarding, tenderness Neurological exam: PRESENT: alert, awake, oriented to person, oriented to place, oriented to time, oriented to situation, CN II-XII grossly intact Psychiatric exam: PRESENT: appropriate affect. ABSENT: agitated, anxious Results Laboratory Results: WBC 4.9 10^3/uL (4.0-10.5) 09/29/19 04:38 RBC 2.36 10^6/uL (4.35-5.55) L 09/29/19 04:38 Hgb 9.1 g/dL (13.5-17.0) L 09/29/19 04:38 Hct 25.9 % (37.9-51.0) L 09/29/19 04:38 MCV 110 fl (80-97) H 09/29/19 04:38 MCH 38.5 pg (27.0-33.4) H 09/29/19 04:38 MCHC 35.2 g/dL (32.0-36.0) 09/29/19 04:38 RDW 16.2 % (11.5-14.0) H 09/29/19 04:38 Plt Count 38 10^3/uL (150-450) L 09/29/19 04:38 Lymph % (Auto) Not Reportable 09/28/19 05:04 Luce % (Auto) Not Reportable 09/28/19 05:04 Eos % (Auto) Not Reportable 09/28/19 05:04 Baso % (Auto) Not Reportable 09/28/19 05:04 Absolute Neuts (auto) Not Reportable 09/28/19 05:04 Absolute Lymphs (auto) Not Reportable 09/28/19 05:04 Absolute Monos (auto) Not Reportable 09/28/19 05:04 Absolute Eos (auto) Not Reportable 09/28/19 05:04 Absolute Basos (auto) Not Reportable 09/28/19 05:04 Total Counted 100 09/28/19 05:04 Seg Neutrophils % Not Reportable 09/28/19 05:04 Seg Neuts % (Manual) 51 % (42-78) 09/28/19 05:04 Band Neutrophils % 9 % (3-5) H 09/28/19 05:04 Lymphocytes % (Manual) 27 % (13-45) 09/28/19 05:04 Atypical Lymphs % 4 % (0) 09/23/19 14:15 Monocytes % (Manual) 10 % (3-13) 09/28/19 05:04 Eosinophils % (Manual) 1 % (0-6) 09/28/19 05:04 Basophils % (Manual) 0 % (0-2) 09/28/19 05:04 Metamyelocytes % 1 % (0-1) 09/28/19 05:04 Myelocytes % 1 % (0) H 09/28/19 05:04 Abs Neuts (Manual) 2.9 10^3/uL (1.7-8.2) 09/28/19 05:04 Abs Lymphs (Manual) 1.2 10^3/uL (0.5-4.7) 09/28/19 05:04 Abs Monocytes (Manual) 0.5 10^3/uL (0.1-1.4) 09/28/19 05:04 Absolute Eos (Manual) 0.0 10^3/uL (0.0-0.6) 09/28/19 05:04 Abs Basophils (Manual) 0.0 10^3/uL (0.0-0.2) 09/28/19 05:04 Toxic Granulation 1+ 09/28/19 05:04 Dohle Bodies PRESENT 09/23/19 14:15 Platelet Comment DECREASED 09/28/19 05:04 Polychromasia SLIGHT 09/28/19 05:04 Poikilocytosis SLIGHT 09/28/19 05:04 Anisocytosis SLIGHT 09/28/19 05:04 Microcytosis 2+ 09/28/19 05:04 Macrocytosis 2+ 09/23/19 14:15 Tear Drop Cells SLIGHT 09/28/19 05:04 Ovalocytes SLIGHT 09/28/19 05:04 PT 14.3 SEC (11.4-15.4) 09/23/19 14:15 INR 1.11 09/23/19 14:15 APTT 51.2 SEC (23.5-35.8) H 09/23/19 14:15 Sodium 137.8 mmol/L (137-145) 09/28/19 05:04 Potassium 4.1 mmol/L (3.6-5.0) 09/28/19 05:04 Chloride 105 mmol/L (98-107) 09/28/19 05:04 Carbon Dioxide 26 mmol/L (22-30) 09/28/19 05:04 Anion Gap 7 (5-19) 09/28/19 05:04 BUN 18 mg/dL (7-20) 09/28/19 05:04 Creatinine 1.07 mg/dL (0.52-1.25) 09/28/19 05:04 Est GFR ( Amer) > 60 (>60) 09/28/19 05:04 Est GFR (MDRD) Non-Af > 60 (>60) 09/28/19 05:04 Glucose 91 mg/dL (75-110) 09/28/19 05:04 Calcium 8.9 mg/dL (8.4-10.2) 09/28/19 05:04 Phosphorus 2.5 mg/dL (2.5-4.5) 09/23/19 14:15 Magnesium 2.4 mg/dL (1.6-2.3) H 09/28/19 05:04 Total Bilirubin 1.0 mg/dL (0.2-1.3) 09/23/19 14:15 Direct Bilirubin 0.0 mg/dL (0.0-0.4) 09/23/19 14:15 Neonat Total Bilirubin Not Reportable 09/23/19 14:15 Neonat Direct Bilirubin Not Reportable 09/23/19 14:15 Neonat Indirect Bili Not Reportable 09/23/19 14:15 AST 75 U/L (17-59) H 09/23/19 14:15 ALT 133 U/L (<50) H 09/23/19 14:15 Alkaline Phosphatase 104 U/L (38-126) 09/23/19 14:15 Troponin I < 0.012 ng/mL 09/23/19 18:12 Total Protein 6.3 g/dL (6.3-8.2) 09/23/19 14:15 Albumin 3.7 g/dL (3.5-5.0) 09/23/19 14:15 Vitamin B12 > 1000.0 pg/mL (239-931) H 09/24/19 07:28 Folate 18.80 ng/mL (>2.76) 09/24/19 07:28 TSH 1.36 uIU/mL (0.47-4.68) 09/24/19 07:28 Blood Type A NEGATIVE 09/23/19 15:36 Antibody Screen NEGATIVE 09/23/19 15:36 09/23/19 18:12 Troponin I < 0.012 Plan Health Concerns: Recovery from this infection so the patient may resume chemotherapy Plan of Treatment: Complete minocycline therapy at home and follow-up with oncology Goals: Pleat resolution of the infection Time Spent: Greater than 30 Minutes Stroke Is this a Stroke Patient?: No Acute Heart Failure - Is this a Heart Failure Patient?: No
== END 2019-09-29 16:30 | disposition home health service (06) | DRG 314 ==
LOC: 4W 12:15 → OBSVTOIN 12:41
PROVIDERS: ADMIT Internal Medicine; ATTEND Hospitalist
PROC: 30233N1 Transfusion of Nonautologous Red Blood Cells into Peripheral Vein, Percutaneous Approach (ICD-10-PCS; 2019-09-23)
PROC: 0JPT0WZ Removal of Totally Implantable Vascular Access Device from Trunk Subcutaneous Tissue and Fascia, Open Approach (ICD-10-PCS; principal; 2019-09-24)
DX: T80.211A Bloodstream infection due to central venous catheter, initial encounter (principal); D61.810 Antineoplastic chemotherapy induced pancytopenia; C83.38 Diffuse large B-cell lymphoma, lymph nodes of multiple sites; R78.81 Bacteremia; Z16.29 Resistance to other single specified antibiotic; D69.59 Other secondary thrombocytopenia; T45.1X5A Adverse effect of antineoplastic and immunosuppressive drugs, initial encounter; D63.0 Anemia in neoplastic disease; I48.0 Paroxysmal atrial fibrillation; D64.81 Anemia due to antineoplastic chemotherapy; C44.90 Unspecified malignant neoplasm of skin, unspecified; I10 Essential (primary) hypertension; B96.89 Other specified bacterial agents as the cause of diseases classified elsewhere; B96.5 Pseudomonas (aeruginosa) (mallei) (pseudomallei) as the cause of diseases classified elsewhere; Z88.1 Allergy status to other antibiotic agents; Z88.0 Allergy status to penicillin; Z88.2 Allergy status to sulfonamides
CPT/HCPCS: 36415; 36430; 36591; 71045; 80048; 80053; 81001; 82550; 82607; 82746; 83605; 83735; 84100; 84443; 84484; 85025; 85027; 85610; 85730; 86850; 86900; 86901; 87040; 87077; 87150; 87186; 93005; 93010; 99284; J0713; J1642; J1956; J2185; J3490; J7060; P9035

== ENCOUNTER → 2019-10-18 | Outpatient (CLI) | payer MEDICARE, OTHER ==
--- NOTE | 2019-10-18 14:57 | RADIOLOGY REPORT (SQ) ---
EXAM DESCRIPTION: PET CT SKULL/THIGH IMAGES COMPLETED DATE/TIME: 10/18/2019 11:49 am REASON FOR STUDY: LYMPHOMA C83.38 DIFFUSE LARGE B-CELL LYMPHOMA, LYMPH NODES OF MULTIPL COMPARISON: 04/05/2019 RADIONUCLIDE AND DOSE: 9.6 mCi F18 FDG The route of agent administration: Intravenous FASTING BLOOD SUGAR: 104 mg/dl CONTRAST TYPE AND DOSE: No CT contrast given. TECHNIQUE: Blood glucose level was verified. Above dose of FDG was injected intravenously. 2-D seg mented attenuation correction images were obtained from the base of the skull to the midthighs. Nonc ontrast CT images were obtained for attenuation correction and fusion with emission images. CT image s were performed without oral or intravenous contrast and are not sensitive for parenchymal lesions. A series of overlapping emission PET images were obtained. Images reviewed and manipulated at [facility] work station by the radiologist. Images stored on PACS. LIMITATIONS: None. FINDINGS: HEAD AND NECK: No areas of abnormal metabolic activity in the soft tissues of the head and neck. CHEST: No areas of abnormal metabolic activity in the chest. ABDOMEN AND PELVIS: No areas of abnormal metabolic activity in the abdomen or pelvis. Expected physi ologic activity is present in the genitourinary system and bowel. PROXIMAL LOWER EXTREMITIES: No areas of abnormal metabolic activity in the soft tissues of the lower extremities. BONES: No abnormal metabolic activity in the visualized skeleton. ADDITIONAL CT FINDINGS: Right upper lobe nodule on image 87 measuring 4 mm, previously 5 mm. Right l ower lobe ground-glass nodule measuring 6 mm on image 112, previously 8 mm. OTHER: No other significant findings. IMPRESSION: Favorable response to therapy. No hypermetabolic lesions. TECHNICAL DOCUMENTATION: JOB ID: [id number] [employer]- All Rights Reserved Reading location - IP/workstation name: [email or web address]
== END ==
LOC: RAD 08:50
PROVIDERS: ATTEND Physician Assistant Medical
DX: C83.38 Diffuse large B-cell lymphoma, lymph nodes of multiple sites (principal)
CPT/HCPCS: 78815; A9552

== ENCOUNTER 2020-01-24 11:57 | Emergency (ER) | payer MEDICARE, OTHER ==
[2020-01-24 13:41] LABS: APPEARANCE,URINE CLOUDY; BILIRUBIN,URINE NEGATIVE (NEGATIVE); COLOR,URINE AMBER; GLUCOSE, URINE NEGATIVE (NEGATIVE); KETONES,URINE NEGATIVE (NEGATIVE); LEUKOCYTE ESTERASE,URINE NEGATIVE (NEGATIVE); NITRITE,URINE NEGATIVE (NEGATIVE); PROTEIN,URINE 100 mg/dL (NEGATIVE); URINE SPECIFIC GRAVITY 1.025; UROBILINOGEN,URINE NEGATIVE mg/dL (<2.0)
[2020-01-24] MEDS ORDERED: ACETAMINOPHEN 325 MG TABLET PO ONE (13:45)
[2020-01-24] MEDS ORDERED: MEROPENEM 1 GM VIAL IV ONE (13:51)
[2020-01-24 14:26] LABS: VENOUS BLOOD BASE EXCESS -1.9 mmol/L; VENOUS BLOOD HCO3 20.9 mmol/L (20-32); VENOUS BLOOD PCO2 31.2 mmHg (35-63); VENOUS BLOOD PH 7.44 (7.30-7.42)
[2020-01-24 14:27] LABS: HEMATOCRIT 36.1 % (37.9-51.0); MEAN CORPUSCULAR HEMOGLOBIN 38.8 pg (27.0-33.4); MEAN CORPUSCULAR VOLUME 108 fl (80-97); RED BLOOD COUNT 3.35 10^6/uL (4.35-5.55); WHITE BLOOD COUNT 6.8 10^3/uL (4.0-10.5)
[2020-01-24 14:36] LABS: ALBUMIN 3.9 g/dL (3.5-5.0); ALKALINE PHOSPHATASE 56 U/L (38-126); ANION GAP 9 (5-19); ASPARTATE AMINO TRANSFERASE 56 U/L (17-59); BILIRUBIN,DIRECT 0.4 mg/dL (0.0-0.4); BILIRUBIN,TOTAL 1.3 mg/dL (0.2-1.3); BLOOD UREA NITROGEN 22 mg/dL (7-20); CALCIUM 9.3 mg/dL (8.4-10.2); CARBON DIOXIDE 25 mmol/L (22-30); CHLORIDE 99 mmol/L (98-107); GLUCOSE 108 mg/dL (75-110); POTASSIUM 3.8 mmol/L (3.6-5.0); TOTAL PROTEIN 5.9 g/dL (6.3-8.2)
[2020-01-24 14:37] LABS: PLATELET COUNT 78 10^3/uL (150-450)
--- NOTE | 2020-01-24 14:50 | RADIOLOGY REPORT (SQ) ---
EXAM DESCRIPTION: CHEST SINGLE VIEW IMAGES COMPLETED DATE/TIME: 01/24/2020 2:29 pm REASON FOR STUDY: shortness of breath COMPARISON: 09/22/2019 EXAM PARAMETERS: NUMBER OF VIEWS: One view. TECHNIQUE: Single frontal radiographic view of the chest acquired. RADIATION DOSE: NA LIMITATIONS: None. FINDINGS: LUNGS AND PLEURA: No focal consolidation, pleural effusion, or pneumothorax. MEDIASTINUM AND HILAR STRUCTURES: No masses. Contour normal. HEART AND VASCULAR STRUCTURES: Heart normal in size. Normal vasculature. BONES: No acute findings. HARDWARE: None in the chest. OTHER: No other significant finding. IMPRESSION: Somewhat limited by patient rotation ; the appearance of hazy opacification of the right hemithorax likely due to overlapping parenchymal shadows. Interval removal of a left anterior chest wall Port-A-Cath. Consider dedicated PA/ Lat chest imaging for improved characterization. TECHNICAL DOCUMENTATION: JOB ID: [id number] 2010 [employer]- All Rights Reserved Reading location - IP/workstation name: [email or web address]
[2020-01-24 14:55] LABS: ABSOLUTE MONOCYTES # (MANUAL) 0.3 10^3/uL (0.1-1.4); BASOPHILS % (MANUAL) 0 % (0-2); EOSINOPHILS % (MANUAL) 1 % (0-6); LYMPHOCYTES % (MANUAL) 13 % (13-45); MONOCYTES % (MANUAL) 5 % (3-13); SEGMENTED NEUTROPHILS % (MAN) 79 % (42-78); TOTAL CELLS COUNTED 100
[2020-01-24 15:01] LABS: ANISOCYTOSIS 1+
[2020-01-24] MEDS ORDERED: NORMAL SALINE 1000 ML 1,000 ML IV ONE (15:03)
[2020-01-24 15:04] LABS: OVALOCYTES 1+; PLATELET COMMENT DECREASED; POIKILOCYTOSIS 1+; POLYCHROMASIA SLIGHT
--- NOTE | 2020-01-24 17:16 | PDOC CONSULTATION ---
Consultation Consult Date: 01/24/20 Attending physician:: MARJAN ORTIZ Provider Consulted: INDIA DANIELS History of Present Illness Admission Date/PCP: BENNY CHRISTIE PA-C Patient complains of: Fever History of Present Illness: KRUPA VERMA is a 69 year old male with history of non-Hodgkin's lymphoma, bacteremia is secondary to CVC/port infection, and paroxysmal atrial fibrillation, who presents to the hospital for evaluation of fever, malaise and fatigue. Patient has been having symptoms since Thursday last week. He also states that his is sick with a pneumonia. Informs me that they both were tested for COVID-19 with a rapid test end of last week [facility] which were negative. He denies any shortness of breath, cough nausea or vomiting. He was last in the hospital about 4 months ago for treatment of bacteremia secondary to central line infection. At that time, his central line/port was actually removed. Hospitalist service consulted for admission. So far with exception of symptoms listed above, full review of systems is negative. 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, Skin Cancer GI Medical History: Denies: Hepatitis, Hiatal Hernia Musculoskeltal Medical History: Denies: Arthritis Skin Medical History: Reports: Psoriasis Psychiatric Medical History: Denies: Depression Hematology: Denies: Anemia, Sickle Cell Disease Past Surgical History Past Surgical History: Reports: Tonsillectomy, Other - SKIN BIOPSY, Mediport insertion x2 Denies: Pacemaker Social History Smoking Status: Former Smoker Frequency of Alcohol Use: Rare Hx Recreational Drug Use: No Drugs: None Hx Prescription Drug Abuse: No - Advance Directive Resuscitation Status: Full Code Family History Family History: Arthritis, CAD, CVA, Hyperlipidemia, Hypertension, Malignancy Parental Family History Reviewed: Yes Children Family History Reviewed: NA Sibling(s) Family History Reviewed.: Yes Medication/Allergy Home Medications: Folic Acid [Folvite 1 mg Tablet] 1 mg PO DAILY 09/23/19 Sotalol HCl [Betapace 80 mg Tablet] 40 mg PO Q12 09/23/19 Lactobacillus Acidophilus [Bacid 250 mg Tablet] 500 mg PO BID tab 09/29/19 Allergies/Adverse Reactions: levofloxacin Allergy (Mild, Verified 01/24/20 14:15) rash amoxicillin Allergy (Unknown, Verified 01/24/20 14:15) Sulfa (Sulfonamide Antibiotics) Allergy (Verified 01/24/20 14:15) Hives Review of Systems Constitutional: PRESENT: chills, fatigue, fever(s), night sweats. ABSENT: headache(s) Eyes: ABSENT: visual disturbances Ears: ABSENT: hearing changes Nose, Mouth, and Throat: ABSENT: headache(s), sore throat Cardiovascular: ABSENT: chest pain, dyspnea on exertion, edema Respiratory: ABSENT: cough, dyspnea, sputum Gastrointestinal: ABSENT: abdominal pain, diarrhea, nausea, vomiting Genitourinary: ABSENT: difficulty urinating, dysuria, nocturia Musculoskeletal: ABSENT: back pain Integumentary: ABSENT: erythema, lesions, pruritus, rash, wounds Neurological: ABSENT: confusion, dizziness Endocrine: ABSENT: polyuria Allergic/Immunologic: ABSENT: seasonal rhinorrhea Physical Exam Vital Signs: Temp Pulse Resp BP Pulse Ox 101.5 F H 77 22 H 117/74 96 01/24/20 12:45 01/24/20 12:45 01/24/20 12:45 01/24/20 12:45 01/24/20 13:45 General appearance: PRESENT: no acute distress, cooperative Head exam: PRESENT: normocephalic Eye exam: PRESENT: EOMI Neck exam: ABSENT: JVD Respiratory exam: PRESENT: clear to auscultation baad, symmetrical, unlabored. ABSENT: accessory muscle use, crackles, rhonchi, stridor, tachypnea, wheezes Cardiovascular exam: PRESENT: RRR, +S1, +S2. ABSENT: tachycardia GI/Abdominal exam: PRESENT: soft. ABSENT: distended, firm, guarding, rebound, rigid, tenderness Extremities exam: ABSENT: calf tenderness, pedal edema, tenderness Neurological exam: PRESENT: alert, awake, oriented to person, oriented to place, oriented to time Psychiatric exam: ABSENT: agitated, anxious Skin exam: PRESENT: intact. ABSENT: erythema, rash, skin tears Results Laboratory Results: 01/24/20 13:55 01/24/20 13:55 01/24/20 01/24/20 01/24/20 12:50 13:55 13:55 WBC 6.8 RBC 3.35 L Hgb 13.0 L Hct 36.1 L MCV 108 H MCH 38.8 H MCHC 36.0 RDW 16.0 H Plt Count 78 L Seg Neutrophils % Not Reportable VBG pH VBG pCO2 VBG HCO3 VBG Base Excess Sodium 132.6 L Potassium 3.8 Chloride 99 Carbon Dioxide 25 Anion Gap 9 BUN 22 H Creatinine 1.63 H Est GFR ( Amer) 51 L Glucose 108 Lactic Acid Calcium 9.3 Total Bilirubin 1.3 AST 56 Alkaline Phosphatase 56 Total Protein 5.9 L Albumin 3.9 Urine Color CELIA Urine Appearance CLOUDY Urine pH 5.0 Ur Specific [place] 1.025 Urine Protein 100 H Urine Glucose (UA) NEGATIVE Urine Ketones NEGATIVE Urine Blood MODERATE H Urine Nitrite NEGATIVE Ur Leukocyte Esterase NEGATIVE Urine WBC (Auto) 3 Urine RBC (Auto) 1 01/24/20 01/24/20 01/24/20 13:55 13:55 16:05 WBC RBC Hgb Hct MCV MCH MCHC RDW Plt Count Seg Neutrophils % VBG pH 7.44 H VBG pCO2 31.2 L VBG HCO3 20.9 VBG Base Excess -1.9 Sodium Potassium Chloride Carbon Dioxide Anion Gap BUN Creatinine Est GFR ( Amer) Glucose Lactic Acid 1.4 1.1 Calcium Total Bilirubin AST Alkaline Phosphatase Total Protein Albumin Urine Color Urine Appearance Urine pH Ur Specific [place] Urine Protein Urine Glucose (UA) Urine Ketones Urine Blood Urine Nitrite Ur Leukocyte Esterase Urine WBC (Auto) Urine RBC (Auto) Impressions: Chest X-Ray 01/24/20 13:18 IMPRESSION: Somewhat limited by patient rotation ; the appearance of hazy opacification of the right hemithorax likely due to overlapping parenchymal shadows. Interval removal of a left anterior chest wall Port-A-Cath. Consider dedicated PA/ Lat chest imaging for improved characterization. Assessment and Plan - Diagnosis (1) Fever Qualifiers: Fever type: unspecified Qualified Code(s): R50.9 - Fever, unspecified Is this a current diagnosis for this admission?: Yes Plan: Patient presents with fever, malaise, and fatigue. Broad review of systems and exam currently negative. Urinalysis and chest x-ray are negative. Denies any GI symptoms. No rash, wounds, meningismus etc. Blood cultures have been obtained. Notably patient's bacteremias in the past were due to infected central line and he has not had any central line placed since the last one was removed few months ago. It is possible that he could have a viral infection especially if his was sick to. Recommend testing for COVID-19 PCR and flu test. Patient's vital signs and oxygen level remain adequate and lactic acid have been negative. We will recommend discharging patient home to f/u for Result of his Flu & COVID- 19 test. Encouraged him to stay hydrated and to use antipyretics for his fevers. If Blood culture comes back positive, patient can always be contacted to return for further evaluation. (2) Acute kidney injury Is this a current diagnosis for this admission?: Yes Plan: Likely secondary to dehydration. IV fluid bolus given in the ER. Patient can follow-up with PCP for BMP. 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 Actually looks much better than prior hospitalizations. - Plan Summary Summary: Discussed my plan and recommendations with ER provider. - Time Time Spent with patient: 35 or more minutes Anticipated Discharge Disposition: Home, Self Care Anticipated Discharge Timeframe: within 24 hours
--- NOTE | 2020-01-24 17:31 | ER Document Report ---
ED Fever - General Chief Complaint: Fever Stated Complaint: DIFFICULTY BREATHING Time Seen by Provider: 01/24/20 13:20 Primary Care Provider: BENNY GONZALES PA-C [Primary Care Provider] - Follow up as needed Mode of Arrival: Ambulatory Information source: Patient TRAVEL OUTSIDE OF THE [place] IN LAST 30 DAYS: No - HPI Notes: Patient presents complaining of weakness and fever. He states the weakness is been ongoing for 2 to 3 days. Is been constant. Is worse with exertion and better with rest. It does radiate throughout his body. Is been moderate to severe. He states he has had fever and chills but is unsure how high his fever has been. No cough or cold or congestion. No known COVID exposures. He states that he did have a Cobin test 2 days ago and it was negative. No vomiting or diarrhea. He denies pain anywhere. - Related Data Allergies/Adverse Reactions: levofloxacin Allergy (Mild, Verified 01/24/20 14:15) rash amoxicillin Allergy (Unknown, Verified 01/24/20 14:15) Sulfa (Sulfonamide Antibiotics) Allergy (Verified 01/24/20 14:15) Hives Home Medications: sotalol, methotrexate Past Medical History - General Information source: Patient - Social History Smoking Status: Former Smoker Frequency of alcohol use: Heavy Drug Abuse: None Family History: Arthritis, CAD, CVA, Hyperlipidemia, Hypertension, Malignancy - Past Medical History Cardiac Medical History: Reports: Hx Atrial Fibrillation, Hx Hypertension Denies: Hx Coronary Artery Disease, Hx Heart Attack Pulmonary Medical History: Denies: Hx Asthma, Hx Bronchitis, Hx COPD, Hx Pneumonia Neurological Medical History: Denies: Hx Cerebrovascular Accident, Hx Seizures Renal/ Medical History: Denies: Hx Peritoneal Dialysis Malignancy Medical History: 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 Denies: Hx Hepatitis, Hx Hiatal H ernia, Hx Ulcer Musculoskeletal Medical History: Denies Hx Arthritis, Reports Hx Musculoskeletal Trauma - Sprained ankle Skin Medical History: Reports Hx Psoriasis Psychiatric Medical History: Denies: Hx Depression Infectious Medical History: Denies: Hx Hepatitis Past Surgical History: Reports: Hx Oral Surgery, Hx Testicular Surgery - Left testicle removed d/t CA, Hx Tonsillectomy, Other - SKIN BIOPSY, Mediport insertion x2. Denies: Hx Open Heart Surgery, Hx Pacemaker - Immunizations Immunizations up to date: Yes Hx Diphtheria, Pertussis, Tetanus Vaccination: Yes Review of Systems - Review of Systems Constitutional: Chills, Fever, Malaise, Weakness Cardiovascular: denies: Chest pain, Palpitations Respiratory: denies: Cough, Short of breath -: Yes All other systems reviewed and negative Physical Exam - Vital signs Vitals: Temp Pulse Resp BP Pulse Ox 101.5 F H 77 22 H 117/74 96 01/24/20 12:45 01/24/20 12:45 01/24/20 12:45 01/24/20 12:45 01/24/20 12:45 Interpretation: Febrile - General General appearance: Appears well, Alert - HEENT Head: Normocephalic, Atraumatic Eyes: Normal Pupils: PERRL - Respiratory Respiratory status: No respiratory distress Chest status: Nontender Breath sounds: Normal Chest palpation: Normal - Cardiovascular Rhythm: Regular Heart sounds: Normal auscultation Murmur: No - Abdominal Inspection: Normal Distension: No distension Bowel sounds: Normal Tenderness: Nontender Organomegaly: No organomegaly - Back Back: Normal, Nontender - Extremities General upper extremity: Normal inspection, Nontender, Normal color, Normal ROM, Normal temperature General lower extremity: Normal inspection, Nontender, Normal color, Normal ROM, Normal temperature, Normal weight bearing. No: Candice's sign - Neurological Neuro grossly intact: Yes Cognition: Normal Orientation: AAOx4 [place] Coma Scale Eye Opening: Spontaneous Raghu Coma Scale Verbal: Oriented Raghu Coma Scale Motor: Obeys Commands [place] Coma Scale Total: 15 Speech: Normal Motor strength normal: LUE, RUE, LLE, RLE Sensory: Normal - Psychological Associated symptoms: Normal affect, Normal mood - Skin Skin Temperature: Warm Skin Moisture: Dry Skin Color: Normal Course - Re-evaluation Re-evalutation: 01/24/20 17:28 Patient presents with fever and weakness. He denies any other type of infectious symptoms. He does have a history of multiple cancers but has not had any recent treatments or flareups of the cancers in recent months. I did call and discuss the patient thoroughly with the oncologist. Patient was also seen by the hospitalist. Since he has fever here but no other obvious source it is felt that he would do best if he was discharged and took outpatient antibiotics. We obviously will call the patient back if his blood cultures are positive or if he is doing worse at home he will return. He has no obvious source at this time. He is stable with stable vital signs and appears nontoxic. - Vital Signs Vital signs: Temp Pulse Resp BP Pulse Ox 101.5 F H 77 22 H 117/74 96 01/24/20 12:45 01/24/20 12:45 01/24/20 12:45 01/24/20 12:45 01/24/20 13:45 - Laboratory Result Diagrams: 01/24/20 13:55 01/24/20 13:55 Laboratory results interpreted by me: 01/24/20 01/24/20 01/24/20 12:50 13:55 13:55 RBC 3.35 L Hgb 13.0 L Hct 36.1 L MCV 108 H MCH 38.8 H RDW 16.0 H Plt Count 78 L Seg Neuts % (Manual) 79 H VBG pH VBG pCO2 Sodium 132.6 L BUN 22 H Creatinine 1.63 H Est GFR ( Amer) 51 L Est GFR (MDRD) Non-Af 42 L ALT 56 H Total Protein 5.9 L Urine Protein 100 H Urine Blood MODERATE H 01/24/20 13:55 RBC Hgb Hct MCV MCH RDW Plt Count Seg Neuts % (Manual) VBG pH 7.44 H VBG pCO2 31.2 L Sodium BUN Creatinine Est GFR ( Amer) Est GFR (MDRD) Non-Af ALT Total Protein Urine Protein Urine Blood - Diagnostic Test Radiology reviewed: Image reviewed, Reports reviewed - EKG Interpretation by Me EKG shows normal: Sinus rhythm Rate: Normal - 77 Rhythm: NSR [place]/QRS: Left axis deviation Voltage: Consistent with LVH Discharge - Discharge Clinical Impression: Fever Qualifiers: Fever type: unspecified Qualified Code(s): R50.9 - Fever, unspecified Condition: Stable Disposition: HOME, SELF-CARE Instructions: Fever ([facility]), COVID-19 Guidance for Persons Under Investigation Additional Instructions: Please call your primary doctor as soon as possible to arrange follow-up. If your blood cultures return positive we will notify you. If it anytime you are feeling worse or have worsening symptoms please return to the emergency department for evaluation Prescriptions: Cefdinir 300 mg PO BID 7 Days #14 capsule Referrals: TESSA CHRISTIE,BENNY N, PA-C [Primary Care Provider] - Follow up tomorrow
--- NOTE | 2020-01-24 17:37 | EKG REPORT ---
SEVERITY:- ABNORMAL ECG - SINUS RHYTHM LEFT AXIS DEVIATION LVH WITH SECONDARY REPOLARIZATION ABNORMALITY BORDERLINE PROLONGED QT INTERVAL : Confirmed by: Roxana Carmona MD 24-Jan-2020 17:36:45
[2020-01-24 18:16] VITALS: BP 94/69
== END 2020-01-24 18:16 | disposition home or self-care (01) ==
LOC: ER 11:57
DX: C85.98 Non-Hodgkin lymphoma, unspecified, lymph nodes of multiple sites (principal); N17.9 Acute kidney failure, unspecified; R50.9 Fever, unspecified; D69.6 Thrombocytopenia, unspecified; R53.81 Other malaise; R53.83 Other fatigue; I48.0 Paroxysmal atrial fibrillation; I10 Essential (primary) hypertension; Z87.891 Personal history of nicotine dependence; Z79.899 Other long term (current) drug therapy; Z88.0 Allergy status to penicillin; Z88.1 Allergy status to other antibiotic agents
CPT/HCPCS: 93005; 99285; 96361; 96365; 36415; 87040; 87086; 83605; 85025; 80053; 81001; 82803; 71045; 93010; U0003; A9270; J7030; J2185; C9803; 87635

== ENCOUNTER 2020-01-27 14:05 | Inpatient (IN) | payer MEDICARE, OTHER ==
--- NOTE | 2020-01-27 14:31 | ER Document Report ---
ED Medical Screen (RME) - General Chief Complaint: Shortness Of Breath Stated Complaint: SHORTNESS OF BREATH Time Seen by Provider: 01/27/20 14:19 Primary Care Provider: DEJAH NAVARRETE MD [Primary Care Provider] - Follow up as needed Mode of Arrival: Wheelchair Information source: Patient Notes: 69-year-old male presented to ED for extreme shortness of breath. He did have a sat in the 70s and 80s Dr. Navarrete's office. He was sent over here to be evaluated. His O2 sat was 74 when I first evaluated him. We did put him on 3 L of O2. He came up to 100% occluded down to 2 it was at 9899 100. Down to it went down to 92 separate back up to 2 he is now on 2 L nasal cannula O2. He states he has been short of breath for over a week. He did have a negative cover on 01 23. 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 Navarrete for cancer. He states his last chemo was in September. He is a former smoker does not smoke now does drink 3-4 times a week. He also has a history of psoriasis. He is alert oriented respirations regular nonlabored as long as he is on the O2 and sitting still if he tries to move around he gets extremely short of breath. I have greeted and performed a rapid initial assessment of this patient. A comprehensive ED assessment and evaluation of the patient, analysis of test results and completion of medical decision making process will be conducted by an additional ED providers. TRAVEL OUTSIDE OF THE [place] IN LAST 30 DAYS: No - Related Data Allergies/Adverse Reactions: levofloxacin Allergy (Mild, Verified 01/24/20 14:15) rash amoxicillin Allergy (Unknown, Verified 01/24/20 14:15) Sulfa (Sulfonamide Antibiotics) Allergy (Verified 01/24/20 14:15) Hives Past Medical History - Past Medical History Cardiac Medical History: Reports: Hx Atrial Fibrillation, Hx Hypertension Denies: Hx Coronary Artery Disease, Hx Heart Attack Pulmonary Medical History: Denies: Hx Asthma, Hx Bronchitis, Hx COPD, Hx Pneumonia Neurological Medical History: Denies: Hx Cerebrovascular Accident, Hx Seizures Renal/ Medical History: Denies: Hx Peritoneal Dialysis Malignancy Medical History: 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 Denies: Hx Hepatitis, Hx Hiatal Hernia, Hx Ulcer Musculoskeltal Medical History: Denies Hx Arthritis, Reports Hx Musculoskeletal Trauma - Sprained ankle Skin Medical History: Reports Hx Psoriasis Psychiatric Medical History: Denies: Hx Depression Infectious Medical History: Denies: Hx Hepatitis Past Surgical History: Reports: Hx Oral Surgery, Hx Testicular Surgery - Left testicle removed d/t CA, Hx Tonsillectomy, Other - SKIN BIOPSY, Mediport insertion x2. Denies: Hx Open Heart Surgery, Hx Pacemaker - Immunizations Immunizations up to date: Yes Hx Diphtheria, Pertussis, Tetanus Vaccination: Yes Physical Exam - Vital signs Vitals: Temp Pulse Resp BP Pulse Ox 97.5 F 74 28 H 134/80 H 81 L 01/27/20 14:12 01/27/20 14:12 01/27/20 14:12 01/27/20 14:12 01/27/20 14:12 Course - Vital Signs Vital signs: Temp Pulse Resp BP Pulse Ox 97.5 F 74 28 H 134/80 H 81 L 01/27/20 14:12 01/27/20 14:12 01/27/20 14:12 01/27/20 14:12 01/27/20 14:12 Doctor's Discharge - Discharge Referrals: DEJAH NAVARRETE MD [Primary Care Provider] - Follow up as needed
--- NOTE | 2020-01-27 15:15 | RADIOLOGY REPORT (SQ) ---
EXAM DESCRIPTION: CHEST 2 VIEWS IMAGES COMPLETED DATE/TIME: 01/27/2020 3:01 pm REASON FOR STUDY: short of breath cancer COMPARISON: 01/24/2020 TECHNIQUE: Frontal and lateral radiographic views of the chest acquired. NUMBER OF VIEWS: Two view. LIMITATIONS: None. FINDINGS: LUNGS AND PLEURA: No pneumothorax. Increased interstitial thickening and ground-glass opa cities bilaterally. No pleural effusion. MEDIASTINUM AND HILAR STRUCTURES: Stable. HEART AND VASCULAR STRUCTURES: Stable. BONES: No acute findings. HARDWARE: None in the chest. OTHER: No other significant finding. IMPRESSION: Increased interstitial thickening and ground-glass opacities bilaterally. TECHNICAL DOCUMENTATION: JOB ID: [id number] [place]-72 2010 [employer]- All Rights Reserved Reading location - IP/workstation name: [facility]
[2020-01-27] MEDS ORDERED: NORMAL SALINE 1000 ML 1,000 ML IV ONE ×2 (15:16→15:17)
[2020-01-27] MEDS ORDERED: AZITHROMYCIN INJ 500 MG VIAL IV ONE (15:18)
[2020-01-27] MEDS ORDERED: NORMAL SALINE 180 ML IV ONE (15:20)
--- NOTE | 2020-01-27 15:43 | ER Document Report ---
ED Respiratory Problem - General Chief Complaint: Shortness Of Breath Stated Complaint: SHORTNESS OF BREATH Time Seen by Provider: 01/27/20 14:19 Mode of Arrival: Wheelchair TRAVEL OUTSIDE OF THE [place] IN LAST 30 DAYS: No - HPI Patient complains to provider of: Short of breath Onset: Last week Duration: Continuous Quality of pain: No pain Cough: Nonproductive Associated symptoms: Chills, Fever, Sweaty Notes: Patient is a 69-year-old male with a past medical history of cancer in remission since September who presents with chills, shortness of breath, fevers. Patient was in the ER recently for shortness of breath and it was recommended that he be admitted. Patient left because he did not want to be placed in a COVID suspicion unit. He was given cefdinir to go home with. Patient states he had a COVID test done on 01/23 and it was negative. He states his also has shortness of breath and cough. Patient was sent today by his oncologist office as he was noted to have a low O2 saturation at the appointment. Patient states he has had significant chills. He also states he has had fevers ranging from 100-105 Fahrenheit. He also has diaphoresis. He denies any nausea, vomiting, chest pain, headaches. Patient was 88% on 15 L so he was placed on BiPAP. - Related Data Allergies/Adverse Reactions: levofloxacin Allergy (Mild, Verified 01/24/20 14:15) rash amoxicillin Allergy (Unknown, Verified 01/24/20 14:15) Sulfa (Sulfonamide Antibiotics) Allergy (Verified 01/24/20 14:15) Hives Past Medical History - General Information source: Patient - Social History Smoking Status: Former Smoker Frequency of alcohol use: Social Family History: Arthritis, CAD, CVA, Hyperlipidemia, Hypertension, Malignancy - Past Medical History Cardiac Medical History: Reports: Hx Atrial Fibrillation, Hx Hypertension Denies: Hx Coronary Artery Disease, Hx Heart Attack Pulmonary Medical History: Denies: Hx Asthma, Hx Bronchitis, Hx COPD, Hx Pneumonia Neurological Medical History: Denies: Hx Cerebrovascular Accident, Hx Seizures Renal/ Medical History: Denies: Hx Peritoneal Dialysis Malignancy Medical History: 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 Denies: Hx Hepatitis, Hx Hiatal Hernia, Hx Ulcer Musculoskeletal Medical History: Denies Hx Arthritis, Reports Hx Musculoskeletal Trauma - Sprained ankle Skin Medical History: Reports Hx Psoriasis Psychiatric Medical History: Denies: Hx Depression Infectious Medical History: Denies: Hx Hepatitis Past Surgical History: Reports: Hx Oral Surgery, Hx Testicular Surgery - Left testicle removed d/t CA, Hx Tonsillectomy, Other - SKIN BIOPSY, Mediport insertion x2. Denies: Hx Open Heart Surgery, Hx Pacemaker - Immunizations Immunizations up to date: Yes Hx Diphtheria, Pertussis, Tetanus Vaccination: Yes Review of Systems - Review of Systems Notes: CONSTITUTIONAL: Positive for fever. SKIN: No rash. HENT: No congestion, ear pain, or sore throat. EYES: No recent vision problems or eye pain. ENDOCRINE: No polyuria or polydipsia. CARDIOVASCULAR: No chest pain or edema. RESPIRATORY: Positive for cough, shortness of breath. GASTROINTESTINAL: No abdominal pain, nausea, vomiting, bloody stools or diarrhea. GENITOURINARY: No dysuria. MUSCULOSKELETAL: No joint pain or swelling. LYMPHATIC: No swollen glands. NEUROLOGIC: No seizures. No headache, focal weakness or sensory changes. HEMATOLOGIC: No unusual bruising or bleeding. PSYCHIATRIC: No depression or anxiety. Physical Exam - Vital signs Vitals: Temp Pulse Resp BP Pulse Ox 97.5 F 74 28 H 134/80 H 81 L 01/27/20 14:12 01/27/20 14:12 01/27/20 14:12 01/27/20 14:12 01/27/20 14:12 - Notes Notes: VITAL SIGNS: Hypoxic on room air. GENERAL: In acute distress, appears ill. HEAD: Normal with no signs of head trauma. EYES: EOMI, conjunctiva normal, no discharge. EARS: Hearing grossly intact. NOSE: Normal. NECK: Normal range of motion, no tenderness, supple, no lymphadenopathy, No adenopathy, no JVD. CHEST: Coarse lung sounds more on the right CARDIAC: Regular rate and rhythm. S1 and S2, without murmurs, gallops, or rubs. VASCULAR: No Edema. ABDOMEN: Normal and soft with no tenderness, no masses or pulsatile masses. GENITOURINARY: Normal, No tenderness LYMPATHTIC: No lymphadenopathy noted. MUSCULOSKELETAL: Good range of motion of all major joints. Extremities without clubbing, cyanosis or edema. NEUROLOGICAL: Alert and oriented x 3. No focal sensory or strength deficits. Speech normal. Follows commands appropriately. PSYCHIATRIC: Normal Affect, judgement and mood. SKIN: Normal appearance with no rashes or lesions. Course - Re-evaluation Re-evalutation: 01/27/20 16:43 Patient was improved in triage on 2 L and his pulse ox improved from 79% to in the 90s. On arrival into the exam room, patient continued to be hypoxic however. He was 88% on 15 L so BiPAP was ordered. Patient's x-ray is suspicious for COVID due to the groundglass opacities. He states that he has been tested negative several times. I will retest him here. Also has suspicious lab abnormalities for COVID of his inflammatory markers. I will also add on an influenza test. Patient will be treated for pneumonia as well. He was given dexamethasone. I initially ordered a sepsis fluid bolus but as I am concerned for COVID, I did not want to fluid overload him. Patient will be given 1 L and reassessed. I will discuss with the hospitalist for admission. 01/28/20 00:09 - Vital Signs Vital signs: Temp Pulse Resp BP Pulse Ox 103.1 F H 74 20 129/99 H 97 01/27/20 16:15 01/27/20 14:12 01/27/20 23:30 01/27/20 23:30 01/27/20 23:30 - Laboratory Result Diagrams: 01/27/20 15:13 01/27/20 15:13 Laboratory results interpreted by me: 01/27/20 01/27/20 01/27/20 15:13 15:13 15:13 RBC 3.31 L Hgb 12.3 L Hct 36.0 L MCV 109 H MCH 37.2 H RDW 16.2 H Plt Count 123 L Carbonic Acid ABG pCO2 ABG pO2 ABG HCO3 ABG Total CO2 ABG O2 Saturation Chloride 108 H BUN 23 H Creatinine 1.51 H Est GFR ( Amer) 56 L Est GFR (MDRD) Non-Af 46 L Glucose 147 H Lactic Acid Ferritin Direct Bilirubin 0.5 H AST 93 H ALT 78 H Lactate Dehydrogenase C-Reactive Protein NT-Pro-B Natriuret Pep 4090 H Total Protein 5.8 L Urine Protein Urine Glucose (UA) Urine Blood 01/27/20 01/27/20 01/27/20 15:13 15:13 16:21 RBC Hgb Hct MCV MCH RDW Plt Count Carbonic Acid ABG pCO2 ABG pO2 ABG HCO3 ABG Total CO2 ABG O2 Saturation Chloride BUN Creatinine Est GFR ( Amer) Est GFR (MDRD) Non-Af Glucose Lactic Acid 2.7 H Ferritin 2490.00 H Direct Bilirubin AST ALT Lactate Dehydrogenase 685 H C-Reactive Protein 250.0 H NT-Pro-B Natriuret Pep Total Protein Urine Protein 100 H Urine Glucose (UA) 50 H Urine Blood SMALL H 01/27/20 17:28 RBC Hgb Hct MCV MCH RDW Plt Count Carbonic Acid 0.85 L ABG pCO2 28.4 L ABG pO2 127.3 H ABG HCO3 18.7 L ABG Total CO2 19.6 L ABG O2 Saturation 98.7 H Chloride BUN Creatinine Est GFR ( Amer) Est GFR (MDRD) Non-Af Glucose Lactic Acid Ferritin Direct Bilirubin AST ALT Lactate Dehydrogenase C-Reactive Protein NT-Pro-B Natriuret Pep Total Protein Urine Protein Urine Glucose (UA) Urine Blood - Diagnostic Test Radiology reviewed: Image reviewed, Reports reviewed - EKG Interpretation by Me EKG shows normal: Sinus rhythm Rate: Normal When compared to previous EKG there are: No significant change Additional EKG results interpreted by me: 01/27/20 16:31 EKG interpreted by me. Sinus rhythm at a rate of 86. QTc 512. Left axis deviation. No acute ST changes. EKG is similar to previous. Critical Care Note - Critical Care Note Total time excluding time spent on procedures (mins): 30 Comments: Upon my evaluation, this patient had a high probability of imminent or life- threatening deterioration due to acute respiratory failure, which required my direct attention, intervention, and personal management. I have personally provided 30 minutes of critical care time. Time includes review of laboratory data, radiology results, discussion with consultants, and monitoring for potential decompensation. Discharge - Discharge Clinical Impression: Suspected COVID-19 virus infection Acute respiratory failure Qualifiers: Respiratory failure complication: hypoxia Qualified Code(s): J96.01 - Acute respiratory failure with hypoxia Fever Qualifiers: Fever type: unspecified Qualified Code(s): R50.9 - Fever, unspecified Condition: Serious Disposition: ADMITTED INPATIENT Admitting Provider: Anna (Hospitalist) Unit Admitted: [facility]
[2020-01-27 15:44] LABS: ABSOLUTE BASOPHILS # (AUTO) 0.1 10^3/uL (0.0-0.2); ABSOLUTE EOSINOPHILS # (AUTO) 0.2 10^3/uL (0.0-0.6); ABSOLUTE LYMPHOCYTES (AUTO) 1.3 10^3/uL (0.5-4.7); ABSOLUTE MONOCYTES (AUTO) 0.5 10^3/uL (0.1-1.4); ABSOLUTE NEUT (AUTO) 5.1 10^3/uL (1.7-8.2); BASOPHILS % (AUTO) 1.3 % (0-2); EOSINOPHILS % (AUTO) 3.2 % (0-6); HEMOGLOBIN 12.3 g/dL (13.5-17.0); LYMPHOCYTES % (AUTO) 17.6 % (13-45); MEAN CORPUSCULAR HEMOGLOBIN 37.2 pg (27.0-33.4); MEAN CORPUSCULAR HGB CONC 34.1 g/dL (32.0-36.0); MEAN CORPUSCULAR VOLUME 109 fl (80-97); MONOCYTES % (AUTO) 7.1 % (3-13); PLATELET COUNT 123 10^3/uL (150-450); RED BLOOD COUNT 3.31 10^6/uL (4.35-5.55); RED CELL DISTRIBUTION WIDTH 16.2 % (11.5-14.0); SEGMENTED NEUTROPHILS % (AUTO) 70.8 % (42-78); TOTAL CELLS COUNTED % (AUTO) 100 %; WHITE BLOOD COUNT 7.1 10^3/uL (4.0-10.5)
[2020-01-27] MEDS ORDERED: DEXAMETHASONE SOD PHOS INJ 10 MG/1 ML VIAL IV ONE (15:45)
[2020-01-27] MEDS ORDERED: CEFTRIAXONE 1 GM/D5W RTU 1 GM/50 ML RTUPB IV ONE (16:00)
[2020-01-27 16:03] LABS: ALBUMIN 3.5 g/dL (3.5-5.0); ALKALINE PHOSPHATASE 112 U/L (38-126); ANION GAP 12 (5-19); ASPARTATE AMINO TRANSFERASE 93 U/L (17-59); BILIRUBIN,DIRECT 0.5 mg/dL (0.0-0.4); BILIRUBIN,TOTAL 0.9 mg/dL (0.2-1.3); BLOOD UREA NITROGEN 23 mg/dL (7-20); CARBON DIOXIDE 23 mmol/L (22-30); CHLORIDE 108 mmol/L (98-107); GLUCOSE 147 mg/dL (75-110); POTASSIUM 3.7 mmol/L (3.6-5.0); TOTAL PROTEIN 5.8 g/dL (6.3-8.2)
[2020-01-27 16:12] LABS: NT PRO BNP 4090 pg/mL (<125)
[2020-01-27 16:15] LABS: TROPONIN I < 0.012 ng/mL
[2020-01-27 16:41] LABS: APPEARANCE,URINE CLEAR; BILIRUBIN,URINE NEGATIVE (NEGATIVE); COLOR,URINE YELLOW; GLUCOSE, URINE 50 mg/dL (NEGATIVE); KETONES,URINE NEGATIVE (NEGATIVE); LEUKOCYTE ESTERASE,URINE NEGATIVE (NEGATIVE); NITRITE,URINE NEGATIVE (NEGATIVE); PROTEIN,URINE 100 mg/dL (NEGATIVE); URINE SPECIFIC GRAVITY 1.017; UROBILINOGEN,URINE NEGATIVE mg/dL (<2.0)
[2020-01-27] MEDS ORDERED: ACETAMINOPHEN 650 MG SUPP.RECT PR ONE (16:46)
[2020-01-27 17:46] LABS: ARTERIAL BLOOD BASE EXCESS -4.4 mmol/L; ARTERIAL BLOOD H2CO3 0.85 mmol/L (1.05-1.35); ARTERIAL BLOOD HCO3 18.7 mmol/L (20-24); ARTERIAL BLOOD O2 SATURATION 98.7 % (94-98); ARTERIAL BLOOD PCO2 28.4 mmHg (35-45); ARTERIAL BLOOD PH 7.44 (7.35-7.45); ARTERIAL BLOOD PO2 127.3 mmHg (80-100); ARTERIAL BLOOD TOTAL CO2 19.6 mmol/L (23-27)
[2020-01-27 17:52] LABS: ARTERIAL BLOOD FIO2 50%
[2020-01-27] MEDS ORDERED: ONDANSETRON HCL INJ/PF 4 MG/2 ML SDV IV PRN (18:06)
[2020-01-27] MEDS ORDERED: NORMAL SALINE 1000 ML 1,000 ML IV PRN (18:06)
[2020-01-27] MEDS ORDERED: ACETAMINOPHEN 325 MG TABLET PO PRN (18:06)
[2020-01-27 18:10] LABS: A TYPE INFLUENZA AG NEGATIVE (NEGATIVE); B INFLUENZA AG NEGATIVE (NEGATIVE)
[2020-01-27] MEDS ORDERED: PIPERACILLIN/TAZOBACTAM 3.375 GM VIAL IV SCH (18:15)
--- NOTE | 2020-01-27 18:22 | PDOC H&P ---
History of Present Illness Admission Date/PCP: DEJAH NAVARRETE MD Patient complains of: Came in with shortness of breath. History of Present Illness: KRUPA VERMA is a 69 year old male with history of lymphoma last treatment 4 months ago in remission, A. fib on sotalol, psoriasis, history of smoking went to see oncologist and pulse ox is 79% in the office. Patient was referred here for further evaluation. COVID 19 is negative that was done on 01 23. In the emergency room had a fever of 103.1, hypoxic requiring BiPAP. Patient was started on Rocephin and Zithromax medical consult was called for admission. Patient is a full code at this time. To stay in the hospital for further management. 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, Skin Cancer GI Medical History: Denies: Hepatitis, Hiatal Hernia Musculoskeltal Medical History: Denies: Arthritis Skin Medical History: Reports: Psoriasis Psychiatric Medical History: Denies: Depression Hematology: Denies: Anemia, Sickle Cell Disease Past Surgical History Past Surgical History: Reports: Tonsillectomy, Other - SKIN BIOPSY, Mediport insertion x2 Denies: Pacemaker Social History Smoking Status: Former Smoker Frequency of Alcohol Use: Rare Hx Recreational Drug Use: No Drugs: None Hx Prescription Drug Abuse: No - Advance Directive Resuscitation Status: Full Code Family History Family History: Arthritis, CAD, CVA, Hyperlipidemia, Hypertension, Malignancy Parental Family History Reviewed: Yes - Family history of hypertension Children Family History Reviewed: Yes Sibling(s) Family History Reviewed.: Yes Medication/Allergy Home Medications: Cefdinir 300 mg PO BID 01/27/20 Sotalol HCl [Betapace 80 mg Tablet] 40 mg PO BID 01/27/20 Allergies/Adverse Reactions: levofloxacin Allergy (Mild, Verified 01/24/20 14:15) rash amoxicillin Allergy (Unknown, Verified 01/24/20 14:15) Sulfa (Sulfonamide Antibiotics) Allergy (Verified 01/24/20 14:15) Hives Review of Systems Constitutional: PRESENT: fatigue, fever(s), weakness. ABSENT: headache(s) Eyes: ABSENT: visual disturbances Ears: ABSENT: hearing changes Nose, Mouth, and Throat: ABSENT: sore throat Cardiovascular: ABSENT: dyspnea on exertion, orthropnea, palpitations Respiratory: PRESENT: cough, dyspnea Gastrointestinal: ABSENT: coffee ground emesis, diarrhea, dysphagia, heartburn Genitourinary: ABSENT: dysuria, hematuria Musculoskeletal: ABSENT: joint swelling Integumentary: ABSENT: rash, wounds Neurological: ABSENT: abnormal gait, abnormal speech, confusion, dizziness, focal weakness, syncope Psychiatric: ABSENT: anxiety, depression, homidical ideation, suicidal ideation Physical Exam Vital Signs: Temp Pulse Resp BP Pulse Ox 103.1 F H 74 32 H 149/89 H 100 01/27/20 16:15 01/27/20 14:12 01/27/20 16:15 01/27/20 16:15 01/27/20 16:29 Intake & Output 01/26/20 01/27/20 01/28/20 06:59 06:59 06:59 Intake Total 1050 Balance 1050 Weight 72.575 kg General appearance: PRESENT: mild distress, other - On BiPAP. Head exam: PRESENT: atraumatic Eye exam: PRESENT: PERRLA Ear exam: PRESENT: normal external ear exam Mouth exam: PRESENT: neck supple Teeth exam: PRESENT: poor dentation Neck exam: ABSENT: carotid bruit, JVD, lymphadenopathy, thyromegaly Respiratory exam: PRESENT: decreased breath sounds, tachypnea Pulses: PRESENT: normal dorsalis pedis pul GI/Abdominal exam: PRESENT: normal bowel sounds, soft. ABSENT: distended, guarding, mass, organolmegaly, rebound, tenderness Rectal exam: PRESENT: deferred Extremities exam: PRESENT: full ROM. ABSENT: calf tenderness, clubbing, pedal edema Neurological exam: PRESENT: alert, awake, oriented to person, oriented to place, oriented to time, oriented to situation, CN II-XII grossly intact. ABSENT: motor sensory deficit Psychiatric exam: PRESENT: appropriate affect, normal mood. ABSENT: homicidal ideation, suicidal ideation Skin exam: PRESENT: dry, intact, warm. ABSENT: cyanosis, rash Results Laboratory Results: 01/27/20 15:13 01/27/20 15:13 01/27/20 01/27/20 01/27/20 15:13 15:13 15:13 WBC 7.1 RBC 3.31 L Hgb 12.3 L Hct 36.0 L MCV 109 H MCH 37.2 H MCHC 34.1 RDW 16.2 H Plt Count 123 L Seg Neutrophils % 70.8 Carbonic Acid HCO3/H2CO3 Ratio ABG pH ABG pCO2 ABG pO2 ABG HCO3 ABG O2 Saturation ABG Base Excess FiO2 Sodium 143.0 Potassium 3.7 Chloride 108 H Carbon Dioxide 23 Anion Gap 12 BUN 23 H Creatinine 1.51 H Est GFR ( Amer) 56 L Glucose 147 H Lactic Acid 2.7 H Calcium 9.0 Ferritin Total Bilirubin 0.9 AST 93 H Alkaline Phosphatase 112 C-Reactive Protein Total Protein 5.8 L Albumin 3.5 Urine Color Urine Appearance Urine pH Ur Specific [place] Urine Protein Urine Glucose (UA) Urine Ketones Urine Blood Urine Nitrite Ur Leukocyte Esterase Urine WBC (Auto) Urine RBC (Auto) 01/27/20 01/27/20 01/27/20 15:13 16:21 17:28 WBC RBC Hgb Hct MCV MCH MCHC RDW Plt Count Seg Neutrophils % Carbonic Acid 0.85 L HCO3/H2CO3 Ratio 22:1 ABG pH 7.44 ABG pCO2 28.4 L ABG pO2 127.3 H ABG HCO3 18.7 L ABG O2 Saturation 98.7 H ABG Base Excess -4.4 FiO2 50% Sodium Potassium Chloride Carbon Dioxide Anion Gap BUN Creatinine Est GFR ( Amer) Glucose Lactic Acid Calcium Ferritin 2490.00 H Total Bilirubin AST Alkaline Phosphatase C-Reactive Protein 250.0 H Total Protein Albumin Urine Color YELLOW Urine Appearance CLEAR Urine pH 5.0 Ur Specific [place] 1.017 Urine Protein 100 H Urine Glucose (UA) 50 H Urine Ketones NEGATIVE Urine Blood SMALL H Urine Nitrite NEGATIVE Ur Leukocyte Esterase NEGATIVE Urine WBC (Auto) 1 Urine RBC (Auto) 1 01/27/20 15:13 Troponin I < 0.012 NT-Pro-B Natriuret Pep 4090 H Impressions: Chest X-Ray 01/27/20 14:28 IMPRESSION: Increased interstitial thickening and ground-glass opacities bilaterally. Assessment and Plan - Diagnosis (1) Acute respiratory failure Qualifiers: Respiratory failure complication: hypoxia Qualified Code(s): J96.01 - Acute respiratory failure with hypoxia Is this a current diagnosis for this admission?: Yes Plan: 01/27/2020-patient is going to be admitted to [facility] for acute respiratory failure requiring BiPAP. Most likely secondary to community-acquired pneumonia. Started on IV Zosyn and vancomycin. Blood cultures sputum cultures are requested. GI prophylaxis DVT prophylaxis initiated. COVID-19 is negative from 01/23. (2) Afib Qualifiers: Is this a current diagnosis for this admission?: Yes Plan: 01/24/2020-patient has history of chronic A. fib. On sotalol at home plan is to continue the management at this time. (3) Hypertension Qualifiers: Is this a current diagnosis for this admission?: Yes Plan: 01/27/2020-patient has history of chronic essential hypertension. To restart home medications and to start her on IV hydralazine 10 mg every 6 hours as neede d for systolic blood pressure more than 170. (4) Sepsis Is this a current diagnosis for this admission?: Yes Plan: 01/27/2020-patient came in with high fever, chest x-ray suggestive of bilateral pneumonia, elevated lactic acid level. Hypoxic requiring BiPAP. Meeting the criteria for sepsis. (5) Pneumonia Is this a current diagnosis for this admission?: Yes Plan: 01/27/2020-came in with community-acquired pneumonia. bacterial.... to merpenam and vanc - Time Anticipated Discharge Disposition: Home, Self Care Anticipated Discharge Timeframe: within 72 hours
[2020-01-27] MEDS ORDERED: IPRATROPIUM/ALBUTEROL 0.5-2.5 MG/3 ML AMPUL NEB ONE (18:30)
--- NOTE | 2020-01-27 20:46 | RADIOLOGY REPORT (SQ) ---
CLINICAL INDICATION: pneumonia. . TECHNIQUE: Noncontrast spiral axial CT imaging was obtained of the chest with multiplanar reconstructions. This exam was performed according to our departmental dose-optimization program, which includes automated exposure control, adjustment of the mA and/or kV according to patient size and/or use of iterative reconstruction techniques. COMPARISON: April 19, 2019. CORRELATION: None. FINDINGS: The heart is top normal. No pericardial effusion. No bulky mediastinal adenopathy. Vascular calcification. The ascending thoracic aorta is top normal at 4 cm. The lungs demonstrate diffuse interstitial prominence, bilaterally. This is adverse change. More focal airspace of superimposed patchy alveolar space disease, bilaterally. This disease is right greater than left. There are areas of more confluent airspace disease upper lobes, particularly left upper lobe. Small right pleural effusion, new from prior. No pneumothorax. Visualized abdominal contents are unremarkable. Visualized bones are unremarkable. IMPRESSION: Interstitial and alveolar space disease bilaterally, consistent with pneumonia.
[2020-01-27] MEDS: MEROPENEM 1 GM in NORMAL SALINE 50 ML IV SCH (21:03)
[2020-01-27] MEDS: VANCOMYCIN HCL 500 MG in DEXTROSE 5%-WATER 100 ML IV SCH (21:34)
[2020-01-27] MEDS: ENOXAPARIN SODIUM INJ 40 MG/0.4 ML DISP.SYRIN SUBCUT SCH (21:35)
--- NOTE | 2020-01-28 00:52 | EKG REPORT ---
SEVERITY:- ABNORMAL ECG - SINUS RHYTHM LEFT AXIS DEVIATION LVH WITH SECONDARY REPOLARIZATION ABNORMALITY PROLONGED QT INTERVAL : Confirmed by: Roxana Carmona MD 28-Jan-2020 00:52:01
[2020-01-28 07:00] LABS: ABSOLUTE LYMPHOCYTES (AUTO) 1.2 10^3/uL (0.5-4.7); ABSOLUTE MONOCYTES (AUTO) 0.2 10^3/uL (0.1-1.4); ABSOLUTE NEUT (AUTO) 2.5 10^3/uL (1.7-8.2); BASOPHILS % (AUTO) 0.8 % (0-2); EOSINOPHILS % (AUTO) 0.1 % (0-6); HEMATOCRIT 29.1 % (37.9-51.0); INTERNATIONAL RATION (INR) 1.16; LYMPHOCYTES % (AUTO) 31.1 % (13-45); MEAN CORPUSCULAR HGB CONC 35.2 g/dL (32.0-36.0); MEAN CORPUSCULAR VOLUME 108 fl (80-97); MONOCYTES % (AUTO) 4.8 % (3-13); PLATELET COUNT 101 10^3/uL (150-450); PROTHROMBIN TIME 15.1 SEC (11.4-15.4); RED BLOOD COUNT 2.69 10^6/uL (4.35-5.55); RED CELL DISTRIBUTION WIDTH 15.9 % (11.5-14.0); SEGMENTED NEUTROPHILS % (AUTO) 63.2 % (42-78); TOTAL CELLS COUNTED % (AUTO) 100 %; WHITE BLOOD COUNT 3.9 10^3/uL (4.0-10.5)
[2020-01-28] MEDS: PANTOPRAZOLE SODIUM 40 MG TABLET.DR PO SCH ×2 (07:01→17:18)
[2020-01-28 07:02] LABS: HEMOGLOBIN 10.2 g/dL (13.5-17.0)
[2020-01-28 07:16] LABS: ALBUMIN 2.9 g/dL (3.5-5.0); ALKALINE PHOSPHATASE 92 U/L (38-126); ANION GAP 9 (5-19); ASPARTATE AMINO TRANSFERASE 76 U/L (17-59); BILIRUBIN,DIRECT 0.4 mg/dL (0.0-0.4); BILIRUBIN,TOTAL 0.6 mg/dL (0.2-1.3); BLOOD UREA NITROGEN 21 mg/dL (7-20); CALCIUM 8.5 mg/dL (8.4-10.2); CARBON DIOXIDE 22 mmol/L (22-30); CHLORIDE 109 mmol/L (98-107); GLUCOSE 131 mg/dL (75-110); POTASSIUM 3.3 mmol/L (3.6-5.0); TOTAL PROTEIN 4.9 g/dL (6.3-8.2); TRIGLYCERIDES 174 mg/dL (<150)
[2020-01-28 07:17] LABS: NT PRO BNP 4100 pg/mL (<125)
[2020-01-28 07:20] LABS: TROPONIN I < 0.012 ng/mL
[2020-01-28 07:27] LABS: DIRECT LDL 43 mg/dL (<100)
[2020-01-28 07:28] LABS: VLDL CHOLESTEROL 34.8 mg/dL (10-31)
--- NOTE | 2020-01-28 09:39 | PDOC PROGRESS REPORT ---
Subjective Progress Note for:: 01/28/20 Subjective:: 69 year old male with history of lymphoma last treatment 4 months ago in remission, A. fib on sotalol, psoriasis, history of smoking went to see oncologist and pulse ox is 79% in the office. Patient was referred here for further evaluation. COVID 19 is negative that was done on 01 23. In the emergency room had a fever of 103.1, hypoxic requiring BiPAP. Patient was started on Rocephin and Zithromax medical consult was called for admission. Patient is a full code at this time. To stay in the hospital for further management. [id number] male admitted with bilateral pneumonia. At the time of my examination this morning he is on oxygen via nasal cannula. COVID-19 is negative this week. Comfortably in the bed communicating well. Wants to be back on methotrexate. Reason For Visit: PNEUMONIA Physical Exam Vital Signs: Temp Pulse Resp BP Pulse Ox 97.6 F 72 16 125/71 95 01/28/20 08:17 01/28/20 08:17 01/28/20 08:17 01/28/20 08:17 01/28/20 08:24 Intake & Output 01/27/20 01/28/20 01/29/20 06:59 06:59 06:59 Intake Total 1300 Output Total 875 Balance 425 Weight 72.3 kg General appearance: PRESENT: no acute distress Head exam: PRESENT: atraumatic Eye exam: PRESENT: conjunctiva pale, PERRLA Mouth exam: PRESENT: moist, tongue midline Neck exam: ABSENT: carotid bruit, JVD, lymphadenopathy, thyromegaly Respiratory exam: PRESENT: decreased breath sounds Cardiovascular exam: PRESENT: RRR. ABSENT: diastolic murmur, rubs, systolic murmur GI/Abdominal exam: PRESENT: normal bowel sounds, soft. ABSENT: distended, guarding, mass, organolmegaly, rebound, tenderness Rectal exam: PRESENT: deferred Extremities exam: PRESENT: full ROM. ABSENT: calf tenderness, clubbing, pedal edema Neurological exam: PRESENT: alert, awake, oriented to person, oriented to place, oriented to time, oriented to situation, CN II-XII grossly intact. ABSENT: motor sensory deficit Results Laboratory Results: 01/28/20 06:26 01/28/20 06:26 01/27/20 01/27/20 01/27/20 15:13 15:13 15:13 WBC 7.1 RBC 3.31 L Hgb 12.3 L Hct 36.0 L MCV 109 H MCH 37.2 H MCHC 34.1 RDW 16.2 H Plt Count 123 L Seg Neutrophils % 70.8 Carbonic Acid HCO3/H2CO3 Ratio ABG pH ABG pCO2 ABG pO2 ABG HCO3 ABG O2 Saturation ABG Base Excess FiO2 Sodium 143.0 Potassium 3.7 Chloride 108 H Carbon Dioxide 23 Anion Gap 12 BUN 23 H Creatinine 1.51 H Est GFR ( Amer) 56 L Glucose 147 H Lactic Acid 2.7 H Calcium 9.0 Magnesium Ferritin Total Bilirubin 0.9 AST 93 H Alkaline Phosphatase 112 Ammonia C-Reactive Protein Total Protein 5.8 L Albumin 3.5 Triglycerides Cholesterol LDL Cholesterol Direct VLDL Cholesterol HDL Cholesterol Lipase TSH Urine Color Urine Appearance Urine pH Ur Specific [place] Urine Protein Urine Glucose (UA) Urine Ketones Urine Blood Urine Nitrite Ur Leukocyte Esterase Urine WBC (Auto) Urine RBC (Auto) 01/27/20 01/27/20 01/27/20 15:13 16:21 17:28 WBC RBC Hgb Hct MCV MCH MCHC RDW Plt Count Seg Neutrophils % Carbonic Acid 0.85 L HCO3/H2CO3 Ratio 22:1 ABG pH 7.44 ABG pCO2 28.4 L ABG pO2 127.3 H ABG HCO3 18.7 L ABG O2 Saturation 98.7 H ABG Base Excess -4.4 FiO2 50% Sodium Potassium Chloride Carbon Dioxide Anion Gap BUN Creatinine Est GFR ( Amer) Glucose Lactic Acid Calcium Magnesium Ferritin 2490.00 H Total Bilirubin AST Alkaline Phosphatase Ammonia C-Reactive Protein 250.0 H Total Protein Albumin Triglycerides Cholesterol LDL Cholesterol Direct VLDL Cholesterol HDL Cholesterol Lipase TSH Urine Color YELLOW Urine Appearance CLEAR Urine pH 5.0 Ur Specific [place] 1.017 Urine Protein 100 H Urine Glucose (UA) 50 H Urine Ketones NEGATIVE Urine Blood SMALL H Urine Nitrite NEGATIVE Ur Leukocyte Esterase NEGATIVE Urine WBC (Auto) 1 Urine RBC (Auto) 1 01/28/20 01/28/20 01/28/20 06:26 06:26 06:26 WBC 3.9 L RBC 2.69 L Hgb 10.2 L D Hct 29.1 L MCV 108 H MCH 38.0 H MCHC 35.2 RDW 15.9 H Plt Count 101 L Seg Neutrophils % 63.2 Carbonic Acid HCO3/H2CO3 Ratio ABG pH ABG pCO2 ABG pO2 ABG HCO3 ABG O2 Saturation ABG Base Excess FiO2 Sodium 140.4 Potassium 3.3 L Chloride 109 H Carbon Dioxide 22 Anion Gap 9 BUN 21 H Creatinine 1.19 Est GFR ( Amer) > 60 Glucose 131 H Lactic Acid Calcium 8.5 Magnesium 1.9 Ferritin Total Bilirubin 0.6 AST 76 H Alkaline Phosphatase 92 Ammonia < 8.7 L C-Reactive Protein Total Protein 4.9 L Albumin 2.9 L Triglycerides 174 H Cholesterol 95.20 LDL Cholesterol Direct 43 VLDL Cholesterol 34.8 H HDL Cholesterol 19 L Lipase 113.6 TSH Urine Color Urine Appearance Urine pH Ur Specific [place] Urine Protein Urine Glucose (UA) Urine Ketones Urine Blood Urine Nitrite Ur Leukocyte Esterase Urine WBC (Auto) Urine RBC (Auto) 01/28/20 06:26 WBC RBC Hgb Hct MCV MCH MCHC RDW Plt Count Seg Neutrophils % Carbonic Acid HCO3/H2CO3 Ratio ABG pH ABG pCO2 ABG pO2 ABG HCO3 ABG O2 Saturation ABG Base Excess FiO2 Sodium Potassium Chloride Carbon Dioxide Anion Gap BUN Creatinine Est GFR ( Amer) Glucose Lactic Acid Calcium Magnesium Ferritin Total Bilirubin AST Alkaline Phosphatase Ammonia C-Reactive Protein Total Protein Albumin Triglycerides Cholesterol LDL Cholesterol Direct VLDL Cholesterol HDL Cholesterol Lipase TSH 0.27 L Urine Color Urine Appearance Urine pH Ur Specific [place] Urine Protein Urine Glucose (UA) Urine Ketones Urine Blood Urine Nitrite Ur Leukocyte Esterase Urine WBC (Auto) Urine RBC (Auto) 01/27/20 01/27/20 01/28/20 15:13 18:49 00:15 Troponin I < 0.012 0.049 0.020 NT-Pro-B Natriuret Pep 4090 H 01/28/20 06:26 Troponin I < 0.012 NT-Pro-B Natriuret Pep 4100 H Impressions: Chest CT 01/27/20 00:00 IMPRESSION: Interstitial and alveolar space disease bilaterally, consistent with pneumonia. Chest X-Ray 01/27/20 14:28 IMPRESSION: Increased interstitial thickening and ground-glass opacities bilaterally. Assessment and Plan - Diagnosis (1) Acute respiratory failure Qualifiers: Respiratory failure complication: hypoxia Qualified Code(s): J96.01 - Acute respiratory failure with hypoxia Is this a current diagnosis for this admission?: Yes Plan: 01/27/2020-patient is going to be admitted to [facility] for acute respiratory failure requiring BiPAP. Most likely secondary to community-acquired pneumonia. Started on IV meropenam and vancomycin. Blood cultures sputum cultures are requested. GI prophylaxis DVT prophylaxis initiated. COVID-19 is negative from 01/23. 01/28/2020-patient admitted with acute respiratory failure most likely secondary to community-acquired pneumonia. Pulse ox is 94% on 4 L this morning. COVID-19 is negative on 01/23. IV meropenem and vancomycin. blood Cultures are pending at this time. (2) Afib Qualifiers: Is this a current diagnosis for this admission?: Yes Plan: 01/27/2020-patient has history of chronic A. fib. On sotalol at home plan is to continue the management at this time. 01/28/20-heart rate in the 50s this morning. Patient is on sotalol 40 mg p.o. twice daily at home. Plan is to resume the medication at this time. (3) Hypertension Qualifiers: Is this a current diagnosis for this admission?: Yes Plan: 01/27/2020-patient has history of chronic essential hypertension. To restart home medications and to start her on IV hydralazine 10 mg every 6 hours as needed for systolic blood pressure more than 170. 01/28/2020-blood pressure this morning is 130/80. Stable. (4) Sepsis Is this a current diagnosis for this admission?: Yes Plan: 01/27/2020-patient came in with high fever, chest x-ray suggestive of bilateral pneumonia, elevated lactic acid level. Hypoxic requiring BiPAP. Meeting the criteria for sepsis. 01/28/2020-patient came in with fever elevated lactic acid level, bilateral pneumonia. Also found to be in acute respiratory failure requiring BiPAP. Patient condition is improving. (5) Pneumonia Is this a current diagnosis for this admission?: Yes Plan: 01/27/2020-came in with community-acquired pneumonia. bacterial.... to merpenam and vanc - Time Anticipated Discharge Disposition: Home, Self Care Anticipated Discharge Timeframe: within 48 hours
[2020-01-28] MEDS ORDERED: VANCOMYCIN HCL INJ 1000 MG VIAL IV SCH (10:00)
[2020-01-28] MEDS ORDERED: SOTALOL HCL 80 MG TABLET PO SCH (10:00)
[2020-01-28] MEDS: ENOXAPARIN SODIUM INJ 40 MG/0.4 ML DISP.SYRIN SUBCUT SCH (10:06)
[2020-01-28] MEDS: METHOTREXATE SODIUM 2.5 MG TABLET PO SCH ×2 (10:21→22:00)
[2020-01-28] MEDS: SOTALOL HCL 80 MG TABLET PO SCH ×2 (10:21→22:01)
[2020-01-28] MEDS: MEROPENEM 1 GM in NORMAL SALINE 50 ML IV SCH ×2 (10:22→21:11)
[2020-01-28] MEDS: VANCOMYCIN HCL 500 MG in DEXTROSE 5%-WATER 100 ML IV SCH ×2 (11:21→22:02)
--- NOTE | 2020-01-28 13:44 | PDOC CONSULTATION ---
Consultation Consult Date: 01/28/20 Provider Consulted: JUSTIN GILLESPIE Consult reason:: Hematology/Oncology consultation was reuqested for patient with known lymphoma and high fever. History of Present Illness Admission Date/PCP: 01/27/20 18:20 DEJAH CARBALLO MD History of Present Illness: KRUPA VERMA is a 69 year old male who completed chemotherapy for lymphoma about 4 months ago. He was scheduled to have repeat CT as outpatient 2 days form now. However, over the past week has had increased temp up to 105 and dyspnea. He also reports severe fatigue and difficulty ambulating due to the dyspnea. His states that he had similar episode in the past with cytomegalovirus infection. He was taking oral antibiotics at home and was in the hospital earlier this month, but was afraid of COVID-19 and left. Today, he states that he is being well cared for by the nurses and that his breathing and shaking chills with sweats have improved over the past 24 hours. No other complaints today. 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, Skin Cancer GI Medical History: Denies: Hepatitis, Hiatal Hernia Musculoskeltal Medical History: Denies: Arthritis Skin Medical History: Reports: Psoriasis Psychiatric Medical History: Denies: Depression Hematology: Denies: Anemia, Sickle Cell Disease Past Surgical History Past Surgical History: Reports: Tonsillectomy, Other - SKIN BIOPSY, Mediport insertion x2 Denies: Pacemaker Social History Smoking Status: Former Smoker Cigarettes Packs Per Day: 0.5 Electronic Cigarette use?: No Pipes Per Day: 50 Last Time Smoked: 2012 Frequency of Alcohol Use: Occasional Hx Recreational Drug Use: No Drugs: None Hx Prescription Drug Abuse: No - Advance Directive Resuscitation Status: Full Code Family History Family History: Arthritis, CAD, CVA, Hyperlipidemia, Hypertension, Malignancy Parental Family History Reviewed: Yes Children Family History Reviewed: Yes Sibling(s) Family History Reviewed.: Yes Medication/Allergy Home Medications: Cefdinir 300 mg PO BID 01/27/20 Sotalol HCl [Betapace 80 mg Tablet] 40 mg PO BID 01/27/20 Allergies/Adverse Reactions: levofloxacin Allergy (Mild, Verified 01/24/20 14:15) rash amoxicillin Allergy (Unknown, Verified 01/24/20 14:15) Sulfa (Sulfonamide Antibiotics) Allergy (Verified 01/24/20 14:15) Hives Review of Systems Constitutional: PRESENT: fever(s), headache(s) Eyes: ABSENT: visual disturbances Ears: ABSENT: hearing changes Nose, Mouth, and Throat: ABSENT: sore throat Cardiovascular: ABSENT: chest pain Respiratory: PRESENT: dyspnea. ABSENT: cough Gastrointestinal: ABSENT: constipation, vomiting Genitourinary: ABSENT: dysuria Integumentary: ABSENT: pruritus Neurological: PRESENT: weakness. ABSENT: memory loss Hematologic/Lymphatic: ABSENT: easy bleeding Physical Exam Vital Signs: Temp Pulse Resp BP Pulse Ox 97.6 F 70 20 138/82 H 99 01/28/20 12:16 01/28/20 12:16 01/28/20 12:16 01/28/20 12:16 01/28/20 13:19 Intake & Output 01/27/20 01/28/20 01/29/20 06:59 06:59 06:59 Intake Total 1300 50 Output Total 875 Balance 425 50 Weight 72.3 kg General appearance: PRESENT: well-developed, well-nourished Exam: 69 year old male. Head exam: PRESENT: atraumatic, normocephalic Eye exam: PRESENT: EOMI Mouth exam: PRESENT: tongue midline Neck exam: ABSENT: lymphadenopathy, tenderness Respiratory exam: PRESENT: unlabored, wheezes GI/Abdominal exam: PRESENT: soft. ABSENT: tenderness Extremities exam: ABSENT: pedal edema Neurological exam: PRESENT: alert, awake Psychiatric exam: PRESENT: appropriate affect Skin exam: PRESENT: normal color Results Laboratory Results: 01/28/20 06:26 01/28/20 06:26 01/27/20 01/27/20 01/27/20 15:13 15:13 15:13 WBC 7.1 RBC 3.31 L Hgb 12.3 L Hct 36.0 L MCV 109 H MCH 37.2 H MCHC 34.1 RDW 16.2 H Plt Count 123 L Seg Neutrophils % 70.8 Carbonic Acid HCO3/H2CO3 Ratio ABG pH ABG pCO2 ABG pO2 ABG HCO3 ABG O2 Saturation ABG Base Excess FiO2 Sodium 143.0 Potassium 3.7 Chloride 108 H Carbon Dioxide 23 Anion Gap 12 BUN 23 H Creatinine 1.51 H Est GFR ( Amer) 56 L Glucose 147 H Lactic Acid 2.7 H Calcium 9.0 Magnesium Ferritin Total Bilirubin 0.9 AST 93 H Alkaline Phosphatase 112 Ammonia C-Reactive Protein Total Protein 5.8 L Albumin 3.5 Triglycerides Cholesterol LDL Cholesterol Direct VLDL Cholesterol HDL Cholesterol Lipase TSH Urine Color Urine Appearance Urine pH Ur Specific Hudson Urine Protein Urine Glucose (UA) Urine Ketones Urine Blood Urine Nitrite Ur Leukocyte Esterase Urine WBC (Auto) Urine RBC (Auto) 01/27/20 01/27/20 01/27/20 15:13 16:21 17:28 WBC RBC Hgb Hct MCV MCH MCHC RDW Plt Count Seg Neutrophils % Carbonic Acid 0.85 L HCO3/H2CO3 Ratio 22:1 ABG pH 7.44 ABG pCO2 28.4 L ABG pO2 127.3 H ABG HCO3 18.7 L ABG O2 Saturation 98.7 H ABG Base Excess -4.4 FiO2 50% Sodium Potassium Chloride Carbon Dioxide Anion Gap BUN Creatinine Est GFR ( Amer) Glucose Lactic Acid Calcium Magnesium Ferritin 2490.00 H Total Bilirubin AST Alkaline Phosphatase Ammonia C-Reactive Protein 250.0 H Total Protein Albumin Triglycerides Cholesterol LDL Cholesterol Direct VLDL Cholesterol HDL Cholesterol Lipase TSH Urine Color YELLOW Urine Appearance CLEAR Urine pH 5.0 Ur Specific Hudson 1.017 Urine Protein 100 H Urine Glucose (UA) 50 H Urine Ketones NEGATIVE Urine Blood SMALL H Urine Nitrite NEGATIVE Ur Leukocyte Esterase NEGATIVE Urine WBC (Auto) 1 Urine RBC (Auto) 1 01/28/20 01/28/20 01/28/20 06:26 06:26 06:26 WBC 3.9 L RBC 2.69 L Hgb 10.2 L D Hct 29.1 L MCV 108 H MCH 38.0 H MCHC 35.2 RDW 15.9 H Plt Count 101 L Seg Neutrophils % 63.2 Carbonic Acid HCO3/H2CO3 Ratio ABG pH ABG pCO2 ABG pO2 ABG HCO3 ABG O2 Saturation ABG Base Excess FiO2 Sodium 140.4 Potassium 3.3 L Chloride 109 H Carbon Dioxide 22 Anion Gap 9 BUN 21 H Creatinine 1.19 Est GFR ( Amer) > 60 Glucose 131 H Lactic Acid Calcium 8.5 Magnesium 1.9 Ferritin Total Bilirubin 0.6 AST 76 H Alkaline Phosphatase 92 Ammonia < 8.7 L C-Reactive Protein Total Protein 4.9 L Albumin 2.9 L Triglycerides 174 H Cholesterol 95.20 LDL Cholesterol Direct 43 VLDL Cholesterol 34.8 H HDL Cholesterol 19 L Lipase 113.6 TSH Urine Color Urine Appearance Urine pH Ur Specific Hudson Urine Protein Urine Glucose (UA) Urine Ketones Urine Blood Urine Nitrite Ur Leukocyte Esterase Urine WBC (Auto) Urine RBC (Auto) 01/28/20 06:26 WBC RBC Hgb Hct MCV MCH MCHC RDW Plt Count Seg Neutrophils % Carbonic Acid HCO3/H2CO3 Ratio ABG pH ABG pCO2 ABG pO2 ABG HCO3 ABG O2 Saturation ABG Base Excess FiO2 Sodium Potassium Chloride Carbon Dioxide Anion Gap BUN Creatinine Est GFR ( Amer) Glucose Lactic Acid Calcium Magnesium Ferritin Total Bilirubin AST Alkaline Phosphatase Ammonia C-Reactive Protein Total Protein Albumin Triglycerides Cholesterol LDL Cholesterol Direct VLDL Cholesterol HDL Cholesterol Lipase TSH 0.27 L Urine Color Urine Appearance Urine pH Ur Specific Hudson Urine Protein Urine Glucose (UA) Urine Ketones Urine Blood Urine Nitrite Ur Leukocyte Esterase Urine WBC (Auto) Urine RBC (Auto) 01/27/20 01/27/20 01/28/20 15:13 18:49 00:15 Troponin I < 0.012 0.049 0.020 NT-Pro-B Natriuret Pep 4090 H 01/28/20 06:26 Troponin I < 0.012 NT-Pro-B Natriuret Pep 4100 H Impressions: Chest CT 01/27/20 00:00 IMPRESSION: Interstitial and alveolar space disease bilaterally, consistent with pneumonia. Chest X-Ray 01/27/20 14:28 IMPRESSION: Increased interstitial thickening and ground-glass opacities bilaterally. Assessment & Plan - Diagnosis (1) Pneumonia Qualifiers: Laterality: bilateral Is this a current diagnosis for this admission?: Yes Plan: Currently on emperic antibiotics. Await cultures. COVID-19 testing was negative. 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 Will discuss with Dr. Carballo. Currently no treatment planned.
[2020-01-29] MEDS: PANTOPRAZOLE SODIUM 40 MG TABLET.DR PO SCH ×2 (06:22→17:30)
[2020-01-29 08:50] LABS: ABSOLUTE EOSINOPHILS # (AUTO) 0.1 10^3/uL (0.0-0.6); ABSOLUTE MONOCYTES (AUTO) 0.4 10^3/uL (0.1-1.4); ABSOLUTE NEUT (AUTO) 4.9 10^3/uL (1.7-8.2); BASOPHILS % (AUTO) 0.7 % (0-2); EOSINOPHILS % (AUTO) 1.4 % (0-6); HEMATOCRIT 35.5 % (37.9-51.0); HEMOGLOBIN 12.1 g/dL (13.5-17.0); MEAN CORPUSCULAR HGB CONC 34.1 g/dL (32.0-36.0); MEAN CORPUSCULAR VOLUME 108 fl (80-97); MONOCYTES % (AUTO) 6.1 % (3-13); PLATELET COUNT 128 10^3/uL (150-450); RED BLOOD COUNT 3.28 10^6/uL (4.35-5.55); RED CELL DISTRIBUTION WIDTH 16.1 % (11.5-14.0); SEGMENTED NEUTROPHILS % (AUTO) 75.8 % (42-78); TOTAL CELLS COUNTED % (AUTO) 100 %; WHITE BLOOD COUNT 6.5 10^3/uL (4.0-10.5)
--- NOTE | 2020-01-29 08:56 | PDOC PROGRESS REPORT ---
Subjective Progress Note for:: 01/29/20 Subjective:: 69 year old male with history of lymphoma last treatment 4 months ago in remission, A. fib on sotalol, psoriasis, history of smoking went to see oncologist and pulse ox is 79% in the office. Patient was referred here for further evaluation. COVID 19 is negative that was done on 01 23. In the emergency room had a fever of 103.1, hypoxic requiring BiPAP. Patient was started on Rocephin and Zithromax medical consult was called for admission. Patient is a full code at this time. To stay in the hospital for further management. 01/28/[id number]-twed-old male admitted with bilateral pneumonia. At the time of my examination this morning he is on oxygen via nasal cannula. COVID-19 is negative this week. Comfortably in the bed communicating well. Wants to be back on methotrexate. 01/29/[id number]-bvmm-old male with history of lymphoma admitted with bilateral pneumonia. Recent COVID-19 is negative. Doing well. Blood cultures are negative. Afebrile. Presently on meropenem, vancomycin to discontinue vancomycin at this time. As per Dr. Carballo recommendations to do the CT neck, CT chest, CT abdominal pelvis with IV contrast. Reason For Visit: PNEUMONIA Physical Exam Vital Signs: Temp Pulse Resp BP Pulse Ox 97.6 F 66 20 122/78 96 01/29/20 08:20 01/29/20 08:20 01/29/20 08:20 01/29/20 08:20 01/29/20 08:20 Intake & Output 01/28/20 01/29/20 01/30/20 06:59 06:59 06:59 Intake Total 1300 2052 Output Total 875 4100 Balance 425 -2048 Weight 72.3 kg 70.3 kg General appearance: PRESENT: no acute distress, well-developed Head exam: PRESENT: atraumatic Eye exam: PRESENT: conjunctiva pale, PERRLA Mouth exam: PRESENT: moist, tongue midline Teeth exam: PRESENT: poor dentation Neck exam: ABSENT: carotid bruit, JVD, lymphadenopathy, thyromegaly Respiratory exam: PRESENT: decreased breath sounds Cardiovascular exam: PRESENT: RRR. ABSENT: diastolic murmur, rubs, systolic murmur GI/Abdominal exam: PRESENT: normal bowel sounds, soft. ABSENT: distended, guarding, mass, organolmegaly, rebound, tenderness Rectal exam: PRESENT: deferred Extremities exam: PRESENT: full ROM. ABSENT: calf tenderness, clubbing, pedal edema Neurological exam: PRESENT: alert, awake, oriented to person, oriented to place, oriented to time, oriented to situation, CN II-XII grossly intact. ABSENT: motor sensory deficit Psychiatric exam: PRESENT: appropriate affect, normal mood. ABSENT: homicidal ideation, suicidal ideation Results Laboratory Results: 01/27/20 01/27/20 01/28/20 15:13 18:49 00:15 Troponin I < 0.012 0.049 0.020 NT-Pro-B Natriuret Pep 4090 H 01/28/20 06:26 Troponin I < 0.012 NT-Pro-B Natriuret Pep 4100 H Impressions: Chest CT 01/27/20 00:00 IMPRESSION: Interstitial and alveolar space disease bilaterally, consistent with pneumonia. Chest X-Ray 01/27/20 14:28 IMPRESSION: Increased interstitial thickening and ground-glass opacities bilaterally. Assessment and Plan - Diagnosis (1) Acute respiratory failure Qualifiers: Respiratory failure complication: hypoxia Qualified Code(s): J96.01 - Acute respiratory failure with hypoxia Is this a current diagnosis for this admission?: Yes Plan: 01/27/2020-patient is going to be admitted to [facility] for acute respiratory failure requiring BiPAP. Most likely secondary to community-acquired pneumonia. Starte d on IV meropenam and vancomycin. Blood cultures sputum cultures are requested. GI prophylaxis DVT prophylaxis initiated. COVID-19 is negative from 01/23. 01/28/2020-patient admitted with acute respiratory failure most likely secondary to community-acquired pneumonia. Pulse ox is 94% on 4 L this morning. COVID-19 is negative on 01/23. IV meropenem and vancomycin. blood Cultures are pending at this time. 01/29/2020-patient admitted with acute respiratory failure. CT scan suggestive of bilateral pneumonia. Presently on meropenem and vancomycin. Blood cultures are negative. Afebrile. Plan is to discontinue vancomycin from today. (2) Afib Qualifiers: Is this a current diagnosis for this admission?: Yes Plan: 01/27/2020-patient has history of chronic A. fib. On sotalol at home plan is to continue the management at this time. 01/28/20-heart rate in the 50s this morning. Patient is on sotalol 40 mg p.o. twice daily at home. Plan is to resume the medication at this time. 01/29/2020-heart rate is around 53 today. Patient is on sotalol 40 mg p.o. twice a day at home which is continued. (3) Hypertension Qualifiers: Is this a current diagnosis for this admission?: Yes Plan: 01/27/2020-patient has history of chronic essential hypertension. To restart home medications and to start her on IV hydralazine 10 mg every 6 hours as needed for systolic blood pressure more than 170. 01/28/2020-blood pressure this morning is 130/80. Stable. 01/29/2020-blood pressure today is 124/78. Stable. (4) Sepsis Is this a current diagnosis for this admission?: Yes Plan: 01/27/2020-patient came in with high fever, chest x-ray suggestive of bilateral pneumonia, elevated lactic acid level. Hypoxic requiring BiPAP. Meeting the criteria for sepsis. 01/28/2020-patient came in with fever elevated lactic acid level, bilateral pneumonia. Also found to be in acute respiratory failure requiring BiPAP. Patient condition is improving. 01/29/2020-blood pressure is stable, afebrile, not tachycardic. Hypoxia is resolving. Blood cultures are negative. Sepsis is resolving. (5) Pneumonia Qualifiers: Laterality: bilateral Is this a current diagnosis for this admission?: Yes Plan: 01/27/2020-came in with community-acquired pneumonia. bacterial.... to merpenam and vanc 01/29/2020-2 discontinue vancomycin from today. Blood cultures are negative. Afebrile. Oxygen requirements are decreasing. - Time Anticipated Discharge Disposition: Home, Self Care Anticipated Discharge Timeframe: within 48 hours
[2020-01-29 09:13] LABS: ALBUMIN 3.7 g/dL (3.5-5.0); ALKALINE PHOSPHATASE 97 U/L (38-126); ANION GAP 11 (5-19); ASPARTATE AMINO TRANSFERASE 116 U/L (17-59); BILIRUBIN,DIRECT 0.4 mg/dL (0.0-0.4); BILIRUBIN,TOTAL 0.9 mg/dL (0.2-1.3); BLOOD UREA NITROGEN 19 mg/dL (7-20); CALCIUM 9.1 mg/dL (8.4-10.2); CARBON DIOXIDE 26 mmol/L (22-30); CHLORIDE 103 mmol/L (98-107); GLUCOSE 96 mg/dL (75-110); POTASSIUM 3.2 mmol/L (3.6-5.0)
[2020-01-29] MEDS: ENOXAPARIN SODIUM INJ 40 MG/0.4 ML DISP.SYRIN SUBCUT SCH (09:31)
[2020-01-29] MEDS: SOTALOL HCL 80 MG TABLET PO SCH ×2 (09:58→21:45)
[2020-01-29] MEDS: MEROPENEM 1 GM in NORMAL SALINE 50 ML IV SCH ×2 (09:58→21:44)
[2020-01-29] MEDS ORDERED: METHOTREXATE SODIUM 2.5 MG TABLET PO SCH (10:00)
[2020-01-29 10:48] LABS: VANCOMYCIN,TROUGH 6.6 ug/mL (5.0-20.0)
[2020-01-29] MEDS ORDERED: POTASSIUM CHLORIDE 10 MEQ TABLET.ER PO ONE (11:00)
--- NOTE | 2020-01-29 16:12 | RADIOLOGY REPORT (SQ) ---
EXAM DESCRIPTION: CHEST 2 VIEWS IMAGES COMPLETED DATE/TIME: 01/29/2020 3:53 pm REASON FOR STUDY: pneumonia COMPARISON: 01/27/2020 TECHNIQUE: Frontal and lateral radiographic views of the chest acquired. NUMBER OF VIEWS: Two view. LIMITATIONS: None. FINDINGS: LUNGS AND PLEURA: No pneumothorax. Similar interstitial -ground-glass opacities in the ri ght lung base and left midlung. No significant pleural effusion. MEDIASTINUM AND HILAR STRUCTURES: Stable. HEART AND VASCULAR STRUCTURES: Stable. BONES: No acute findings. HARDWARE: None in the chest. OTHER: No other significant finding. IMPRESSION: Similar interstitial -ground-glass opacities in the right lung base and left midlung. N o significant pleural effusion. TECHNICAL DOCUMENTATION: JOB ID: [id number] [place]-72 2010 [employer]- All Rights Reserved Reading location - IP/workstation name: [email or web address]
[2020-01-30] MEDS: PANTOPRAZOLE SODIUM 40 MG TABLET.DR PO SCH (05:32)
--- NOTE | 2020-01-30 08:37 | PDOC PROGRESS REPORT ---
Subjective Progress Note for:: 01/30/20 Subjective:: Patient feeling much better. Anxious to go home. No fever for [address] was done yesterday. Reason For Visit: PNEUMONIA Physical Exam Vital Signs: Temp Pulse Resp BP Pulse Ox 98.1 F 61 19 127/77 H 98 01/29/20 23:29 01/30/20 07:00 01/29/20 23:29 01/29/20 23:29 01/30/20 00:36 Intake & Output 01/29/20 01/30/20 01/31/20 06:59 06:59 06:59 Intake Total 2051 910 Output Total 4099 1950 Balance -2047 Weight 70.3 kg 69.9 kg General appearance: PRESENT: no acute distress Head exam: PRESENT: normocephalic Eye exam: PRESENT: EOMI Respiratory exam: PRESENT: unlabored Extremities exam: ABSENT: pedal edema Neurological exam: PRESENT: alert, awake Skin exam: PRESENT: normal color Results Laboratory Results: 01/29/20 08:10 01/29/20 09:47 01/29/20 01/29/20 01/29/20 08:10 08:10 09:47 WBC 6.5 RBC 3.28 L Hgb 12.1 L Hct 35.5 L MCV 108 H MCH 37.0 H MCHC 34.1 RDW 16.1 H Plt Count 128 L Seg Neutrophils % 75.8 Sodium 140.2 Potassium 3.2 L Chloride 103 Carbon Dioxide 26 Anion Gap 11 BUN 19 Creatinine 1.23 1.24 Est GFR ( Amer) > 60 > 60 Glucose 96 Calcium 9.1 Magnesium 2.0 Total Bilirubin 0.9 AST 116 H Alkaline Phosphatase 97 Total Protein 6.0 L Albumin 3.7 01/27/20 01/27/20 01/28/20 15:13 18:49 00:15 Troponin I < 0.012 0.049 0.020 NT-Pro-B Natriuret Pep 4090 H 01/28/20 06:26 Troponin I < 0.012 NT-Pro-B Natriuret Pep 4100 H Impressions: Chest X-Ray 01/29/20 00:00 IMPRESSION: Similar interstitial -ground-glass opacities in the right lung base and left midlung. No significant pleural effusion. Assessment & Plan - Diagnosis (1) Pneumonia Qualifiers: Laterality: bilateral Is this a current diagnosis for this admission?: Yes Plan: Now resolved. Per Hospitalist team, but if all else looks good, I am OK with discharge and follow-up already scheduled later this week. 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 CT report still not available, but will be happy to go over this in the office, as previously scheduled. - Time Time Spent with patient: Less than 15 minutes
--- NOTE | 2020-01-30 08:53 | RADIOLOGY REPORT (SQ) ---
EXAM DESCRIPTION: CT SOFT TISSUE NECK WITH IMAGES COMPLETED DATE/TIME: 01/29/2020 4:44 pm REASON FOR STUDY: lymphoma COMPARISON: 07/12/2018. PET-CT 10/18/2019. TECHNIQUE: Post IV contrasted scanning from skull base through lung apices with review of bone, soft tissue and lung windows. Reconstructed coronal and sagittal MPR images reviewed. All images stored on PACS. All CT scanners at this facility use dose modulation, iterative reconstruction, and/or weight based d osing when appropriate to reduce radiation dose to as low as reasonably achievable (ALARA). [facility]: Dose Right [facility]: CareDose [facility]: Dose Right [facility]: Teradose 4D [facility]: [employer] RENAL FUNCTION: GFR > 60. RADIATION DOSE: CT Rad equipment meets quality standard of care and radiation dose reduction techniq ues were employed. CTDIvol: 8.1 - 9.8 mGy. DLP: 1477 mGy-cm. . LIMITATIONS: None. FINDINGS: SKULL BASE: Intact. MAJOR SALIVARY GLANDS: No solid or cystic masses. No inflammatory changes. LYMPHADENOPATHY: No adenopathy. MUCOSAL MASSES OR ASYMMETRY: No mucosal masses or asymmetry. LARYNX/CORDS: No abnormal findings. VASCULAR STRUCTURES: The major vessels are patent. LUNG APICES: See separate report same date. BONES: Intact. THYROID: Stable small nodules right thyroid which were not hypermetabolic. PARANASAL SINUSES: Clear. OTHER: No other significant finding. IMPRESSION: No evidence of recurrent lymphoma. TECHNICAL DOCUMENTATION: JOB ID: [id number] Quality ID # [id number]: Final reports with documentation of one or more dose reduction techniques (e.g., Au tomated exposure control, adjustment of the mA and/or kV according to patient size, use of iterative reconstruction technique) 2010 [employer]- All Rights Reserved Reading location - IP/workstation name: [email or web address]
[2020-01-30] MEDS: MEROPENEM 1 GM in NORMAL SALINE 50 ML IV SCH (09:02)
--- NOTE | 2020-01-30 09:04 | RADIOLOGY REPORT (SQ) ---
EXAM DESCRIPTION: CT CHEST WITH IMAGES COMPLETED DATE/TIME: 01/29/2020 4:44 pm REASON FOR STUDY: lymphoma COMPARISON: 01/27/2020 TECHNIQUE: CT scan of the chest performed using helical scanning technique with dynamic intravenous contrast injection. Images reviewed with lung, soft tissue and bone windows. Reconstructed coronal and sagittal MPR and MIP images reviewed. All images stored on PACS. All CT scanners at this facility use dose modulation, iterative reconstruction, and/or weight based d osing when appropriate to reduce radiation dose to as low as reasonably achievable (ALARA). [facility]: Dose Right [facility]: CareDose [facility]: Dose Right [facility]: Teradose 4D [facility]: [employer] RENAL FUNCTION: GFR > 60. RADIATION DOSE: . LIMITATIONS: None. FINDINGS: LUNGS AND PLEURA: Overall improved aeration in both lungs with residual ground-glass atten uation primarily in the upper lobes. No evidence of cavitation. HILAR AND MEDIASTINAL STRUCTURES: No identified masses or abnormal nodes. HEART AND VASCULAR STRUCTURES: No aneurysm or dissection. No central pulmonary emboli. No pericardi al effusion. HARDWARE: None in the chest. UPPER ABDOMEN: See separate report of the CT of the abdomen. THYROID AND OTHER SOFT TISSUES: Stable subcentimeter nodules right lobe which were not hypermetabolic . BONES: Nothing acute. OTHER: No other significant finding. IMPRESSION: Improving pneumonia. TECHNICAL DOCUMENTATION: JOB ID: [id number] Quality ID # [id number]: Final reports with documentation of one or more dose reduction techniques (e.g., Au tomated exposure control, adjustment of the mA and/or kV according to patient size, use of iterative reconstruction technique) 2010 [employer]- All Rights Reserved Reading location - IP/workstation name: [email or web address]
--- NOTE | 2020-01-30 09:07 | RADIOLOGY REPORT (SQ) ---
EXAM DESCRIPTION: CT ABD/PELVIS WITH IV ONLY IMAGES COMPLETED DATE/TIME: 01/29/2020 4:44 pm REASON FOR STUDY: lymphoma COMPARISON: 03/22/2019. PET-CT 10/18/2019. TECHNIQUE: CT scan of the abdomen and pelvis performed using helical scanning technique with dynamic intravenous contrast injection. No oral contrast. Images reviewed with lung, soft tissue, and bone windows. Reconstructed coronal and sagittal MPR images reviewed. Delayed images for evaluation of the urinary system also acquired. All images stored on PACS. All CT scanners at this facility use dose modulation, iterative reconstruction, and/or weight based d osing when appropriate to reduce radiation dose to as low as reasonably achievable (ALARA). [facility]: Dose Right [facility]: CareDose [facility]: Dose Right [facility]: Teradose 4D [facility]: [employer] CONTRAST TYPE AND DOSE: contrast/concentration: Isovue 350.00 mmol/ml; Total Contrast Delivered: 99. 0 ml; Total Saline Delivered: 66.0 ml RENAL FUNCTION: GFR > 60. RADIATION DOSE: . LIMITATIONS: None. FINDINGS: LOWER CHEST: See separate report of the CT of the chest. LIVER: Normal size. Stable cyst left lobe. No dilated ducts. SPLEEN: Normal size. No focal lesions. PANCREAS: No masses. No significant calcifications. No adjacent inflammation or peripancreatic fluid collections. Pancreatic duct not dilated. GALLBLADDER: No identified stones by CT criteria. No inflammatory changes to suggest cholecystitis. ADRENAL GLANDS: No significant masses or asymmetry. RIGHT KIDNEY AND URETER: No solid masses. No significant calcifications. No hydronephrosis or hyd roureter. LEFT KIDNEY AND URETER: No solid masses. No significant calcifications. No hydronephrosis or hydr oureter. AORTA AND VESSELS: No aneurysm. No dissection. Renal arteries, SMA, celiac without stenosis. RETROPERITONEUM: No retroperitoneal adenopathy, hemorrhage or masses. BOWEL AND PERITONEAL CAVITY: Sigmoid diverticulosis. No inflammatory changes. No ascites or adenopa thy. APPENDIX: Normal. PELVIS: No mass. No free fluid. Normal bladder. ABDOMINAL WALL: No masses. No hernias. BONES: No significant or acute findings. OTHER: No other significant finding. IMPRESSION: No evidence of recurrent lymphoma. TECHNICAL DOCUMENTATION: JOB ID: [id number] Quality ID # [id number]: Final reports with documentation of one or more dose reduction techniques (e.g., Au tomated exposure control, adjustment of the mA and/or kV according to patient size, use of iterative reconstruction technique) 2010 [employer]- All Rights Reserved Reading location - IP/workstation name: [email or web address]
[2020-01-30 10:41] VITALS: BP 133/84
--- NOTE | 2020-01-30 14:02 | PDOC DISCHARGE SUMMARY ---
Impression - Admit/DC Date/PCP Admission Date/Primary Care Provider: 01/27/20 18:20 DEJAH NAVARRETE MD Discharge Date: 01/30/20 - Discharge Diagnosis (1) Acute respiratory failure Is this a current diagnosis for this admission?: Yes (2) Afib Is this a current diagnosis for this admission?: Yes (3) Hypertension Is this a current diagnosis for this admission?: Yes (4) Sepsis Is this a current diagnosis for this admission?: Yes (5) Pneumonia Is this a current diagnosis for this admission?: Yes - Assessment Summary: 01/27/2020-patient is going to be admitted to [facility] for acute respiratory failure requiring BiPAP. Most likely secondary to community-acquired pneumonia. Started on IV meropenam and vancomycin. Blood cultures sputum cultures are requested. GI prophylaxis DVT prophylaxis initiated. COVID-19 is negative from 01/23. 01/28/2020-patient admitted with acute respiratory failure most likely secondary to community-acquired pneumonia. Pulse ox is 94% on 4 L this morning. COVID-19 is negative on 01/23. IV meropenem and vancomycin. blood Cultures are pending at this time. 01/29/2020-patient admitted with acute respiratory failure. CT scan suggestive of bilateral pneumonia. Presently on meropenem and vancomycin. Blood cultures are negative. Afebrile. Plan is to discontinue vancomycin from today. 01/30/[id number]-gkzc-old male with history of lymphoma admitted with acute respiratory failure resolved. CT scan suggestive of bilateral pneumonia. Treated with IV meropenem and vancomycin. Blood cultures came back negative. On examination this morning comfortably in the bed communicating well. Expressing desire to go home. He was given a prescription for doxycycline 100 mg p.o. twice daily for 1 week. Patient is advised to follow-up with Dr. Navarrete in 3 to 5 days. (2) Afib Qualifiers: Is this a current diagnosis for this admission?: Yes Plan: 01/27/2020-patient has history of chronic A. fib. On sotalol at home plan is to continue the management at this time. 01/28/20-heart rate in the 50s this morning. Patient is on sotalol 40 mg p.o. twice daily at home. Plan is to resume the medication at this time. 01/29/2020-heart rate is around 53 today. Patient is on sotalol 40 mg p.o. twice a day at home which is continued. 01/30/2020-heart rate is well controlled. Patient is advised to continue sotalol 40 mg p.o. twice daily at home. (3) Hypertension Qualifiers: Is this a current diagnosis for this admission?: Yes Plan: 01/27/2020-patient has history of chronic essential hypertension. To restart home medications and to start her on IV hydralazine 10 mg every 6 hours as needed for systolic blood pressure more than 170. 01/28/2020-blood pressure this morning is 130/80. Stable. 01/29/2020-blood pressure today is 124/78. Stable. 01/30/2020-blood pressure today is 127/77. Stable. (4) Sepsis Is this a current diagnosis for this admission?: Yes Plan: 01/27/2020-patient came in with high fever, chest x-ray suggestive of bilateral pneumonia, elevated lactic acid level. Hypoxic requiring BiPAP. Meeting the criteria for sepsis. 01/28/2020-patient came in with fever elevated lactic acid level, bilateral pneumonia. Also found to be in acute respiratory failure requiring BiPAP. Patient condition is improving. 01/29/2020-blood pressure is stable, afebrile, not tachycardic. Hypoxia is resolving. Blood cultures are negative. Sepsis is resolving. 01/30/2020-sepsis resolved. Hypoxia resolved. Blood cultures are negative. Blood pressure stable. Patient is given a prescription for doxycycline 100 mg p.o. twice daily for 1 week. (5) Pneumonia Qualifiers: Laterality: bilateral Is this a current diagnosis for this admission?: Yes Plan: 01/27/2020-came in with community-acquired pneumonia. bacterial.... to merpenam and vanc 01/29/2020-2 discontinue vancomycin from today. Blood cultures are negative. Afebrile. Oxygen requirements are decreasing. 01/30/2020-pulse oxes 98% room air this morning. Blood cultures negative. Prescription was given for doxycycline 100 mg p.o. twice daily for 1 week. - Additional Information Resuscitation Status: Full Code Discharge Diet: Cardiac Discharge Activity: Activity As Tolerated Referrals: DEJAH NAVARRETE MD [Primary Care Provider] - 02/02/20 11:30 am (Already scheduled later this week. ) Prescriptions: Doxycycline Hyclate 100 mg PO BID 7 Days #14 tablet. Home Medications: Sotalol HCl [Betapace 80 mg Tablet] 40 mg PO BID 01/27/20 Doxycycline Hyclate 100 mg PO BID 7 Days #14 tablet. 01/30/20 Methotrexate Sodium [Rheumatrex 2.5 mg Tablet] 3.75 mg PO Sa@1000,2200 tablet 01/30/20 Methotrexate Sodium [Rheumatrex 2.5 mg Tablet] 3.75 mg PO Batista@1000 tablet 01/30/20 History of Present Illiness History of Present Illness: KRUPA VERMA is a 69 year old male with history of lymphoma last treatment 4 months ago in remission, A. fib on sotalol, psoriasis, history of smoking went to see oncologist and pulse ox is 79% in the office. Patient was referred here for further evaluation. COVID 19 is negative that was done on 01 23. In the emergency room had a fever of 103.1, hypoxic requiring BiPAP. Patient was started on Rocephin and Zithromax medical consult was called for admission. Patient is a full code at this time. To stay in the hospital for further management. Hospital Course Hospital Course: 69 year old male with history of lymphoma last treatment 4 months ago in remission, A. fib on sotalol, psoriasis, history of smoking went to see oncologist and pulse ox is 79% in the office. Patient was referred here for further evaluation. COVID 19 is negative that was done on 01 23. In the emergency room had a fever of 103.1, hypoxic requiring BiPAP. Patient was started on Rocephin and Zithromax medical consult was called for admission. Patient is a full code at this time. To stay in the hospital for further management. 01/28/[id number]-tyni-old male admitted with bilateral pneumonia. At the time of my examination this morning he is on oxygen via nasal cannula. COVID-19 is negative this week. Comfortably in the bed communicating well. Wants to be back on methotrexate. 01/29/[id number]-gxkj-old male with history of lymphoma admitted with bilateral pneumonia. Recent COVID-19 is negative. Doing well. Blood cultures are negative. Afebrile. Presently on meropenem, vancomycin to discontinue vancomycin at this time. As per Dr. Navarrete recommendations to do the CT neck, CT chest, CT abdominal pelvis with IV contrast. Physical Exam Vital Signs: Temp Pulse Resp BP Pulse Ox 98.3 F 59 L 17 133/84 H 98 01/30/20 10:38 01/30/20 10:38 01/30/20 10:38 01/30/20 10:38 01/30/20 10:38 Intake & Output 01/29/20 01/30/20 01/31/20 06:59 06:59 06:59 Intake Total 2051 910 Output Total 4100 1950 Balance -2047 Weight 70.3 kg 69.9 kg General appearance: PRESENT: no acute distress Head exam: PRESENT: atraumatic Eye exam: PRESENT: PERRLA Ear exam: PRESENT: bleeding Mouth exam: PRESENT: neck supple Teeth exam: PRESENT: poor dentation Respiratory exam: PRESENT: decreased breath sounds Cardiovascular exam: PRESENT: RRR. ABSENT: diastolic murmur, rubs, systolic murmur GI/Abdominal exam: PRESENT: normal bowel sounds, soft. ABSENT: distended, guarding, mass, organolmegaly, rebound, tenderness Rectal exam: PRESENT: deferred Extremities exam: PRESENT: full ROM. ABSENT: calf tenderness, clubbing, pedal edema Neurological exam: PRESENT: alert, awake, oriented to person, oriented to place, oriented to time, oriented to situation, CN II-XII grossly intact. ABSENT: motor sensory deficit Psychiatric exam: PRESENT: appropriate affect, normal mood. ABSENT: homicidal ideation, suicidal ideation Skin exam: PRESENT: dry, intact, warm. ABSENT: cyanosis, rash Results Laboratory Results: WBC 6.5 10^3/uL (4.0-10.5) 01/29/20 08:10 RBC 3.28 10^6/uL (4.35-5.55) L 01/29/20 08:10 Hgb 12.1 g/dL (13.5-17.0) L 01/29/20 08:10 Hct 35.5 % (37.9-51.0) L 01/29/20 08:10 MCV 108 fl (80-97) H 01/29/20 08:10 MCH 37.0 pg (27.0-33.4) H 01/29/20 08:10 MCHC 34.1 g/dL (32.0-36.0) 01/29/20 08:10 RDW 16.1 % (11.5-14.0) H 01/29/20 08:10 Plt Count 128 10^3/uL (150-450) L 01/29/20 08:10 Lymph % (Auto) 16.0 % (13-45) 01/29/20 08:10 [place] % (Auto) 6.1 % (3-13) 01/29/20 08:10 Eos % (Auto) 1.4 % (0-6) 01/29/20 08:10 Baso % (Auto) 0.7 % (0-2) 01/29/20 08:10 Absolute Neuts (auto) 4.9 10^3/uL (1.7-8.2) 01/29/20 08:10 Absolute Lymphs (auto) 1.0 10^3/uL (0.5-4.7) 01/29/20 08:10 Absolute Monos (auto) 0.4 10^3/uL (0.1-1.4) 01/29/20 08:10 Absolute Eos (auto) 0.1 10^3/uL (0.0-0.6) 01/29/20 08:10 Absolute Basos (auto) 0.0 10^3/uL (0.0-0.2) 01/29/20 08:10 Seg Neutrophils % 75.8 % (42-78) 01/29/20 08:10 PT 15.1 SEC (11.4-15.4) 01/28/20 06:26 INR 1.16 01/28/20 06:26 Carbonic Acid 0.85 mmol/L (1.05-1.35) L 01/27/20 17:28 HCO3/H2CO3 Ratio 22:1 01/27/20 17:28 ABG pH 7.44 (7.35-7.45) 01/27/20 17:28 ABG pCO2 28.4 mmHg (35-45) L 01/27/20 17:28 ABG pO2 127.3 mmHg (80-100) H 01/27/20 17:28 ABG HCO3 18.7 mmol/L (20-24) L 01/27/20 17:28 ABG Total CO2 19.6 mmol/L (23-27) L 01/27/20 17:28 ABG O2 Saturation 98.7 % (94-98) H 01/27/20 17:28 ABG Base Excess -4.4 mmol/L 01/27/20 17:28 FiO2 50% 01/27/20 17:28 Sodium 140.2 mmol/L (137-145) 01/29/20 08:10 Potassium 3.2 mmol/L (3.6-5.0) L 01/29/20 08:10 Chloride 103 mmol/L (98-107) 01/29/20 08:10 Carbon Dioxide 26 mmol/L (22-30) 01/29/20 08:10 Anion Gap 11 (5-19) 01/29/20 08:10 BUN 19 mg/dL (7-20) 01/29/20 08:10 Creatinine 1.24 mg/dL (0.52-1.25) 01/29/20 09:47 Est GFR ( Amer) > 60 (>60) 01/29/20 09:47 Est GFR (MDRD) Non-Af 58 (>60) L 01/29/20 09:47 Glucose 96 mg/dL (75-110) 01/29/20 08:10 Hemoglobin A1c % 4.6 % (4.7-6.0) L 01/28/20 06:26 Lactic Acid 2.7 mmol/L (0.7-2.1) H 01/27/20 15:13 Calcium 9.1 mg/dL (8.4-10.2) 01/29/20 08:10 Magnesium 2.0 mg/dL (1.6-2.3) 01/29/20 08:10 Ferritin 2490.00 ng/mL (17.9-464.0) H 01/27/20 15:13 Total Bilirubin 0.9 mg/dL (0.2-1.3) 01/29/20 08:10 Direct Bilirubin 0.4 mg/dL (0.0-0.4) 01/29/20 08:10 Neonat Total Bilirubin Not Reportable 01/29/20 08:10 Neonat Direct Bilirubin Not Reportable 01/29/20 08:10 Neonat Indirect Bili Not Reportable 01/29/20 08:10 AST 116 U/L (17-59) H 01/29/20 08:10 ALT 94 U/L (<50) H 01/29/20 08:10 Alkaline Phosphatase 97 U/L (38-126) 01/29/20 08:10 Ammonia < 8.7 umol/L (9-33) L 01/28/20 06:26 Lactate Dehydrogenase 685 U/L (120-246) H 01/27/20 15:13 Troponin I < 0.012 ng/mL 01/28/20 06:26 C-Reactive Protein 250.0 mg/L (<10.0) H 01/27/20 15:13 NT-Pro-B Natriuret Pep 4100 pg/mL (<125) H 01/28/20 06:26 Total Protein 6.0 g/dL (6.3-8.2) L 01/29/20 08:10 Albumin 3.7 g/dL (3.5-5.0) 01/29/20 08:10 Triglycerides 174 mg/dL (<150) H 01/28/20 06:26 Cholesterol 95.20 mg/dL (0-200) 01/28/20 06:26 LDL Cholesterol Direct 43 mg/dL (<100) 01/28/20 06:26 VLDL Cholesterol 34.8 mg/dL (10-31) H 01/28/20 06:26 HDL Cholesterol 19 mg/dL (>40) L 01/28/20 06:26 Lipase 113.6 U/L (23-300) 01/28/20 06:26 TSH 0.27 uIU/mL (0.47-4.68) L 01/28/20 06:26 Urine Color YELLOW 01/27/20 16:21 Urine Appearance CLEAR 01/27/20 16:21 Urine pH 5.0 (5.0-9.0) 01/27/20 16:21 Ur Specific [place] 1.017 01/27/20 16:21 Urine Protein 100 mg/dL (NEGATIVE) H 01/27/20 16:21 Urine Glucose (UA) 50 mg/dL (NEGATIVE) H 01/27/20 16:21 Urine Ketones NEGATIVE mg/dL (NEGATIVE) 01/27/20 16:21 Urine Blood SMALL (NEGATIVE) H 01/27/20 16:21 Urine Nitrite NEGATIVE (NEGATIVE) 01/27/20 16:21 Urine Bilirubin NEGATIVE (NEGATIVE) 10/09/20 16:21 Urine Urobilinogen NEGATIVE mg/dL (<2.0) 01/27/20 16:21 Ur Leukocyte Esterase NEGATIVE (NEGATIVE) 01/27/20 16:21 Urine WBC (Auto) 1 /HPF 01/27/20 16:21 Urine RBC (Auto) 1 /HPF 01/27/20 16:21 Urine Mucus (Auto) RARE /LPF 01/27/20 16:21 Urine Ascorbic Acid NEGATIVE (NEGATIVE) 01/27/20 16:21 Time Trough Drawn 0947 01/29/20 09:47 Vancomycin Trough 6.6 ug/mL (5.0-20.0) 01/29/20 09:47 Influenza A (Rapid) Cancelled 01/27/20 16:36 Influenza B (Rapid) Cancelled 01/27/20 16:36 01/27/20 01/27/20 01/28/20 15:13 18:49 00:15 Troponin I < 0.012 0.049 0.020 NT-Pro-B Natriuret Pep 4090 H 01/28/20 06:26 Troponin I < 0.012 NT-Pro-B Natriuret Pep 4100 H Impressions: Chest CT 01/27/20 00:00 IMPRESSION: Interstitial and alveolar space disease bilaterally, consistent with pneumonia. Chest X-Ray 01/27/20 14:28 IMPRESSION: Increased interstitial thickening and ground-glass opacities bilaterally. Abdomen/Pelvis CT 01/29/20 00:00 IMPRESSION: No evidence of recurrent lymphoma. Chest CT 01/29/20 00:00 IMPRESSION: Improving pneumonia. Chest X-Ray 01/29/20 00:00 IMPRESSION: Similar interstitial -ground-glass opacities in the right lung base and left midlung. No significant pleural effusion. Soft Tissue Neck CT 01/29/20 00:00 IMPRESSION: No evidence of recurrent lymphoma. Plan Plan of Treatment: Patient is advised to be compliant with his medications prescription for doxycycline 100 mg p.o. twice daily was given for 1 week and he was advised to follow-up with Dr. Navarrete this week. Time Spent: Greater than 30 Minutes Stroke Is this a Stroke Patient?: No Acute Heart Failure Is this a Heart Failure Patient?: No
== END 2020-01-30 11:04 | disposition home or self-care (01) | DRG 871 ==
LOC: ER 14:05 → EH 18:20 → 3S 01-28 01:32
PROVIDERS: ADMIT Internal Medicine; ATTEND Internal Medicine
PROC: 5A09457 Assistance with Respiratory Ventilation, 24-96 Consecutive Hours, Continuous Positive Airway Pressure (ICD-10-PCS; principal; 2020-01-27)
DX: A41.9 Sepsis, unspecified organism (principal); J96.01 Acute respiratory failure with hypoxia; J15.9 Unspecified bacterial pneumonia; C83.38 Diffuse large B-cell lymphoma, lymph nodes of multiple sites; I48.20 Chronic atrial fibrillation, unspecified; I10 Essential (primary) hypertension; L40.9 Psoriasis, unspecified; R65.20 Severe sepsis without septic shock; Z79.899 Other long term (current) drug therapy; Z87.891 Personal history of nicotine dependence; Z85.828 Personal history of other malignant neoplasm of skin; Z88.1 Allergy status to other antibiotic agents; Z88.2 Allergy status to sulfonamides; Z82.61 Family history of arthritis; Z82.3 Family history of stroke; Z82.49 Family history of ischemic heart disease and other diseases of the circulatory system; Z80.9 Family history of malignant neoplasm, unspecified
CPT/HCPCS: 36415; 70491; 71046; 71250; 71260; 74177; 80053; 80061; 80202; 81001; 82140; 82565; 82728; 82803; 83036; 83605; 83615; 83690; 83735; 83880; 84443; 84484; 85025; 85610; 86140; 87040; 87804; 93005; 93010; 94660; J0456; J0696; J1100; J1650; J2185; J3370; J3490; J7030; J7060; J8610

== ENCOUNTER → 2020-05-07 | Outpatient (CLI) | payer MEDICARE, OTHER ==
--- NOTE | 2020-05-07 10:06 | RADIOLOGY REPORT (SQ) ---
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 0 ml; Total Saline Delivered: 44.0 ml RENAL FUNCTION: Creatinine 1.4 COMPARISON: None. TECHNIQUE: CT scan of the chest performed using helical scanning technique with dynamic intravenous contrast injection. Images reviewed with lung, soft tissue and bone windows. Reconstructed coronal a nd sagittal MPR images reviewed. All images stored on PACS. All CT scanners at this facility use dose modulation, iterative reconstruction, and/or weight based d osing when appropriate to reduce radiation dose to as low as reasonably achievable (ALARA). [facility]: Dose Right [facility]: CareDose [facility]: Dose Right [facility]: Teradose 4D [facility]: [employer] RADIATION DOSE: . LIMITATIONS: None. FINDINGS: AXILLAE: No adenopathy. CHEST WALL: No masses. No subcutaneous air. LUNGS: No nodules or masses. No pneumothorax. No infiltrates. PLEURA: No effusions. No calcifications. THYROID: Small bilateral thyroid nodules are unchanged in appearance. HILAR AND MEDIASTINAL STRUCTURES: No identified masses or abnormal nodes. AORTA AND GREAT VESSELS: No aneurysm. No dissection. PULMONARY ARTERIES: No identified pulmonary emboli. Study not optimized for the pulmonary arteries. HEART: No pericardial effusion. HARDWARE AND LIFELINES: None. BONES: No significant finding. OTHER: No other significant finding. IMPRESSION: No evidence of metastatic disease in the chest. Previously described airspace disease h as resolved. COMPARISON: None. RADIATION DOSE: mGy. TECHNIQUE: CT scan of the abdomen and pelvis performed with intravenous and oral contrast using advid jair scanning technique with dynamic intravenous contrast injection. Images reviewed with lung, soft tissue and bone windows. Reconstructed coronal and sagittal MPR images reviewed. Delayed images for evaluation of the urinary system also acquired and evaluated. All images stored on PACS. All CT scanners at this facility use dose modulation, iterative reconstruction, and/or weight based d osing when appropriate to reduce radiation dose to as low as reasonably achievable (ALARA). [facility]: Dose Right [facility]: [facility]: Dose Right [facility]: Teradose 4D [facility]: [employer] FINDINGS: LIVER: Small stable cyst in the right lobe anteriorly. Focal fatty infiltration adjacent to the falciform ligament. SPLEEN: Normal size. No focal lesions. PANCREAS: No masses. No significant calcifications. No adjacent inflammation or peripancreatic flui d collections. Pancreatic duct not dilated. GALLBLADDER: No identified stones by CT criteria. No inflammatory changes to suggest cholecystitis. ADRENAL GLANDS: No significant masses or asymmetry. RIGHT KIDNEY AND URETER: Multiple small hypoattenuating lesions in the right kidney. At least 3. Th cecile most likely represent complex cysts but are too small to accurately characterize. No significan t calcifications. No hydronephrosis or hydroureter. LEFT KIDNEY AND URETER: Solid exophytic mass posteriorly is smaller in size. This measures 3.5 x 1.2 cm in greatest diameter. No significant calcifications. No hydronephrosis or hydroureter. AORTA AND VESSELS: No aneurysm. No dissection. Renal arteries, SMA, celiac without stenosis. RETROPERITONEUM: No retroperitoneal adenopathy, hemorrhage or masses. LARGE AND SMALL BOWEL: Fairly extensive diverticular change involving the sigmoid colon. No acute di verticulitis. APPENDIX: Normal. ABDOMINAL WALL: No hernia or masses. PERITONEAL CAVITY: No free air. No free fluid. No peritoneal implants or masses. PELVIS: No mass or free fluid. Normal bladder. BONES: Stable sclerotic lesions in the pelvis. Single lytic lesion in the left ilium also unchanged. OTHER: No other significant finding. IMPRESSION: 1. Left exophytic left renal mass has decreased in size measuring 3.5 x 1.[address] diameter. On prior PET this showed no abnormal metabolic activity. 2. Stable lytic and sclerotic bone lesions. 3. Stable small hypoattenuating lesions in the right kidney most likely representing cysts but too s mall to accurately characterize. TECHNICAL DOCUMENTATION: JOB ID: [id number] Quality ID # [id number]: Final reports with documentation of one or more dose reduction techniques (e.g., Au tomated exposure control, adjustment of the mA and/or kV according to patient size, use of iterative reconstruction technique) 2010 [employer]- All Rights Reserved Reading location - IP/workstation name: [email or web address]
--- NOTE | 2020-05-07 10:06 | RADIOLOGY REPORT (SQ) ---
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 0 ml; Total Saline Delivered: 44.0 ml RENAL FUNCTION: Creatinine 1.4 COMPARISON: None. TECHNIQUE: CT scan of the chest performed using helical scanning technique with dynamic intravenous contrast injection. Images reviewed with lung, soft tissue and bone windows. Reconstructed coronal a nd sagittal MPR images reviewed. All images stored on PACS. All CT scanners at this facility use dose modulation, iterative reconstruction, and/or weight based d osing when appropriate to reduce radiation dose to as low as reasonably achievable (ALARA). [facility]: Dose Right [facility]: CareDose [facility]: Dose Right [facility]: Teradose 4D [facility]: [email or web address] RADIATION DOSE: . LIMITATIONS: None. FINDINGS: AXILLAE: No adenopathy. CHEST WALL: No masses. No subcutaneous air. LUNGS: No nodules or masses. No pneumothorax. No infiltrates. PLEURA: No effusions. No calcifications. THYROID: Small bilateral thyroid nodules are unchanged in appearance. HILAR AND MEDIASTINAL STRUCTURES: No identified masses or abnormal nodes. AORTA AND GREAT VESSELS: No aneurysm. No dissection. PULMONARY ARTERIES: No identified pulmonary emboli. Study not optimized for the pulmonary arteries. HEART: No pericardial effusion. HARDWARE AND LIFELINES: None. BONES: No significant finding. OTHER: No other significant finding. IMPRESSION: No evidence of metastatic disease in the chest. Previously described airspace disease h as resolved. COMPARISON: None. RADIATION DOSE: mGy. TECHNIQUE: CT scan of the abdomen and pelvis performed with intravenous and oral contrast using david jair scanning technique with dynamic intravenous contrast injection. Images reviewed with lung, soft tissue and bone windows. Reconstructed coronal and sagittal MPR images reviewed. Delayed images for evaluation of the urinary system also acquired and evaluated. All images stored on PACS. All CT scanners at this facility use dose modulation, iterative reconstruction, and/or weight based d osing when appropriate to reduce radiation dose to as low as reasonably achievable (ALARA). [facility]: Dose Right [facility]: [facility]: Dose Right [facility]: Teradose 4D [facility]: [email or web address] FINDINGS: LIVER: Small stable cyst in the right lobe anteriorly. Focal fatty infiltration adjacent to the falciform ligament. SPLEEN: Normal size. No focal lesions. PANCREAS: No masses. No significant calcifications. No adjacent inflammation or peripancreatic flui d collections. Pancreatic duct not dilated. GALLBLADDER: No identified stones by CT criteria. No inflammatory changes to suggest cholecystitis. ADRENAL GLANDS: No significant masses or asymmetry. RIGHT KIDNEY AND URETER: Multiple small hypoattenuating lesions in the right kidney. At least 3. Th cecile most likely represent complex cysts but are too small to accurately characterize. No significan t calcifications. No hydronephrosis or hydroureter. LEFT KIDNEY AND URETER: Solid exophytic mass posteriorly is smaller in size. This measures 3.5 x 1.2 cm in greatest diameter. No significant calcifications. No hydronephrosis or hydroureter. AORTA AND VESSELS: No aneurysm. No dissection. Renal arteries, SMA, celiac without stenosis. RETROPERITONEUM: No retroperitoneal adenopathy, hemorrhage or masses. LARGE AND SMALL BOWEL: Fairly extensive diverticular change involving the sigmoid colon. No acute di verticulitis. APPENDIX: Normal. ABDOMINAL WALL: No hernia or masses. PERITONEAL CAVITY: No free air. No free fluid. No peritoneal implants or masses. PELVIS: No mass or free fluid. Normal bladder. BONES: Stable sclerotic lesions in the pelvis. Single lytic lesion in the left ilium also unchanged. OTHER: No other significant finding. IMPRESSION: 1. Left exophytic left renal mass has decreased in size measuring 3.5 x 1.[address] diameter. On prior PET this showed no abnormal metabolic activity. 2. Stable lytic and sclerotic bone lesions. 3. Stable small hypoattenuating lesions in the right kidney most likely representing cysts but too s mall to accurately characterize. TECHNICAL DOCUMENTATION: JOB ID: [id number] Quality ID # [id number]: Final reports with documentation of one or more dose reduction techniques (e.g., Au tomated exposure control, adjustment of the mA and/or kV according to patient size, use of iterative reconstruction technique) 2010 [employer]- All Rights Reserved Reading location - IP/workstation name: [email or web address]
--- NOTE | 2020-05-07 10:10 | RADIOLOGY REPORT (SQ) ---
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 Reconstructed coronal and sagittal MPR images reviewed. All images stored on PACS. All CT scanners at this facility use dose modulation, iterative reconstruction, and/or weight based d osing when appropriate to reduce radiation dose to as low as reasonably achievable (ALARA). [facility]: Dose Right [facility]: CareDose [facility]: Dose Right [facility]: Teradose 4D [facility]: [employer] CONTRAST TYPE AND DOSE: 86 mL Omnipaque 350- low osmolar. RENAL FUNCTION: Creatinine 1.4 RADIATION DOSE: CT Rad equipment meets quality standard of care and radiation dose reduction techniq ues were employed. CTDIvol: 13.7 - 16.7 mGy. DLP: 2381 mGy-cm. . LIMITATIONS: None. FINDINGS: SKULL BASE: Intact. MAJOR SALIVARY GLANDS: No solid or cystic masses. No inflammatory changes. LYMPHADENOPATHY: No adenopathy. MUCOSAL MASSES OR ASYMMETRY: No mucosal masses or asymmetry. LARYNX/CORDS: No abnormal findings. VASCULAR STRUCTURES: The major vessels are patent. LUNG APICES: Clear. BONES: Intact. THYROID: Small thyroid nodules are unchanged. PARANASAL SINUSES: Small retention cyst or polyp in the right maxillary sinus is again noted. OTHER: No other significant finding. IMPRESSION: No evidence of residual or recurrent disease in the neck. TECHNICAL DOCUMENTATION: JOB ID: [id number] Quality ID # [id number]: Final reports with documentation of one or more dose reduction techniques (e.g., Au tomated exposure control, adjustment of the mA and/or kV according to patient size, use of iterative reconstruction technique) 2010 [employer]- All Rights Reserved Reading location - IP/workstation name: [email or web address]
== END ==
LOC: RAD 08:48
PROVIDERS: ATTEND Physician Assistant Medical
DX: C83.38 Diffuse large B-cell lymphoma, lymph nodes of multiple sites (principal)
CPT/HCPCS: 70491; 71260; 74177; 82565